=== PATIENT | female | born 1950 | race Caucasian/White ===

== ENCOUNTER 2017-06-12 15:54 | Inpatient (IN) | payer MEDICARE, MEDICAID ==
[2017-06-12 16:46] LABS: % BASOPHILS 0.8 % (0.0-2.0); % EOSINOPHILS 1.1 % (0.0-5.0); % LYMPHOCYTES 36.4 % (20.0-50.0); % MONOCYTES 7.4 % (2.0-10.0); % NEUTROPHILS 54.3 % (40.0-80.0); HEMOGLOBIN 14.3 gm/dL (11.7-16.1); MEAN CELL VOLUME 83.3 fl (81-100); MEAN CORPUSCULAR HGB CONC 33.6 pg (28.0-36.0); MEAN PLATELET VOLUME 9.8 fl; NEUTROPHILE ABSOLUTE 3.9 Th/cmm (1.8-8.0); PLATELET COUNT 159 Th/cmm (150-400); RED BLOOD COUNT 5.12 Mil/cmm (3.80-5.20); RED CELL DISTRIBUTION WIDTH 12.3 % (11.5-20.0)
[2017-06-12 16:59] LABS: HEMATOCRIT 42.7 % (35.0-45.0); WHITE BLOOD COUNT 7.3 Th/cmm (4.8-10.8)
--- NOTE | 2017-06-12 17:01 | ED Physician Chart ---
Chief Complaint/HPI - Patient Information Date Seen:: 06/12/17 Time Seen:: 16:20 Chief Complaint:: CONSTANT CRYING History of Present Illness:: THIS IS A CHRONICALLY ILL 67 YO FEMALE SENT FROM THE [facility] FOR MANAGEMENT OF HER PSYCHOSIS. SHE IS MENTALLY ILL WITH HYPERTENSION,SEIZURES, DEMENTIA AND ELEVATED LIPIDS. SHE HAS BEEN IN TREATMENT IN [facility] IN THE PAST. Allergies:: Allergies Allergy/AdvReac Type Severity Reaction Status Date / Time codeine Allergy Mild Verified 06/12/17 16:16 Penicillins Allergy Verified 06/12/17 16:17 Vitals:: Vital Signs - 8 hr 06/12/17 16:17 Temp 97.9 F HR 73 RR 19 BP 134/80 O2 Sat % 97 Historian:: EMS, Medical Records Review:: Nurse's Note Reviewed, Old Chart Reviewed, Transfer documents Reviewed Review of Systems - Review of Systems General/Constitutional: No fever, No chills, No weight loss, No weakness, No diaphoresis, No edema, No loss of appetite, Other (PT IS UNABLE TO GIVE A REVIEW OF SYSTEMS,) Skin: No skin lesions, No rash, No bruising Head: No headache, No light-headedness Eyes: No loss of vision, No pain, No diplopia ENT: No earache, No nasal drainage, No sore throat, No tinnitus Neck: No neck pain, No swelling, No thyromegaly, No stiffness, No mass noted Cardio Vascular: No chest pain, No palpitations, No PND, No orthopnea, No edema Pulmonary: No SOB, No cough, No sputum, No wheezing GI: No nausea, No vomiting, No diarrhea, No pain, No melena, No hematochezia, No constipation, No hematemesis G/U: No dysuria, No frequency, No hematuria Musculoskeletal: No bone or joint pain, No back pain, No muscle pain Endocrine: No polyuria, No polydipsia Psychiatric: No prior psych history, No depression, No anxiety, No suicidal ideation Hematopoietic: No bruising, No lymphadenopathy Allergic/Immuno: No urticaria, No angioedema Neurological: No syncope, No focal symptoms, No weakness, No paresthesia, No headache, No seizure, No dizziness, No confusion, No vertigo Past Medical History - Past Medical History Obtainable: No Past Medical History: HTN, CAD, Dyslipidemia, Renal stone, Arthritis, Dementia Family History: None Social History: Non Smoker, No Alcohol, No Drug Use Surgical History: None Psychiatricy History: Dementia Medication: Reviewed Family Medical History - Family Member Father History Unknown: Yes Ethnicity: Non- Living Status: Still Living Physical Exam - Physical Examination General/Constitutional: Awake, Well-developed, well-nourished, Alert, No distress, GCS 15, Non-toxic appearing, Ambulatory Other Gen/Cons comments:: COMBATIVE AND CRYING OUT CONSTANTLY Head: Atraumatic Eyes: Lids, conjuctiva normal, PERRL, EOMI Skin: Nl inspection, No rash, No skin lesions, No ecchymosis, Well hydrated, No lymphadenopathy ENMT: External ears, nose nl, Nasal exam nl, Lips, teeth, gums nl Neck: Nontender, Full ROM w/o pain, No JVD, No nuchal rigidity, No bruit, No mass, No stridor Respiratory: Nl effort/Exclusion, Clear to Auscultation, No Wheeze/Rhonchi/Rales Cardio Vascular: RRR, No murmur, gallop, rubs, NL S1 S2 GI: No tenderness/rebounding/guarding, No organomegaly, No hernia, Normal BS's, Nondistended, No mass/bruits, No McBurney tenderness : No CVA tenderness Extremities: No tenderness or effusion, Full ROM, normal strength in all extremities, No edema, Normal digits & nails Neuro/Psych: Alert/oriented, DTR's symmetric, Normal sensory exam, Normal motor strength, Normal gait, No focal deficits Other Neuro/Psych comments:: THIS PATIENT IS DISORIENTED AND UNCOOPERATIVE. Misc: normal gait, Normal back, No paraspinal tenderness Labs/Radiology/EKG Results - Lab Results Results: Abnormal Lab Results 06/12/17 16:35 WBC 7.3 D RBC 5.12 Hgb 14.3 Hct 42.7 D MCV 83.3 MCH 28.0 MCHC Differential 33.6 RDW 12.3 Plt Count 159 MPV 9.8 Neutrophils % 54.3 Lymphocytes % 36.4 Monocytes % 7.4 Eosinophils % 1.1 Basophils % 0.8 - Radiology Results Results: CHEST X-RAY = NAD - EKG Interpretations EKG Time:: 16:06 Rate & Rhythm: RATE=77 SINUS [place]: RIGHT Comments:: PREMATURE COMPLEX Assessment - Assessment General Assessment: PSYCHOSIS ED Septic Shock - . Is Septic Shock (SBP<90, OR Lactate>4 mmol\L) present?: No - <6hrs of presentation: Vital Signs: Vital Signs - 8 hr 06/12/17 16:17 Temp 97.9 F HR 73 RR 19 BP 134/80 O2 Sat % 97 Reassessment (Disposition) - Reassessment Reassessment Condition:: Unchanged - Diagnosis Diagnosis:: PSYCHOSIS - Patient Disposition Discharge/Transfer:: Acute Care w/in this hosp Admitting Medical Physician:: Michael Kendrick Admitting Psych Physician:: Jennifer Joseph Condition at Disposition:: Unchanged ED Discharge Plan - Patient Disposition Admit/Discharge/Transfer: Acute Care w/in this hosp Condition at Disposition: Unchanged Instructions: Psychosis
[2017-06-12 17:07] LABS: ALB/GLOB RATIO 1.4 (1.0-1.8); ALKALINE PHOSPHATASE 60 U/L (34-104); ANION GAP 9.3 (7.0-16.0); BILIRUBIN,TOTAL 0.3 mg/dL (0.3-1.0); BUN - UREA NITROGEN 24 mg/dL (7-25); BUN/CREATININE RATIO 34.3; CALCIUM SERUM 9.8 mg/dL (8.6-10.3); CARBON DIOXIDE 22.6 mEq/L (21.0-31.0); CHLORIDE 109 mEq/L (98-107); CREATININE - SERUM 0.7 mg/dL (0.6-1.2); GLUCOSE 109 mg/dL (70-105); POTASSIUM SERUM 3.9 mEq/L (3.5-5.1); SGOT 16 U/L (13-39); SGPT/ALT 13 U/L (7-52); SODIUM SERUM 137 mEq/L (136-145)
[2017-06-12 17:12] LABS: CHOLESTEROL 197 mg/dL (<200); TRIGLYCERIDES 113 mg/dL (<150)
[2017-06-12 17:38] LABS: URINE BILIRUBIN NEGATIVE (NEGATIVE); URINE BLOOD LARGE (NEGATIVE); URINE GLUCOSE (UA) NEGATIVE (NEGATIVE); URINE KETONE NEGATIVE (NEGATIVE); URINE PH 5.5 (4.6 - 8.0); URINE PROTEIN NEGATIVE (NEGATIVE); URINE UROBILINOGEN 0.2 E.U./dL (0.2 - 1.0)
[2017-06-12 17:45] LABS: INR 1.09 (0.5-1.4); PROTHROMBIN TIME (TEST) 11.3 SECONDS (9.5-11.5)
[2017-06-12 17:46] LABS: URINE COLOR YELLOW
[2017-06-12 17:47] LABS: URINE BACTERIA FEW /hpf (NONE SEEN); URINE EPITHELIAL CELLS FEW /lpf (FEW); URINE RBC 50-100 /hpf (0-5)
[2017-06-12] MEDS ORDERED: Magnesium Hydroxide (MOM) 30 mL UDC PO PRN (18:39)
--- NOTE | 2017-06-12 19:16 | History & Physical ---
ADMIT DATE: 06/12/2017 CHIEF COMPLAINT: Acute agitation. HISTORY OF PRESENT ILLNESS: The patient is a 67-year-old female with long history of hypertension, seizure disorder, cerebrovascular accident, hyperlipidemia, psychosis, a resident at [facility], transferred to the Emergency Room with acute psychosis, agitation, evaluated by the ER physician. Initial workup significant for urinary tract infection. The patient started on Rocephin 1 gram IM admitted to the hospital, admitted to Geropsych Department for continuation of medication and more evaluation. The patient is a poor historian. PAST MEDICAL HISTORY: Significant for hypertension, CVA, seizure disorder, hyperlipidemia, psychosis, dementia. PAST SURGICAL HISTORY: No recent surgery. ALLERGIES: None. MEDICATIONS: Follow admission reconciliation. SOCIAL HISTORY: No smoking, alcohol or drug use. FAMILY HISTORY: Noncontributory. REVIEW OF SYSTEMS: RENAL SYSTEM: No history of chronic renal disorder. CARDIOVASCULAR SYSTEM: No coronary artery disease. She has history of hypertension. ENDOCRINE SYSTEM: No diabetes or thyroid problem. GASTROINTESTINAL SYSTEM: No upper or lower extremity. NEUROLOGICAL: She has history of stroke with right-sided hemiplegia and seizure disorder. MUSCULOSKELETAL SYSTEM: Normal. She has weakness of the right side. HEMATOLOGIC SYSTEM: No bleeding tendencies. GENITOURINARY: Urinary tract infection. PHYSICAL EXAMINATION: GENERAL: She is awake, not coherent. VITAL SIGNS: Temperature is 97.9, heart rate 73, blood pressure is 134/80. HEENT: Normocephalic. Pupils reactive to light and accommodation. Sclerae clear. NECK: Supple. Negative for lymphadenopathy, JVD or bruit. CHEST: Bilateral normal. No rhonchi or wheezing. HEART: S1, S2 normal. No murmur or gallop. ABDOMEN: Soft. Bowel sounds positive. EXTREMITIES: No edema. NEUROLOGIC: Awake, not coherent. She has right-sided weakness. LABORATORY DATA: White blood cells 7.3, hemoglobin 14.2, hematocrit 42.7, and platelet is 159. Sodium 137, potassium 3.9, BUN is 24, creatinine 0.7. Urinalysis positive for 6-10 white blood cells in the urine. ASSESSMENT: 1.Urinary tract infection. 2.Hypertension. 3.Cerebrovascular accident. 4.Seizure disorder. 5.Psychosis. 6.Dementia. PLAN: The patient was admitted to the hospital under Dr. Joseph's service. MEDICAL PROBLEMS TO BE ADDRESSED DURING HOSPITALIZATION: Psychosis and urinary tract infection. PROBLEMS ADDRESSED AT DISCHARGE: Hypertension, seizure disorder, psychosis, dementia. The patient is medically stable for activity. Thank Dr. Joseph for asking me to see your patient. JOB# [id number]
[2017-06-12 19:35] VITALS: BP 130/78
[2017-06-12] MEDS ORDERED: Non-Formulary Item 1 EA (Melatonin [Melatonin] 3 MG) PO SCH (21:00)
[2017-06-12] MEDS: Atorvastatin Calcium 10 MG TAB PO SCH (21:52)
--- NOTE | 2017-06-13 09:51 | Diagnostic Imaging Report ---
Portable chest x-ray Time: 1635 History: Pain Allowing for portable technique the heart size is normal. No focal pulmonary parenchymal processes. No hilar or mediastinal abnormalities. Impression: No acute abnormalities.
[2017-06-13] MEDS: Multivitamin w/ Minerals Tab PO SCH (10:18)
--- NOTE | 2017-06-13 11:32 | Psychosocial Evaluation ---
DATE OF SERVICE: 06/13/2017 JUSTIFICATION FOR HOSPITALIZATION: Refusal care, constantly crying. CHIEF COMPLAINT: Decompensation. HISTORY OF PRESENT ILLNESS: This is a 67-year-old female who has been to this facility in the past, history of dementia as well as psychosis, refusal of care, decompensating at the custodial on [id number], the patient not answering, staring blankly, confused, disoriented, internally preoccupied. PAST PSYCHIATRIC HISTORY: Psych admissions, dementia. FAMILY HISTORY: Unknown. SOCIAL HISTORY: The patient requiring higher level of custodial care, beyond this I am not sure what her social circumstances are. MEDICATIONS: Reviewed. No side effects noted. MENTAL STATUS EXAMINATION: Stated age, fair eye contact, not talking to me, staring blankly, confused, disoriented. Unclear SI or HI, unclear psychotic symptoms, poor insight and judgment, poor impulse control. PROVISIONAL DIAGNOSES: Mood, unspecified; anxiety, unspecified; psychosis, unspecified; also dementia, possibly rule out pseudobulbar affect. MEDICAL: Please see full H and P. ESTIMATED LENGTH OF STAY: 5-7 days. ASSESSMENT: The patient requiring inpatient hospitalization, nonstop crying episodes __and still___ labile, refusing care, decompensating at the custodial. PLAN: We will restart medications and make appropriate adjustments. TREATMENT PLAN: Includes group as well as milieu therapy. CONDITIONS FOR DISCHARGE: Improved mood, improved affect, and better control of her mood symptoms. JOB# [id number] JESUS MANUEL
--- NOTE | 2017-06-13 16:32 | History & Physical ---
ADMIT DATE: 06/13/2017 CHIEF COMPLAINT: Confusion and agitation. HISTORY OF PRESENT ILLNESS: A 67-year-old male with past medical history significant for Alzheimer's disease and seizure disorder who presents from care home after being restless and having mood swings and crying fits. The patient is a poor historian. Denies any medical complaints. PAST MEDICAL HISTORY: The patient has history of Alzheimer's type dementia, seizure disorder, hypertension, hyperlipidemia. MEDICATIONS: As per reconciliation. ALLERGIES: THE PATIENT HAS ALLERGY TO PENICILLIN AND CODEINE. SOCIAL HISTORY: No known tobacco, alcohol or illicit drug use. FAMILY HISTORY: Noncontributory. REVIEW OF SYSTEMS: IMMUNOLOGIC: No recurrent infection. CARDIOVASCULAR: No known heart disease. GASTROINTESTINAL: No nausea, vomiting or diarrhea. ENDOCRINE: No diabetes or thyroid disorder. NEUROLOGIC: The patient has seizure disorder. HEMATOLOGIC: No bleeding or clotting disorder. PHYSICAL EXAMINATION: GENERAL: The patient is awake and alert, appears mildly agitated, in no distress. VITAL SIGNS: Temperature 97.6, pulse 65, respiration 18, blood pressure 102/67. HEENT: Pupils equally round. Anicteric sclerae. NECK: Supple, no JVD, mass or bruit. LUNGS: Clear to auscultation. HEART: S1, S2. Regular rate and rhythm. ABDOMEN: Soft and nontender. Positive bowel sounds. EXTREMITIES: No clubbing, cyanosis or edema. NEUROLOGIC: Generally weak, uncooperative. LABORATORY DATA: On admission is unremarkable except for glucose of 109. Urinalysis shows hematuria. IMPRESSION: 1. Alzheimer dementia. 2. Seizure disorder. 3. Hyperlipidemia. 4. Hypertension. 5. Degenerative joint disease. 6. Hematuria. PLAN: Continue current treatment. Continue patient's home medications. We will continue to monitor the patient. JOB# [id number]
[2017-06-13] MEDS: Atorvastatin Calcium 10 MG TAB PO SCH (21:33)
--- NOTE | 2017-06-13 22:39 | Admit Criteria Form ---
Admit Criteria Forms - Admit Criteria Diagnosis: PSYCHIATRIC DISORDERS (Place 'X' for any and all applicable criteria): Ongoing inpatient care may be needed for 1 or more of the following(1)(2)(3)(4)( 6)(7)(8): [ ]I. Danger to self or others not manageable at lower level of care. [ ]II. Grave disability (eg, inability to perform self care necessary at lower level of care) [ ]III. Agitation or inappropriate behavior interfering with care for primary condition (eg, attempting to discontinue lines or drains prematurely, unable to cooperate with respiratory care) [X ]IV. Severe disability or disorder indicated by ALL of the following: [X ]a) Severe behavioral health disorder-related symptoms or condition indicated by 1 or more of the following: [ ]i) Severe problem with cognition, memory, judgment, or impulse control [ X]ii) Severe clinical manifestations (eg, hallucinations , delusions, other acute psychotic symptoms, claudia, extreme agitation or anxiety) [X ]b) Patient management at lower level of care is not feasible until acute intervention or modification is initiated. Extended stay beyond goal length of stay for the primary condition may be needed until ALLof the following are present(1)(2)(3)(4)(7)48)(23): [ ]a) Danger to self or others is absent or manageable at lower level of care [ ]b) Behavior crisis management, including physical or chemical restraints, is required and is not available at a lower level of care. [ ]c) Behavioral symptoms (e.g., agitation, somnolence, inappropriate behavior) are present, and are not manageable at a lower level of care. [ ]d) Patient cannot understand follow-up treatment and crisis plan. [ ]e) Provider and supports are sufficiently available at lower level of care. [ ]f) Patient can participate (e.g., verify absence of plan for harm) and is in needed of monitoring. The original [facility] content created by [facility] has been revised. The portions of the content which have been revised are identified through the use of italic text or in bold, and [facility] has neither reviewed nor approved the modified material. All other unmodified content is copyright [facility]. Please see references footnoted in the original [facility] edition 2017 Admit Criteria Met?: Yes
[2017-06-14] MEDS: Multivitamin w/ Minerals Tab PO SCH (10:15)
--- NOTE | 2017-06-14 18:24 | General Progress Note ---
Subjective - Review of Systems Service Date: 06/14/17 Subjective: resting comfortably more calm and cooperative Objective - Results Result Diagrams: 06/12/17 16:35 06/12/17 16:35 Recent Labs: Laboratory Last Values WBC 7.3 Th/cmm (4.8-10.8) D 06/12/17 16:35 RBC 5.12 Mil/cmm (3.80-5.20) 06/12/17 16:35 Hgb 14.3 gm/dL (11.7-16.1) 06/12/17 16:35 Hct 42.7 % (35.0-45.0) D 06/12/17 16:35 MCV 83.3 fl (81-100) 06/12/17 16:35 MCH 28.0 pg (27.0-31.0) 06/12/17 16:35 MCHC Differential 33.6 pg (28.0-36.0) 06/12/17 16:35 RDW 12.3 % (11.5-20.0) 06/12/17 16:35 Plt Count 159 Th/cmm (150-400) 06/12/17 16:35 MPV 9.8 fl 06/12/17 16:35 Neutrophils % 54.3 % (40.0-80.0) 06/12/17 16:35 Lymphocytes % 36.4 % (20.0-50.0) 06/12/17 16:35 Monocytes % 7.4 % (2.0-10.0) 06/12/17 16:35 Eosinophils % 1.1 % (0.0-5.0) 06/12/17 16:35 Basophils % 0.8 % (0.0-2.0) 06/12/17 16:35 PT 11.3 SECONDS (9.5-11.5) 06/12/17 17:16 INR 1.09 (0.5-1.4) 06/12/17 17:16 Sodium 137 mEq/L (136-145) 06/12/17 16:35 Potassium 3.9 mEq/L (3.5-5.1) 06/12/17 16:35 Chloride 109 mEq/L (98-107) H 06/12/17 16:35 Carbon Dioxide 22.6 mEq/L (21.0-31.0) 06/12/17 16:35 Anion Gap 9.3 (7.0-16.0) 06/12/17 16:35 BUN 24 mg/dL (7-25) 06/12/17 16:35 Creatinine 0.7 mg/dL (0.6-1.2) 06/12/17 16:35 Est GFR ( Amer) > 60.0 ml/min (>90) 06/12/17 16:35 Est GFR (Non-Af Amer) > 60.0 ml/min 06/12/17 16:35 BUN/Creatinine Ratio 34.3 06/12/17 16:35 Glucose 109 mg/dL (70-105) H 06/12/17 16:35 Calcium 9.8 mg/dL (8.6-10.3) 06/12/17 16:35 Total Bilirubin 0.3 mg/dL (0.3-1.0) 06/12/17 16:35 AST 16 U/L (13-39) 06/12/17 16:35 ALT 13 U/L (7-52) 06/12/17 16:35 Alkaline Phosphatase 60 U/L (34-104) 06/12/17 16:35 Troponin I 0.02 ng/mL (0.01-0.05) 06/12/17 16:35 Total Protein 6.8 gm/dL (6.0-8.3) 06/12/17 16:35 Albumin 4.0 gm/dL (3.7-5.3) 06/12/17 16:35 Globulin 2.8 gm/dL 06/12/17 16:35 Albumin/Globulin Ratio 1.4 (1.0-1.8) 06/12/17 16:35 Triglycerides 113 mg/dL (<150) 06/12/17 16:35 Cholesterol 197 mg/dL (<200) 06/12/17 16:35 LDL Cholesterol Direct 139 mg/dL (75-193) 06/12/17 16:35 HDL Cholesterol 46 mg/dL (23-92) 06/12/17 16:35 TSH 1.09 uIU/ml (0.34-5.60) 06/12/17 16:35 Urine Source CLEAN C 06/12/17 17:30 Urine Color YELLOW 06/12/17 17:30 Urine Clarity SLIGHT CLOUDY (CLEAR) 06/12/17 17:30 Urine pH 5.5 (4.6 - 8.0) 06/12/17 17:30 Ur Specific [place] 1.025 (1.005-1.030) 06/12/17 17:30 Urine Protein NEGATIVE mg/dL (NEGATIVE) 06/12/17 17:30 Urine Glucose (UA) NEGATIVE mg/dL (NEGATIVE) 06/12/17 17:30 Urine Ketones NEGATIVE mg/dL (NEGATIVE) 06/12/17 17:30 Urine Blood LARGE (NEGATIVE) H 06/12/17 17:30 Urine Nitrate NEGATIVE (NEGATIVE) 06/12/17 17:30 Urine Bilirubin NEGATIVE (NEGATIVE) 06/12/17 17:30 Urine Urobilinogen 0.2 E.U./dL (0.2 - 1.0) 06/12/17 17:30 Ur Leukocyte Esterase TRACE (NEGATIVE) H 06/12/17 17:30 Urine RBC 50-100 /hpf (0-5) H 06/12/17 17:30 Urine WBC 6-10 /hpf (0-5) H 06/12/17 17:30 Ur Epithelial Cells FEW /lpf (FEW) 06/12/17 17:30 Urine Bacteria FEW /hpf (NONE SEEN) 06/12/17 17:30 Urine Mucus FEW /lpf (FEW) 06/12/17 17:30 Phenytoin < 2.5 ug/ml (10.0-20.0) L 06/12/17 16:35 RPR NONREACTIVE (NONREACTIVE) 06/12/17 16:35 - Physical Exam Vitals and I&O: Vital Signs Temp 98.2 F 06/14/17 16:19 Pulse 68 06/14/17 16:19 Resp 18 06/14/17 16:19 BP 108/61 06/14/17 16:19 Pulse Ox 96 06/14/17 16:19 Intake & Output 06/13/17 06/14/17 06/14/17 18:59 06:59 18:59 Intake Total 400 120 Balance 400 120 Intake: Oral 400 120 Other: # Voids 2 1 # Bowel Movements 1 Stool Characteristics Formed Soft Active Medications: Current Medications Acetaminophen (Tylenol) 650 mg PO Q4HR PRN PRN Reason: Pain Stop: 08/11/17 18:36 Atorvastatin Calcium (Lipitor) 10 mg PO HS [facility] PRN Reason: Protocol Stop: 08/11/17 20:59 Last Admin: 06/13/17 21:33 Dose: 10 mg Carvedilol (Coreg) 12.5 mg PO DAILY ARTEM Stop: 08/12/17 08:59 Last Admin: 06/14/17 10:13 Dose: 12.5 mg Ceftriaxone Sodium (Rocephin) 1 gm IM Q24HR ARTEM Stop: 08/12/17 08:59 Last Admin: 06/14/17 10:19 Dose: 1 gm Divalproex Sodium (Depakote Sprinkle) 250 mg PO BID ARTEM PRN Reason: Protocol Stop: 08/12/17 08:59 Last Admin: 06/14/17 14:19 Dose: Not Given Docusate Sodium (Colace) 100 mg PO BID [facility] Stop: 08/12/17 08:59 Last Admin: 06/14/17 14:19 Dose: Not Given Donepezil HCl (Aricept) 5 mg PO HS [facility] Stop: 08/12/17 20:59 Last Admin: 06/13/17 21:34 Dose: 5 mg Enalapril Maleate (Vasotec) 2.5 mg PO DAILY ARTEM Stop: 08/12/17 08:59 Last Admin: 06/14/17 10:14 Dose: 2.5 mg Fenofibrate (Tricor) 145 mg PO HS [facility] Stop: 08/11/17 20:59 Levetiracetam (Keppra) 500 mg PO BID ARTEM Stop: 08/12/17 08:59 Last Admin: 06/14/17 10:15 Dose: 500 mg Lorazepam (Ativan) 0.5 mg PO Q4HR PRN; Protocol PRN Reason: Agitation Stop: 07/13/17 06:53 Last Admin: 06/14/17 10:13 Dose: 0.5 mg Magnesium Hydroxide (Milk Of Magnesia) 30 ml PO DAILY PRN PRN Reason: Constipation Stop: 08/11/17 18:38 Miscellaneous (Melatonin [Melatonin]) 3 mg PO HS [facility] Stop: 08/11/17 20:59 Phenytoin (Dilantin) 100 mg PO BID ARTEM Stop: 08/12/17 08:59 Last Admin: 06/14/17 10:13 Dose: 100 mg Zolpidem Tartrate (Ambien) 5 mg PO HSMR1 PRN PRN Reason: Insomnia Stop: 08/12/17 06:53 General: No acute distress HEENT: PERRLA Neck: Supple Cardiovascular: Regular rate, Normal S1, Normal S2 Lungs: Clear to auscultation Abdomen: Bowel sounds, Soft Psych/Mental Status: Mood NL - Procedures Procedures: Procedures Procedure Code Date GROUP PSYCHOTHERAPY 27204 01/22/16 GROUP PSYCHOTHERAPY [id number] 01/22/16 OTHER GROUP THERAPY 94.44 11/24/13 Assessment/Plan - Problem List Patient Problems: All Active Problems CRYING AND UNCOOPERATIVE WITH CARE (Acute) CHF (Active) Dysphagia (Active) R13.10 Gastritis (Active) K29.70 S/P PEG tube placement (Active) cardiomegaly (Active) generalized muscle weakness (Active) hiatal hernia (Active) history of CVA (Active) hyperlipidemia (Active) vascular dementia (Active) Agitation (Acute) R45.1 Depression (Acute) F32.9 Hypertension (Acute) I10 Mental health problem (Acute) F48.9 - Assessment Assessment: dementia sz d/o htn djd hyperlipidemia - Plan Plan: cont current treatment
--- NOTE | 2017-06-14 20:20 | Progress Notes ---
DATE: 06/14/2017 SUBJECTIVE: The patient was seen, chart reviewed, and discussed with staff. The patient with history of dementia, psychosis, refusal of care, decompensation at the care home. The patient is not answering, staring blankly, confused, disoriented, internally preoccupied, selectively mute at times, not talking to me this morning . Noted to be irritable. Medications were reviewed. Labs were reviewed. ASSESSMENT: The patient remains symptomatic, not safe for discharge, guarded, irritable, still with behavioral disturbances that are concerning. We will continue to monitor given recent dose initiation and continuations. We will monitor and likely increase to the next few days. [facility]# [id number]
[2017-06-14] MEDS: Atorvastatin Calcium 10 MG TAB PO SCH (21:20)
[2017-06-15 07:02] LABS: % BASOPHILS 0.9 % (0.0-2.0); % MONOCYTES 8.5 % (2.0-10.0); % NEUTROPHILS 44.6 % (40.0-80.0); HEMATOCRIT 40.2 % (35.0-45.0); HEMOGLOBIN 13.5 gm/dL (11.7-16.1); MEAN CELL VOLUME 84.5 fl (81-100); MEAN CORPUSCULAR HEMOGLOBIN 28.4 pg (27.0-31.0); MEAN CORPUSCULAR HGB CONC 33.6 pg (28.0-36.0); MEAN PLATELET VOLUME 9.9 fl; NEUTROPHILE ABSOLUTE 2.6 Th/cmm (1.8-8.0); PLATELET COUNT 156 Th/cmm (150-400); RED BLOOD COUNT 4.75 Mil/cmm (3.80-5.20); RED CELL DISTRIBUTION WIDTH 12.3 % (11.5-20.0); WHITE BLOOD COUNT 5.9 Th/cmm (4.8-10.8)
[2017-06-15 07:19] LABS: ANION GAP 10.1 (7.0-16.0); BUN - UREA NITROGEN 22 mg/dL (7-25); BUN/CREATININE RATIO 31.4; CALCIUM SERUM 9.2 mg/dL (8.6-10.3); CARBON DIOXIDE 22.6 mEq/L (21.0-31.0); CHLORIDE 108 mEq/L (98-107); CREATININE - SERUM 0.7 mg/dL (0.6-1.2); GLUCOSE 108 mg/dL (70-105); POTASSIUM SERUM 4.7 mEq/L (3.5-5.1); SODIUM SERUM 136 mEq/L (136-145)
[2017-06-15] MEDS: Multivitamin w/ Minerals Tab PO SCH (08:39)
--- NOTE | 2017-06-15 19:57 | Internal Medicine Prog Note ---
Internal Medicine Subjective - Subjective Service Date: 06/15/17 Patient seen and examined:: without staff Patient is:: non-verbal, in bed Per staff patient has:: no adverse event Internal Medicine Objective - Results Result Diagrams: 06/15/17 06:45 06/15/17 06:45 Recent Labs: Laboratory Last Values WBC 5.9 Th/cmm (4.8-10.8) 06/15/17 06:45 RBC 4.75 Mil/cmm (3.80-5.20) 06/15/17 06:45 Hgb 13.5 gm/dL (11.7-16.1) 06/15/17 06:45 Hct 40.2 % (35.0-45.0) 06/15/17 06:45 MCV 84.5 fl (81-100) 06/15/17 06:45 MCH 28.4 pg (27.0-31.0) 06/15/17 06:45 MCHC Differential 33.6 pg (28.0-36.0) 06/15/17 06:45 RDW 12.3 % (11.5-20.0) 06/15/17 06:45 Plt Count 156 Th/cmm (150-400) 06/15/17 06:45 MPV 9.9 fl 06/15/17 06:45 Neutrophils % 44.6 % (40.0-80.0) 06/15/17 06:45 Lymphocytes % 44.0 % (20.0-50.0) 06/15/17 06:45 Monocytes % 8.5 % (2.0-10.0) 06/15/17 06:45 Eosinophils % 2.0 % (0.0-5.0) 06/15/17 06:45 Basophils % 0.9 % (0.0-2.0) 06/15/17 06:45 PT 11.3 SECONDS (9.5-11.5) 06/12/17 17:16 INR 1.09 (0.5-1.4) 06/12/17 17:16 Sodium 136 mEq/L (136-145) 06/15/17 06:45 Potassium 4.7 mEq/L (3.5-5.1) 06/15/17 06:45 Chloride 108 mEq/L (98-107) H 06/15/17 06:45 Carbon Dioxide 22.6 mEq/L (21.0-31.0) 06/15/17 06:45 Anion Gap 10.1 (7.0-16.0) 06/15/17 06:45 BUN 22 mg/dL (7-25) 06/15/17 06:45 Creatinine 0.7 mg/dL (0.6-1.2) 06/15/17 06:45 Est GFR ( Amer) > 60.0 ml/min (>90) 06/15/17 06:45 Est GFR (Non-Af Amer) > 60.0 ml/min 06/15/17 06:45 BUN/Creatinine Ratio 31.4 06/15/17 06:45 Glucose 108 mg/dL (70-105) H 06/15/17 06:45 Calcium 9.2 mg/dL (8.6-10.3) 06/15/17 06:45 Total Bilirubin 0.3 mg/dL (0.3-1.0) 06/12/17 16:35 AST 16 U/L (13-39) 06/12/17 16:35 ALT 13 U/L (7-52) 06/12/17 16:35 Alkaline Phosphatase 60 U/L (34-104) 06/12/17 16:35 Troponin I 0.02 ng/mL (0.01-0.05) 06/12/17 16:35 Total Protein 6.8 gm/dL (6.0-8.3) 06/12/17 16:35 Albumin 4.0 gm/dL (3.7-5.3) 06/12/17 16:35 Globulin 2.8 gm/dL 06/12/17 16:35 Albumin/Globulin Ratio 1.4 (1.0-1.8) 06/12/17 16:35 Triglycerides 113 mg/dL (<150) 06/12/17 16:35 Cholesterol 197 mg/dL (<200) 06/12/17 16:35 LDL Cholesterol Direct 139 mg/dL (75-193) 06/12/17 16:35 HDL Cholesterol 46 mg/dL (23-92) 06/12/17 16:35 TSH 1.09 uIU/ml (0.34-5.60) 06/12/17 16:35 Urine Source CLEAN C 06/12/17 17:30 Urine Color YELLOW 06/12/17 17:30 Urine Clarity SLIGHT CLOUDY (CLEAR) 06/12/17 17:30 Urine pH 5.5 (4.6 - 8.0) 06/12/17 17:30 Ur Specific [place] 1.025 (1.005-1.030) 06/12/17 17:30 Urine Protein NEGATIVE mg/dL (NEGATIVE) 06/12/17 17:30 Urine Glucose (UA) NEGATIVE mg/dL (NEGATIVE) 06/12/17 17:30 Urine Ketones NEGATIVE mg/dL (NEGATIVE) 06/12/17 17:30 Urine Blood LARGE (NEGATIVE) H 06/12/17 17:30 Urine Nitrate NEGATIVE (NEGATIVE) 06/12/17 17:30 Urine Bilirubin NEGATIVE (NEGATIVE) 06/12/17 17:30 Urine Urobilinogen 0.2 E.U./dL (0.2 - 1.0) 06/12/17 17:30 Ur Leukocyte Esterase TRACE (NEGATIVE) H 06/12/17 17:30 Urine RBC 50-100 /hpf (0-5) H 06/12/17 17:30 Urine WBC 6-10 /hpf (0-5) H 06/12/17 17:30 Ur Epithelial Cells FEW /lpf (FEW) 06/12/17 17:30 Urine Bacteria FEW /hpf (NONE SEEN) 06/12/17 17:30 Urine Mucus FEW /lpf (FEW) 06/12/17 17:30 Phenytoin < 2.5 ug/ml (10.0-20.0) L 06/12/17 16:35 RPR NONREACTIVE (NONREACTIVE) 06/12/17 16:35 - Physical Exam Vitals and I&O: Vital Signs Temp 97.4 F 06/15/17 15:43 Pulse 72 06/15/17 15:43 Resp 20 06/15/17 15:43 BP 122/67 06/15/17 15:43 Pulse Ox 97 06/15/17 15:43 Intake & Output 06/15/17 06/15/17 06/16/17 06:59 18:59 06:59 Intake Total 120 Balance 120 Weight (lbs) 74.843 kg Intake: Oral 120 Other: # Voids 3 # Bowel Movements 0 Active Medications: Current Medications Acetaminophen (Tylenol) 650 mg PO Q4HR PRN PRN Reason: Pain Stop: 08/11/17 18:36 Atorvastatin Calcium (Lipitor) 10 mg PO HS [facility]EM PRN Reason: Protocol Stop: 08/11/17 20:59 Last Admin: 06/14/17 21:20 Dose: 10 mg Carvedilol (Coreg) 12.5 mg PO DAILY [facility] Stop: 08/12/17 08:59 Last Admin: 06/15/17 08:37 Dose: Not Given Ceftriaxone Sodium (Rocephin) 1 gm IM Q24HR ARTEM Stop: 08/12/17 08:59 Last Admin: 06/15/17 08:59 Dose: Not Given Divalproex Sodium (Depakote Sprinkle) 250 mg PO BID [facility] PRN Reason: Protocol Stop: 08/12/17 08:59 Last Admin: 06/15/17 18:21 Dose: Not Given Docusate Sodium (Colace) 100 mg PO BID [facility] Stop: 08/12/17 08:59 Last Admin: 06/15/17 18:21 Dose: Not Given Donepezil HCl (Aricept) 5 mg PO HS [facility] Stop: 08/12/17 20:59 Last Admin: 06/14/17 21:20 Dose: 5 mg Enalapril Maleate (Vasotec) 2.5 mg PO DAILY [facility]EM Stop: 08/12/17 08:59 Last Admin: 06/15/17 08:38 Dose: Not Given Escitalopram Oxalate (Lexapro) 5 mg PO DAILY [facility] PRN Reason: Protocol Stop: 08/15/17 08:59 Fenofibrate (Tricor) 145 mg PO HS [facility] Stop: 08/14/17 20:59 Levetiracetam (Keppra) 500 mg PO BID [facility] Stop: 08/12/17 08:59 Last Admin: 06/15/17 18:21 Dose: Not Given Lorazepam (Ativan) 0.5 mg PO Q4HR PRN; Protocol PRN Reason: Agitation Stop: 07/13/17 06:53 Last Admin: 06/14/17 10:13 Dose: 0.5 mg Magnesium Hydroxide (Milk Of Magnesia) 30 ml PO DAILY PRN PRN Reason: Constipation Stop: 08/11/17 18:38 Phenytoin (Dilantin) 100 mg PO BID [facility] Stop: 08/12/17 08:59 Last Admin: 06/15/17 18:21 Dose: Not Given Zolpidem Tartrate (Ambien) 5 mg PO HSMR1 PRN PRN Reason: Insomnia Stop: 08/12/17 06:53 General: weak, thin HEENT: NC/AT, PERRLA, EOMI Neck: Supple, No JVD, No thyromegaly, No LAD Lungs: CTAB Cardiovascular: RRR, Normal S1, Normal S2, without murmur Abdomen: soft, non-tender Extremities: clear, edema Neurological: no change - Procedures Procedures: Procedures Procedure Code Date GROUP PSYCHOTHERAPY 97701 01/22/16 GROUP PSYCHOTHERAPY GZHZZZZ 01/22/16 OTHER GROUP THERAPY 94.44 11/24/13 Internal Medicine Assmt/Plan - Assessment Assessment: 1.UTI 2.CVA. 3.SEIZURE DISORDER. 4.DEMENTIA. - Plan Plan: CONTINUE ON CURRENT MEDICATION AND DIET.
[2017-06-15] MEDS: Fenofibrate, Micronized 134 mg Cap PO SCH (21:20)
[2017-06-15] MEDS: Atorvastatin Calcium 10 MG TAB PO SCH ×2 (21:21→21:32)
--- NOTE | 2017-06-16 00:02 | Progress Notes ---
DATE: 06/15/2017 SUBJECTIVE: Case was discussed with staff of the patient, reviewed records. This is a 67-year-old female who is a well known patient, I have been seeing her at [facility], who was readmitted on 06/12/2017 because of depression, agitation, continues to be unpredictable, impulsive, needing redirection. She has been on Depakote 250 mg twice a day and Aricept 5 mg at bedtime, and she is still crying unpredictable, impulsive, needing redirection. Continues to have poor insight, unable to make safe plan for self-care. I will be initiating her on Lexapro, which she used to be own before and discussed side effects. I will continue to work with the patient in group therapy, milieu therapy, adjust the medication as needed. JOB# [id number]
[2017-06-16] MEDS: Escitalopram Oxalate 5 mg Tab PO SCH (08:43)
[2017-06-16] MEDS: Multivitamin w/ Minerals Tab PO SCH ×2 (08:43→08:58)
--- NOTE | 2017-06-16 20:37 | Internal Medicine Prog Note ---
Internal Medicine Subjective - Subjective Service Date: 06/16/17 Patient seen and examined:: without staff Patient is:: non-verbal, in bed Per staff patient has:: no adverse event Internal Medicine Objective - Results Result Diagrams: 06/15/17 06:45 06/15/17 06:45 Recent Labs: Laboratory Last Values WBC 5.9 Th/cmm (4.8-10.8) 06/15/17 06:45 RBC 4.75 Mil/cmm (3.80-5.20) 06/15/17 06:45 Hgb 13.5 gm/dL (11.7-16.1) 06/15/17 06:45 Hct 40.2 % (35.0-45.0) 06/15/17 06:45 MCV 84.5 fl (81-100) 06/15/17 06:45 MCH 28.4 pg (27.0-31.0) 06/15/17 06:45 MCHC Differential 33.6 pg (28.0-36.0) 06/15/17 06:45 RDW 12.3 % (11.5-20.0) 06/15/17 06:45 Plt Count 156 Th/cmm (150-400) 06/15/17 06:45 MPV 9.9 fl 06/15/17 06:45 Neutrophils % 44.6 % (40.0-80.0) 06/15/17 06:45 Lymphocytes % 44.0 % (20.0-50.0) 06/15/17 06:45 Monocytes % 8.5 % (2.0-10.0) 06/15/17 06:45 Eosinophils % 2.0 % (0.0-5.0) 06/15/17 06:45 Basophils % 0.9 % (0.0-2.0) 06/15/17 06:45 PT 11.3 SECONDS (9.5-11.5) 06/12/17 17:16 INR 1.09 (0.5-1.4) 06/12/17 17:16 Sodium 136 mEq/L (136-145) 06/15/17 06:45 Potassium 4.7 mEq/L (3.5-5.1) 06/15/17 06:45 Chloride 108 mEq/L (98-107) H 06/15/17 06:45 Carbon Dioxide 22.6 mEq/L (21.0-31.0) 06/15/17 06:45 Anion Gap 10.1 (7.0-16.0) 06/15/17 06:45 BUN 22 mg/dL (7-25) 06/15/17 06:45 Creatinine 0.7 mg/dL (0.6-1.2) 06/15/17 06:45 Est GFR ( Amer) > 60.0 ml/min (>90) 06/15/17 06:45 Est GFR (Non-Af Amer) > 60.0 ml/min 06/15/17 06:45 BUN/Creatinine Ratio 31.4 06/15/17 06:45 Glucose 108 mg/dL (70-105) H 06/15/17 06:45 Calcium 9.2 mg/dL (8.6-10.3) 06/15/17 06:45 Total Bilirubin 0.3 mg/dL (0.3-1.0) 06/12/17 16:35 AST 16 U/L (13-39) 06/12/17 16:35 ALT 13 U/L (7-52) 06/12/17 16:35 Alkaline Phosphatase 60 U/L (34-104) 06/12/17 16:35 Troponin I 0.02 ng/mL (0.01-0.05) 06/12/17 16:35 Total Protein 6.8 gm/dL (6.0-8.3) 06/12/17 16:35 Albumin 4.0 gm/dL (3.7-5.3) 06/12/17 16:35 Globulin 2.8 gm/dL 06/12/17 16:35 Albumin/Globulin Ratio 1.4 (1.0-1.8) 06/12/17 16:35 Triglycerides 113 mg/dL (<150) 06/12/17 16:35 Cholesterol 197 mg/dL (<200) 06/12/17 16:35 LDL Cholesterol Direct 139 mg/dL (75-193) 06/12/17 16:35 HDL Cholesterol 46 mg/dL (23-92) 06/12/17 16:35 TSH 1.09 uIU/ml (0.34-5.60) 06/12/17 16:35 Urine Source CLEAN C 06/12/17 17:30 Urine Color YELLOW 06/12/17 17:30 Urine Clarity SLIGHT CLOUDY (CLEAR) 06/12/17 17:30 Urine pH 5.5 (4.6 - 8.0) 06/12/17 17:30 Ur Specific [place] 1.025 (1.005-1.030) 06/12/17 17:30 Urine Protein NEGATIVE mg/dL (NEGATIVE) 06/12/17 17:30 Urine Glucose (UA) NEGATIVE mg/dL (NEGATIVE) 06/12/17 17:30 Urine Ketones NEGATIVE mg/dL (NEGATIVE) 06/12/17 17:30 Urine Blood LARGE (NEGATIVE) H 06/12/17 17:30 Urine Nitrate NEGATIVE (NEGATIVE) 06/12/17 17:30 Urine Bilirubin NEGATIVE (NEGATIVE) 06/12/17 17:30 Urine Urobilinogen 0.2 E.U./dL (0.2 - 1.0) 06/12/17 17:30 Ur Leukocyte Esterase TRACE (NEGATIVE) H 06/12/17 17:30 Urine RBC 50-100 /hpf (0-5) H 06/12/17 17:30 Urine WBC 6-10 /hpf (0-5) H 06/12/17 17:30 Ur Epithelial Cells FEW /lpf (FEW) 06/12/17 17:30 Urine Bacteria FEW /hpf (NONE SEEN) 06/12/17 17:30 Urine Mucus FEW /lpf (FEW) 06/12/17 17:30 Phenytoin < 2.5 ug/ml (10.0-20.0) L 06/12/17 16:35 RPR NONREACTIVE (NONREACTIVE) 06/12/17 16:35 - Physical Exam Vitals and I&O: Vital Signs Temp 98 F 06/16/17 14:00 Pulse 66 06/16/17 14:00 Resp 19 06/16/17 14:00 BP 128/67 06/16/17 14:00 Pulse Ox 98 06/16/17 14:00 Intake & Output 06/16/17 06/16/17 06/17/17 06:59 18:59 06:59 Intake Total 120 2320 Balance 120 2320 Intake: Oral 120 2320 Other: # Voids 1 4 # Bowel Movements 0 Active Medications: Current Medications Acetaminophen (Tylenol) 650 mg PO Q4HR PRN PRN Reason: Pain Stop: 08/11/17 18:36 Atorvastatin Calcium (Lipitor) 10 mg PO HS [facility] PRN Reason: Protocol Stop: 08/11/17 20:59 Last Admin: 06/15/17 21:32 Dose: Not Given Carvedilol (Coreg) 12.5 mg PO DAILY [facility] Stop: 08/12/17 08:59 Last Admin: 06/16/17 08:43 Dose: Not Given Ceftriaxone Sodium (Rocephin) 1 gm IM Q24HR [facility] Stop: 08/12/17 08:59 Last Admin: 06/16/17 08:55 Dose: Not Given Divalproex Sodium (Depakote Sprinkle) 250 mg PO BID [facility] PRN Reason: Protocol Stop: 08/12/17 08:59 Last Admin: 06/16/17 16:14 Dose: Not Given Docusate Sodium (Colace) 100 mg PO BID [facility] Stop: 08/12/17 08:59 Last Admin: 06/16/17 16:14 Dose: Not Given Donepezil HCl (Aricept) 5 mg PO HS [facility] Stop: 08/12/17 20:59 Last Admin: 06/15/17 21:32 Dose: Not Given Enalapril Maleate (Vasotec) 2.5 mg PO DAILY [facility]EM Stop: 08/12/17 08:59 Last Admin: 06/16/17 08:44 Dose: Not Given Escitalopram Oxalate (Lexapro) 5 mg PO DAILY [facility] PRN Reason: Protocol Stop: 08/15/17 08:59 Last Admin: 06/16/17 08:43 Dose: Not Given Fenofibrate (Tricor) 145 mg PO HS [facility] Stop: 08/14/17 20:59 Last Admin: 06/15/17 21:20 Dose: Not Given Levetiracetam (Keppra) 500 mg PO BID [facility] Stop: 08/12/17 08:59 Last Admin: 06/16/17 16:14 Dose: Not Given Lorazepam (Ativan) 0.5 mg PO Q4HR PRN; Protocol PRN Reason: Agitation Stop: 07/13/17 06:53 Last Admin: 06/14/17 10:13 Dose: 0.5 mg Magnesium Hydroxide (Milk Of Magnesia) 30 ml PO DAILY PRN PRN Reason: Constipation Stop: 08/11/17 18:38 Phenytoin (Dilantin) 100 mg PO BID [facility] Stop: 08/12/17 08:59 Last Admin: 06/16/17 16:14 Dose: Not Given Zolpidem Tartrate (Ambien) 5 mg PO HSMR1 PRN PRN Reason: Insomnia Stop: 08/12/17 06:53 General: weak, thin HEENT: NC/AT, PERRLA, EOMI Neck: Supple, No JVD, No thyromegaly, No LAD Lungs: CTAB Cardiovascular: RRR, Normal S1, Normal S2, without murmur Abdomen: soft, non-tender Extremities: clear, edema Neurological: no change - Procedures Procedures: Procedures Procedure Code Date GROUP PSYCHOTHERAPY 33170 01/22/16 GROUP PSYCHOTHERAPY GZHZZZZ 01/22/16 OTHER GROUP THERAPY 94.44 11/24/13 Internal Medicine Assmt/Plan - Assessment Assessment: 1.UTI 2.CVA. 3.SEIZURE DISORDER. 4.DEMENTIA. - Plan Plan: CONTINUE ON CURRENT MEDICATION AND DIET.
[2017-06-16] MEDS: Fenofibrate, Micronized 134 mg Cap PO SCH (20:40)
[2017-06-16] MEDS: Atorvastatin Calcium 10 MG TAB PO SCH (20:40)
--- NOTE | 2017-06-16 22:43 | Progress Notes ---
DATE: 06/16/2017 Case was discussed with staff of the patient, reviewed records. The patient continues to isolate herself. Continues to decline, asking for help. Continues to be unpredictable, impulsive, and overwhelmed. The staff observed that she tends to have sundowning. She gets worse in the evening and she was started on Aricept 5 mg at bedtime and was initiated on Lexapro yesterday, waiting for more effects from the medications too early to adjust it and so far no side effects with the medication, no sedation, no nausea, and we will continue to work with the patient in group therapy, milieu therapy, and adjust medication as needed. JOB# [id number]
[2017-06-17] MEDS: Multivitamin w/ Minerals Tab PO SCH (08:08)
[2017-06-17] MEDS: Escitalopram Oxalate 5 mg Tab PO SCH (08:08)
[2017-06-17] MEDS: Atorvastatin Calcium 10 MG TAB PO SCH (20:50)
--- NOTE | 2017-06-17 21:48 | Progress Notes ---
DATE: 06/17/2017 SUBJECTIVE: Case was discussed with staff of the patient, reviewed records. The patient has refused her medications yesterday in the morning and at night and same on Thursday. I talked to her this morning, she was pleasant, cooperative. She patted me on my cheeks and I asked her if she would take her medications, she smiled, which I think she meant she will take them so I did I tried to ask her what medication she will take, if she does not like this medication, or what is the reason she won't take her medications, but she would not give me any specific answers, so we will try to give her medication as she acted like she would take it as she nodded her head and so far no side effects with the medication. We will continue to work with the patient in group therapy, milieu therapy, and adjust medications as needed. JOB# [id number]
--- NOTE | 2017-06-17 21:54 | Internal Medicine Prog Note ---
Internal Medicine Subjective - Subjective Service Date: 06/17/17 Patient seen and examined:: with staff Patient is:: non-verbal, in bed Per staff patient has:: no adverse event Internal Medicine Objective - Results Result Diagrams: 06/15/17 06:45 06/15/17 06:45 Recent Labs: Laboratory Last Values WBC 5.9 Th/cmm (4.8-10.8) 06/15/17 06:45 RBC 4.75 Mil/cmm (3.80-5.20) 06/15/17 06:45 Hgb 13.5 gm/dL (11.7-16.1) 06/15/17 06:45 Hct 40.2 % (35.0-45.0) 06/15/17 06:45 MCV 84.5 fl (81-100) 06/15/17 06:45 MCH 28.4 pg (27.0-31.0) 06/15/17 06:45 MCHC Differential 33.6 pg (28.0-36.0) 06/15/17 06:45 RDW 12.3 % (11.5-20.0) 06/15/17 06:45 Plt Count 156 Th/cmm (150-400) 06/15/17 06:45 MPV 9.9 fl 06/15/17 06:45 Neutrophils % 44.6 % (40.0-80.0) 06/15/17 06:45 Lymphocytes % 44.0 % (20.0-50.0) 06/15/17 06:45 Monocytes % 8.5 % (2.0-10.0) 06/15/17 06:45 Eosinophils % 2.0 % (0.0-5.0) 06/15/17 06:45 Basophils % 0.9 % (0.0-2.0) 06/15/17 06:45 PT 11.3 SECONDS (9.5-11.5) 06/12/17 17:16 INR 1.09 (0.5-1.4) 06/12/17 17:16 Sodium 136 mEq/L (136-145) 06/15/17 06:45 Potassium 4.7 mEq/L (3.5-5.1) 06/15/17 06:45 Chloride 108 mEq/L (98-107) H 06/15/17 06:45 Carbon Dioxide 22.6 mEq/L (21.0-31.0) 06/15/17 06:45 Anion Gap 10.1 (7.0-16.0) 06/15/17 06:45 BUN 22 mg/dL (7-25) 06/15/17 06:45 Creatinine 0.7 mg/dL (0.6-1.2) 06/15/17 06:45 Est GFR ( Amer) > 60.0 ml/min (>90) 06/15/17 06:45 Est GFR (Non-Af Amer) > 60.0 ml/min 06/15/17 06:45 BUN/Creatinine Ratio 31.4 06/15/17 06:45 Glucose 108 mg/dL (70-105) H 06/15/17 06:45 Calcium 9.2 mg/dL (8.6-10.3) 06/15/17 06:45 Total Bilirubin 0.3 mg/dL (0.3-1.0) 06/12/17 16:35 AST 16 U/L (13-39) 06/12/17 16:35 ALT 13 U/L (7-52) 06/12/17 16:35 Alkaline Phosphatase 60 U/L (34-104) 06/12/17 16:35 Troponin I 0.02 ng/mL (0.01-0.05) 06/12/17 16:35 Total Protein 6.8 gm/dL (6.0-8.3) 06/12/17 16:35 Albumin 4.0 gm/dL (3.7-5.3) 06/12/17 16:35 Globulin 2.8 gm/dL 06/12/17 16:35 Albumin/Globulin Ratio 1.4 (1.0-1.8) 06/12/17 16:35 Triglycerides 113 mg/dL (<150) 06/12/17 16:35 Cholesterol 197 mg/dL (<200) 06/12/17 16:35 LDL Cholesterol Direct 139 mg/dL (75-193) 06/12/17 16:35 HDL Cholesterol 46 mg/dL (23-92) 06/12/17 16:35 TSH 1.09 uIU/ml (0.34-5.60) 06/12/17 16:35 Urine Source CLEAN C 06/12/17 17:30 Urine Color YELLOW 06/12/17 17:30 Urine Clarity SLIGHT CLOUDY (CLEAR) 06/12/17 17:30 Urine pH 5.5 (4.6 - 8.0) 06/12/17 17:30 Ur Specific [place] 1.025 (1.005-1.030) 06/12/17 17:30 Urine Protein NEGATIVE mg/dL (NEGATIVE) 06/12/17 17:30 Urine Glucose (UA) NEGATIVE mg/dL (NEGATIVE) 06/12/17 17:30 Urine Ketones NEGATIVE mg/dL (NEGATIVE) 06/12/17 17:30 Urine Blood LARGE (NEGATIVE) H 06/12/17 17:30 Urine Nitrate NEGATIVE (NEGATIVE) 06/12/17 17:30 Urine Bilirubin NEGATIVE (NEGATIVE) 06/12/17 17:30 Urine Urobilinogen 0.2 E.U./dL (0.2 - 1.0) 06/12/17 17:30 Ur Leukocyte Esterase TRACE (NEGATIVE) H 06/12/17 17:30 Urine RBC 50-100 /hpf (0-5) H 06/12/17 17:30 Urine WBC 6-10 /hpf (0-5) H 06/12/17 17:30 Ur Epithelial Cells FEW /lpf (FEW) 06/12/17 17:30 Urine Bacteria FEW /hpf (NONE SEEN) 06/12/17 17:30 Urine Mucus FEW /lpf (FEW) 06/12/17 17:30 Phenytoin < 2.5 ug/ml (10.0-20.0) L 06/12/17 16:35 RPR NONREACTIVE (NONREACTIVE) 06/12/17 16:35 - Physical Exam Vitals and I&O: Vital Signs Temp 98.2 F 06/17/17 14:00 Pulse 79 06/17/17 14:00 Resp 18 06/17/17 14:00 BP 145/69 06/17/17 14:00 Pulse Ox 98 06/17/17 14:00 Intake & Output 06/17/17 06/17/17 06/18/17 06:59 18:59 06:59 Intake Total 410 1200 Balance 410 1200 Weight (lbs) 74.843 kg Intake: Oral 410 1200 Other: # Voids 1 # Bowel Movements 0 1 Active Medications: Current Medications Acetaminophen (Tylenol) 650 mg PO Q4HR PRN PRN Reason: Pain Stop: 08/11/17 18:36 Atorvastatin Calcium (Lipitor) 10 mg PO HS [facility] PRN Reason: Protocol Stop: 08/11/17 20:59 Last Admin: 06/17/17 20:50 Dose: Not Given Carvedilol (Coreg) 12.5 mg PO DAILY [facility] Stop: 08/12/17 08:59 Last Admin: 06/17/17 08:07 Dose: Not Given Ceftriaxone Sodium (Rocephin) 1 gm IM Q24HR [facility] Stop: 08/12/17 08:59 Last Admin: 06/17/17 08:07 Dose: Not Given Divalproex Sodium (Depakote Sprinkle) 250 mg PO BID [facility] PRN Reason: Protocol Stop: 08/12/17 08:59 Last Admin: 06/17/17 16:29 Dose: 250 mg Docusate Sodium (Colace) 100 mg PO BID [facility] Stop: 08/12/17 08:59 Last Admin: 06/17/17 16:28 Dose: 100 mg Donepezil HCl (Aricept) 5 mg PO HS [facility] Stop: 08/12/17 20:59 Last Admin: 06/17/17 20:50 Dose: Not Given Enalapril Maleate (Vasotec) 2.5 mg PO DAILY [facility] Stop: 08/12/17 08:59 Last Admin: 06/17/17 08:07 Dose: Not Given Escitalopram Oxalate (Lexapro) 5 mg PO DAILY [facility] PRN Reason: Protocol Stop: 08/15/17 08:59 Last Admin: 06/17/17 08:08 Dose: Not Given Fenofibrate (Tricor) 145 mg PO HS [facility] Stop: 08/14/17 20:59 Last Admin: 06/16/17 20:40 Dose: Not Given Levetiracetam (Keppra) 500 mg PO BID [facility] Stop: 08/12/17 08:59 Last Admin: 06/17/17 16:28 Dose: 500 mg Lorazepam (Ativan) 0.5 mg PO Q4HR PRN; Protocol PRN Reason: Agitation Stop: 07/13/17 06:53 Last Admin: 06/14/17 10:13 Dose: 0.5 mg Magnesium Hydroxide (Milk Of Magnesia) 30 ml PO DAILY PRN PRN Reason: Constipation Stop: 08/11/17 18:38 Phenytoin (Dilantin) 100 mg PO BID [facility] Stop: 08/12/17 08:59 Last Admin: 06/17/17 16:28 Dose: 100 mg Zolpidem Tartrate (Ambien) 5 mg PO HSMR1 PRN PRN Reason: Insomnia Stop: 08/12/17 06:53 General: weak, thin HEENT: NC/AT, PERRLA, EOMI Neck: Supple, No JVD, No thyromegaly, No LAD Lungs: CTAB Cardiovascular: RRR, Normal S1, Normal S2, without murmur Abdomen: soft, non-tender Extremities: clear, edema Neurological: no change - Procedures Procedures: Procedures Procedure Code Date GROUP PSYCHOTHERAPY 97394 01/22/16 GROUP PSYCHOTHERAPY GZHZZZZ 01/22/16 OTHER GROUP THERAPY 94.44 11/24/13 Internal Medicine Assmt/Plan - Assessment Assessment: 1.UTI 2.CVA. 3.SEIZURE DISORDER. 4.DEMENTIA. - Plan Plan: CONTINUE ON CURRENT MEDICATION AND DIET.
[2017-06-18] MEDS: Multivitamin w/ Minerals Tab PO SCH ×2 (09:18→10:42)
[2017-06-18] MEDS: Escitalopram Oxalate 5 mg Tab PO SCH ×2 (09:18→10:41)
--- NOTE | 2017-06-18 18:22 | Internal Medicine Prog Note ---
Internal Medicine Subjective - Subjective Service Date: 06/18/17 Patient seen and examined:: with staff Patient is:: non-verbal, in bed Per staff patient has:: no adverse event Internal Medicine Objective - Results Result Diagrams: 06/15/17 06:45 06/15/17 06:45 Recent Labs: Laboratory Last Values WBC 5.9 Th/cmm (4.8-10.8) 06/15/17 06:45 RBC 4.75 Mil/cmm (3.80-5.20) 06/15/17 06:45 Hgb 13.5 gm/dL (11.7-16.1) 06/15/17 06:45 Hct 40.2 % (35.0-45.0) 06/15/17 06:45 MCV 84.5 fl (81-100) 06/15/17 06:45 MCH 28.4 pg (27.0-31.0) 06/15/17 06:45 MCHC Differential 33.6 pg (28.0-36.0) 06/15/17 06:45 RDW 12.3 % (11.5-20.0) 06/15/17 06:45 Plt Count 156 Th/cmm (150-400) 06/15/17 06:45 MPV 9.9 fl 06/15/17 06:45 Neutrophils % 44.6 % (40.0-80.0) 06/15/17 06:45 Lymphocytes % 44.0 % (20.0-50.0) 06/15/17 06:45 Monocytes % 8.5 % (2.0-10.0) 06/15/17 06:45 Eosinophils % 2.0 % (0.0-5.0) 06/15/17 06:45 Basophils % 0.9 % (0.0-2.0) 06/15/17 06:45 PT 11.3 SECONDS (9.5-11.5) 06/12/17 17:16 INR 1.09 (0.5-1.4) 06/12/17 17:16 Sodium 136 mEq/L (136-145) 06/15/17 06:45 Potassium 4.7 mEq/L (3.5-5.1) 06/15/17 06:45 Chloride 108 mEq/L (98-107) H 06/15/17 06:45 Carbon Dioxide 22.6 mEq/L (21.0-31.0) 06/15/17 06:45 Anion Gap 10.1 (7.0-16.0) 06/15/17 06:45 BUN 22 mg/dL (7-25) 06/15/17 06:45 Creatinine 0.7 mg/dL (0.6-1.2) 06/15/17 06:45 Est GFR ( Amer) > 60.0 ml/min (>90) 06/15/17 06:45 Est GFR (Non-Af Amer) > 60.0 ml/min 06/15/17 06:45 BUN/Creatinine Ratio 31.4 06/15/17 06:45 Glucose 108 mg/dL (70-105) H 06/15/17 06:45 Calcium 9.2 mg/dL (8.6-10.3) 06/15/17 06:45 Total Bilirubin 0.3 mg/dL (0.3-1.0) 06/12/17 16:35 AST 16 U/L (13-39) 06/12/17 16:35 ALT 13 U/L (7-52) 06/12/17 16:35 Alkaline Phosphatase 60 U/L (34-104) 06/12/17 16:35 Troponin I 0.02 ng/mL (0.01-0.05) 06/12/17 16:35 Total Protein 6.8 gm/dL (6.0-8.3) 06/12/17 16:35 Albumin 4.0 gm/dL (3.7-5.3) 06/12/17 16:35 Globulin 2.8 gm/dL 06/12/17 16:35 Albumin/Globulin Ratio 1.4 (1.0-1.8) 06/12/17 16:35 Triglycerides 113 mg/dL (<150) 06/12/17 16:35 Cholesterol 197 mg/dL (<200) 06/12/17 16:35 LDL Cholesterol Direct 139 mg/dL (75-193) 06/12/17 16:35 HDL Cholesterol 46 mg/dL (23-92) 06/12/17 16:35 TSH 1.09 uIU/ml (0.34-5.60) 06/12/17 16:35 Urine Source CLEAN C 06/12/17 17:30 Urine Color YELLOW 06/12/17 17:30 Urine Clarity SLIGHT CLOUDY (CLEAR) 06/12/17 17:30 Urine pH 5.5 (4.6 - 8.0) 06/12/17 17:30 Ur Specific [place] 1.025 (1.005-1.030) 06/12/17 17:30 Urine Protein NEGATIVE mg/dL (NEGATIVE) 06/12/17 17:30 Urine Glucose (UA) NEGATIVE mg/dL (NEGATIVE) 06/12/17 17:30 Urine Ketones NEGATIVE mg/dL (NEGATIVE) 06/12/17 17:30 Urine Blood LARGE (NEGATIVE) H 06/12/17 17:30 Urine Nitrate NEGATIVE (NEGATIVE) 06/12/17 17:30 Urine Bilirubin NEGATIVE (NEGATIVE) 06/12/17 17:30 Urine Urobilinogen 0.2 E.U./dL (0.2 - 1.0) 06/12/17 17:30 Ur Leukocyte Esterase TRACE (NEGATIVE) H 06/12/17 17:30 Urine RBC 50-100 /hpf (0-5) H 06/12/17 17:30 Urine WBC 6-10 /hpf (0-5) H 06/12/17 17:30 Ur Epithelial Cells FEW /lpf (FEW) 06/12/17 17:30 Urine Bacteria FEW /hpf (NONE SEEN) 06/12/17 17:30 Urine Mucus FEW /lpf (FEW) 06/12/17 17:30 Phenytoin < 2.5 ug/ml (10.0-20.0) L 06/12/17 16:35 RPR NONREACTIVE (NONREACTIVE) 06/12/17 16:35 - Physical Exam Vitals and I&O: Vital Signs Temp 97 F 06/18/17 06:39 Pulse 69 06/18/17 06:39 Resp 19 06/18/17 06:39 BP 123/74 06/18/17 06:39 Pulse Ox 97 06/18/17 06:39 Intake & Output 06/17/17 06/18/17 06/18/17 18:59 06:59 18:59 Intake Total 1200 120 Balance 1200 120 Intake: Oral 1200 120 Other: # Voids 3 # Bowel Movements 1 Active Medications: Current Medications Acetaminophen (Tylenol) 650 mg PO Q4HR PRN PRN Reason: Pain Stop: 08/11/17 18:36 Atorvastatin Calcium (Lipitor) 10 mg PO HS [facility] PRN Reason: Protocol Stop: 08/11/17 20:59 Last Admin: 06/17/17 20:50 Dose: Not Given Carvedilol (Coreg) 12.5 mg PO DAILY [facility] Stop: 08/12/17 08:59 Last Admin: 06/18/17 10:39 Dose: Not Given Ceftriaxone Sodium (Rocephin) 1 gm IM Q24HR [facility] Stop: 08/12/17 08:59 Last Admin: 06/18/17 10:36 Dose: Not Given Divalproex Sodium (Depakote Sprinkle) 250 mg PO BID [facility] PRN Reason: Protocol Stop: 08/12/17 08:59 Last Admin: 06/18/17 16:46 Dose: Not Given Docusate Sodium (Colace) 100 mg PO BID [facility] Stop: 08/12/17 08:59 Last Admin: 06/18/17 16:46 Dose: Not Given Donepezil HCl (Aricept) 5 mg PO HS [facility] Stop: 08/12/17 20:59 Last Admin: 06/17/17 20:50 Dose: Not Given Enalapril Maleate (Vasotec) 2.5 mg PO DAILY [facility] Stop: 08/12/17 08:59 Last Admin: 06/18/17 10:40 Dose: Not Given Escitalopram Oxalate (Lexapro) 5 mg PO DAILY [facility] PRN Reason: Protocol Stop: 08/15/17 08:59 Last Admin: 06/18/17 10:41 Dose: Not Given Fenofibrate (Tricor) 145 mg PO HS [facility] Stop: 08/14/17 20:59 Last Admin: 06/16/17 20:40 Dose: Not Given Haloperidol (Haldol) 1 mg PO BID [facility] PRN Reason: Protocol Stop: 08/17/17 16:59 Last Admin: 06/18/17 16:47 Dose: Not Given Levetiracetam (Keppra) 500 mg PO BID [facility] Stop: 08/12/17 08:59 Last Admin: 06/18/17 16:47 Dose: Not Given Lorazepam (Ativan) 0.5 mg PO Q4HR PRN; Protocol PRN Reason: Agitation Stop: 07/13/17 06:53 Last Admin: 08/06/17 10:13 Dose: 0.5 mg Magnesium Hydroxide (Milk Of Magnesia) 30 ml PO DAILY PRN PRN Reason: Constipation Stop: 08/11/17 18:38 Phenytoin (Dilantin) 100 mg PO BID [facility] Stop: 08/12/17 08:59 Last Admin: 06/18/17 16:47 Dose: Not Given Zolpidem Tartrate (Ambien) 5 mg PO HSMR1 PRN PRN Reason: Insomnia Stop: 08/12/17 06:53 General: weak, thin HEENT: NC/AT, PERRLA, EOMI Neck: Supple, No JVD, No thyromegaly, No LAD Lungs: CTAB Cardiovascular: RRR, Normal S1, Normal S2, without murmur Abdomen: soft, non-tender Extremities: clear, edema Neurological: no change - Procedures Procedures: Procedures Procedure Code Date GROUP PSYCHOTHERAPY 58940 01/22/16 GROUP PSYCHOTHERAPY GZHZZZZ 01/22/16 OTHER GROUP THERAPY 94.44 11/24/13 Internal Medicine Assmt/Plan - Assessment Assessment: 1.UTI 2.CVA. 3.SEIZURE DISORDER. 4.DEMENTIA. - Plan Plan: CONTINUE ON CURRENT MEDICATION AND DIET.
[2017-06-18] MEDS: Atorvastatin Calcium 10 MG TAB PO SCH (20:57)
--- NOTE | 2017-06-19 03:00 | Progress Notes ---
DATE: 06/18/2017 SUBJECTIVE: Case was discussed with staff of the patient, reviewed records. The patient continues to refuse medications, though yesterday she acted like she will take it, then she did not. She seems to be paranoid about her medication, which is unlike her to do that. She is unpredictable and impulsive. I will be adding Haldol to her medication and may be pursue ____ if she continues to refuse it. She is unable to tell me why she is not taking her medication, unable to tell me the reason or even say any words regarding whether she will take it or not or what medication she will take. Her lab work showed high blood sugar and the rest within normal range. Her CBC within normal range. MRSA is negative. Urinalysis shows large blood in the urine with trace of leukocyte esterase. TSH within normal range. Lipid panel within normal range. Dilantin level was unpredictable that is because of her not taking her medications. Depakote level is very low and undetected. We will continue to work with the patient in group therapy, milieu therapy, and adjust medication as needed. JOB# [id number]
[2017-06-19] MEDS: Escitalopram Oxalate 5 mg Tab PO SCH ×2 (09:00→09:19)
[2017-06-19] MEDS: Multivitamin w/ Minerals Tab PO SCH ×2 (09:00→09:19)
--- NOTE | 2017-06-19 15:06 | Internal Medicine Prog Note ---
Internal Medicine Subjective - Subjective Service Date: 06/19/17 Patient seen and examined:: without staff Patient is:: non-verbal, in bed Per staff patient has:: no adverse event Internal Medicine Objective - Results Result Diagrams: 06/15/17 06:45 06/15/17 06:45 Recent Labs: Laboratory Last Values WBC 5.9 Th/cmm (4.8-10.8) 06/15/17 06:45 RBC 4.75 Mil/cmm (3.80-5.20) 06/15/17 06:45 Hgb 13.5 gm/dL (11.7-16.1) 06/15/17 06:45 Hct 40.2 % (35.0-45.0) 06/15/17 06:45 MCV 84.5 fl (81-100) 06/15/17 06:45 MCH 28.4 pg (27.0-31.0) 06/15/17 06:45 MCHC Differential 33.6 pg (28.0-36.0) 06/15/17 06:45 RDW 12.3 % (11.5-20.0) 06/15/17 06:45 Plt Count 156 Th/cmm (150-400) 06/15/17 06:45 MPV 9.9 fl 06/15/17 06:45 Neutrophils % 44.6 % (40.0-80.0) 06/15/17 06:45 Lymphocytes % 44.0 % (20.0-50.0) 06/15/17 06:45 Monocytes % 8.5 % (2.0-10.0) 06/15/17 06:45 Eosinophils % 2.0 % (0.0-5.0) 06/15/17 06:45 Basophils % 0.9 % (0.0-2.0) 06/15/17 06:45 PT 11.3 SECONDS (9.5-11.5) 06/12/17 17:16 INR 1.09 (0.5-1.4) 06/12/17 17:16 Sodium 136 mEq/L (136-145) 06/15/17 06:45 Potassium 4.7 mEq/L (3.5-5.1) 06/15/17 06:45 Chloride 108 mEq/L (98-107) H 06/15/17 06:45 Carbon Dioxide 22.6 mEq/L (21.0-31.0) 06/15/17 06:45 Anion Gap 10.1 (7.0-16.0) 06/15/17 06:45 BUN 22 mg/dL (7-25) 06/15/17 06:45 Creatinine 0.7 mg/dL (0.6-1.2) 06/15/17 06:45 Est GFR ( Amer) > 60.0 ml/min (>90) 06/15/17 06:45 Est GFR (Non-Af Amer) > 60.0 ml/min 06/15/17 06:45 BUN/Creatinine Ratio 31.4 06/15/17 06:45 Glucose 108 mg/dL (70-105) H 06/15/17 06:45 Calcium 9.2 mg/dL (8.6-10.3) 06/15/17 06:45 Total Bilirubin 0.3 mg/dL (0.3-1.0) 06/12/17 16:35 AST 16 U/L (13-39) 06/12/17 16:35 ALT 13 U/L (7-52) 06/12/17 16:35 Alkaline Phosphatase 60 U/L (34-104) 06/12/17 16:35 Troponin I 0.02 ng/mL (0.01-0.05) 06/12/17 16:35 Total Protein 6.8 gm/dL (6.0-8.3) 06/12/17 16:35 Albumin 4.0 gm/dL (3.7-5.3) 06/12/17 16:35 Globulin 2.8 gm/dL 06/12/17 16:35 Albumin/Globulin Ratio 1.4 (1.0-1.8) 06/12/17 16:35 Triglycerides 113 mg/dL (<150) 06/12/17 16:35 Cholesterol 197 mg/dL (<200) 06/12/17 16:35 LDL Cholesterol Direct 139 mg/dL (75-193) 06/12/17 16:35 HDL Cholesterol 46 mg/dL (23-92) 06/12/17 16:35 TSH 1.09 uIU/ml (0.34-5.60) 06/12/17 16:35 Urine Source CLEAN C 06/12/17 17:30 Urine Color YELLOW 06/12/17 17:30 Urine Clarity SLIGHT CLOUDY (CLEAR) 06/12/17 17:30 Urine pH 5.5 (4.6 - 8.0) 06/12/17 17:30 Ur Specific [place] 1.025 (1.005-1.030) 06/12/17 17:30 Urine Protein NEGATIVE mg/dL (NEGATIVE) 06/12/17 17:30 Urine Glucose (UA) NEGATIVE mg/dL (NEGATIVE) 06/12/17 17:30 Urine Ketones NEGATIVE mg/dL (NEGATIVE) 06/12/17 17:30 Urine Blood LARGE (NEGATIVE) H 06/12/17 17:30 Urine Nitrate NEGATIVE (NEGATIVE) 06/12/17 17:30 Urine Bilirubin NEGATIVE (NEGATIVE) 06/12/17 17:30 Urine Urobilinogen 0.2 E.U./dL (0.2 - 1.0) 06/12/17 17:30 Ur Leukocyte Esterase TRACE (NEGATIVE) H 06/12/17 17:30 Urine RBC 50-100 /hpf (0-5) H 06/12/17 17:30 Urine WBC 6-10 /hpf (0-5) H 06/12/17 17:30 Ur Epithelial Cells FEW /lpf (FEW) 06/12/17 17:30 Urine Bacteria FEW /hpf (NONE SEEN) 06/12/17 17:30 Urine Mucus FEW /lpf (FEW) 06/12/17 17:30 Phenytoin < 2.5 ug/ml (10.0-20.0) L 06/12/17 16:35 RPR NONREACTIVE (NONREACTIVE) 06/12/17 16:35 - Physical Exam Vitals and I&O: Vital Signs Temp 97 F 06/18/17 06:39 Pulse 72 06/19/17 09:00 Resp 19 06/19/17 08:00 BP 129/74 06/19/17 09:00 Pulse Ox 97 06/18/17 06:39 Intake & Output 06/18/17 06/19/17 06/19/17 18:59 06:59 18:59 Intake Total 500 Balance 500 Intake: Oral 500 Other: # Voids 2 # Bowel Movements 1 Active Medications: Current Medications Acetaminophen (Tylenol) 650 mg PO Q4HR PRN PRN Reason: Pain Stop: 08/11/17 18:36 Atorvastatin Calcium (Lipitor) 10 mg PO HS [facility] PRN Reason: Protocol Stop: 08/11/17 20:59 Last Admin: 06/18/17 20:57 Dose: Not Given Carvedilol (Coreg) 12.5 mg PO DAILY [facility] Stop: 08/12/17 08:59 Last Admin: 06/19/17 09:00 Dose: Not Given Divalproex Sodium (Depakote Sprinkle) 250 mg PO BID [facility] PRN Reason: Protocol Stop: 08/12/17 08:59 Last Admin: 06/19/17 09:00 Dose: Not Given Docusate Sodium (Colace) 100 mg PO BID [facility] Stop: 08/12/17 08:59 Last Admin: 06/19/17 09:00 Dose: Not Given Donepezil HCl (Aricept) 5 mg PO HS [facility] Stop: 08/12/17 20:59 Last Admin: 06/18/17 20:57 Dose: Not Given Enalapril Maleate (Vasotec) 2.5 mg PO DAILY [facility] Stop: 08/12/17 08:59 Last Admin: 06/19/17 09:00 Dose: Not Given Escitalopram Oxalate (Lexapro) 5 mg PO DAILY [facility] PRN Reason: Protocol Stop: 08/15/17 08:59 Last Admin: 06/19/17 09:00 Dose: Not Given Fenofibrate (Tricor) 145 mg PO HS [facility] Stop: 08/14/17 20:59 Last Admin: 06/16/17 20:40 Dose: Not Given Haloperidol (Haldol) 1 mg PO BID [facility] PRN Reason: Protocol Stop: 08/17/17 16:59 Last Admin: 06/19/17 09:00 Dose: Not Given Levetiracetam (Keppra) 500 mg PO BID [facility] Stop: 08/12/17 08:59 Last Admin: 06/19/17 09:00 Dose: Not Given Lorazepam (Ativan) 0.5 mg PO Q4HR PRN; Protocol PRN Reason: Agitation Stop: 07/13/17 06:53 Last Admin: 06/14/17 10:13 Dose: 0.5 mg Magnesium Hydroxide (Milk Of Magnesia) 30 ml PO DAILY PRN PRN Reason: Constipation Stop: 08/11/17 18:38 Phenytoin (Dilantin) 100 mg PO BID [facility] Stop: 08/12/17 08:59 Last Admin: 06/19/17 09:00 Dose: Not Given Zolpidem Tartrate (Ambien) 5 mg PO HSMR1 PRN PRN Reason: Insomnia Stop: 08/12/17 06:53 General: weak, thin HEENT: NC/AT, PERRLA, EOMI Neck: Supple, No JVD, No thyromegaly, No LAD Lungs: CTAB Cardiovascular: RRR, Normal S1, Normal S2, without murmur Abdomen: soft, non-tender Extremities: clear, edema Neurological: no change - Procedures Procedures: Procedures Procedure Code Date GROUP PSYCHOTHERAPY 69294 01/22/16 GROUP PSYCHOTHERAPY GZHZZZZ 01/22/16 OTHER GROUP THERAPY 94.44 11/24/13 Internal Medicine Assmt/Plan - Assessment Assessment: 1.UTI 2.CVA. 3.SEIZURE DISORDER. 4.DEMENTIA. - Plan Plan: CONTINUE ON CURRENT MEDICATION AND DIET. Nutritional Asmnt/Malnutr-PDOC - Dietary Evaluation Malnutrition Findings (Please click <Entered> for more info): Nutritional Asmnt/Malnutrition Start: 06/18/17 19: 56 Text: Status: Complete Freq: Document 06/18/17 19:56 [facility] (Rec: 06/18/17 20:04 [facility] [id number]) Nutritional Asmnt/Malnutrition Patient General Information Nutritional Screening Moderate Risk Screening Diagnosis Mood unspecified, anxiety, psychosis, dementia Pertinent Medical Hx/Surgical Hx Alzheimer type dementia, seizure disorder, HTN, hyperlipidemia Subjective Information Pt is a 67-year-old female admitted with chief complaint of refusal of care and decompensation. Per RN notes, pt is withdrawn and confused. Pt has fair appetite but intake fluctuates daily. Pt is able to meet estimated nutritional needs with current diet and PO intake. Current Diet Order/ Nutrition Support Mechanical soft ground, [place] Patient / S.O Can't verbalize diet edu Pertinent Medications Pt is refusing to take medications Pertinent Labs Reviewed Nutritional Hx/Data Height 1.63 m Height (Calculated Centimeters) 162.6 Current Weight (lbs) 74.843 kg Weight (Calculated Kilograms) 74.8 Weight (Calculated Grams) 94472.7 [place] Body Weight 120 % [place] Body Weight 138 Weight Status Overweight GI Symptoms GI Symptoms None Food Allergies No Skin Integrity/Comment: [place] 17. Skin intact. Current %PO Fair (50-74%) Estimated Nutritional Goals BEE in Kcals: Using Current wt Calories/Kcals/Kg Based on current wt 75 kg with consideration of overwt status Kcals Calculated 9043-9170 kcals/day (20-25 kcals/kg) Protein: Using Current wt Protein g/kg: Based on current wt 75 kg Protein Calculated 75 gm/day (1 gm/kg) Fluid: ml 0121-0444 ml/day (1 ml/kcal) Nutritional Problem 1. Problem Problem Overweight related to Etiology possible excessive energy intake vs decreased energy expenditure as evidenced by Signs/Symptoms: BMI 28.3 kg/m2. Malnutrition Alert Protein-Calorie Malnutrition N/A Is there a minimum of two criteria No selected? Query Text:Check all the applicable criteria. A minimum of two criteria are recommended for diagnosis of either severe or non-severe malnutrition. Malnutrition Related to Morbid Obesity Malnutrition related to morbid obesity No Intervention/Recommendation Comments 1. Continue with current diet, as tolerated. [place] food preferences. 2. Will educate pt or family on wt management, as appropriate. Expected Outcomes/Goals Expected Outcomes/Goals Have pt meet at least 75% of estimated nutritional needs, stable wt. Physician Parameters for PEM Serum Albumin (g/dl) 3.5 - 5.0 (Normal)
--- NOTE | 2017-06-19 15:13 | Internal Medicine Prog Note ---
Internal Medicine Subjective - Subjective Service Date: 06/19/17 Patient seen and examined:: without staff Patient is:: non-verbal, in bed Per staff patient has:: no adverse event Internal Medicine Objective - Results Result Diagrams: 06/15/17 06:45 06/15/17 06:45 Recent Labs: Laboratory Last Values WBC 5.9 Th/cmm (4.8-10.8) 06/15/17 06:45 RBC 4.75 Mil/cmm (3.80-5.20) 06/15/17 06:45 Hgb 13.5 gm/dL (11.7-16.1) 06/15/17 06:45 Hct 40.2 % (35.0-45.0) 06/15/17 06:45 MCV 84.5 fl (81-100) 06/15/17 06:45 MCH 28.4 pg (27.0-31.0) 06/15/17 06:45 MCHC Differential 33.6 pg (28.0-36.0) 06/15/17 06:45 RDW 12.3 % (11.5-20.0) 06/15/17 06:45 Plt Count 156 Th/cmm (150-400) 06/15/17 06:45 MPV 9.9 fl 06/15/17 06:45 Neutrophils % 44.6 % (40.0-80.0) 06/15/17 06:45 Lymphocytes % 44.0 % (20.0-50.0) 06/15/17 06:45 Monocytes % 8.5 % (2.0-10.0) 06/15/17 06:45 Eosinophils % 2.0 % (0.0-5.0) 06/15/17 06:45 Basophils % 0.9 % (0.0-2.0) 06/15/17 06:45 PT 11.3 SECONDS (9.5-11.5) 06/12/17 17:16 INR 1.09 (0.5-1.4) 06/12/17 17:16 Sodium 136 mEq/L (136-145) 06/15/17 06:45 Potassium 4.7 mEq/L (3.5-5.1) 06/15/17 06:45 Chloride 108 mEq/L (98-107) H 06/15/17 06:45 Carbon Dioxide 22.6 mEq/L (21.0-31.0) 06/15/17 06:45 Anion Gap 10.1 (7.0-16.0) 06/15/17 06:45 BUN 22 mg/dL (7-25) 06/15/17 06:45 Creatinine 0.7 mg/dL (0.6-1.2) 06/15/17 06:45 Est GFR ( Amer) > 60.0 ml/min (>90) 06/15/17 06:45 Est GFR (Non-Af Amer) > 60.0 ml/min 06/15/17 06:45 BUN/Creatinine Ratio 31.4 06/15/17 06:45 Glucose 108 mg/dL (70-105) H 06/15/17 06:45 Calcium 9.2 mg/dL (8.6-10.3) 06/15/17 06:45 Total Bilirubin 0.3 mg/dL (0.3-1.0) 06/12/17 16:35 AST 16 U/L (13-39) 06/12/17 16:35 ALT 13 U/L (7-52) 06/12/17 16:35 Alkaline Phosphatase 60 U/L (34-104) 06/12/17 16:35 Troponin I 0.02 ng/mL (0.01-0.05) 06/12/17 16:35 Total Protein 6.8 gm/dL (6.0-8.3) 06/12/17 16:35 Albumin 4.0 gm/dL (3.7-5.3) 06/12/17 16:35 Globulin 2.8 gm/dL 06/12/17 16:35 Albumin/Globulin Ratio 1.4 (1.0-1.8) 06/12/17 16:35 Triglycerides 113 mg/dL (<150) 06/12/17 16:35 Cholesterol 197 mg/dL (<200) 06/12/17 16:35 LDL Cholesterol Direct 139 mg/dL (75-193) 06/12/17 16:35 HDL Cholesterol 46 mg/dL (23-92) 06/12/17 16:35 TSH 1.09 uIU/ml (0.34-5.60) 06/12/17 16:35 Urine Source CLEAN C 06/12/17 17:30 Urine Color YELLOW 06/12/17 17:30 Urine Clarity SLIGHT CLOUDY (CLEAR) 06/12/17 17:30 Urine pH 5.5 (4.6 - 8.0) 06/12/17 17:30 Ur Specific [place] 1.025 (1.005-1.030) 06/12/17 17:30 Urine Protein NEGATIVE mg/dL (NEGATIVE) 06/12/17 17:30 Urine Glucose (UA) NEGATIVE mg/dL (NEGATIVE) 06/12/17 17:30 Urine Ketones NEGATIVE mg/dL (NEGATIVE) 06/12/17 17:30 Urine Blood LARGE (NEGATIVE) H 06/12/17 17:30 Urine Nitrate NEGATIVE (NEGATIVE) 06/12/17 17:30 Urine Bilirubin NEGATIVE (NEGATIVE) 06/12/17 17:30 Urine Urobilinogen 0.2 E.U./dL (0.2 - 1.0) 06/12/17 17:30 Ur Leukocyte Esterase TRACE (NEGATIVE) H 06/12/17 17:30 Urine RBC 50-100 /hpf (0-5) H 06/12/17 17:30 Urine WBC 6-10 /hpf (0-5) H 06/12/17 17:30 Ur Epithelial Cells FEW /lpf (FEW) 06/12/17 17:30 Urine Bacteria FEW /hpf (NONE SEEN) 06/12/17 17:30 Urine Mucus FEW /lpf (FEW) 06/12/17 17:30 Phenytoin < 2.5 ug/ml (10.0-20.0) L 06/12/17 16:35 RPR NONREACTIVE (NONREACTIVE) 06/12/17 16:35 - Physical Exam Vitals and I&O: Vital Signs Temp 97 F 06/18/17 06:39 Pulse 72 06/19/17 09:00 Resp 19 06/19/17 08:00 BP 129/74 06/19/17 09:00 Pulse Ox 97 06/18/17 06:39 Intake & Output 06/18/17 06/19/17 06/19/17 18:59 06:59 18:59 Intake Total 500 Balance 500 Intake: Oral 500 Other: # Voids 2 # Bowel Movements 1 Active Medications: Current Medications Acetaminophen (Tylenol) 650 mg PO Q4HR PRN PRN Reason: Pain Stop: 08/11/17 18:36 Atorvastatin Calcium (Lipitor) 10 mg PO HS [facility] PRN Reason: Protocol Stop: 08/11/17 20:59 Last Admin: 06/18/17 20:57 Dose: Not Given Carvedilol (Coreg) 12.5 mg PO DAILY [facility] Stop: 08/12/17 08:59 Last Admin: 06/19/17 09:00 Dose: Not Given Divalproex Sodium (Depakote Sprinkle) 250 mg PO BID [facility] PRN Reason: Protocol Stop: 08/12/17 08:59 Last Admin: 06/19/17 09:00 Dose: Not Given Docusate Sodium (Colace) 100 mg PO BID [facility] Stop: 08/12/17 08:59 Last Admin: 06/19/17 09:00 Dose: Not Given Donepezil HCl (Aricept) 5 mg PO HS [facility] Stop: 08/12/17 20:59 Last Admin: 06/18/17 20:57 Dose: Not Given Enalapril Maleate (Vasotec) 2.5 mg PO DAILY [facility] Stop: 08/12/17 08:59 Last Admin: 06/19/17 09:00 Dose: Not Given Escitalopram Oxalate (Lexapro) 5 mg PO DAILY [facility] PRN Reason: Protocol Stop: 08/15/17 08:59 Last Admin: 06/19/17 09:00 Dose: Not Given Fenofibrate (Tricor) 145 mg PO HS [facility] Stop: 08/14/17 20:59 Last Admin: 06/16/17 20:40 Dose: Not Given Haloperidol (Haldol) 1 mg PO BID [facility] PRN Reason: Protocol Stop: 08/17/17 16:59 Last Admin: 06/19/17 09:00 Dose: Not Given Levetiracetam (Keppra) 500 mg PO BID [facility] Stop: 08/12/17 08:59 Last Admin: 06/19/17 09:00 Dose: Not Given Lorazepam (Ativan) 0.5 mg PO Q4HR PRN; Protocol PRN Reason: Agitation Stop: 07/13/17 06:53 Last Admin: 06/14/17 10:13 Dose: 0.5 mg Magnesium Hydroxide (Milk Of Magnesia) 30 ml PO DAILY PRN PRN Reason: Constipation Stop: 08/11/17 18:38 Phenytoin (Dilantin) 100 mg PO BID [facility] Stop: 08/12/17 08:59 Last Admin: 06/19/17 09:00 Dose: Not Given Zolpidem Tartrate (Ambien) 5 mg PO HSMR1 PRN PRN Reason: Insomnia Stop: 08/12/17 06:53 General: weak, thin HEENT: NC/AT, PERRLA, EOMI Neck: Supple, No JVD, No thyromegaly, No LAD Lungs: CTAB Cardiovascular: RRR, Normal S1, Normal S2, without murmur Abdomen: soft, non-tender Extremities: clear, edema Neurological: no change - Procedures Procedures: Procedures Procedure Code Date GROUP PSYCHOTHERAPY 22577 01/22/16 GROUP PSYCHOTHERAPY GZHZZZZ 01/22/16 OTHER GROUP THERAPY 94.44 11/24/13 Internal Medicine Assmt/Plan - Assessment Assessment: 1.UTI 2.CVA. 3.SEIZURE DISORDER. 4.DEMENTIA. - Plan Plan: CONTINUE ON CURRENT MEDICATION AND DIET. Nutritional Asmnt/Malnutr-PDOC - Dietary Evaluation Malnutrition Findings (Please click <Entered> for more info): Nutritional Asmnt/Malnutrition Start: 06/18/17 19: 56 Text: Status: Complete Freq: Document 06/18/17 19:56 [facility] (Rec: 06/18/17 20:04 [facility] [id number]) Nutritional Asmnt/Malnutrition Patient General Information Nutritional Screening Moderate Risk Screening Diagnosis Mood unspecified, anxiety, psychosis, dementia Pertinent Medical Hx/Surgical Hx Alzheimer type dementia, seizure disorder, HTN, hyperlipidemia Subjective Information Pt is a 67-year-old female admitted with chief complaint of refusal of care and decompensation. Per RN notes, pt is withdrawn and confused. Pt has fair appetite but intake fluctuates daily. Pt is able to meet estimated nutritional needs with current diet and PO intake. Current Diet Order/ Nutrition Support Mechanical soft ground, [place] Patient / S.O Can't verbalize diet edu Pertinent Medications Pt is refusing to take medications Pertinent Labs Reviewed Nutritional Hx/Data Height 1.63 m Height (Calculated Centimeters) 162.6 Current Weight (lbs) 74.843 kg Weight (Calculated Kilograms) 74.8 Weight (Calculated Grams) 89609.7 [place] Body Weight 120 % [place] Body Weight 138 Weight Status Overweight GI Symptoms GI Symptoms None Food Allergies No Skin Integrity/Comment: [place] 17. Skin intact. Current %PO Fair (50-74%) Estimated Nutritional Goals BEE in Kcals: Using Current wt Calories/Kcals/Kg Based on current wt 75 kg with consideration of overwt status Kcals Calculated 7211-0296 kcals/day (20-25 kcals/kg) Protein: Using Current wt Protein g/kg: Based on current wt 75 kg Protein Calculated 75 gm/day (1 gm/kg) Fluid: ml 4512-0034 ml/day (1 ml/kcal) Nutritional Problem 1. Problem Problem Overweight related to Etiology possible excessive energy intake vs decreased energy expenditure as evidenced by Signs/Symptoms: BMI 28.3 kg/m2. Malnutrition Alert Protein-Calorie Malnutrition N/A Is there a minimum of two criteria No selected? Query Text:Check all the applicable criteria. A minimum of two criteria are recommended for diagnosis of either severe or non-severe malnutrition. Malnutrition Related to Morbid Obesity Malnutrition related to morbid obesity No Intervention/Recommendation Comments 1. Continue with current diet, as tolerated. [place] food preferences. 2. Will educate pt or family on wt management, as appropriate. Expected Outcomes/Goals Expected Outcomes/Goals Have pt meet at least 75% of estimated nutritional needs, stable wt. Physician Parameters for PEM Serum Albumin (g/dl) 3.5 - 5.0 (Normal)
[2017-06-19] MEDS: Atorvastatin Calcium 10 MG TAB PO SCH (22:00)
--- NOTE | 2017-06-19 22:07 | Progress Notes ---
DATE: 06/19/2017 SUBJECTIVE: Case was discussed with staff of the patient, reviewed records. The patient continues to refuse medication. Continues to be unpredictable, impulsive, somewhat paranoid toward her medication. Unable to make safe plan for self-care. She continues to have crying spells. I tried to talk to her again about the medication, there was no answer whatsoever from her, why she is not taking it, the reasons if there is any medication she will take, so I will be initiating a Riese, extend the hold. We will continue to work with the patient in group therapy, milieu therapy, and adjust medications as needed. JOB# [id number]
[2017-06-20] MEDS: Multivitamin w/ Minerals Tab PO SCH ×2 (09:23→09:51)
[2017-06-20] MEDS: Escitalopram Oxalate 5 mg Tab PO SCH (09:23)
--- NOTE | 2017-06-20 15:34 | Internal Medicine Prog Note ---
Internal Medicine Subjective - Subjective Service Date: 06/20/17 Patient seen and examined:: without staff Patient is:: non-verbal, in bed Per staff patient has:: no adverse event Internal Medicine Objective - Results Result Diagrams: 06/15/17 06:45 06/15/17 06:45 Recent Labs: Laboratory Last Values WBC 5.9 Th/cmm (4.8-10.8) 06/15/17 06:45 RBC 4.75 Mil/cmm (3.80-5.20) 06/15/17 06:45 Hgb 13.5 gm/dL (11.7-16.1) 06/15/17 06:45 Hct 40.2 % (35.0-45.0) 06/15/17 06:45 MCV 84.5 fl (81-100) 06/15/17 06:45 MCH 28.4 pg (27.0-31.0) 06/15/17 06:45 MCHC Differential 33.6 pg (28.0-36.0) 06/15/17 06:45 RDW 12.3 % (11.5-20.0) 06/15/17 06:45 Plt Count 156 Th/cmm (150-400) 06/15/17 06:45 MPV 9.9 fl 06/15/17 06:45 Neutrophils % 44.6 % (40.0-80.0) 06/15/17 06:45 Lymphocytes % 44.0 % (20.0-50.0) 06/15/17 06:45 Monocytes % 8.5 % (2.0-10.0) 06/15/17 06:45 Eosinophils % 2.0 % (0.0-5.0) 06/15/17 06:45 Basophils % 0.9 % (0.0-2.0) 06/15/17 06:45 PT 11.3 SECONDS (9.5-11.5) 06/12/17 17:16 INR 1.09 (0.5-1.4) 06/12/17 17:16 Sodium 136 mEq/L (136-145) 06/15/17 06:45 Potassium 4.7 mEq/L (3.5-5.1) 06/15/17 06:45 Chloride 108 mEq/L (98-107) H 06/15/17 06:45 Carbon Dioxide 22.6 mEq/L (21.0-31.0) 06/15/17 06:45 Anion Gap 10.1 (7.0-16.0) 06/15/17 06:45 BUN 22 mg/dL (7-25) 06/15/17 06:45 Creatinine 0.7 mg/dL (0.6-1.2) 06/15/17 06:45 Est GFR ( Amer) > 60.0 ml/min (>90) 06/15/17 06:45 Est GFR (Non-Af Amer) > 60.0 ml/min 06/15/17 06:45 BUN/Creatinine Ratio 31.4 06/15/17 06:45 Glucose 108 mg/dL (70-105) H 06/15/17 06:45 Calcium 9.2 mg/dL (8.6-10.3) 06/15/17 06:45 Total Bilirubin 0.3 mg/dL (0.3-1.0) 06/12/17 16:35 AST 16 U/L (13-39) 06/12/17 16:35 ALT 13 U/L (7-52) 06/12/17 16:35 Alkaline Phosphatase 60 U/L (34-104) 06/12/17 16:35 Troponin I 0.02 ng/mL (0.01-0.05) 06/12/17 16:35 Total Protein 6.8 gm/dL (6.0-8.3) 06/12/17 16:35 Albumin 4.0 gm/dL (3.7-5.3) 06/12/17 16:35 Globulin 2.8 gm/dL 06/12/17 16:35 Albumin/Globulin Ratio 1.4 (1.0-1.8) 06/12/17 16:35 Triglycerides 113 mg/dL (<150) 06/12/17 16:35 Cholesterol 197 mg/dL (<200) 06/12/17 16:35 LDL Cholesterol Direct 139 mg/dL (75-193) 06/12/17 16:35 HDL Cholesterol 46 mg/dL (23-92) 06/12/17 16:35 TSH 1.09 uIU/ml (0.34-5.60) 06/12/17 16:35 Urine Source CLEAN C 06/12/17 17:30 Urine Color YELLOW 06/12/17 17:30 Urine Clarity SLIGHT CLOUDY (CLEAR) 06/12/17 17:30 Urine pH 5.5 (4.6 - 8.0) 06/12/17 17:30 Ur Specific [place] 1.025 (1.005-1.030) 06/12/17 17:30 Urine Protein NEGATIVE mg/dL (NEGATIVE) 06/12/17 17:30 Urine Glucose (UA) NEGATIVE mg/dL (NEGATIVE) 06/12/17 17:30 Urine Ketones NEGATIVE mg/dL (NEGATIVE) 06/12/17 17:30 Urine Blood LARGE (NEGATIVE) H 06/12/17 17:30 Urine Nitrate NEGATIVE (NEGATIVE) 06/12/17 17:30 Urine Bilirubin NEGATIVE (NEGATIVE) 06/12/17 17:30 Urine Urobilinogen 0.2 E.U./dL (0.2 - 1.0) 06/12/17 17:30 Ur Leukocyte Esterase TRACE (NEGATIVE) H 06/12/17 17:30 Urine RBC 50-100 /hpf (0-5) H 06/12/17 17:30 Urine WBC 6-10 /hpf (0-5) H 06/12/17 17:30 Ur Epithelial Cells FEW /lpf (FEW) 06/12/17 17:30 Urine Bacteria FEW /hpf (NONE SEEN) 06/12/17 17:30 Urine Mucus FEW /lpf (FEW) 06/12/17 17:30 Phenytoin < 2.5 ug/ml (10.0-20.0) L 06/12/17 16:35 RPR NONREACTIVE (NONREACTIVE) 06/12/17 16:35 - Physical Exam Vitals and I&O: Vital Signs Temp 97.8 F 06/20/17 06:11 Pulse 69 06/20/17 09:22 Resp 20 06/20/17 08:00 BP 118/56 06/20/17 09:22 Pulse Ox 95 06/20/17 06:11 Intake & Output 06/19/17 06/20/17 06/20/17 18:59 06:59 18:59 Intake Total 500 240 Balance 500 240 Intake: Oral 500 240 Other: # Voids 2 1 # Bowel Movements 1 Active Medications: Current Medications Acetaminophen (Tylenol) 650 mg PO Q4HR PRN PRN Reason: Pain Stop: 08/11/17 18:36 Atorvastatin Calcium (Lipitor) 10 mg PO HS [facility] PRN Reason: Protocol Stop: 08/11/17 20:59 Last Admin: 06/19/17 22:00 Dose: 10 mg Carvedilol (Coreg) 12.5 mg PO DAILY [facility] Stop: 08/12/17 08:59 Last Admin: 06/20/17 09:22 Dose: Not Given Divalproex Sodium (Depakote Sprinkle) 250 mg PO BID [facility] PRN Reason: Protocol Stop: 08/12/17 08:59 Last Admin: 06/20/17 09:21 Dose: 250 mg Docusate Sodium (Colace) 100 mg PO BID [facility] Stop: 08/12/17 08:59 Last Admin: 06/20/17 09:51 Dose: Not Given Donepezil HCl (Aricept) 5 mg PO HS [facility] Stop: 08/12/17 20:59 Last Admin: 06/19/17 22:00 Dose: 5 mg Enalapril Maleate (Vasotec) 2.5 mg PO DAILY [facility] Stop: 08/12/17 08:59 Last Admin: 06/20/17 09:22 Dose: Not Given Escitalopram Oxalate (Lexapro) 5 mg PO DAILY [facility] PRN Reason: Protocol Stop: 08/15/17 08:59 Last Admin: 06/20/17 09:23 Dose: 5 mg Fenofibrate (Tricor) 145 mg PO HS [facility] Stop: 08/14/17 20:59 Last Admin: 06/16/17 20:40 Dose: Not Given Haloperidol (Haldol) 1 mg PO BID [facility] PRN Reason: Protocol Stop: 08/17/17 16:59 Last Admin: 06/20/17 09:23 Dose: 1 mg Levetiracetam (Keppra) 500 mg PO BID [facility] Stop: 08/12/17 08:59 Last Admin: 06/20/17 09:21 Dose: 500 mg Lorazepam (Ativan) 0.5 mg PO Q4HR PRN; Protocol PRN Reason: Agitation Stop: 07/13/17 06:53 Last Admin: 06/14/17 10:13 Dose: 0.5 mg Magnesium Hydroxide (Milk Of Magnesia) 30 ml PO DAILY [facility] PRN Reason: Constipation Stop: 08/11/17 18:38 Phenytoin (Dilantin) 100 mg PO BID [facility] Stop: 08/12/17 08:59 Last Admin: 06/20/17 09:23 Dose: 100 mg Zolpidem Tartrate (Ambien) 5 mg PO HSMR1 PRN PRN Reason: Insomnia Stop: 08/12/17 06:53 General: weak, thin HEENT: NC/AT, PERRLA, EOMI Neck: Supple, No JVD, No thyromegaly, No LAD Lungs: CTAB Cardiovascular: RRR, Normal S1, Normal S2, without murmur Abdomen: soft, non-tender Extremities: clear, edema Neurological: no change - Procedures Procedures: Procedures Procedure Code Date GROUP PSYCHOTHERAPY 78152 01/22/16 GROUP PSYCHOTHERAPY GZHZZZZ 01/22/16 OTHER GROUP THERAPY 94.44 11/24/13 Internal Medicine Assmt/Plan - Assessment Assessment: 1.UTI 2.CVA. 3.SEIZURE DISORDER. 4.DEMENTIA. - Plan Plan: CONTINUE ON CURRENT MEDICATION AND DIET. Nutritional Asmnt/Malnutr-PDOC - Dietary Evaluation Malnutrition Findings (Please click <Entered> for more info): Nutritional Asmnt/Malnutrition Start: 06/18/17 19: 56 Text: Status: Complete Freq: Document 06/18/17 19:56 [facility] (Rec: 06/18/17 20:04 [facility] [id number]) Nutritional Asmnt/Malnutrition Patient General Information Nutritional Screening Moderate Risk Screening Diagnosis Mood unspecified, anxiety, psychosis, dementia Pertinent Medical Hx/Surgical Hx Alzheimer type dementia, seizure disorder, HTN, hyperlipidemia Subjective Information Pt is a 67-year-old female admitted with chief complaint of refusal of care and decompensation. Per RN notes, pt is withdrawn and confused. Pt has fair appetite but intake fluctuates daily. Pt is able to meet estimated nutritional needs with current diet and PO intake. Current Diet Order/ Nutrition Support Mechanical soft ground, [place] Patient / S.O Can't verbalize diet edu Pertinent Medications Pt is refusing to take medications Pertinent Labs Reviewed Nutritional Hx/Data Height 1.63 m Height (Calculated Centimeters) 162.6 Current Weight (lbs) 74.843 kg Weight (Calculated Kilograms) 74.8 Weight (Calculated Grams) 70012.7 [place] Body Weight 120 % [place] Body Weight 138 Weight Status Overweight GI Symptoms GI Symptoms None Food Allergies No Skin Integrity/Comment: [place] 17. Skin intact. Current %PO Fair (50-74%) Estimated Nutritional Goals BEE in Kcals: Using Current wt Calories/Kcals/Kg Based on current wt 75 kg with consideration of overwt status Kcals Calculated 8830-0762 kcals/day (20-25 kcals/kg) Protein: Using Current wt Protein g/kg: Based on current wt 75 kg Protein Calculated 75 gm/day (1 gm/kg) Fluid: ml 3059-6515 ml/day (1 ml/kcal) Nutritional Problem 1. Problem Problem Overweight related to Etiology possible excessive energy intake vs decreased energy expenditure as evidenced by Signs/Symptoms: BMI 28.3 kg/m2. Malnutrition Alert Protein-Calorie Malnutrition N/A Is there a minimum of two criteria No selected? Query Text:Check all the applicable criteria. A minimum of two criteria are recommended for diagnosis of either severe or non-severe malnutrition. Malnutrition Related to Morbid Obesity Malnutrition related to morbid obesity No Intervention/Recommendation Comments 1. Continue with current diet, as tolerated. [place] food preferences. 2. Will educate pt or family on wt management, as appropriate. Expected Outcomes/Goals Expected Outcomes/Goals Have pt meet at least 75% of estimated nutritional needs, stable wt. Physician Parameters for PEM Serum Albumin (g/dl) 3.5 - 5.0 (Normal)
[2017-06-20] MEDS: Atorvastatin Calcium 10 MG TAB PO SCH (20:43)
--- NOTE | 2017-06-20 21:58 | Progress Notes ---
DATE: 06/20/2017 SUBJECTIVE: The patient was seen, chart reviewed, and discussed with staff. The patient was willing to take medications today, albeit ____ her food. She continues to have mood swings and crying spells and generally refusing to talk; however, she did take her medications. The patient is currently pending Riese petition. We will continue to encourage the patient to cooperate with the treatment and continue group and milieu therapy and adjust medication as needed. [facility]# [id number]
[2017-06-21] MEDS: Escitalopram Oxalate 5 mg Tab PO SCH (08:15)
[2017-06-21] MEDS: Multivitamin w/ Minerals Tab PO SCH (09:30)
--- NOTE | 2017-06-21 17:07 | Internal Medicine Prog Note ---
Internal Medicine Subjective - Subjective Service Date: 06/21/17 Patient seen and examined:: without staff Patient is:: non-verbal, in bed Per staff patient has:: no adverse event Internal Medicine Objective - Results Result Diagrams: 06/15/17 06:45 06/15/17 06:45 Recent Labs: Laboratory Last Values WBC 5.9 Th/cmm (4.8-10.8) 06/15/17 06:45 RBC 4.75 Mil/cmm (3.80-5.20) 06/15/17 06:45 Hgb 13.5 gm/dL (11.7-16.1) 06/15/17 06:45 Hct 40.2 % (35.0-45.0) 06/15/17 06:45 MCV 84.5 fl (81-100) 06/15/17 06:45 MCH 28.4 pg (27.0-31.0) 06/15/17 06:45 MCHC Differential 33.6 pg (28.0-36.0) 06/15/17 06:45 RDW 12.3 % (11.5-20.0) 06/15/17 06:45 Plt Count 156 Th/cmm (150-400) 06/15/17 06:45 MPV 9.9 fl 06/15/17 06:45 Neutrophils % 44.6 % (40.0-80.0) 06/15/17 06:45 Lymphocytes % 44.0 % (20.0-50.0) 06/15/17 06:45 Monocytes % 8.5 % (2.0-10.0) 06/15/17 06:45 Eosinophils % 2.0 % (0.0-5.0) 06/15/17 06:45 Basophils % 0.9 % (0.0-2.0) 06/15/17 06:45 PT 11.3 SECONDS (9.5-11.5) 06/12/17 17:16 INR 1.09 (0.5-1.4) 06/12/17 17:16 Sodium 136 mEq/L (136-145) 06/15/17 06:45 Potassium 4.7 mEq/L (3.5-5.1) 06/15/17 06:45 Chloride 108 mEq/L (98-107) H 06/15/17 06:45 Carbon Dioxide 22.6 mEq/L (21.0-31.0) 06/15/17 06:45 Anion Gap 10.1 (7.0-16.0) 06/15/17 06:45 BUN 22 mg/dL (7-25) 06/15/17 06:45 Creatinine 0.7 mg/dL (0.6-1.2) 06/15/17 06:45 Est GFR ( Amer) > 60.0 ml/min (>90) 06/15/17 06:45 Est GFR (Non-Af Amer) > 60.0 ml/min 06/15/17 06:45 BUN/Creatinine Ratio 31.4 06/15/17 06:45 Glucose 108 mg/dL (70-105) H 06/15/17 06:45 Calcium 9.2 mg/dL (8.6-10.3) 06/15/17 06:45 Total Bilirubin 0.3 mg/dL (0.3-1.0) 06/12/17 16:35 AST 16 U/L (13-39) 06/12/17 16:35 ALT 13 U/L (7-52) 06/12/17 16:35 Alkaline Phosphatase 60 U/L (34-104) 06/12/17 16:35 Troponin I 0.02 ng/mL (0.01-0.05) 06/12/17 16:35 Total Protein 6.8 gm/dL (6.0-8.3) 06/12/17 16:35 Albumin 4.0 gm/dL (3.7-5.3) 06/12/17 16:35 Globulin 2.8 gm/dL 06/12/17 16:35 Albumin/Globulin Ratio 1.4 (1.0-1.8) 06/12/17 16:35 Triglycerides 113 mg/dL (<150) 06/12/17 16:35 Cholesterol 197 mg/dL (<200) 06/12/17 16:35 LDL Cholesterol Direct 139 mg/dL (75-193) 06/12/17 16:35 HDL Cholesterol 46 mg/dL (23-92) 06/12/17 16:35 TSH 1.09 uIU/ml (0.34-5.60) 06/12/17 16:35 Urine Source CLEAN C 06/12/17 17:30 Urine Color YELLOW 06/12/17 17:30 Urine Clarity SLIGHT CLOUDY (CLEAR) 06/12/17 17:30 Urine pH 5.5 (4.6 - 8.0) 06/12/17 17:30 Ur Specific [place] 1.025 (1.005-1.030) 06/12/17 17:30 Urine Protein NEGATIVE mg/dL (NEGATIVE) 06/12/17 17:30 Urine Glucose (UA) NEGATIVE mg/dL (NEGATIVE) 06/12/17 17:30 Urine Ketones NEGATIVE mg/dL (NEGATIVE) 06/12/17 17:30 Urine Blood LARGE (NEGATIVE) H 06/12/17 17:30 Urine Nitrate NEGATIVE (NEGATIVE) 06/12/17 17:30 Urine Bilirubin NEGATIVE (NEGATIVE) 06/12/17 17:30 Urine Urobilinogen 0.2 E.U./dL (0.2 - 1.0) 06/12/17 17:30 Ur Leukocyte Esterase TRACE (NEGATIVE) H 06/12/17 17:30 Urine RBC 50-100 /hpf (0-5) H 06/12/17 17:30 Urine WBC 6-10 /hpf (0-5) H 06/12/17 17:30 Ur Epithelial Cells FEW /lpf (FEW) 06/12/17 17:30 Urine Bacteria FEW /hpf (NONE SEEN) 06/12/17 17:30 Urine Mucus FEW /lpf (FEW) 06/12/17 17:30 Phenytoin < 2.5 ug/ml (10.0-20.0) L 06/12/17 16:35 RPR NONREACTIVE (NONREACTIVE) 06/12/17 16:35 - Physical Exam Vitals and I&O: Vital Signs Temp 98.1 F 06/21/17 15:16 Pulse 69 06/21/17 15:16 Resp 19 06/21/17 15:16 BP 126/74 06/21/17 06:43 Pulse Ox 97 06/21/17 15:16 Intake & Output 06/20/17 06/21/17 06/21/17 18:59 06:59 18:59 Intake Total 120 Balance 120 Intake: Oral 120 Other: # Voids 3 Active Medications: Current Medications Acetaminophen (Tylenol) 650 mg PO Q4HR PRN PRN Reason: Pain Stop: 08/11/17 18:36 Atorvastatin Calcium (Lipitor) 10 mg PO HS ARTEM PRN Reason: Protocol Stop: 08/11/17 20:59 Last Admin: 06/20/17 20:43 Dose: 10 mg Carvedilol (Coreg) 12.5 mg PO DAILY [facility]EM Stop: 08/12/17 08:59 Last Admin: 06/21/17 09:30 Dose: Not Given Divalproex Sodium (Depakote Sprinkle) 250 mg PO BID [facility]EM PRN Reason: Protocol Stop: 08/12/17 08:59 Last Admin: 06/21/17 08:15 Dose: 250 mg Docusate Sodium (Colace) 100 mg PO BID [facility] Stop: 08/12/17 08:59 Last Admin: 06/21/17 09:30 Dose: Not Given Donepezil HCl (Aricept) 5 mg PO HS [facility] Stop: 08/12/17 20:59 Last Admin: 06/20/17 20:44 Dose: 5 mg Enalapril Maleate (Vasotec) 2.5 mg PO DAILY ARTEM Stop: 08/12/17 08:59 Last Admin: 06/21/17 09:30 Dose: Not Given Escitalopram Oxalate (Lexapro) 5 mg PO DAILY [facility]EM PRN Reason: Protocol Stop: 08/15/17 08:59 Last Admin: 06/21/17 08:15 Dose: 5 mg Fenofibrate (Tricor) 145 mg PO HS [facility] Stop: 08/14/17 20:59 Last Admin: 06/16/17 20:40 Dose: Not Given Haloperidol (Haldol) 1 mg PO BID [facility]EM PRN Reason: Protocol Stop: 08/17/17 16:59 Last Admin: 06/21/17 08:16 Dose: 1 mg Levetiracetam (Keppra) 500 mg PO BID [facility] Stop: 08/12/17 08:59 Last Admin: 06/21/17 08:16 Dose: 500 mg Lorazepam (Ativan) 0.5 mg PO Q4HR PRN; Protocol PRN Reason: Agitation Stop: 07/13/17 06:53 Last Admin: 06/14/17 10:13 Dose: 0.5 mg Magnesium Hydroxide (Milk Of Magnesia) 30 ml PO DAILY PRN PRN Reason: Constipation Stop: 08/11/17 18:38 Phenytoin (Dilantin) 100 mg PO BID [facility] Stop: 08/12/17 08:59 Last Admin: 06/21/17 08:15 Dose: 100 mg Zolpidem Tartrate (Ambien) 5 mg PO HSMR1 PRN PRN Reason: Insomnia Stop: 08/12/17 06:53 General: weak, thin HEENT: NC/AT, PERRLA, EOMI Neck: Supple, No JVD, No thyromegaly, No LAD Lungs: CTAB Cardiovascular: RRR, Normal S1, Normal S2, without murmur Abdomen: soft, non-tender Extremities: clear, edema Neurological: no change - Procedures Procedures: Procedures Procedure Code Date GROUP PSYCHOTHERAPY 44359 01/22/16 GROUP PSYCHOTHERAPY GZHZZZZ 01/22/16 OTHER GROUP THERAPY 94.44 11/24/13 Internal Medicine Assmt/Plan - Assessment Assessment: 1.UTI 2.CVA. 3.SEIZURE DISORDER. 4.DEMENTIA. - Plan Plan: CONTINUE ON CURRENT MEDICATION AND DIET. Nutritional Asmnt/Malnutr-PDOC - Dietary Evaluation Malnutrition Findings (Please click <Entered> for more info): Nutritional Asmnt/Malnutrition Start: 06/18/17 19: 56 Text: Status: Complete Freq: Document 06/18/17 19:56 [facility] (Rec: 06/18/17 20:04 [facility] [id number]) Nutritional Asmnt/Malnutrition Patient General Information Nutritional Screening Moderate Risk Screening Diagnosis Mood unspecified, anxiety, psychosis, dementia Pertinent Medical Hx/Surgical Hx Alzheimer type dementia, seizure disorder, HTN, hyperlipidemia Subjective Information Pt is a 67-year-old female admitted with chief complaint of refusal of care and decompensation. Per RN notes, pt is withdrawn and confused. Pt has fair appetite but intake fluctuates daily. Pt is able to meet estimated nutritional needs with current diet and PO intake. Current Diet Order/ Nutrition Support Mechanical soft ground, [place] Patient / S.O Can't verbalize diet edu Pertinent Medications Pt is refusing to take medications Pertinent Labs Reviewed Nutritional Hx/Data Height 1.63 m Height (Calculated Centimeters) 162.6 Current Weight (lbs) 74.843 kg Weight (Calculated Kilograms) 74.8 Weight (Calculated Grams) 41286.7 [place] Body Weight 120 % [place] Body Weight 138 Weight Status Overweight GI Symptoms GI Symptoms None Food Allergies No Skin Integrity/Comment: [place] 17. Skin intact. Current %PO Fair (50-74%) Estimated Nutritional Goals BEE in Kcals: Using Current wt Calories/Kcals/Kg Based on current wt 75 kg with consideration of overwt status Kcals Calculated 0181-5483 kcals/day (20-25 kcals/kg) Protein: Using Current wt Protein g/kg: Based on current wt 75 kg Protein Calculated 75 gm/day (1 gm/kg) Fluid: ml 6637-5800 ml/day (1 ml/kcal) Nutritional Problem 1. Problem Problem Overweight related to Etiology possible excessive energy intake vs decreased energy expenditure as evidenced by Signs/Symptoms: BMI 28.3 kg/m2. Malnutrition Alert Protein-Calorie Malnutrition N/A Is there a minimum of two criteria No selected? Query Text:Check all the applicable criteria. A minimum of two criteria are recommended for diagnosis of either severe or non-severe malnutrition. Malnutrition Related to Morbid Obesity Malnutrition related to morbid obesity No Intervention/Recommendation Comments 1. Continue with current diet, as tolerated. [place] food preferences. 2. Will educate pt or family on wt management, as appropriate. Expected Outcomes/Goals Expected Outcomes/Goals Have pt meet at least 75% of estimated nutritional needs, stable wt. Physician Parameters for PEM Serum Albumin (g/dl) 3.5 - 5.0 (Normal)
[2017-06-21] MEDS: Atorvastatin Calcium 10 MG TAB PO SCH (21:20)
--- NOTE | 2017-06-21 22:09 | Progress Notes ---
DATE: 06/21/2017 SUBJECTIVE: The patient seen, chart reviewed, discussed with staff. The patient with history of dementia, as well as psychosis, refusal of care. Poor p.o. intake, not talking to me, not interactive at all, appearing disoriented. Dr. Joseph has been following this patient. She continues to note symptoms, unpredictable, impulsive, paranoid about taking medications. Riese was also initiated due to poor med compliance. She also apparently continues to have crying episodes. Medications were reviewed. Labs were reviewed. ASSESSMENT: The patient remains symptomatic, disoriented, concerns about p.o. intake, concerns about med compliance. We will continue to monitor. Dr. Joseph to follow up with the patient in the morning. [facility]# [id number]
[2017-06-22] MEDS: Escitalopram Oxalate 5 mg Tab PO SCH (09:59)
[2017-06-22] MEDS: Multivitamin w/ Minerals Tab PO SCH (10:15)
--- NOTE | 2017-06-22 18:23 | Internal Medicine Prog Note ---
Internal Medicine Subjective - Subjective Service Date: 06/22/17 Patient seen and examined:: without staff Patient is:: non-verbal, in bed Per staff patient has:: no adverse event Internal Medicine Objective - Results Result Diagrams: 06/15/17 06:45 06/15/17 06:45 Recent Labs: Laboratory Last Values WBC 5.9 Th/cmm (4.8-10.8) 06/15/17 06:45 RBC 4.75 Mil/cmm (3.80-5.20) 06/15/17 06:45 Hgb 13.5 gm/dL (11.7-16.1) 06/15/17 06:45 Hct 40.2 % (35.0-45.0) 06/15/17 06:45 MCV 84.5 fl (81-100) 06/15/17 06:45 MCH 28.4 pg (27.0-31.0) 06/15/17 06:45 MCHC Differential 33.6 pg (28.0-36.0) 06/15/17 06:45 RDW 12.3 % (11.5-20.0) 06/15/17 06:45 Plt Count 156 Th/cmm (150-400) 06/15/17 06:45 MPV 9.9 fl 06/15/17 06:45 Neutrophils % 44.6 % (40.0-80.0) 06/15/17 06:45 Lymphocytes % 44.0 % (20.0-50.0) 06/15/17 06:45 Monocytes % 8.5 % (2.0-10.0) 06/15/17 06:45 Eosinophils % 2.0 % (0.0-5.0) 06/15/17 06:45 Basophils % 0.9 % (0.0-2.0) 06/15/17 06:45 PT 11.3 SECONDS (9.5-11.5) 06/12/17 17:16 INR 1.09 (0.5-1.4) 06/12/17 17:16 Sodium 136 mEq/L (136-145) 06/15/17 06:45 Potassium 4.7 mEq/L (3.5-5.1) 06/15/17 06:45 Chloride 108 mEq/L (98-107) H 06/15/17 06:45 Carbon Dioxide 22.6 mEq/L (21.0-31.0) 06/15/17 06:45 Anion Gap 10.1 (7.0-16.0) 06/15/17 06:45 BUN 22 mg/dL (7-25) 06/15/17 06:45 Creatinine 0.7 mg/dL (0.6-1.2) 06/15/17 06:45 Est GFR ( Amer) > 60.0 ml/min (>90) 06/15/17 06:45 Est GFR (Non-Af Amer) > 60.0 ml/min 06/15/17 06:45 BUN/Creatinine Ratio 31.4 06/15/17 06:45 Glucose 108 mg/dL (70-105) H 06/15/17 06:45 Calcium 9.2 mg/dL (8.6-10.3) 06/15/17 06:45 Total Bilirubin 0.3 mg/dL (0.3-1.0) 06/12/17 16:35 AST 16 U/L (13-39) 06/12/17 16:35 ALT 13 U/L (7-52) 06/12/17 16:35 Alkaline Phosphatase 60 U/L (34-104) 06/12/17 16:35 Troponin I 0.02 ng/mL (0.01-0.05) 06/12/17 16:35 Total Protein 6.8 gm/dL (6.0-8.3) 06/12/17 16:35 Albumin 4.0 gm/dL (3.7-5.3) 06/12/17 16:35 Globulin 2.8 gm/dL 06/12/17 16:35 Albumin/Globulin Ratio 1.4 (1.0-1.8) 06/12/17 16:35 Triglycerides 113 mg/dL (<150) 06/12/17 16:35 Cholesterol 197 mg/dL (<200) 06/12/17 16:35 LDL Cholesterol Direct 139 mg/dL (75-193) 06/12/17 16:35 HDL Cholesterol 46 mg/dL (23-92) 06/12/17 16:35 TSH 1.09 uIU/ml (0.34-5.60) 06/12/17 16:35 Urine Source CLEAN C 06/12/17 17:30 Urine Color YELLOW 06/12/17 17:30 Urine Clarity SLIGHT CLOUDY (CLEAR) 06/12/17 17:30 Urine pH 5.5 (4.6 - 8.0) 06/12/17 17:30 Ur Specific [place] 1.025 (1.005-1.030) 06/12/17 17:30 Urine Protein NEGATIVE mg/dL (NEGATIVE) 06/12/17 17:30 Urine Glucose (UA) NEGATIVE mg/dL (NEGATIVE) 06/12/17 17:30 Urine Ketones NEGATIVE mg/dL (NEGATIVE) 06/12/17 17:30 Urine Blood LARGE (NEGATIVE) H 06/12/17 17:30 Urine Nitrate NEGATIVE (NEGATIVE) 06/12/17 17:30 Urine Bilirubin NEGATIVE (NEGATIVE) 06/12/17 17:30 Urine Urobilinogen 0.2 E.U./dL (0.2 - 1.0) 06/12/17 17:30 Ur Leukocyte Esterase TRACE (NEGATIVE) H 06/12/17 17:30 Urine RBC 50-100 /hpf (0-5) H 06/12/17 17:30 Urine WBC 6-10 /hpf (0-5) H 06/12/17 17:30 Ur Epithelial Cells FEW /lpf (FEW) 06/12/17 17:30 Urine Bacteria FEW /hpf (NONE SEEN) 06/12/17 17:30 Urine Mucus FEW /lpf (FEW) 06/12/17 17:30 Phenytoin < 2.5 ug/ml (10.0-20.0) L 06/12/17 16:35 RPR NONREACTIVE (NONREACTIVE) 06/12/17 16:35 - Physical Exam Vitals and I&O: Vital Signs Temp 98.1 F 06/22/17 15:48 Pulse 57 06/22/17 15:48 Resp 18 06/22/17 15:48 BP 110/75 06/22/17 15:48 Pulse Ox 96 06/22/17 15:48 Intake & Output 06/21/17 06/22/17 06/22/17 18:59 06:59 18:59 Intake Total 1400 243 Balance 1400 243 Weight (lbs) 74.843 kg Intake: Oral 1400 243 Tube Feeding 0 Other: # Voids 4 3 # Bowel Movements 0 0 Active Medications: Current Medications Acetaminophen (Tylenol) 650 mg PO Q4HR PRN PRN Reason: Pain Stop: 08/11/17 18:36 Atorvastatin Calcium (Lipitor) 10 mg PO HS [facility] PRN Reason: Protocol Stop: 08/11/17 20:59 Last Admin: 06/21/17 21:20 Dose: 10 mg Carvedilol (Coreg) 12.5 mg PO DAILY [facility] Stop: 08/12/17 08:59 Last Admin: 06/22/17 10:12 Dose: Not Given Divalproex Sodium (Depakote Sprinkle) 250 mg PO BID [facility] PRN Reason: Protocol Stop: 08/12/17 08:59 Last Admin: 06/22/17 10:36 Dose: Not Given Docusate Sodium (Colace) 100 mg PO BID [facility] Stop: 08/12/17 08:59 Last Admin: 06/22/17 10:14 Dose: Not Given Donepezil HCl (Aricept) 5 mg PO HS [facility] Stop: 08/12/17 20:59 Last Admin: 06/21/17 21:20 Dose: 5 mg Enalapril Maleate (Vasotec) 2.5 mg PO DAILY [facility] Stop: 08/12/17 08:59 Last Admin: 06/22/17 10:36 Dose: Not Given Escitalopram Oxalate (Lexapro) 5 mg PO DAILY ARTEM PRN Reason: Protocol Stop: 08/15/17 08:59 Last Admin: 06/22/17 09:59 Dose: Not Given Fenofibrate (Tricor) 145 mg PO HS [facility] Stop: 08/14/17 20:59 Last Admin: 06/16/17 20:40 Dose: Not Given Haloperidol (Haldol) 1 mg PO BID ARTEM PRN Reason: Protocol Stop: 08/17/17 16:59 Last Admin: 06/22/17 10:14 Dose: Not Given Levetiracetam (Keppra) 500 mg PO BID [facility] Stop: 08/12/17 08:59 Last Admin: 06/22/17 10:36 Dose: Not Given Lorazepam (Ativan) 0.5 mg PO Q4HR PRN; Protocol PRN Reason: Agitation Stop: 07/13/17 06:53 Last Admin: 06/14/17 10:13 Dose: 0.5 mg Magnesium Hydroxide (Milk Of Magnesia) 30 ml PO DAILY PRN PRN Reason: Constipation Stop: 08/11/17 18:38 Phenytoin (Dilantin) 100 mg PO BID [facility] Stop: 08/12/17 08:59 Last Admin: 06/22/17 10:14 Dose: Not Given Zolpidem Tartrate (Ambien) 5 mg PO HSMR1 PRN PRN Reason: Insomnia Stop: 08/12/17 06:53 General: weak, thin HEENT: NC/AT, PERRLA, EOMI Neck: Supple, No JVD, No thyromegaly, No LAD Lungs: CTAB Cardiovascular: RRR, Normal S1, Normal S2, without murmur Abdomen: soft, non-tender Extremities: clear, edema Neurological: no change - Procedures Procedures: Procedures Procedure Code Date GROUP PSYCHOTHERAPY 88522 01/22/16 GROUP PSYCHOTHERAPY GZHZZZZ 01/22/16 OTHER GROUP THERAPY 94.44 11/24/13 Internal Medicine Assmt/Plan - Assessment Assessment: 1.UTI 2.CVA. 3.SEIZURE DISORDER. 4.DEMENTIA. - Plan Plan: CONTINUE ON CURRENT MEDICATION AND DIET.SHE FININISHED HER ABS. Nutritional Asmnt/Malnutr-PDOC - Dietary Evaluation Malnutrition Findings (Please click <Entered> for more info): Nutritional Asmnt/Malnutrition Start: 06/18/17 19: 56 Text: Status: Complete Freq: Document 06/18/17 19:56 [facility] (Rec: 06/18/17 20:04 [facility] [id number]) Nutritional Asmnt/Malnutrition Patient General Information Nutritional Screening Moderate Risk Screening Diagnosis Mood unspecified, anxiety, psychosis, dementia Pertinent Medical Hx/Surgical Hx Alzheimer type dementia, seizure disorder, HTN, hyperlipidemia Subjective Information Pt is a 67-year-old female admitted with chief complaint of refusal of care and decompensation. Per RN notes, pt is withdrawn and confused. Pt has fair appetite but intake fluctuates daily. Pt is able to meet estimated nutritional needs with current diet and PO intake. Current Diet Order/ Nutrition Support Mechanical soft ground, [place] Patient / S.O Can't verbalize diet edu Pertinent Medications Pt is refusing to take medications Pertinent Labs Reviewed Nutritional Hx/Data Height 1.63 m Height (Calculated Centimeters) 162.6 Current Weight (lbs) 74.843 kg Weight (Calculated Kilograms) 74.8 Weight (Calculated Grams) 70571.7 [place] Body Weight 120 % [place] Body Weight 138 Weight Status Overweight GI Symptoms GI Symptoms None Food Allergies No Skin Integrity/Comment: [place] 17. Skin intact. Current %PO Fair (50-74%) Estimated Nutritional Goals BEE in Kcals: Using Current wt Calories/Kcals/Kg Based on current wt 75 kg with consideration of overwt status Kcals Calculated 8177-8101 kcals/day (20-25 kcals/kg) Protein: Using Current wt Protein g/kg: Based on current wt 75 kg Protein Calculated 75 gm/day (1 gm/kg) Fluid: ml 7880-6941 ml/day (1 ml/kcal) Nutritional Problem 1. Problem Problem Overweight related to Etiology possible excessive energy intake vs decreased energy expenditure as evidenced by Signs/Symptoms: BMI 28.3 kg/m2. Malnutrition Alert Protein-Calorie Malnutrition N/A Is there a minimum of two criteria No selected? Query Text:Check all the applicable criteria. A minimum of two criteria are recommended for diagnosis of either severe or non-severe malnutrition. Malnutrition Related to Morbid Obesity Malnutrition related to morbid obesity No Intervention/Recommendation Comments 1. Continue with current diet, as tolerated. [place] food preferences. 2. Will educate pt or family on wt management, as appropriate. Expected Outcomes/Goals Expected Outcomes/Goals Have pt meet at least 75% of estimated nutritional needs, stable wt. Physician Parameters for PEM Serum Albumin (g/dl) 3.5 - 5.0 (Normal)
[2017-06-22] MEDS: Atorvastatin Calcium 10 MG TAB PO SCH (21:09)
--- NOTE | 2017-06-22 21:15 | Progress Notes ---
DATE: 06/22/2017 SUBJECTIVE: Case was discussed with staff of the patient, reviewed records. The patient continues to refuse medications, will not answer my questions when I ask her why she is not taking her medication and when she will take her medication, what medication she will take. She is still internally preoccupied. crying, continues to have poor insight, unable to make safe plan for self-care. We will continue to work with the patient in group therapy, milieu therapy, and adjust medication as needed, waiting for Riese hearing. JOB# [id number]
[2017-06-23] MEDS: Multivitamin w/ Minerals Tab PO SCH (18:08)
[2017-06-23] MEDS: Escitalopram Oxalate 5 mg Tab PO SCH (18:08)
[2017-06-23] MEDS: Atorvastatin Calcium 10 MG TAB PO SCH ×2 (20:27→21:57)
--- NOTE | 2017-06-23 20:58 | Internal Medicine Prog Note ---
Internal Medicine Subjective - Subjective Service Date: 06/23/17 Patient seen and examined:: without staff Patient is:: non-verbal, in bed Per staff patient has:: no adverse event Internal Medicine Objective - Results Result Diagrams: 06/15/17 06:45 06/15/17 06:45 Recent Labs: Laboratory Last Values WBC 5.9 Th/cmm (4.8-10.8) 06/15/17 06:45 RBC 4.75 Mil/cmm (3.80-5.20) 06/15/17 06:45 Hgb 13.5 gm/dL (11.7-16.1) 06/15/17 06:45 Hct 40.2 % (35.0-45.0) 06/15/17 06:45 MCV 84.5 fl (81-100) 06/15/17 06:45 MCH 28.4 pg (27.0-31.0) 06/15/17 06:45 MCHC Differential 33.6 pg (28.0-36.0) 06/15/17 06:45 RDW 12.3 % (11.5-20.0) 06/15/17 06:45 Plt Count 156 Th/cmm (150-400) 06/15/17 06:45 MPV 9.9 fl 06/15/17 06:45 Neutrophils % 44.6 % (40.0-80.0) 06/15/17 06:45 Lymphocytes % 44.0 % (20.0-50.0) 06/15/17 06:45 Monocytes % 8.5 % (2.0-10.0) 06/15/17 06:45 Eosinophils % 2.0 % (0.0-5.0) 06/15/17 06:45 Basophils % 0.9 % (0.0-2.0) 06/15/17 06:45 PT 11.3 SECONDS (9.5-11.5) 06/12/17 17:16 INR 1.09 (0.5-1.4) 06/12/17 17:16 Sodium 136 mEq/L (136-145) 06/15/17 06:45 Potassium 4.7 mEq/L (3.5-5.1) 06/15/17 06:45 Chloride 108 mEq/L (98-107) H 06/15/17 06:45 Carbon Dioxide 22.6 mEq/L (21.0-31.0) 06/15/17 06:45 Anion Gap 10.1 (7.0-16.0) 06/15/17 06:45 BUN 22 mg/dL (7-25) 06/15/17 06:45 Creatinine 0.7 mg/dL (0.6-1.2) 06/15/17 06:45 Est GFR ( Amer) > 60.0 ml/min (>90) 06/15/17 06:45 Est GFR (Non-Af Amer) > 60.0 ml/min 06/15/17 06:45 BUN/Creatinine Ratio 31.4 06/15/17 06:45 Glucose 108 mg/dL (70-105) H 06/15/17 06:45 Calcium 9.2 mg/dL (8.6-10.3) 06/15/17 06:45 Total Bilirubin 0.3 mg/dL (0.3-1.0) 06/12/17 16:35 AST 16 U/L (13-39) 06/12/17 16:35 ALT 13 U/L (7-52) 06/12/17 16:35 Alkaline Phosphatase 60 U/L (34-104) 06/12/17 16:35 Troponin I 0.02 ng/mL (0.01-0.05) 06/12/17 16:35 Total Protein 6.8 gm/dL (6.0-8.3) 06/12/17 16:35 Albumin 4.0 gm/dL (3.7-5.3) 06/12/17 16:35 Globulin 2.8 gm/dL 06/12/17 16:35 Albumin/Globulin Ratio 1.4 (1.0-1.8) 06/12/17 16:35 Triglycerides 113 mg/dL (<150) 06/12/17 16:35 Cholesterol 197 mg/dL (<200) 06/12/17 16:35 LDL Cholesterol Direct 139 mg/dL (75-193) 06/12/17 16:35 HDL Cholesterol 46 mg/dL (23-92) 06/12/17 16:35 TSH 1.09 uIU/ml (0.34-5.60) 06/12/17 16:35 Urine Source CLEAN C 06/12/17 17:30 Urine Color YELLOW 06/12/17 17:30 Urine Clarity SLIGHT CLOUDY (CLEAR) 06/12/17 17:30 Urine pH 5.5 (4.6 - 8.0) 06/12/17 17:30 Ur Specific [place] 1.025 (1.005-1.030) 06/12/17 17:30 Urine Protein NEGATIVE mg/dL (NEGATIVE) 06/12/17 17:30 Urine Glucose (UA) NEGATIVE mg/dL (NEGATIVE) 06/12/17 17:30 Urine Ketones NEGATIVE mg/dL (NEGATIVE) 06/12/17 17:30 Urine Blood LARGE (NEGATIVE) H 06/12/17 17:30 Urine Nitrate NEGATIVE (NEGATIVE) 06/12/17 17:30 Urine Bilirubin NEGATIVE (NEGATIVE) 06/12/17 17:30 Urine Urobilinogen 0.2 E.U./dL (0.2 - 1.0) 06/12/17 17:30 Ur Leukocyte Esterase TRACE (NEGATIVE) H 06/12/17 17:30 Urine RBC 50-100 /hpf (0-5) H 06/12/17 17:30 Urine WBC 6-10 /hpf (0-5) H 06/12/17 17:30 Ur Epithelial Cells FEW /lpf (FEW) 06/12/17 17:30 Urine Bacteria FEW /hpf (NONE SEEN) 06/12/17 17:30 Urine Mucus FEW /lpf (FEW) 06/12/17 17:30 Phenytoin < 2.5 ug/ml (10.0-20.0) L 06/12/17 16:35 RPR NONREACTIVE (NONREACTIVE) 06/12/17 16:35 - Physical Exam Vitals and I&O: Vital Signs Temp 97.9 F 06/23/17 15:01 Pulse 75 06/23/17 15:01 Resp 20 06/23/17 15:01 BP 122/84 06/23/17 15:01 Pulse Ox 96 06/23/17 15:01 Intake & Output 06/23/17 06/23/17 06/24/17 06:59 18:59 06:59 Intake Total 180 720 Balance 180 720 Intake: Oral 180 720 Other: # Voids 1 4 # Bowel Movements 0 1 Active Medications: Current Medications Acetaminophen (Tylenol) 650 mg PO Q4HR PRN PRN Reason: Pain Stop: 08/11/17 18:36 Atorvastatin Calcium (Lipitor) 10 mg PO HS [facility] PRN Reason: Protocol Stop: 08/11/17 20:59 Last Admin: 06/23/17 20:27 Dose: Not Given Carvedilol (Coreg) 12.5 mg PO DAILY [facility] Stop: 08/12/17 08:59 Last Admin: 06/23/17 18:07 Dose: Not Given Divalproex Sodium (Depakote Sprinkle) 250 mg PO BID [facility] PRN Reason: Protocol Stop: 08/12/17 08:59 Last Admin: 06/23/17 18:07 Dose: Not Given Docusate Sodium (Colace) 100 mg PO BID [facility] Stop: 08/12/17 08:59 Last Admin: 06/23/17 18:07 Dose: Not Given Donepezil HCl (Aricept) 5 mg PO HS [facility] Stop: 08/12/17 20:59 Last Admin: 06/23/17 20:28 Dose: 5 mg Enalapril Maleate (Vasotec) 2.5 mg PO DAILY [facility] Stop: 08/12/17 08:59 Last Admin: 06/23/17 18:08 Dose: Not Given Escitalopram Oxalate (Lexapro) 5 mg PO DAILY [facility] PRN Reason: Protocol Stop: 08/15/17 08:59 Last Admin: 06/23/17 18:08 Dose: Not Given Fenofibrate (Tricor) 145 mg PO HS [facility] Stop: 08/14/17 20:59 Last Admin: 06/16/17 20:40 Dose: Not Given Haloperidol (Haldol) 1 mg PO BID [facility] PRN Reason: Protocol Stop: 08/17/17 16:59 Last Admin: 06/23/17 18:08 Dose: Not Given Levetiracetam (Keppra) 500 mg PO BID [facility] Stop: 08/12/17 08:59 Last Admin: 06/23/17 18:08 Dose: Not Given Lorazepam (Ativan) 0.5 mg PO Q4HR PRN; Protocol PRN Reason: Agitation Stop: 07/13/17 06:53 Last Admin: 06/14/17 10:13 Dose: 0.5 mg Magnesium Hydroxide (Milk Of Magnesia) 30 ml PO DAILY PRN PRN Reason: Constipation Stop: 08/11/17 18:38 Phenytoin (Dilantin) 100 mg PO BID [facility] Stop: 08/12/17 08:59 Last Admin: 06/23/17 18:08 Dose: Not Given Zolpidem Tartrate (Ambien) 5 mg PO HSMR1 PRN PRN Reason: Insomnia Stop: 08/12/17 06:53 General: weak, thin HEENT: NC/AT, PERRLA, EOMI Neck: Supple, No JVD, No thyromegaly, No LAD Lungs: CTAB Cardiovascular: RRR, Normal S1, Normal S2, without murmur Abdomen: soft, non-tender Extremities: clear, edema Neurological: no change - Procedures Procedures: Procedures Procedure Code Date GROUP PSYCHOTHERAPY 31200 01/22/16 GROUP PSYCHOTHERAPY GZHZZZZ 01/22/16 OTHER GROUP THERAPY 94.44 11/24/13 Internal Medicine Assmt/Plan - Assessment Assessment: 1.POOR APPETITE. 2.CVA. 3.SEIZURE DISORDER. 4.DEMENTIA. - Plan Plan: CONTINUE ON CURRENT MEDICATION AND DIET.SHE FININISHED HER ABS. Nutritional Asmnt/Malnutr-PDOC - Dietary Evaluation Malnutrition Findings (Please click <Entered> for more info): Nutritional Asmnt/Malnutrition Start: 06/18/17 19: 56 Text: Status: Complete Freq: Document 06/18/17 19:56 [facility] (Rec: 06/18/17 20:04 [facility] [id number]) Nutritional Asmnt/Malnutrition Patient General Information Nutritional Screening Moderate Risk Screening Diagnosis Mood unspecified, anxiety, psychosis, dementia Pertinent Medical Hx/Surgical Hx Alzheimer type dementia, seizure disorder, HTN, hyperlipidemia Subjective Information Pt is a 67-year-old female admitted with chief complaint of refusal of care and decompensation. Per RN notes, pt is withdrawn and confused. Pt has fair appetite but intake fluctuates daily. Pt is able to meet estimated nutritional needs with current diet and PO intake. Current Diet Order/ Nutrition Support Mechanical soft ground, [place] Patient / S.O Can't verbalize diet edu Pertinent Medications Pt is refusing to take medications Pertinent Labs Reviewed Nutritional Hx/Data Height 1.63 m Height (Calculated Centimeters) 162.6 Current Weight (lbs) 74.843 kg Weight (Calculated Kilograms) 74.8 Weight (Calculated Grams) 74441.7 [place] Body Weight 120 % [place] Body Weight 138 Weight Status Overweight GI Symptoms GI Symptoms None Food Allergies No Skin Integrity/Comment: [place] 17. Skin intact. Current %PO Fair (50-74%) Estimated Nutritional Goals BEE in Kcals: Using Current wt Calories/Kcals/Kg Based on current wt 75 kg with consideration of overwt status Kcals Calculated 4486-2257 kcals/day (20-25 kcals/kg) Protein: Using Current wt Protein g/kg: Based on current wt 75 kg Protein Calculated 75 gm/day (1 gm/kg) Fluid: ml 0410-7857 ml/day (1 ml/kcal) Nutritional Problem 1. Problem Problem Overweight related to Etiology possible excessive energy intake vs decreased energy expenditure as evidenced by Signs/Symptoms: BMI 28.3 kg/m2. Malnutrition Alert Protein-Calorie Malnutrition N/A Is there a minimum of two criteria No selected? Query Text:Check all the applicable criteria. A minimum of two criteria are recommended for diagnosis of either severe or non-severe malnutrition. Malnutrition Related to Morbid Obesity Malnutrition related to morbid obesity No Intervention/Recommendation Comments 1. Continue with current diet, as tolerated. [place] food preferences. 2. Will educate pt or family on wt management, as appropriate. Expected Outcomes/Goals Expected Outcomes/Goals Have pt meet at least 75% of estimated nutritional needs, stable wt. Physician Parameters for PEM Serum Albumin (g/dl) 3.5 - 5.0 (Normal)
--- NOTE | 2017-06-23 22:12 | Progress Notes ---
DATE: 06/23/2017 Case was discussed with staff of the patient. The patient will be Riese. We have ____ for the Riese for 06/25/2017; however, the patient did take her medication yesterday. I do not know she will continue to take it. Possibly, she will continue to take it because she improved and no side effects of the medication, no sedation, no nausea, and no extrapyramidal symptoms. We will continue to work with the patient in group therapy, milieu therapy, and adjust medication as needed. JOB# [id number]
[2017-06-24] MEDS: Escitalopram Oxalate 5 mg Tab PO SCH (11:15)
[2017-06-24] MEDS: Multivitamin w/ Minerals Tab PO SCH (11:16)
--- NOTE | 2017-06-24 20:43 | Internal Medicine Prog Note ---
Internal Medicine Subjective - Subjective Service Date: 06/24/17 Patient seen and examined:: with staff Patient is:: non-verbal, in bed Per staff patient has:: no adverse event Internal Medicine Objective - Results Result Diagrams: 06/15/17 06:45 06/15/17 06:45 Recent Labs: Laboratory Last Values WBC 5.9 Th/cmm (4.8-10.8) 06/15/17 06:45 RBC 4.75 Mil/cmm (3.80-5.20) 06/15/17 06:45 Hgb 13.5 gm/dL (11.7-16.1) 06/15/17 06:45 Hct 40.2 % (35.0-45.0) 06/15/17 06:45 MCV 84.5 fl (81-100) 06/15/17 06:45 MCH 28.4 pg (27.0-31.0) 06/15/17 06:45 MCHC Differential 33.6 pg (28.0-36.0) 06/15/17 06:45 RDW 12.3 % (11.5-20.0) 06/15/17 06:45 Plt Count 156 Th/cmm (150-400) 06/15/17 06:45 MPV 9.9 fl 06/15/17 06:45 Neutrophils % 44.6 % (40.0-80.0) 06/15/17 06:45 Lymphocytes % 44.0 % (20.0-50.0) 06/15/17 06:45 Monocytes % 8.5 % (2.0-10.0) 06/15/17 06:45 Eosinophils % 2.0 % (0.0-5.0) 06/15/17 06:45 Basophils % 0.9 % (0.0-2.0) 06/15/17 06:45 PT 11.3 SECONDS (9.5-11.5) 06/12/17 17:16 INR 1.09 (0.5-1.4) 06/12/17 17:16 Sodium 136 mEq/L (136-145) 06/15/17 06:45 Potassium 4.7 mEq/L (3.5-5.1) 06/15/17 06:45 Chloride 108 mEq/L (98-107) H 06/15/17 06:45 Carbon Dioxide 22.6 mEq/L (21.0-31.0) 06/15/17 06:45 Anion Gap 10.1 (7.0-16.0) 06/15/17 06:45 BUN 22 mg/dL (7-25) 06/15/17 06:45 Creatinine 0.7 mg/dL (0.6-1.2) 06/15/17 06:45 Est GFR ( Amer) > 60.0 ml/min (>90) 06/15/17 06:45 Est GFR (Non-Af Amer) > 60.0 ml/min 06/15/17 06:45 BUN/Creatinine Ratio 31.4 06/15/17 06:45 Glucose 108 mg/dL (70-105) H 06/15/17 06:45 Calcium 9.2 mg/dL (8.6-10.3) 06/15/17 06:45 Total Bilirubin 0.3 mg/dL (0.3-1.0) 06/12/17 16:35 AST 16 U/L (13-39) 06/12/17 16:35 ALT 13 U/L (7-52) 06/12/17 16:35 Alkaline Phosphatase 60 U/L (34-104) 06/12/17 16:35 Troponin I 0.02 ng/mL (0.01-0.05) 06/12/17 16:35 Total Protein 6.8 gm/dL (6.0-8.3) 06/12/17 16:35 Albumin 4.0 gm/dL (3.7-5.3) 06/12/17 16:35 Globulin 2.8 gm/dL 06/12/17 16:35 Albumin/Globulin Ratio 1.4 (1.0-1.8) 06/12/17 16:35 Triglycerides 113 mg/dL (<150) 06/12/17 16:35 Cholesterol 197 mg/dL (<200) 06/12/17 16:35 LDL Cholesterol Direct 139 mg/dL (75-193) 06/12/17 16:35 HDL Cholesterol 46 mg/dL (23-92) 06/12/17 16:35 TSH 1.09 uIU/ml (0.34-5.60) 06/12/17 16:35 Urine Source CLEAN C 06/12/17 17:30 Urine Color YELLOW 06/12/17 17:30 Urine Clarity SLIGHT CLOUDY (CLEAR) 06/12/17 17:30 Urine pH 5.5 (4.6 - 8.0) 06/12/17 17:30 Ur Specific [place] 1.025 (1.005-1.030) 06/12/17 17:30 Urine Protein NEGATIVE mg/dL (NEGATIVE) 06/12/17 17:30 Urine Glucose (UA) NEGATIVE mg/dL (NEGATIVE) 06/12/17 17:30 Urine Ketones NEGATIVE mg/dL (NEGATIVE) 06/12/17 17:30 Urine Blood LARGE (NEGATIVE) H 06/12/17 17:30 Urine Nitrate NEGATIVE (NEGATIVE) 06/12/17 17:30 Urine Bilirubin NEGATIVE (NEGATIVE) 06/12/17 17:30 Urine Urobilinogen 0.2 E.U./dL (0.2 - 1.0) 06/12/17 17:30 Ur Leukocyte Esterase TRACE (NEGATIVE) H 06/12/17 17:30 Urine RBC 50-100 /hpf (0-5) H 06/12/17 17:30 Urine WBC 6-10 /hpf (0-5) H 06/12/17 17:30 Ur Epithelial Cells FEW /lpf (FEW) 06/12/17 17:30 Urine Bacteria FEW /hpf (NONE SEEN) 06/12/17 17:30 Urine Mucus FEW /lpf (FEW) 06/12/17 17:30 Phenytoin < 2.5 ug/ml (10.0-20.0) L 06/12/17 16:35 RPR NONREACTIVE (NONREACTIVE) 06/12/17 16:35 - Physical Exam Vitals and I&O: Vital Signs Temp 98.0 F 06/24/17 14:00 Pulse 88 06/24/17 14:00 Resp 20 06/24/17 14:00 BP 119/70 06/24/17 14:00 Pulse Ox 97 06/24/17 14:00 Intake & Output 06/24/17 06/24/17 06/25/17 06:59 18:59 06:59 Intake Total 360 600 Balance 360 600 Weight (lbs) 74.843 kg Intake: Oral 360 600 Other: # Voids 3 2 # Bowel Movements 0 1 Active Medications: Current Medications Acetaminophen (Tylenol) 650 mg PO Q4HR PRN PRN Reason: Pain Stop: 08/11/17 18:36 Atorvastatin Calcium (Lipitor) 10 mg PO HS [facility] PRN Reason: Protocol Stop: 08/11/17 20:59 Last Admin: 06/23/17 21:57 Dose: Not Given Carvedilol (Coreg) 12.5 mg PO DAILY [facility] Stop: 08/12/17 08:59 Last Admin: 06/24/17 11:15 Dose: Not Given Divalproex Sodium (Depakote Sprinkle) 250 mg PO BID [facility] PRN Reason: Protocol Stop: 08/12/17 08:59 Last Admin: 06/24/17 17:50 Dose: Not Given Docusate Sodium (Colace) 100 mg PO BID [facility] Stop: 08/12/17 08:59 Last Admin: 06/24/17 17:50 Dose: Not Given Donepezil HCl (Aricept) 5 mg PO HS [facility] Stop: 08/12/17 20:59 Last Admin: 06/23/17 20:28 Dose: 5 mg Enalapril Maleate (Vasotec) 2.5 mg PO DAILY [facility] Stop: 08/12/17 08:59 Last Admin: 06/24/17 11:15 Dose: Not Given Escitalopram Oxalate (Lexapro) 5 mg PO DAILY [facility] PRN Reason: Protocol Stop: 08/15/17 08:59 Last Admin: 06/24/17 11:15 Dose: Not Given Fenofibrate (Tricor) 145 mg PO HS [facility] Stop: 08/14/17 20:59 Last Admin: 06/16/17 20:40 Dose: Not Given Haloperidol (Haldol) 1 mg PO BID [facility] PRN Reason: Protocol Stop: 08/17/17 16:59 Last Admin: 06/24/17 17:50 Dose: Not Given Levetiracetam (Keppra) 500 mg PO BID [facility] Stop: 08/12/17 08:59 Last Admin: 06/24/17 17:50 Dose: Not Given Lorazepam (Ativan) 0.5 mg PO Q4HR PRN; Protocol PRN Reason: Agitation Stop: 07/13/17 06:53 Last Admin: 06/14/17 10:13 Dose: 0.5 mg Magnesium Hydroxide (Milk Of Magnesia) 30 ml PO DAILY PRN PRN Reason: Constipation Stop: 08/11/17 18:38 Phenytoin (Dilantin) 100 mg PO BID [facility] Stop: 08/12/17 08:59 Last Admin: 06/24/17 17:50 Dose: Not Given Zolpidem Tartrate (Ambien) 5 mg PO HSMR1 PRN PRN Reason: Insomnia Stop: 08/12/17 06:53 General: weak, thin HEENT: NC/AT, PERRLA, EOMI Neck: Supple, No JVD, No thyromegaly, No LAD Lungs: CTAB Cardiovascular: RRR, Normal S1, Normal S2, without murmur Abdomen: soft, non-tender Extremities: clear, edema Neurological: no change - Procedures Procedures: Procedures Procedure Code Date GROUP PSYCHOTHERAPY 35322 01/22/16 GROUP PSYCHOTHERAPY GZHZZZZ 01/22/16 OTHER GROUP THERAPY 94.44 11/24/13 Internal Medicine Assmt/Plan - Assessment Assessment: 1.POOR APPETITE. 2.CVA. 3.SEIZURE DISORDER. 4.DEMENTIA. - Plan Plan: CONTINUE ON CURRENT MEDICATION AND DIET. Nutritional Asmnt/Malnutr-PDOC - Dietary Evaluation Malnutrition Findings (Please click <Entered> for more info): Nutritional Asmnt/Malnutrition Start: 06/18/17 19: 56 Text: Status: Complete Freq: Document 06/18/17 19:56 [facility] (Rec: 06/18/17 20:04 [facility] [id number]) Nutritional Asmnt/Malnutrition Patient General Information Nutritional Screening Moderate Risk Screening Diagnosis Mood unspecified, anxiety, psychosis, dementia Pertinent Medical Hx/Surgical Hx Alzheimer type dementia, seizure disorder, HTN, hyperlipidemia Subjective Information Pt is a 67-year-old female admitted with chief complaint of refusal of care and decompensation. Per RN notes, pt is withdrawn and confused. Pt has fair appetite but intake fluctuates daily. Pt is able to meet estimated nutritional needs with current diet and PO intake. Current Diet Order/ Nutrition Support Mechanical soft ground, [place] Patient / S.O Can't verbalize diet edu Pertinent Medications Pt is refusing to take medications Pertinent Labs Reviewed Nutritional Hx/Data Height 1.63 m Height (Calculated Centimeters) 162.6 Current Weight (lbs) 74.843 kg Weight (Calculated Kilograms) 74.8 Weight (Calculated Grams) 67134.7 [place] Body Weight 120 % [place] Body Weight 138 Weight Status Overweight GI Symptoms GI Symptoms None Food Allergies No Skin Integrity/Comment: [place] 17. Skin intact. Current %PO Fair (50-74%) Estimated Nutritional Goals BEE in Kcals: Using Current wt Calories/Kcals/Kg Based on current wt 75 kg with consideration of overwt status Kcals Calculated 9154-8539 kcals/day (20-25 kcals/kg) Protein: Using Current wt Protein g/kg: Based on current wt 75 kg Protein Calculated 75 gm/day (1 gm/kg) Fluid: ml 1584-2372 ml/day (1 ml/kcal) Nutritional Problem 1. Problem Problem Overweight related to Etiology possible excessive energy intake vs decreased energy expenditure as evidenced by Signs/Symptoms: BMI 28.3 kg/m2. Malnutrition Alert Protein-Calorie Malnutrition N/A Is there a minimum of two criteria No selected? Query Text:Check all the applicable criteria. A minimum of two criteria are recommended for diagnosis of either severe or non-severe malnutrition. Malnutrition Related to Morbid Obesity Malnutrition related to morbid obesity No Intervention/Recommendation Comments 1. Continue with current diet, as tolerated. [place] food preferences. 2. Will educate pt or family on wt management, as appropriate. Expected Outcomes/Goals Expected Outcomes/Goals Have pt meet at least 75% of estimated nutritional needs, stable wt. Physician Parameters for PEM Serum Albumin (g/dl) 3.5 - 5.0 (Normal)
--- NOTE | 2017-06-24 20:45 | Progress Notes ---
DATE: 06/24/2017 SUBJECTIVE: Case was discussed with staff of the patient, reviewed records. The patient continues to refuse medications. She does take it, but very rarely. She is in general still noncompliant, when I tried to talk to her, she would not say any words. She would not tell me why she is not taking her medication, what medication she will take, that is extremely unlike her as I have known her for years. She is still having crying spells, appears to be depressed, and we have a Riese hearing scheduled for tomorrow and we will continue to work with the patient in group therapy, milieu therapy, and adjust medications as needed. JOB# [id number]
[2017-06-24] MEDS: Atorvastatin Calcium 10 MG TAB PO SCH (21:22)
[2017-06-25] MEDS: Escitalopram Oxalate 5 mg Tab PO SCH (10:02)
[2017-06-25] MEDS: Multivitamin w/ Minerals Tab PO SCH (10:02)
[2017-06-25] MEDS: Haloperidol Lactate 5 mg/mL 1mL Vial IM PRN (17:48)
--- NOTE | 2017-06-25 17:59 | Internal Medicine Prog Note ---
Internal Medicine Subjective - Subjective Patient seen and examined:: with staff (SHE STILL NOT EATING WELL AND NO TAKLING MEDICATION.) Patient is:: non-verbal, in bed Per staff patient has:: no adverse event Internal Medicine Objective - Results Result Diagrams: 06/15/17 06:45 06/15/17 06:45 Recent Labs: Laboratory Last Values WBC 5.9 Th/cmm (4.8-10.8) 06/15/17 06:45 RBC 4.75 Mil/cmm (3.80-5.20) 06/15/17 06:45 Hgb 13.5 gm/dL (11.7-16.1) 06/15/17 06:45 Hct 40.2 % (35.0-45.0) 06/15/17 06:45 MCV 84.5 fl (81-100) 06/15/17 06:45 MCH 28.4 pg (27.0-31.0) 06/15/17 06:45 MCHC Differential 33.6 pg (28.0-36.0) 06/15/17 06:45 RDW 12.3 % (11.5-20.0) 06/15/17 06:45 Plt Count 156 Th/cmm (150-400) 06/15/17 06:45 MPV 9.9 fl 06/15/17 06:45 Neutrophils % 44.6 % (40.0-80.0) 06/15/17 06:45 Lymphocytes % 44.0 % (20.0-50.0) 06/15/17 06:45 Monocytes % 8.5 % (2.0-10.0) 06/15/17 06:45 Eosinophils % 2.0 % (0.0-5.0) 06/15/17 06:45 Basophils % 0.9 % (0.0-2.0) 06/15/17 06:45 PT 11.3 SECONDS (9.5-11.5) 06/12/17 17:16 INR 1.09 (0.5-1.4) 06/12/17 17:16 Sodium 136 mEq/L (136-145) 06/15/17 06:45 Potassium 4.7 mEq/L (3.5-5.1) 06/15/17 06:45 Chloride 108 mEq/L (98-107) H 06/15/17 06:45 Carbon Dioxide 22.6 mEq/L (21.0-31.0) 06/15/17 06:45 Anion Gap 10.1 (7.0-16.0) 06/15/17 06:45 BUN 22 mg/dL (7-25) 06/15/17 06:45 Creatinine 0.7 mg/dL (0.6-1.2) 06/15/17 06:45 Est GFR ( Amer) > 60.0 ml/min (>90) 06/15/17 06:45 Est GFR (Non-Af Amer) > 60.0 ml/min 06/15/17 06:45 BUN/Creatinine Ratio 31.4 06/15/17 06:45 Glucose 108 mg/dL (70-105) H 06/15/17 06:45 Calcium 9.2 mg/dL (8.6-10.3) 06/15/17 06:45 Total Bilirubin 0.3 mg/dL (0.3-1.0) 06/12/17 16:35 AST 16 U/L (13-39) 06/12/17 16:35 ALT 13 U/L (7-52) 06/12/17 16:35 Alkaline Phosphatase 60 U/L (34-104) 06/12/17 16:35 Troponin I 0.02 ng/mL (0.01-0.05) 06/12/17 16:35 Total Protein 6.8 gm/dL (6.0-8.3) 06/12/17 16:35 Albumin 4.0 gm/dL (3.7-5.3) 06/12/17 16:35 Globulin 2.8 gm/dL 06/12/17 16:35 Albumin/Globulin Ratio 1.4 (1.0-1.8) 06/12/17 16:35 Triglycerides 113 mg/dL (<150) 06/12/17 16:35 Cholesterol 197 mg/dL (<200) 06/12/17 16:35 LDL Cholesterol Direct 139 mg/dL (75-193) 06/12/17 16:35 HDL Cholesterol 46 mg/dL (23-92) 06/12/17 16:35 TSH 1.09 uIU/ml (0.34-5.60) 06/12/17 16:35 Urine Source CLEAN C 06/12/17 17:30 Urine Color YELLOW 06/12/17 17:30 Urine Clarity SLIGHT CLOUDY (CLEAR) 06/12/17 17:30 Urine pH 5.5 (4.6 - 8.0) 06/12/17 17:30 Ur Specific [place] 1.025 (1.005-1.030) 06/12/17 17:30 Urine Protein NEGATIVE mg/dL (NEGATIVE) 06/12/17 17:30 Urine Glucose (UA) NEGATIVE mg/dL (NEGATIVE) 06/12/17 17:30 Urine Ketones NEGATIVE mg/dL (NEGATIVE) 06/12/17 17:30 Urine Blood LARGE (NEGATIVE) H 06/12/17 17:30 Urine Nitrate NEGATIVE (NEGATIVE) 06/12/17 17:30 Urine Bilirubin NEGATIVE (NEGATIVE) 06/12/17 17:30 Urine Urobilinogen 0.2 E.U./dL (0.2 - 1.0) 06/12/17 17:30 Ur Leukocyte Esterase TRACE (NEGATIVE) H 06/12/17 17:30 Urine RBC 50-100 /hpf (0-5) H 06/12/17 17:30 Urine WBC 6-10 /hpf (0-5) H 06/12/17 17:30 Ur Epithelial Cells FEW /lpf (FEW) 06/12/17 17:30 Urine Bacteria FEW /hpf (NONE SEEN) 06/12/17 17:30 Urine Mucus FEW /lpf (FEW) 06/12/17 17:30 Phenytoin < 2.5 ug/ml (10.0-20.0) L 06/12/17 16:35 RPR NONREACTIVE (NONREACTIVE) 06/12/17 16:35 - Physical Exam Vitals and I&O: Vital Signs Temp 97.8 F 06/25/17 06:44 Pulse 60 06/25/17 06:44 Resp 18 06/25/17 06:44 BP 134/82 06/25/17 06:44 Pulse Ox 99 06/25/17 06:44 Intake & Output 06/24/17 06/25/17 06/25/17 18:59 06:59 18:59 Intake Total 600 120 Balance 600 120 Intake: Oral 600 120 Other: # Voids 2 3 # Bowel Movements 1 Active Medications: Current Medications Acetaminophen (Tylenol) 650 mg PO Q4HR PRN PRN Reason: Pain Stop: 08/11/17 18:36 Atorvastatin Calcium (Lipitor) 10 mg PO HS [facility] PRN Reason: Protocol Stop: 08/11/17 20:59 Last Admin: 06/24/17 21:22 Dose: Not Given Carvedilol (Coreg) 12.5 mg PO DAILY [facility] Stop: 08/12/17 08:59 Last Admin: 06/25/17 10:01 Dose: Not Given Divalproex Sodium (Depakote Sprinkle) 250 mg PO BID [facility] PRN Reason: Protocol Stop: 08/12/17 08:59 Last Admin: 06/25/17 17:48 Dose: Not Given Docusate Sodium (Colace) 100 mg PO BID [facility] Stop: 08/12/17 08:59 Last Admin: 06/25/17 17:48 Dose: Not Given Donepezil HCl (Aricept) 5 mg PO HS [facility] Stop: 08/12/17 20:59 Last Admin: 06/24/17 20:49 Dose: 5 mg Enalapril Maleate (Vasotec) 2.5 mg PO DAILY [facility] Stop: 08/12/17 08:59 Last Admin: 06/25/17 10:02 Dose: Not Given Escitalopram Oxalate (Lexapro) 5 mg PO DAILY [facility] PRN Reason: Protocol Stop: 08/15/17 08:59 Last Admin: 06/25/17 10:02 Dose: Not Given Fenofibrate (Tricor) 145 mg PO HS [facility] Stop: 08/14/17 20:59 Last Admin: 06/16/17 20:40 Dose: Not Given Haloperidol (Haldol) 1 mg PO BID [facility] PRN Reason: Protocol Stop: 08/17/17 16:59 Last Admin: 06/25/17 17:48 Dose: Not Given Haloperidol Lactate (Haldol) 1 mg IM BID PRN PRN Reason: Agitation Stop: 08/24/17 14:59 Last Admin: 06/25/17 17:48 Dose: 1 mg Levetiracetam (Keppra) 500 mg PO BID [facility] Stop: 08/12/17 08:59 Last Admin: 06/25/17 17:48 Dose: Not Given Lorazepam (Ativan) 0.5 mg PO Q4HR PRN; Protocol PRN Reason: Agitation Stop: 07/13/17 06:53 Last Admin: 06/14/17 10:13 Dose: 0.5 mg Magnesium Hydroxide (Milk Of Magnesia) 30 ml PO DAILY PRN PRN Reason: Constipation Stop: 08/11/17 18:38 Phenytoin (Dilantin) 100 mg PO BID [facility] Stop: 08/12/17 08:59 Last Admin: 06/25/17 17:48 Dose: Not Given Zolpidem Tartrate (Ambien) 5 mg PO HSMR1 PRN PRN Reason: Insomnia Stop: 08/12/17 06:53 General: weak, thin HEENT: NC/AT, PERRLA, EOMI Neck: Supple, No JVD, No thyromegaly, No LAD Lungs: CTAB Cardiovascular: RRR, Normal S1, Normal S2, without murmur Abdomen: soft, non-tender Extremities: clear, edema Neurological: no change - Procedures Procedures: Procedures Procedure Code Date GROUP PSYCHOTHERAPY 49332 01/22/16 GROUP PSYCHOTHERAPY GZHZZZZ 01/22/16 OTHER GROUP THERAPY 94.44 11/24/13 Internal Medicine Assmt/Plan - Assessment Assessment: 1.POOR APPETITE. 2.CVA. 3.SEIZURE DISORDER. 4.DEMENTIA. - Plan Plan: CONTINUE ON CURRENT MEDICATION AND DIET. Nutritional Asmnt/Malnutr-PDOC - Dietary Evaluation Malnutrition Findings (Please click <Entered> for more info): Nutritional Asmnt/Malnutrition Start: 06/18/17 19: 56 Text: Status: Complete Freq: Document 06/18/17 19:56 [facility] (Rec: 06/18/17 20:04 [facility] [id number]) Nutritional Asmnt/Malnutrition Patient General Information Nutritional Screening Moderate Risk Screening Diagnosis Mood unspecified, anxiety, psychosis, dementia Pertinent Medical Hx/Surgical Hx Alzheimer type dementia, seizure disorder, HTN, hyperlipidemia Subjective Information Pt is a 67-year-old female admitted with chief complaint of refusal of care and decompensation. Per RN notes, pt is withdrawn and confused. Pt has fair appetite but intake fluctuates daily. Pt is able to meet estimated nutritional needs with current diet and PO intake. Current Diet Order/ Nutrition Support Mechanical soft ground, [place] Patient / S.O Can't verbalize diet edu Pertinent Medications Pt is refusing to take medications Pertinent Labs Reviewed Nutritional Hx/Data Height 1.63 m Height (Calculated Centimeters) 162.6 Current Weight (lbs) 74.843 kg Weight (Calculated Kilograms) 74.8 Weight (Calculated Grams) 39715.7 [place] Body Weight 120 % [place] Body Weight 138 Weight Status Overweight GI Symptoms GI Symptoms None Food Allergies No Skin Integrity/Comment: [place] 17. Skin intact. Current %PO Fair (50-74%) Estimated Nutritional Goals BEE in Kcals: Using Current wt Calories/Kcals/Kg Based on current wt 75 kg with consideration of overwt status Kcals Calculated 9779-2047 kcals/day (20-25 kcals/kg) Protein: Using Current wt Protein g/kg: Based on current wt 75 kg Protein Calculated 75 gm/day (1 gm/kg) Fluid: ml 6677-5449 ml/day (1 ml/kcal) Nutritional Problem 1. Problem Problem Overweight related to Etiology possible excessive energy intake vs decreased energy expenditure as evidenced by Signs/Symptoms: BMI 28.3 kg/m2. Malnutrition Alert Protein-Calorie Malnutrition N/A Is there a minimum of two criteria No selected? Query Text:Check all the applicable criteria. A minimum of two criteria are recommended for diagnosis of either severe or non-severe malnutrition. Malnutrition Related to Morbid Obesity Malnutrition related to morbid obesity No Intervention/Recommendation Comments 1. Continue with current diet, as tolerated. [place] food preferences. 2. Will educate pt or family on wt management, as appropriate. Expected Outcomes/Goals Expected Outcomes/Goals Have pt meet at least 75% of estimated nutritional needs, stable wt. Physician Parameters for PEM Serum Albumin (g/dl) 3.5 - 5.0 (Normal)
--- NOTE | 2017-06-25 20:07 | Progress Notes ---
DATE: 06/25/2017 Case was discussed with staff of the patient, reviewed records. ____ today. The patient continues to refuse her medication. Continues to be unpredictable, impulsive. Continues to have poor insight. Continues to be unable to make safe plan for self-care. The restating was upheld, so we are going to start getting the patient Haldol IM if refuses p.o. and we will continue to work with the patient in group therapy, milieu therapy, and adjust medication as needed. JOB# [id number]
[2017-06-25] MEDS: Atorvastatin Calcium 10 MG TAB PO SCH (20:52)
[2017-06-26] MEDS: Escitalopram Oxalate 5 mg Tab PO SCH (10:01)
[2017-06-26] MEDS: Multivitamin w/ Minerals Tab PO SCH (10:01)
--- NOTE | 2017-06-26 15:50 | Internal Medicine Prog Note ---
Internal Medicine Subjective - Subjective Service Date: 06/26/17 Patient seen and examined:: with staff Patient is:: non-verbal, in bed Per staff patient has:: no adverse event Internal Medicine Objective - Results Result Diagrams: 06/15/17 06:45 06/15/17 06:45 Recent Labs: Laboratory Last Values WBC 5.9 Th/cmm (4.8-10.8) 06/15/17 06:45 RBC 4.75 Mil/cmm (3.80-5.20) 06/15/17 06:45 Hgb 13.5 gm/dL (11.7-16.1) 06/15/17 06:45 Hct 40.2 % (35.0-45.0) 06/15/17 06:45 MCV 84.5 fl (81-100) 06/15/17 06:45 MCH 28.4 pg (27.0-31.0) 06/15/17 06:45 MCHC Differential 33.6 pg (28.0-36.0) 06/15/17 06:45 RDW 12.3 % (11.5-20.0) 06/15/17 06:45 Plt Count 156 Th/cmm (150-400) 06/15/17 06:45 MPV 9.9 fl 06/15/17 06:45 Neutrophils % 44.6 % (40.0-80.0) 06/15/17 06:45 Lymphocytes % 44.0 % (20.0-50.0) 06/15/17 06:45 Monocytes % 8.5 % (2.0-10.0) 06/15/17 06:45 Eosinophils % 2.0 % (0.0-5.0) 06/15/17 06:45 Basophils % 0.9 % (0.0-2.0) 06/15/17 06:45 PT 11.3 SECONDS (9.5-11.5) 06/12/17 17:16 INR 1.09 (0.5-1.4) 06/12/17 17:16 Sodium 136 mEq/L (136-145) 06/15/17 06:45 Potassium 4.7 mEq/L (3.5-5.1) 06/15/17 06:45 Chloride 108 mEq/L (98-107) H 06/15/17 06:45 Carbon Dioxide 22.6 mEq/L (21.0-31.0) 06/15/17 06:45 Anion Gap 10.1 (7.0-16.0) 06/15/17 06:45 BUN 22 mg/dL (7-25) 06/15/17 06:45 Creatinine 0.7 mg/dL (0.6-1.2) 06/15/17 06:45 Est GFR ( Amer) > 60.0 ml/min (>90) 06/15/17 06:45 Est GFR (Non-Af Amer) > 60.0 ml/min 06/15/17 06:45 BUN/Creatinine Ratio 31.4 06/15/17 06:45 Glucose 108 mg/dL (70-105) H 06/15/17 06:45 Calcium 9.2 mg/dL (8.6-10.3) 06/15/17 06:45 Total Bilirubin 0.3 mg/dL (0.3-1.0) 06/12/17 16:35 AST 16 U/L (13-39) 06/12/17 16:35 ALT 13 U/L (7-52) 06/12/17 16:35 Alkaline Phosphatase 60 U/L (34-104) 06/12/17 16:35 Troponin I 0.02 ng/mL (0.01-0.05) 06/12/17 16:35 Total Protein 6.8 gm/dL (6.0-8.3) 06/12/17 16:35 Albumin 4.0 gm/dL (3.7-5.3) 06/12/17 16:35 Globulin 2.8 gm/dL 06/12/17 16:35 Albumin/Globulin Ratio 1.4 (1.0-1.8) 06/12/17 16:35 Triglycerides 113 mg/dL (<150) 06/12/17 16:35 Cholesterol 197 mg/dL (<200) 06/12/17 16:35 LDL Cholesterol Direct 139 mg/dL (75-193) 06/12/17 16:35 HDL Cholesterol 46 mg/dL (23-92) 06/12/17 16:35 TSH 1.09 uIU/ml (0.34-5.60) 06/12/17 16:35 Urine Source CLEAN C 06/12/17 17:30 Urine Color YELLOW 06/12/17 17:30 Urine Clarity SLIGHT CLOUDY (CLEAR) 06/12/17 17:30 Urine pH 5.5 (4.6 - 8.0) 06/12/17 17:30 Ur Specific [place] 1.025 (1.005-1.030) 06/12/17 17:30 Urine Protein NEGATIVE mg/dL (NEGATIVE) 06/12/17 17:30 Urine Glucose (UA) NEGATIVE mg/dL (NEGATIVE) 06/12/17 17:30 Urine Ketones NEGATIVE mg/dL (NEGATIVE) 06/12/17 17:30 Urine Blood LARGE (NEGATIVE) H 06/12/17 17:30 Urine Nitrate NEGATIVE (NEGATIVE) 06/12/17 17:30 Urine Bilirubin NEGATIVE (NEGATIVE) 06/12/17 17:30 Urine Urobilinogen 0.2 E.U./dL (0.2 - 1.0) 06/12/17 17:30 Ur Leukocyte Esterase TRACE (NEGATIVE) H 06/12/17 17:30 Urine RBC 50-100 /hpf (0-5) H 06/12/17 17:30 Urine WBC 6-10 /hpf (0-5) H 06/12/17 17:30 Ur Epithelial Cells FEW /lpf (FEW) 06/12/17 17:30 Urine Bacteria FEW /hpf (NONE SEEN) 06/12/17 17:30 Urine Mucus FEW /lpf (FEW) 06/12/17 17:30 Phenytoin < 2.5 ug/ml (10.0-20.0) L 06/12/17 16:35 RPR NONREACTIVE (NONREACTIVE) 06/12/17 16:35 - Physical Exam Vitals and I&O: Vital Signs Temp 97.9 F 06/26/17 06:34 Pulse 96 06/26/17 10:04 Resp 18 06/26/17 06:34 BP 120/76 06/26/17 10:04 Pulse Ox 96 06/26/17 06:34 Intake & Output 06/25/17 06/26/17 06/26/17 18:59 06:59 18:59 Intake Total 1400 120 Balance 1400 120 Intake: Oral 1400 120 Other: # Voids 4 3 # Bowel Movements 0 Active Medications: Current Medications Acetaminophen (Tylenol) 650 mg PO Q4HR PRN PRN Reason: Pain Stop: 08/11/17 18:36 Atorvastatin Calcium (Lipitor) 10 mg PO HS [facility] PRN Reason: Protocol Stop: 08/11/17 20:59 Last Admin: 06/25/17 20:52 Dose: Not Given Carvedilol (Coreg) 12.5 mg PO DAILY [facility] Stop: 08/12/17 08:59 Last Admin: 06/26/17 10:04 Dose: 12.5 mg Divalproex Sodium (Depakote Sprinkle) 250 mg PO BID [facility] PRN Reason: Protocol Stop: 08/12/17 08:59 Last Admin: 06/26/17 09:58 Dose: 250 mg Docusate Sodium (Colace) 100 mg PO BID [facility] Stop: 08/12/17 08:59 Last Admin: 06/26/17 10:04 Dose: 100 mg Donepezil HCl (Aricept) 5 mg PO HS [facility] Stop: 08/12/17 20:59 Last Admin: 06/25/17 20:52 Dose: 5 mg Enalapril Maleate (Vasotec) 2.5 mg PO DAILY [facility] Stop: 08/12/17 08:59 Last Admin: 06/26/17 10:01 Dose: 2.5 mg Escitalopram Oxalate (Lexapro) 5 mg PO DAILY [facility] PRN Reason: Protocol Stop: 08/15/17 08:59 Last Admin: 06/26/17 10:01 Dose: 5 mg Fenofibrate (Tricor) 145 mg PO HS [facility] Stop: 08/14/17 20:59 Last Admin: 06/16/17 20:40 Dose: Not Given Haloperidol (Haldol) 1 mg PO BID [facility] PRN Reason: Protocol Stop: 08/17/17 16:59 Last Admin: 06/26/17 10:06 Dose: Not Given Haloperidol Lactate (Haldol) 1 mg IM BID PRN PRN Reason: Agitation Stop: 08/24/17 14:59 Last Admin: 06/25/17 17:48 Dose: 1 mg Levetiracetam (Keppra) 500 mg PO BID [facility] Stop: 08/12/17 08:59 Last Admin: 06/26/17 10:06 Dose: 500 mg Lorazepam (Ativan) 0.5 mg PO Q4HR PRN; Protocol PRN Reason: Agitation Stop: 07/13/17 06:53 Last Admin: 06/14/17 10:13 Dose: 0.5 mg Magnesium Hydroxide (Milk Of Magnesia) 30 ml PO DAILY PRN PRN Reason: Constipation Stop: 08/11/17 18:38 Phenytoin (Dilantin) 100 mg PO BID [facility] Stop: 08/12/17 08:59 Last Admin: 06/26/17 09:59 Dose: 100 mg Zolpidem Tartrate (Ambien) 5 mg PO HSMR1 PRN PRN Reason: Insomnia Stop: 08/12/17 06:53 General: weak, thin HEENT: NC/AT, PERRLA, EOMI Neck: Supple, No JVD, No thyromegaly, No LAD Lungs: CTAB Cardiovascular: RRR, Normal S1, Normal S2, without murmur Abdomen: soft, non-tender Extremities: clear, edema Neurological: no change - Procedures Procedures: Procedures Procedure Code Date GROUP PSYCHOTHERAPY 61403 01/22/16 GROUP PSYCHOTHERAPY GZHZZZZ 01/22/16 OTHER GROUP THERAPY 94.44 11/24/13 Internal Medicine Assmt/Plan - Assessment Assessment: 1.POOR APPETITE. 2.CVA. 3.SEIZURE DISORDER. 4.DEMENTIA. - Plan Plan: CONTINUE ON CURRENT MEDICATION AND DIET. Nutritional Asmnt/Malnutr-PDOC - Dietary Evaluation Malnutrition Findings (Please click <Entered> for more info): Nutritional Asmnt/Malnutrition Start: 06/18/17 19: 56 Text: Status: Complete Freq: Document 06/18/17 19:56 [facility] (Rec: 06/18/17 20:04 [facility] [id number]) Nutritional Asmnt/Malnutrition Patient General Information Nutritional Screening Moderate Risk Screening Diagnosis Mood unspecified, anxiety, psychosis, dementia Pertinent Medical Hx/Surgical Hx Alzheimer type dementia, seizure disorder, HTN, hyperlipidemia Subjective Information Pt is a 67-year-old female admitted with chief complaint of refusal of care and decompensation. Per RN notes, pt is withdrawn and confused. Pt has fair appetite but intake fluctuates daily. Pt is able to meet estimated nutritional needs with current diet and PO intake. Current Diet Order/ Nutrition Support Mechanical soft ground, [place] Patient / S.O Can't verbalize diet edu Pertinent Medications Pt is refusing to take medications Pertinent Labs Reviewed Nutritional Hx/Data Height 1.63 m Height (Calculated Centimeters) 162.6 Current Weight (lbs) 74.843 kg Weight (Calculated Kilograms) 74.8 Weight (Calculated Grams) 74354.7 [place] Body Weight 120 % [place] Body Weight 138 Weight Status Overweight GI Symptoms GI Symptoms None Food Allergies No Skin Integrity/Comment: [place] 17. Skin intact. Current %PO Fair (50-74%) Estimated Nutritional Goals BEE in Kcals: Using Current wt Calories/Kcals/Kg Based on current wt 75 kg with consideration of overwt status Kcals Calculated 0806-9969 kcals/day (20-25 kcals/kg) Protein: Using Current wt Protein g/kg: Based on current wt 75 kg Protein Calculated 75 gm/day (1 gm/kg) Fluid: ml 6603-2143 ml/day (1 ml/kcal) Nutritional Problem 1. Problem Problem Overweight related to Etiology possible excessive energy intake vs decreased energy expenditure as evidenced by Signs/Symptoms: BMI 28.3 kg/m2. Malnutrition Alert Protein-Calorie Malnutrition N/A Is there a minimum of two criteria No selected? Query Text:Check all the applicable criteria. A minimum of two criteria are recommended for diagnosis of either severe or non-severe malnutrition. Malnutrition Related to Morbid Obesity Malnutrition related to morbid obesity No Intervention/Recommendation Comments 1. Continue with current diet, as tolerated. [place] food preferences. 2. Will educate pt or family on wt management, as appropriate. Expected Outcomes/Goals Expected Outcomes/Goals Have pt meet at least 75% of estimated nutritional needs, stable wt. Physician Parameters for PEM Serum Albumin (g/dl) 3.5 - 5.0 (Normal)
[2017-06-26] MEDS: Haloperidol Lactate 5 mg/mL 1mL Vial IM PRN (17:33)
[2017-06-26] MEDS: Atorvastatin Calcium 10 MG TAB PO SCH (21:22)
--- NOTE | 2017-06-26 21:44 | Progress Notes ---
DATE: 06/26/2017 Case was discussed with staff of the patient, reviewed records. The patient started taking her medication. The patient continues to in bed, isolating herself. She is taking medications by mouth, so she was released yesterday. She still unpredictable, crying spells, depressed. No side effects with the medication, no sedation, no nausea, no extrapyramidal symptoms. We will continue to work with the patient in group therapy, milieu therapy, adjust medication as needed. JOB# [id number]
[2017-06-27] MEDS: Escitalopram Oxalate 5 mg Tab PO SCH (08:57)
[2017-06-27] MEDS: Multivitamin w/ Minerals Tab PO SCH (09:04)
--- NOTE | 2017-06-27 14:16 | Progress Notes ---
DATE: 06/27/2017 Dr. Norris is covering for Dr. Joseph. SUBJECTIVE: Chart reviewed and the patient interviewed. Also discussed the patient's condition with the staff and reviewed records and labs. The patient is diuresed and she started to take her medications on and off and the patient is unpredictable. The patient also still seems to be suspicious and is still paranoid. The patient also is still having mood swings. The patient started to eat slightly more than before, but still unpredictable behavior. Yesterday, the patient had to be given injection of the medications , she refused to take the medicines. ASSESSMENT: The patient is still unpredictable and still psychotic. TREATMENT PLAN: We will continue monitoring her behavior and her condition closely. The patient also is still taking Haldol and taking Lexapro and Depakote. We will continue the same dose and we will continue to monitor behavior closely. Also, encouraged the patient to take her psychotropic medications. JOB# [id number]
--- NOTE | 2017-06-27 16:19 | General Progress Note ---
Subjective - Review of Systems Service Date: 06/27/17 Subjective: resting comfortably more calm and cooperative Objective - Results Result Diagrams: 06/15/17 06:45 06/15/17 06:45 Recent Labs: Laboratory Last Values WBC 5.9 Th/cmm (4.8-10.8) 06/15/17 06:45 RBC 4.75 Mil/cmm (3.80-5.20) 06/15/17 06:45 Hgb 13.5 gm/dL (11.7-16.1) 06/15/17 06:45 Hct 40.2 % (35.0-45.0) 06/15/17 06:45 MCV 84.5 fl (81-100) 06/15/17 06:45 MCH 28.4 pg (27.0-31.0) 06/15/17 06:45 MCHC Differential 33.6 pg (28.0-36.0) 06/15/17 06:45 RDW 12.3 % (11.5-20.0) 06/15/17 06:45 Plt Count 156 Th/cmm (150-400) 06/15/17 06:45 MPV 9.9 fl 06/15/17 06:45 Neutrophils % 44.6 % (40.0-80.0) 06/15/17 06:45 Lymphocytes % 44.0 % (20.0-50.0) 06/15/17 06:45 Monocytes % 8.5 % (2.0-10.0) 06/15/17 06:45 Eosinophils % 2.0 % (0.0-5.0) 06/15/17 06:45 Basophils % 0.9 % (0.0-2.0) 06/15/17 06:45 PT 11.3 SECONDS (9.5-11.5) 06/12/17 17:16 INR 1.09 (0.5-1.4) 06/12/17 17:16 Sodium 136 mEq/L (136-145) 06/15/17 06:45 Potassium 4.7 mEq/L (3.5-5.1) 06/15/17 06:45 Chloride 108 mEq/L (98-107) H 06/15/17 06:45 Carbon Dioxide 22.6 mEq/L (21.0-31.0) 06/15/17 06:45 Anion Gap 10.1 (7.0-16.0) 06/15/17 06:45 BUN 22 mg/dL (7-25) 06/15/17 06:45 Creatinine 0.7 mg/dL (0.6-1.2) 06/15/17 06:45 Est GFR ( Amer) > 60.0 ml/min (>90) 06/15/17 06:45 Est GFR (Non-Af Amer) > 60.0 ml/min 06/15/17 06:45 BUN/Creatinine Ratio 31.4 06/15/17 06:45 Glucose 108 mg/dL (70-105) H 06/15/17 06:45 Calcium 9.2 mg/dL (8.6-10.3) 06/15/17 06:45 Total Bilirubin 0.3 mg/dL (0.3-1.0) 06/12/17 16:35 AST 16 U/L (13-39) 06/12/17 16:35 ALT 13 U/L (7-52) 06/12/17 16:35 Alkaline Phosphatase 60 U/L (34-104) 06/12/17 16:35 Troponin I 0.02 ng/mL (0.01-0.05) 06/12/17 16:35 Total Protein 6.8 gm/dL (6.0-8.3) 06/12/17 16:35 Albumin 4.0 gm/dL (3.7-5.3) 06/12/17 16:35 Globulin 2.8 gm/dL 06/12/17 16:35 Albumin/Globulin Ratio 1.4 (1.0-1.8) 06/12/17 16:35 Triglycerides 113 mg/dL (<150) 06/12/17 16:35 Cholesterol 197 mg/dL (<200) 06/12/17 16:35 LDL Cholesterol Direct 139 mg/dL (75-193) 06/12/17 16:35 HDL Cholesterol 46 mg/dL (23-92) 06/12/17 16:35 TSH 1.09 uIU/ml (0.34-5.60) 06/12/17 16:35 Urine Source CLEAN C 06/12/17 17:30 Urine Color YELLOW 06/12/17 17:30 Urine Clarity SLIGHT CLOUDY (CLEAR) 06/12/17 17:30 Urine pH 5.5 (4.6 - 8.0) 06/12/17 17:30 Ur Specific [place] 1.025 (1.005-1.030) 06/12/17 17:30 Urine Protein NEGATIVE mg/dL (NEGATIVE) 06/12/17 17:30 Urine Glucose (UA) NEGATIVE mg/dL (NEGATIVE) 06/12/17 17:30 Urine Ketones NEGATIVE mg/dL (NEGATIVE) 06/12/17 17:30 Urine Blood LARGE (NEGATIVE) H 06/12/17 17:30 Urine Nitrate NEGATIVE (NEGATIVE) 06/12/17 17:30 Urine Bilirubin NEGATIVE (NEGATIVE) 06/12/17 17:30 Urine Urobilinogen 0.2 E.U./dL (0.2 - 1.0) 06/12/17 17:30 Ur Leukocyte Esterase TRACE (NEGATIVE) H 06/12/17 17:30 Urine RBC 50-100 /hpf (0-5) H 06/12/17 17:30 Urine WBC 6-10 /hpf (0-5) H 06/12/17 17:30 Ur Epithelial Cells FEW /lpf (FEW) 06/12/17 17:30 Urine Bacteria FEW /hpf (NONE SEEN) 06/12/17 17:30 Urine Mucus FEW /lpf (FEW) 06/12/17 17:30 Phenytoin < 2.5 ug/ml (10.0-20.0) L 06/12/17 16:35 RPR NONREACTIVE (NONREACTIVE) 06/12/17 16:35 - Physical Exam Vitals and I&O: Vital Signs Temp 98.1 F 06/27/17 15:34 Pulse 71 06/27/17 15:34 Resp 18 06/27/17 15:34 BP 101/59 06/27/17 15:34 Pulse Ox 95 06/27/17 15:34 Intake & Output 06/26/17 06/27/17 06/27/17 18:59 06:59 18:59 Intake Total 500 Output Total 1 Balance 500 -1 Intake: Oral 500 Output: Urine 1 Other: # Voids 2 1 # Bowel Movements 1 Active Medications: Current Medications Acetaminophen (Tylenol) 650 mg PO Q4HR PRN PRN Reason: Pain Stop: 08/11/17 18:36 Atorvastatin Calcium (Lipitor) 10 mg PO HS ARTEM PRN Reason: Protocol Stop: 08/11/17 20:59 Last Admin: 06/26/17 21:22 Dose: Not Given Carvedilol (Coreg) 12.5 mg PO DAILY [facility] Stop: 08/12/17 08:59 Last Admin: 06/27/17 09:03 Dose: 12.5 mg Divalproex Sodium (Depakote Sprinkle) 250 mg PO BID [facility] PRN Reason: Protocol Stop: 08/12/17 08:59 Last Admin: 06/27/17 08:58 Dose: 250 mg Docusate Sodium (Colace) 100 mg PO BID [facility] Stop: 08/12/17 08:59 Last Admin: 06/27/17 08:59 Dose: 100 mg Donepezil HCl (Aricept) 5 mg PO HS [facility] Stop: 08/12/17 20:59 Last Admin: 06/26/17 21:23 Dose: Not Given Enalapril Maleate (Vasotec) 2.5 mg PO DAILY [facility] Stop: 08/12/17 08:59 Last Admin: 06/27/17 08:59 Dose: 2.5 mg Escitalopram Oxalate (Lexapro) 5 mg PO DAILY [facility] PRN Reason: Protocol Stop: 08/15/17 08:59 Last Admin: 06/27/17 08:57 Dose: 5 mg Fenofibrate (Tricor) 145 mg PO HS [facility] Stop: 08/14/17 20:59 Last Admin: 06/16/17 20:40 Dose: Not Given Haloperidol (Haldol) 1 mg PO BID [facility] PRN Reason: Protocol Stop: 08/17/17 16:59 Last Admin: 06/27/17 08:58 Dose: 1 mg Haloperidol Lactate (Haldol) 1 mg IM BID PRN PRN Reason: Agitation Stop: 08/24/17 14:59 Last Admin: 06/26/17 17:33 Dose: 1 mg Levetiracetam (Keppra) 500 mg PO BID [facility] Stop: 08/12/17 08:59 Last Admin: 06/27/17 08:59 Dose: 500 mg Lorazepam (Ativan) 0.5 mg PO Q4HR PRN; Protocol PRN Reason: Agitation Stop: 07/13/17 06:53 Last Admin: 06/14/17 10:13 Dose: 0.5 mg Magnesium Hydroxide (Milk Of Magnesia) 30 ml PO DAILY PRN PRN Reason: Constipation Stop: 08/11/17 18:38 Phenytoin (Dilantin) 100 mg PO BID [facility] Stop: 08/12/17 08:59 Last Admin: 06/27/17 08:59 Dose: 100 mg Zolpidem Tartrate (Ambien) 5 mg PO HSMR1 PRN PRN Reason: Insomnia Stop: 08/12/17 06:53 General: No acute distress HEENT: PERRLA Neck: Supple Cardiovascular: Regular rate, Normal S1, Normal S2 Lungs: Clear to auscultation Abdomen: Bowel sounds, Soft Psych/Mental Status: Mood NL - Procedures Procedures: Procedures Procedure Code Date GROUP PSYCHOTHERAPY 20009 01/22/16 GROUP PSYCHOTHERAPY GZHZZZZ 01/22/16 OTHER GROUP THERAPY 94.44 11/24/13 Assessment/Plan - Problem List Patient Problems: All Active Problems CRYING AND UNCOOPERATIVE WITH CARE (Acute) CHF (Active) Dysphagia (Active) R13.10 Gastritis (Active) K29.70 S/P PEG tube placement (Active) cardiomegaly (Active) generalized muscle weakness (Active) hiatal hernia (Active) history of CVA (Active) hyperlipidemia (Active) vascular dementia (Active) Agitation (Acute) R45.1 Depression (Acute) F32.9 Hypertension (Acute) I10 Mental health problem (Acute) F48.9 - Assessment Assessment: dementia sz d/o htn djd hyperlipidemia - Plan Plan: cont current treatment Nutritional Asmnt/Malnutr-PDOC - Dietary Evaluation Malnutrition Findings (Please click <Entered> for more info): Nutritional Asmnt/Malnutrition Start: 06/18/17 19: 56 Text: Status: Complete Freq: Document 06/18/17 19:56 [facility] (Rec: 06/18/17 20:04 [facility] [id number]) Nutritional Asmnt/Malnutrition Patient General Information Nutritional Screening Moderate Risk Screening Diagnosis Mood unspecified, anxiety, psychosis, dementia Pertinent Medical Hx/Surgical Hx Alzheimer type dementia, seizure disorder, HTN, hyperlipidemia Subjective Information Pt is a 67-year-old female admitted with chief complaint of refusal of care and decompensation. Per RN notes, pt is withdrawn and confused. Pt has fair appetite but intake fluctuates daily. Pt is able to meet estimated nutritional needs with current diet and PO intake. Current Diet Order/ Nutrition Support Mechanical soft ground, [place] Patient / S.O Can't verbalize diet edu Pertinent Medications Pt is refusing to take medications Pertinent Labs Reviewed Nutritional Hx/Data Height 1.63 m Height (Calculated Centimeters) 162.6 Current Weight (lbs) 74.843 kg Weight (Calculated Kilograms) 74.8 Weight (Calculated Grams) 94110.7 [place] Body Weight 120 % [place] Body Weight 138 Weight Status Overweight GI Symptoms GI Symptoms None Food Allergies No Skin Integrity/Comment: [place] 17. Skin intact. Current %PO Fair (50-74%) Estimated Nutritional Goals BEE in Kcals: Using Current wt Calories/Kcals/Kg Based on current wt 75 kg with consideration of overwt status Kcals Calculated 0723-5784 kcals/day (20-25 kcals/kg) Protein: Using Current wt Protein g/kg: Based on current wt 75 kg Protein Calculated 75 gm/day (1 gm/kg) Fluid: ml 3557-2784 ml/day (1 ml/kcal) Nutritional Problem 1. Problem Problem Overweight related to Etiology possible excessive energy intake vs decreased energy expenditure as evidenced by Signs/Symptoms: BMI 28.3 kg/m2. Malnutrition Alert Protein-Calorie Malnutrition N/A Is there a minimum of two criteria No selected? Query Text:Check all the applicable criteria. A minimum of two criteria are recommended for diagnosis of either severe or non-severe malnutrition. Malnutrition Related to Morbid Obesity Malnutrition related to morbid obesity No Intervention/Recommendation Comments 1. Continue with current diet, as tolerated. [place] food preferences. 2. Will educate pt or family on wt management, as appropriate. Expected Outcomes/Goals Expected Outcomes/Goals Have pt meet at least 75% of estimated nutritional needs, stable wt. Physician Parameters for PEM Serum Albumin (g/dl) 3.5 - 5.0 (Normal)
[2017-06-27] MEDS: Atorvastatin Calcium 10 MG TAB PO SCH (21:25)
[2017-06-28] MEDS: Escitalopram Oxalate 5 mg Tab PO SCH (09:01)
[2017-06-28] MEDS: Multivitamin w/ Minerals Tab PO SCH (09:13)
--- NOTE | 2017-06-28 17:08 | General Progress Note ---
Subjective - Review of Systems Service Date: 06/28/17 Subjective: resting comfortably more calm and cooperative Objective - Results Result Diagrams: 06/15/17 06:45 06/15/17 06:45 Recent Labs: Laboratory Last Values WBC 5.9 Th/cmm (4.8-10.8) 06/15/17 06:45 RBC 4.75 Mil/cmm (3.80-5.20) 06/15/17 06:45 Hgb 13.5 gm/dL (11.7-16.1) 06/15/17 06:45 Hct 40.2 % (35.0-45.0) 06/15/17 06:45 MCV 84.5 fl (81-100) 06/15/17 06:45 MCH 28.4 pg (27.0-31.0) 06/15/17 06:45 MCHC Differential 33.6 pg (28.0-36.0) 06/15/17 06:45 RDW 12.3 % (11.5-20.0) 06/15/17 06:45 Plt Count 156 Th/cmm (150-400) 06/15/17 06:45 MPV 9.9 fl 06/15/17 06:45 Neutrophils % 44.6 % (40.0-80.0) 06/15/17 06:45 Lymphocytes % 44.0 % (20.0-50.0) 06/15/17 06:45 Monocytes % 8.5 % (2.0-10.0) 06/15/17 06:45 Eosinophils % 2.0 % (0.0-5.0) 06/15/17 06:45 Basophils % 0.9 % (0.0-2.0) 06/15/17 06:45 PT 11.3 SECONDS (9.5-11.5) 06/12/17 17:16 INR 1.09 (0.5-1.4) 06/12/17 17:16 Sodium 136 mEq/L (136-145) 06/15/17 06:45 Potassium 4.7 mEq/L (3.5-5.1) 06/15/17 06:45 Chloride 108 mEq/L (98-107) H 06/15/17 06:45 Carbon Dioxide 22.6 mEq/L (21.0-31.0) 06/15/17 06:45 Anion Gap 10.1 (7.0-16.0) 06/15/17 06:45 BUN 22 mg/dL (7-25) 06/15/17 06:45 Creatinine 0.7 mg/dL (0.6-1.2) 06/15/17 06:45 Est GFR ( Amer) > 60.0 ml/min (>90) 06/15/17 06:45 Est GFR (Non-Af Amer) > 60.0 ml/min 06/15/17 06:45 BUN/Creatinine Ratio 31.4 06/15/17 06:45 Glucose 108 mg/dL (70-105) H 06/15/17 06:45 Calcium 9.2 mg/dL (8.6-10.3) 06/15/17 06:45 Total Bilirubin 0.3 mg/dL (0.3-1.0) 06/12/17 16:35 AST 16 U/L (13-39) 06/12/17 16:35 ALT 13 U/L (7-52) 06/12/17 16:35 Alkaline Phosphatase 60 U/L (34-104) 06/12/17 16:35 Troponin I 0.02 ng/mL (0.01-0.05) 06/12/17 16:35 Total Protein 6.8 gm/dL (6.0-8.3) 06/12/17 16:35 Albumin 4.0 gm/dL (3.7-5.3) 06/12/17 16:35 Globulin 2.8 gm/dL 06/12/17 16:35 Albumin/Globulin Ratio 1.4 (1.0-1.8) 06/12/17 16:35 Triglycerides 113 mg/dL (<150) 06/12/17 16:35 Cholesterol 197 mg/dL (<200) 06/12/17 16:35 LDL Cholesterol Direct 139 mg/dL (75-193) 06/12/17 16:35 HDL Cholesterol 46 mg/dL (23-92) 06/12/17 16:35 TSH 1.09 uIU/ml (0.34-5.60) 06/12/17 16:35 Urine Source CLEAN C 06/12/17 17:30 Urine Color YELLOW 06/12/17 17:30 Urine Clarity SLIGHT CLOUDY (CLEAR) 06/12/17 17:30 Urine pH 5.5 (4.6 - 8.0) 06/12/17 17:30 Ur Specific [place] 1.025 (1.005-1.030) 06/12/17 17:30 Urine Protein NEGATIVE mg/dL (NEGATIVE) 06/12/17 17:30 Urine Glucose (UA) NEGATIVE mg/dL (NEGATIVE) 06/12/17 17:30 Urine Ketones NEGATIVE mg/dL (NEGATIVE) 06/12/17 17:30 Urine Blood LARGE (NEGATIVE) H 06/12/17 17:30 Urine Nitrate NEGATIVE (NEGATIVE) 06/12/17 17:30 Urine Bilirubin NEGATIVE (NEGATIVE) 06/12/17 17:30 Urine Urobilinogen 0.2 E.U./dL (0.2 - 1.0) 06/12/17 17:30 Ur Leukocyte Esterase TRACE (NEGATIVE) H 06/12/17 17:30 Urine RBC 50-100 /hpf (0-5) H 06/12/17 17:30 Urine WBC 6-10 /hpf (0-5) H 06/12/17 17:30 Ur Epithelial Cells FEW /lpf (FEW) 06/12/17 17:30 Urine Bacteria FEW /hpf (NONE SEEN) 06/12/17 17:30 Urine Mucus FEW /lpf (FEW) 06/12/17 17:30 Phenytoin < 2.5 ug/ml (10.0-20.0) L 06/12/17 16:35 RPR NONREACTIVE (NONREACTIVE) 06/12/17 16:35 - Physical Exam Vitals and I&O: Vital Signs Temp 98.3 F 06/28/17 15:23 Pulse 66 06/28/17 15:23 Resp 18 06/28/17 15:23 BP 115/65 06/28/17 15:23 Pulse Ox 96 06/28/17 15:23 Intake & Output 06/27/17 06/28/17 06/28/17 18:59 06:59 18:59 Intake Total 500 500 Balance 500 500 Intake: Oral 500 500 Other: # Voids 2 3 Active Medications: Current Medications Acetaminophen (Tylenol) 650 mg PO Q4HR PRN PRN Reason: Pain Stop: 08/11/17 18:36 Atorvastatin Calcium (Lipitor) 10 mg PO HS ARTEM PRN Reason: Protocol Stop: 08/11/17 20:59 Last Admin: 06/27/17 21:25 Dose: Not Given Carvedilol (Coreg) 12.5 mg PO DAILY [facility] Stop: 08/12/17 08:59 Last Admin: 06/28/17 09:04 Dose: Not Given Divalproex Sodium (Depakote Sprinkle) 250 mg PO BID ARTEM PRN Reason: Protocol Stop: 08/12/17 08:59 Last Admin: 06/28/17 16:46 Dose: 250 mg Docusate Sodium (Colace) 100 mg PO BID [facility] Stop: 08/12/17 08:59 Last Admin: 06/28/17 16:46 Dose: 100 mg Donepezil HCl (Aricept) 5 mg PO HS [facility] Stop: 08/12/17 20:59 Last Admin: 06/27/17 21:25 Dose: 5 mg Enalapril Maleate (Vasotec) 2.5 mg PO DAILY [facility] Stop: 08/12/17 08:59 Last Admin: 06/28/17 09:03 Dose: Not Given Escitalopram Oxalate (Lexapro) 5 mg PO DAILY [facility] PRN Reason: Protocol Stop: 08/15/17 08:59 Last Admin: 06/28/17 09:01 Dose: 5 mg Fenofibrate (Tricor) 145 mg PO HS [facility] Stop: 08/14/17 20:59 Last Admin: 06/16/17 20:40 Dose: Not Given Haloperidol (Haldol) 1 mg PO BID [facility] PRN Reason: Protocol Stop: 08/17/17 16:59 Last Admin: 06/28/17 16:46 Dose: 1 mg Haloperidol Lactate (Haldol) 1 mg IM BID PRN PRN Reason: Agitation Stop: 08/24/17 14:59 Last Admin: 06/26/17 17:33 Dose: 1 mg Levetiracetam (Keppra) 500 mg PO BID [facility] Stop: 08/12/17 08:59 Last Admin: 06/28/17 16:46 Dose: 500 mg Lorazepam (Ativan) 0.5 mg PO Q4HR PRN; Protocol PRN Reason: Agitation Stop: 07/13/17 06:53 Last Admin: 06/14/17 10:13 Dose: 0.5 mg Magnesium Hydroxide (Milk Of Magnesia) 30 ml PO DAILY PRN PRN Reason: Constipation Stop: 08/11/17 18:38 Phenytoin (Dilantin) 100 mg PO BID [facility] Stop: 08/12/17 08:59 Last Admin: 06/28/17 16:46 Dose: 100 mg Zolpidem Tartrate (Ambien) 5 mg PO HSMR1 PRN PRN Reason: Insomnia Stop: 08/12/17 06:53 General: No acute distress HEENT: PERRLA Neck: Supple Cardiovascular: Regular rate, Normal S1, Normal S2 Lungs: Clear to auscultation Abdomen: Bowel sounds, Soft Psych/Mental Status: Mood NL - Procedures Procedures: Procedures Procedure Code Date GROUP PSYCHOTHERAPY 39716 01/22/16 GROUP PSYCHOTHERAPY GZHZZZZ 01/22/16 OTHER GROUP THERAPY 94.44 11/24/13 Assessment/Plan - Problem List Patient Problems: All Active Problems CRYING AND UNCOOPERATIVE WITH CARE (Acute) CHF (Active) Dysphagia (Active) R13.10 Gastritis (Active) K29.70 S/P PEG tube placement (Active) cardiomegaly (Active) generalized muscle weakness (Active) hiatal hernia (Active) history of CVA (Active) hyperlipidemia (Active) vascular dementia (Active) Agitation (Acute) R45.1 Depression (Acute) F32.9 Hypertension (Acute) I10 Mental health problem (Acute) F48.9 - Assessment Assessment: dementia sz d/o htn djd hyperlipidemia - Plan Plan: cont current treatment Nutritional Asmnt/Malnutr-PDOC - Dietary Evaluation Malnutrition Findings (Please click <Entered> for more info): Nutritional Asmnt/Malnutrition Start: 06/18/17 19: 56 Text: Status: Complete Freq: Document 06/18/17 19:56 [facility] (Rec: 06/18/17 20:04 [facility] [id number]) Nutritional Asmnt/Malnutrition Patient General Information Nutritional Screening Moderate Risk Screening Diagnosis Mood unspecified, anxiety, psychosis, dementia Pertinent Medical Hx/Surgical Hx Alzheimer type dementia, seizure disorder, HTN, hyperlipidemia Subjective Information Pt is a 67-year-old female admitted with chief complaint of refusal of care and decompensation. Per RN notes, pt is withdrawn and confused. Pt has fair appetite but intake fluctuates daily. Pt is able to meet estimated nutritional needs with current diet and PO intake. Current Diet Order/ Nutrition Support Mechanical soft ground, [place] Patient / S.O Can't verbalize diet edu Pertinent Medications Pt is refusing to take medications Pertinent Labs Reviewed Nutritional Hx/Data Height 1.63 m Height (Calculated Centimeters) 162.6 Current Weight (lbs) 74.843 kg Weight (Calculated Kilograms) 74.8 Weight (Calculated Grams) 36678.7 [place] Body Weight 120 % [place] Body Weight 138 Weight Status Overweight GI Symptoms GI Symptoms None Food Allergies No Skin Integrity/Comment: [place] 17. Skin intact. Current %PO Fair (50-74%) Estimated Nutritional Goals BEE in Kcals: Using Current wt Calories/Kcals/Kg Based on current wt 75 kg with consideration of overwt status Kcals Calculated 9193-9079 kcals/day (20-25 kcals/kg) Protein: Using Current wt Protein g/kg: Based on current wt 75 kg Protein Calculated 75 gm/day (1 gm/kg) Fluid: ml 6200-4117 ml/day (1 ml/kcal) Nutritional Problem 1. Problem Problem Overweight related to Etiology possible excessive energy intake vs decreased energy expenditure as evidenced by Signs/Symptoms: BMI 28.3 kg/m2. Malnutrition Alert Protein-Calorie Malnutrition N/A Is there a minimum of two criteria No selected? Query Text:Check all the applicable criteria. A minimum of two criteria are recommended for diagnosis of either severe or non-severe malnutrition. Malnutrition Related to Morbid Obesity Malnutrition related to morbid obesity No Intervention/Recommendation Comments 1. Continue with current diet, as tolerated. [place] food preferences. 2. Will educate pt or family on wt management, as appropriate. Expected Outcomes/Goals Expected Outcomes/Goals Have pt meet at least 75% of estimated nutritional needs, stable wt. Physician Parameters for PEM Serum Albumin (g/dl) 3.5 - 5.0 (Normal)
--- NOTE | 2017-06-28 17:21 | Progress Notes ---
DATE: 06/28/2017 SUBJECTIVE: Chart reviewed and the patient interviewed, also discussed the patient's condition with the staff and reviewed records and labs. The patient is still unpredictable and she still has episodes of anger and irritability. The patient also is still questioning taking medications and at times she refused to take medications and had to be given injection. She is slightly calmer than the day before and is slightly easier to redirect her. Otherwise, the patient still needs close monitoring. We will continue monitoring her behavior and her condition closely and we will continue to follow up. JOB# [id number]
[2017-06-28] MEDS: Atorvastatin Calcium 10 MG TAB PO SCH (21:00)
[2017-06-29] MEDS: Escitalopram Oxalate 5 mg Tab PO SCH (08:43)
[2017-06-29] MEDS: Multivitamin w/ Minerals Tab PO SCH (08:51)
--- NOTE | 2017-06-29 18:11 | Internal Medicine Prog Note ---
Internal Medicine Subjective - Subjective Service Date: 06/29/17 Patient seen and examined:: without staff Patient is:: non-verbal, in bed Per staff patient has:: no adverse event Internal Medicine Objective - Results Result Diagrams: 06/15/17 06:45 06/15/17 06:45 Recent Labs: Laboratory Last Values WBC 5.9 Th/cmm (4.8-10.8) 06/15/17 06:45 RBC 4.75 Mil/cmm (3.80-5.20) 06/15/17 06:45 Hgb 13.5 gm/dL (11.7-16.1) 06/15/17 06:45 Hct 40.2 % (35.0-45.0) 06/15/17 06:45 MCV 84.5 fl (81-100) 06/15/17 06:45 MCH 28.4 pg (27.0-31.0) 06/15/17 06:45 MCHC Differential 33.6 pg (28.0-36.0) 06/15/17 06:45 RDW 12.3 % (11.5-20.0) 06/15/17 06:45 Plt Count 156 Th/cmm (150-400) 06/15/17 06:45 MPV 9.9 fl 06/15/17 06:45 Neutrophils % 44.6 % (40.0-80.0) 06/15/17 06:45 Lymphocytes % 44.0 % (20.0-50.0) 06/15/17 06:45 Monocytes % 8.5 % (2.0-10.0) 06/15/17 06:45 Eosinophils % 2.0 % (0.0-5.0) 06/15/17 06:45 Basophils % 0.9 % (0.0-2.0) 06/15/17 06:45 PT 11.3 SECONDS (9.5-11.5) 06/12/17 17:16 INR 1.09 (0.5-1.4) 06/12/17 17:16 Sodium 136 mEq/L (136-145) 06/15/17 06:45 Potassium 4.7 mEq/L (3.5-5.1) 06/15/17 06:45 Chloride 108 mEq/L (98-107) H 06/15/17 06:45 Carbon Dioxide 22.6 mEq/L (21.0-31.0) 06/15/17 06:45 Anion Gap 10.1 (7.0-16.0) 06/15/17 06:45 BUN 22 mg/dL (7-25) 06/15/17 06:45 Creatinine 0.7 mg/dL (0.6-1.2) 06/15/17 06:45 Est GFR ( Amer) > 60.0 ml/min (>90) 06/15/17 06:45 Est GFR (Non-Af Amer) > 60.0 ml/min 06/15/17 06:45 BUN/Creatinine Ratio 31.4 06/15/17 06:45 Glucose 108 mg/dL (70-105) H 06/15/17 06:45 Calcium 9.2 mg/dL (8.6-10.3) 06/15/17 06:45 Total Bilirubin 0.3 mg/dL (0.3-1.0) 06/12/17 16:35 AST 16 U/L (13-39) 06/12/17 16:35 ALT 13 U/L (7-52) 06/12/17 16:35 Alkaline Phosphatase 60 U/L (34-104) 06/12/17 16:35 Troponin I 0.02 ng/mL (0.01-0.05) 06/12/17 16:35 Total Protein 6.8 gm/dL (6.0-8.3) 06/12/17 16:35 Albumin 4.0 gm/dL (3.7-5.3) 06/12/17 16:35 Globulin 2.8 gm/dL 06/12/17 16:35 Albumin/Globulin Ratio 1.4 (1.0-1.8) 06/12/17 16:35 Triglycerides 113 mg/dL (<150) 06/12/17 16:35 Cholesterol 197 mg/dL (<200) 06/12/17 16:35 LDL Cholesterol Direct 139 mg/dL (75-193) 06/12/17 16:35 HDL Cholesterol 46 mg/dL (23-92) 06/12/17 16:35 TSH 1.09 uIU/ml (0.34-5.60) 06/12/17 16:35 Urine Source CLEAN C 06/12/17 17:30 Urine Color YELLOW 06/12/17 17:30 Urine Clarity SLIGHT CLOUDY (CLEAR) 06/12/17 17:30 Urine pH 5.5 (4.6 - 8.0) 06/12/17 17:30 Ur Specific [place] 1.025 (1.005-1.030) 06/12/17 17:30 Urine Protein NEGATIVE mg/dL (NEGATIVE) 06/12/17 17:30 Urine Glucose (UA) NEGATIVE mg/dL (NEGATIVE) 06/12/17 17:30 Urine Ketones NEGATIVE mg/dL (NEGATIVE) 06/12/17 17:30 Urine Blood LARGE (NEGATIVE) H 06/12/17 17:30 Urine Nitrate NEGATIVE (NEGATIVE) 06/12/17 17:30 Urine Bilirubin NEGATIVE (NEGATIVE) 06/12/17 17:30 Urine Urobilinogen 0.2 E.U./dL (0.2 - 1.0) 06/12/17 17:30 Ur Leukocyte Esterase TRACE (NEGATIVE) H 06/12/17 17:30 Urine RBC 50-100 /hpf (0-5) H 06/12/17 17:30 Urine WBC 6-10 /hpf (0-5) H 06/12/17 17:30 Ur Epithelial Cells FEW /lpf (FEW) 06/12/17 17:30 Urine Bacteria FEW /hpf (NONE SEEN) 06/12/17 17:30 Urine Mucus FEW /lpf (FEW) 06/12/17 17:30 Phenytoin < 2.5 ug/ml (10.0-20.0) L 06/12/17 16:35 RPR NONREACTIVE (NONREACTIVE) 06/12/17 16:35 - Physical Exam Vitals and I&O: Vital Signs Temp 97.2 F 06/29/17 16:01 Pulse 72 06/29/17 16:01 Resp 18 06/29/17 16:01 BP 117/77 06/29/17 16:01 Pulse Ox 95 06/29/17 16:01 Intake & Output 06/28/17 06/29/17 06/29/17 18:59 06:59 18:59 Intake Total 0027 819 6281 Balance 0508 881 8851 Intake: Oral 2671 689 9862 Other: # Voids 4 1 3 # Bowel Movements 1 0 Active Medications: Current Medications Acetaminophen (Tylenol) 650 mg PO Q4HR PRN PRN Reason: Pain Stop: 08/11/17 18:36 Atorvastatin Calcium (Lipitor) 10 mg PO HS [facility] PRN Reason: Protocol Stop: 08/11/17 20:59 Last Admin: 06/28/17 21:00 Dose: Not Given Carvedilol (Coreg) 12.5 mg PO DAILY [facility] Stop: 08/12/17 08:59 Last Admin: 06/29/17 08:49 Dose: Not Given Divalproex Sodium (Depakote Sprinkle) 250 mg PO BID [facility] PRN Reason: Protocol Stop: 08/12/17 08:59 Last Admin: 06/29/17 16:40 Dose: 250 mg Docusate Sodium (Colace) 100 mg PO BID [facility] Stop: 08/12/17 08:59 Last Admin: 06/29/17 16:40 Dose: Not Given Donepezil HCl (Aricept) 5 mg PO HS [facility] Stop: 08/12/17 20:59 Last Admin: 06/28/17 21:00 Dose: 5 mg Enalapril Maleate (Vasotec) 2.5 mg PO DAILY [facility] Stop: 08/12/17 08:59 Last Admin: 06/29/17 08:50 Dose: Not Given Escitalopram Oxalate (Lexapro) 5 mg PO DAILY [facility] PRN Reason: Protocol Stop: 08/15/17 08:59 Last Admin: 06/29/17 08:43 Dose: Not Given Fenofibrate (Tricor) 145 mg PO HS [facility] Stop: 08/14/17 20:59 Last Admin: 06/16/17 20:40 Dose: Not Given Haloperidol (Haldol) 1 mg PO BID [facility] PRN Reason: Protocol Stop: 08/17/17 16:59 Last Admin: 06/29/17 16:40 Dose: 1 mg Haloperidol Lactate (Haldol) 1 mg IM BID PRN PRN Reason: Agitation Stop: 08/24/17 14:59 Last Admin: 06/26/17 17:33 Dose: 1 mg Levetiracetam (Keppra) 500 mg PO BID [facility] Stop: 08/12/17 08:59 Last Admin: 06/29/17 16:40 Dose: Not Given Lorazepam (Ativan) 0.5 mg PO Q4HR PRN; Protocol PRN Reason: Agitation Stop: 07/13/17 06:53 Last Admin: 06/14/17 10:13 Dose: 0.5 mg Magnesium Hydroxide (Milk Of Magnesia) 30 ml PO DAILY PRN PRN Reason: Constipation Stop: 08/11/17 18:38 Phenytoin (Dilantin) 100 mg PO BID [facility] Stop: 08/12/17 08:59 Last Admin: 06/29/17 16:35 Dose: Not Given Zolpidem Tartrate (Ambien) 5 mg PO HSMR1 PRN PRN Reason: Insomnia Stop: 08/12/17 06:53 General: weak, thin HEENT: NC/AT, PERRLA, EOMI Neck: Supple, No JVD, No thyromegaly, No LAD Lungs: CTAB Cardiovascular: RRR, Normal S1, Normal S2, without murmur Abdomen: soft, non-tender Extremities: clear, edema Neurological: no change - Procedures Procedures: Procedures Procedure Code Date GROUP PSYCHOTHERAPY 05763 01/22/16 GROUP PSYCHOTHERAPY GZHZZZZ 01/22/16 OTHER GROUP THERAPY 94.44 11/24/13 Internal Medicine Assmt/Plan - Assessment Assessment: 1.HTN 2.CVA. 3.SEIZURE DISORDER. 4.DEMENTIA. - Plan Plan: CONTINUE ON CURRENT MEDICATION AND DIET. Nutritional Asmnt/Malnutr-PDOC - Dietary Evaluation Malnutrition Findings (Please click <Entered> for more info): Nutritional Asmnt/Malnutrition Start: 06/18/17 19: 56 Text: Status: Complete Freq: Document 06/18/17 19:56 [facility] (Rec: 06/18/17 20:04 [facility] [id number]) Nutritional Asmnt/Malnutrition Patient General Information Nutritional Screening Moderate Risk Screening Diagnosis Mood unspecified, anxiety, psychosis, dementia Pertinent Medical Hx/Surgical Hx Alzheimer type dementia, seizure disorder, HTN, hyperlipidemia Subjective Information Pt is a 67-year-old female admitted with chief complaint of refusal of care and decompensation. Per RN notes, pt is withdrawn and confused. Pt has fair appetite but intake fluctuates daily. Pt is able to meet estimated nutritional needs with current diet and PO intake. Current Diet Order/ Nutrition Support Mechanical soft ground, [place] Patient / S.O Can't verbalize diet edu Pertinent Medications Pt is refusing to take medications Pertinent Labs Reviewed Nutritional Hx/Data Height 1.63 m Height (Calculated Centimeters) 162.6 Current Weight (lbs) 74.843 kg Weight (Calculated Kilograms) 74.8 Weight (Calculated Grams) 23325.7 [place] Body Weight 120 % [place] Body Weight 138 Weight Status Overweight GI Symptoms GI Symptoms None Food Allergies No Skin Integrity/Comment: [place] 17. Skin intact. Current %PO Fair (50-74%) Estimated Nutritional Goals BEE in Kcals: Using Current wt Calories/Kcals/Kg Based on current wt 75 kg with consideration of overwt status Kcals Calculated 2636-3708 kcals/day (20-25 kcals/kg) Protein: Using Current wt Protein g/kg: Based on current wt 75 kg Protein Calculated 75 gm/day (1 gm/kg) Fluid: ml 4361-6521 ml/day (1 ml/kcal) Nutritional Problem 1. Problem Problem Overweight related to Etiology possible excessive energy intake vs decreased energy expenditure as evidenced by Signs/Symptoms: BMI 28.3 kg/m2. Malnutrition Alert Protein-Calorie Malnutrition N/A Is there a minimum of two criteria No selected? Query Text:Check all the applicable criteria. A minimum of two criteria are recommended for diagnosis of either severe or non-severe malnutrition. Malnutrition Related to Morbid Obesity Malnutrition related to morbid obesity No Intervention/Recommendation Comments 1. Continue with current diet, as tolerated. [place] food preferences. 2. Will educate pt or family on wt management, as appropriate. Expected Outcomes/Goals Expected Outcomes/Goals Have pt meet at least 75% of estimated nutritional needs, stable wt. Physician Parameters for PEM Serum Albumin (g/dl) 3.5 - 5.0 (Normal)
[2017-06-29] MEDS: Atorvastatin Calcium 10 MG TAB PO SCH (21:21)
--- NOTE | 2017-06-30 00:01 | Progress Notes ---
DATE: 06/29/2017 Case was discussed with staff of the patient, reviewed records. The patient has been taking her medication now. Continues to be depressed. Continues to have poor insight. Continues to be unable to make safe plan for self-care. Sleeping better, eating better. No side effects with the medication, no sedation, no nausea, no extrapyramidal symptoms. I will be increasing her Namenda and we will continue to work with the patient in group therapy, milieu therapy, adjust the medication as needed. JOB# [id number]
[2017-06-30] MEDS: Escitalopram Oxalate 5 mg Tab PO SCH ×2 (08:48→09:02)
[2017-06-30] MEDS: Multivitamin w/ Minerals Tab PO SCH ×2 (08:52→09:02)
[2017-06-30] MEDS: Haloperidol Lactate 5 mg/mL 1mL Vial IM PRN (09:27)
--- NOTE | 2017-06-30 15:05 | Progress Notes ---
DATE: 06/30/2017 Case was discussed with staff of the patient, reviewed records. The patient refused to take her medication this morning. I went to talked to her, she would not answer any of my questions. She continues to appear to be depressed, unpredictable and impulsive, needing redirection. Sleeping well, eating better. No side effects from the medication. No sedation, no nausea, no extrapyramidal symptoms, and we will continue to pursue with the patient taking medication. The patient will get the medication intramuscularly only the Haldol if she has refused p.o., will continue the patient in group therapy, milieu therapy, and adjust medication as needed. JOB# [id number]
--- NOTE | 2017-06-30 20:33 | Internal Medicine Prog Note ---
Internal Medicine Subjective - Subjective Service Date: 06/30/17 Patient seen and examined:: with staff (she still eat less than expacted.she is taking medication.) Patient is:: non-verbal, in bed Per staff patient has:: no adverse event Internal Medicine Objective - Results Result Diagrams: 06/15/17 06:45 06/15/17 06:45 Recent Labs: Laboratory Last Values WBC 5.9 Th/cmm (4.8-10.8) 06/15/17 06:45 RBC 4.75 Mil/cmm (3.80-5.20) 06/15/17 06:45 Hgb 13.5 gm/dL (11.7-16.1) 06/15/17 06:45 Hct 40.2 % (35.0-45.0) 06/15/17 06:45 MCV 84.5 fl (81-100) 06/15/17 06:45 MCH 28.4 pg (27.0-31.0) 06/15/17 06:45 MCHC Differential 33.6 pg (28.0-36.0) 06/15/17 06:45 RDW 12.3 % (11.5-20.0) 06/15/17 06:45 Plt Count 156 Th/cmm (150-400) 06/15/17 06:45 MPV 9.9 fl 06/15/17 06:45 Neutrophils % 44.6 % (40.0-80.0) 06/15/17 06:45 Lymphocytes % 44.0 % (20.0-50.0) 06/15/17 06:45 Monocytes % 8.5 % (2.0-10.0) 06/15/17 06:45 Eosinophils % 2.0 % (0.0-5.0) 06/15/17 06:45 Basophils % 0.9 % (0.0-2.0) 06/15/17 06:45 PT 11.3 SECONDS (9.5-11.5) 06/12/17 17:16 INR 1.09 (0.5-1.4) 06/12/17 17:16 Sodium 136 mEq/L (136-145) 06/15/17 06:45 Potassium 4.7 mEq/L (3.5-5.1) 06/15/17 06:45 Chloride 108 mEq/L (98-107) H 06/15/17 06:45 Carbon Dioxide 22.6 mEq/L (21.0-31.0) 06/15/17 06:45 Anion Gap 10.1 (7.0-16.0) 06/15/17 06:45 BUN 22 mg/dL (7-25) 06/15/17 06:45 Creatinine 0.7 mg/dL (0.6-1.2) 06/15/17 06:45 Est GFR ( Amer) > 60.0 ml/min (>90) 06/15/17 06:45 Est GFR (Non-Af Amer) > 60.0 ml/min 06/15/17 06:45 BUN/Creatinine Ratio 31.4 06/15/17 06:45 Glucose 108 mg/dL (70-105) H 06/15/17 06:45 Calcium 9.2 mg/dL (8.6-10.3) 06/15/17 06:45 Total Bilirubin 0.3 mg/dL (0.3-1.0) 06/12/17 16:35 AST 16 U/L (13-39) 06/12/17 16:35 ALT 13 U/L (7-52) 06/12/17 16:35 Alkaline Phosphatase 60 U/L (34-104) 06/12/17 16:35 Troponin I 0.02 ng/mL (0.01-0.05) 06/12/17 16:35 Total Protein 6.8 gm/dL (6.0-8.3) 06/12/17 16:35 Albumin 4.0 gm/dL (3.7-5.3) 06/12/17 16:35 Globulin 2.8 gm/dL 06/12/17 16:35 Albumin/Globulin Ratio 1.4 (1.0-1.8) 06/12/17 16:35 Triglycerides 113 mg/dL (<150) 06/12/17 16:35 Cholesterol 197 mg/dL (<200) 06/12/17 16:35 LDL Cholesterol Direct 139 mg/dL (75-193) 06/12/17 16:35 HDL Cholesterol 46 mg/dL (23-92) 06/12/17 16:35 TSH 1.09 uIU/ml (0.34-5.60) 06/12/17 16:35 Urine Source CLEAN C 06/12/17 17:30 Urine Color YELLOW 06/12/17 17:30 Urine Clarity SLIGHT CLOUDY (CLEAR) 06/12/17 17:30 Urine pH 5.5 (4.6 - 8.0) 06/12/17 17:30 Ur Specific [place] 1.025 (1.005-1.030) 06/12/17 17:30 Urine Protein NEGATIVE mg/dL (NEGATIVE) 06/12/17 17:30 Urine Glucose (UA) NEGATIVE mg/dL (NEGATIVE) 06/12/17 17:30 Urine Ketones NEGATIVE mg/dL (NEGATIVE) 06/12/17 17:30 Urine Blood LARGE (NEGATIVE) H 06/12/17 17:30 Urine Nitrate NEGATIVE (NEGATIVE) 06/12/17 17:30 Urine Bilirubin NEGATIVE (NEGATIVE) 06/12/17 17:30 Urine Urobilinogen 0.2 E.U./dL (0.2 - 1.0) 06/12/17 17:30 Ur Leukocyte Esterase TRACE (NEGATIVE) H 06/12/17 17:30 Urine RBC 50-100 /hpf (0-5) H 06/12/17 17:30 Urine WBC 6-10 /hpf (0-5) H 06/12/17 17:30 Ur Epithelial Cells FEW /lpf (FEW) 06/12/17 17:30 Urine Bacteria FEW /hpf (NONE SEEN) 06/12/17 17:30 Urine Mucus FEW /lpf (FEW) 06/12/17 17:30 Phenytoin < 2.5 ug/ml (10.0-20.0) L 06/12/17 16:35 RPR NONREACTIVE (NONREACTIVE) 06/12/17 16:35 - Physical Exam Vitals and I&O: Vital Signs Temp 97.8 F 06/30/17 19:54 Pulse 78 06/30/17 19:54 Resp 18 06/30/17 19:54 BP 125/68 06/30/17 19:54 Pulse Ox 95 06/30/17 19:54 Intake & Output 06/30/17 06/30/17 07/01/17 06:59 18:59 06:59 Intake Total 120 1400 240 Balance 120 1400 240 Weight (lbs) 61.87 kg 61.87 kg Intake: Oral 120 1400 240 Other: # Voids 3 3 3 # Bowel Movements 0 0 0 Active Medications: Current Medications Acetaminophen (Tylenol) 650 mg PO Q4HR PRN PRN Reason: Pain Stop: 08/11/17 18:36 Atorvastatin Calcium (Lipitor) 10 mg PO HS [facility] PRN Reason: Protocol Stop: 08/11/17 20:59 Last Admin: 06/29/17 21:21 Dose: Not Given Carvedilol (Coreg) 12.5 mg PO DAILY [facility] Stop: 08/12/17 08:59 Last Admin: 06/30/17 09:01 Dose: Not Given Divalproex Sodium (Depakote Sprinkle) 250 mg PO BID [facility] PRN Reason: Protocol Stop: 08/12/17 08:59 Last Admin: 06/30/17 16:42 Dose: 250 mg Docusate Sodium (Colace) 100 mg PO BID [facility] Stop: 08/12/17 08:59 Last Admin: 06/30/17 16:42 Dose: 100 mg Donepezil HCl (Aricept) 5 mg PO HS [facility] Stop: 08/12/17 20:59 Last Admin: 06/29/17 21:21 Dose: Not Given Enalapril Maleate (Vasotec) 2.5 mg PO DAILY [facility] Stop: 08/12/17 08:59 Last Admin: 06/30/17 09:02 Dose: Not Given Escitalopram Oxalate (Lexapro) 5 mg PO DAILY [facility] PRN Reason: Protocol Stop: 08/15/17 08:59 Last Admin: 06/30/17 09:02 Dose: Not Given Fenofibrate (Tricor) 145 mg PO HS [facility] Stop: 08/14/17 20:59 Last Admin: 06/16/17 20:40 Dose: Not Given Haloperidol (Haldol) 1 mg PO BID [facility] PRN Reason: Protocol Stop: 08/17/17 16:59 Last Admin: 06/30/17 16:42 Dose: 1 mg Haloperidol Lactate (Haldol) 1 mg IM BID PRN PRN Reason: Agitation Stop: 08/24/17 14:59 Last Admin: 06/30/17 09:27 Dose: 1 mg Levetiracetam (Keppra) 500 mg PO BID [facility] Stop: 08/12/17 08:59 Last Admin: 06/30/17 16:42 Dose: 500 mg Lorazepam (Ativan) 0.5 mg PO Q4HR PRN; Protocol PRN Reason: Agitation Stop: 07/13/17 06:53 Last Admin: 06/14/17 10:13 Dose: 0.5 mg Magnesium Hydroxide (Milk Of Magnesia) 30 ml PO DAILY PRN PRN Reason: Constipation Stop: 08/11/17 18:38 Phenytoin (Dilantin) 100 mg PO BID [facility] Stop: 08/12/17 08:59 Last Admin: 06/30/17 16:42 Dose: 100 mg Zolpidem Tartrate (Ambien) 5 mg PO HSMR1 PRN PRN Reason: Insomnia Stop: 08/12/17 06:53 General: weak, thin HEENT: NC/AT, PERRLA, EOMI Neck: Supple, No JVD, No thyromegaly, No LAD Lungs: CTAB Cardiovascular: RRR, Normal S1, Normal S2, without murmur Abdomen: soft, non-tender Extremities: clear, edema Neurological: no change - Procedures Procedures: Procedures Procedure Code Date GROUP PSYCHOTHERAPY 06372 01/22/16 GROUP PSYCHOTHERAPY GZHZZZZ 01/22/16 OTHER GROUP THERAPY 94.44 11/24/13 Internal Medicine Assmt/Plan - Assessment Assessment: 1.HTN 2.CVA. 3.SEIZURE DISORDER. 4.DEMENTIA. - Plan Plan: CONTINUE ON CURRENT MEDICATION AND DIET. Nutritional Asmnt/Malnutr-PDOC - Dietary Evaluation Malnutrition Findings (Please click <Entered> for more info): Nutritional Asmnt/Malnutrition Start: 06/18/17 19: 56 Text: Status: Complete Freq: Document 06/18/17 19:56 [facility] (Rec: 06/18/17 20:04 [facility] [id number]) Nutritional Asmnt/Malnutrition Patient General Information Nutritional Screening Moderate Risk Screening Diagnosis Mood unspecified, anxiety, psychosis, dementia Pertinent Medical Hx/Surgical Hx Alzheimer type dementia, seizure disorder, HTN, hyperlipidemia Subjective Information Pt is a 67-year-old female admitted with chief complaint of refusal of care and decompensation. Per RN notes, pt is withdrawn and confused. Pt has fair appetite but intake fluctuates daily. Pt is able to meet estimated nutritional needs with current diet and PO intake. Current Diet Order/ Nutrition Support Mechanical soft ground, [place] Patient / S.O Can't verbalize diet edu Pertinent Medications Pt is refusing to take medications Pertinent Labs Reviewed Nutritional Hx/Data Height 1.63 m Height (Calculated Centimeters) 162.6 Current Weight (lbs) 74.843 kg Weight (Calculated Kilograms) 74.8 Weight (Calculated Grams) 96843.7 [place] Body Weight 120 % [place] Body Weight 138 Weight Status Overweight GI Symptoms GI Symptoms None Food Allergies No Skin Integrity/Comment: [place] 17. Skin intact. Current %PO Fair (50-74%) Estimated Nutritional Goals BEE in Kcals: Using Current wt Calories/Kcals/Kg Based on current wt 75 kg with consideration of overwt status Kcals Calculated 7552-0855 kcals/day (20-25 kcals/kg) Protein: Using Current wt Protein g/kg: Based on current wt 75 kg Protein Calculated 75 gm/day (1 gm/kg) Fluid: ml 5969-4789 ml/day (1 ml/kcal) Nutritional Problem 1. Problem Problem Overweight related to Etiology possible excessive energy intake vs decreased energy expenditure as evidenced by Signs/Symptoms: BMI 28.3 kg/m2. Malnutrition Alert Protein-Calorie Malnutrition N/A Is there a minimum of two criteria No selected? Query Text:Check all the applicable criteria. A minimum of two criteria are recommended for diagnosis of either severe or non-severe malnutrition. Malnutrition Related to Morbid Obesity Malnutrition related to morbid obesity No Intervention/Recommendation Comments 1. Continue with current diet, as tolerated. [place] food preferences. 2. Will educate pt or family on wt management, as appropriate. Expected Outcomes/Goals Expected Outcomes/Goals Have pt meet at least 75% of estimated nutritional needs, stable wt. Physician Parameters for PEM Serum Albumin (g/dl) 3.5 - 5.0 (Normal)
[2017-06-30] MEDS: Atorvastatin Calcium 10 MG TAB PO SCH (20:53)
[2017-07-01] MEDS: Multivitamin w/ Minerals Tab PO SCH (09:28)
[2017-07-01] MEDS: Escitalopram Oxalate 5 mg Tab PO SCH (09:32)
--- NOTE | 2017-07-01 10:32 | Progress Notes ---
DATE: 07/01/2017 SUBJECTIVE: Case was discussed with staff of the patient, reviewed records. The patient continues to isolate herself, does not say much. She is sleeping, so she can get her medications by injection; however, she does have episodes. She does not take her medication, so I will be increasing the Haldol dose as well as the Lexapro dose to help with her depressive symptoms. We will continue the patient in group therapy, milieu therapy, adjust medication as needed. JOB# [id number]
--- NOTE | 2017-07-01 20:37 | Internal Medicine Prog Note ---
Internal Medicine Subjective - Subjective Service Date: 07/01/17 Patient seen and examined:: with staff Patient is:: non-verbal, in bed Per staff patient has:: no adverse event Internal Medicine Objective - Results Result Diagrams: 06/15/17 06:45 06/15/17 06:45 Recent Labs: Laboratory Last Values WBC 5.9 Th/cmm (4.8-10.8) 06/15/17 06:45 RBC 4.75 Mil/cmm (3.80-5.20) 06/15/17 06:45 Hgb 13.5 gm/dL (11.7-16.1) 06/15/17 06:45 Hct 40.2 % (35.0-45.0) 06/15/17 06:45 MCV 84.5 fl (81-100) 06/15/17 06:45 MCH 28.4 pg (27.0-31.0) 06/15/17 06:45 MCHC Differential 33.6 pg (28.0-36.0) 06/15/17 06:45 RDW 12.3 % (11.5-20.0) 06/15/17 06:45 Plt Count 156 Th/cmm (150-400) 06/15/17 06:45 MPV 9.9 fl 06/15/17 06:45 Neutrophils % 44.6 % (40.0-80.0) 06/15/17 06:45 Lymphocytes % 44.0 % (20.0-50.0) 06/15/17 06:45 Monocytes % 8.5 % (2.0-10.0) 06/15/17 06:45 Eosinophils % 2.0 % (0.0-5.0) 06/15/17 06:45 Basophils % 0.9 % (0.0-2.0) 06/15/17 06:45 PT 11.3 SECONDS (9.5-11.5) 06/12/17 17:16 INR 1.09 (0.5-1.4) 06/12/17 17:16 Sodium 136 mEq/L (136-145) 06/15/17 06:45 Potassium 4.7 mEq/L (3.5-5.1) 06/15/17 06:45 Chloride 108 mEq/L (98-107) H 06/15/17 06:45 Carbon Dioxide 22.6 mEq/L (21.0-31.0) 06/15/17 06:45 Anion Gap 10.1 (7.0-16.0) 06/15/17 06:45 BUN 22 mg/dL (7-25) 06/15/17 06:45 Creatinine 0.7 mg/dL (0.6-1.2) 06/15/17 06:45 Est GFR ( Amer) > 60.0 ml/min (>90) 06/15/17 06:45 Est GFR (Non-Af Amer) > 60.0 ml/min 06/15/17 06:45 BUN/Creatinine Ratio 31.4 06/15/17 06:45 Glucose 108 mg/dL (70-105) H 06/15/17 06:45 Calcium 9.2 mg/dL (8.6-10.3) 06/15/17 06:45 Total Bilirubin 0.3 mg/dL (0.3-1.0) 06/12/17 16:35 AST 16 U/L (13-39) 06/12/17 16:35 ALT 13 U/L (7-52) 06/12/17 16:35 Alkaline Phosphatase 60 U/L (34-104) 06/12/17 16:35 Troponin I 0.02 ng/mL (0.01-0.05) 06/12/17 16:35 Total Protein 6.8 gm/dL (6.0-8.3) 06/12/17 16:35 Albumin 4.0 gm/dL (3.7-5.3) 06/12/17 16:35 Globulin 2.8 gm/dL 06/12/17 16:35 Albumin/Globulin Ratio 1.4 (1.0-1.8) 06/12/17 16:35 Triglycerides 113 mg/dL (<150) 06/12/17 16:35 Cholesterol 197 mg/dL (<200) 06/12/17 16:35 LDL Cholesterol Direct 139 mg/dL (75-193) 06/12/17 16:35 HDL Cholesterol 46 mg/dL (23-92) 06/12/17 16:35 TSH 1.09 uIU/ml (0.34-5.60) 06/12/17 16:35 Urine Source CLEAN C 06/12/17 17:30 Urine Color YELLOW 06/12/17 17:30 Urine Clarity SLIGHT CLOUDY (CLEAR) 06/12/17 17:30 Urine pH 5.5 (4.6 - 8.0) 06/12/17 17:30 Ur Specific [place] 1.025 (1.005-1.030) 06/12/17 17:30 Urine Protein NEGATIVE mg/dL (NEGATIVE) 06/12/17 17:30 Urine Glucose (UA) NEGATIVE mg/dL (NEGATIVE) 06/12/17 17:30 Urine Ketones NEGATIVE mg/dL (NEGATIVE) 06/12/17 17:30 Urine Blood LARGE (NEGATIVE) H 06/12/17 17:30 Urine Nitrate NEGATIVE (NEGATIVE) 06/12/17 17:30 Urine Bilirubin NEGATIVE (NEGATIVE) 06/12/17 17:30 Urine Urobilinogen 0.2 E.U./dL (0.2 - 1.0) 06/12/17 17:30 Ur Leukocyte Esterase TRACE (NEGATIVE) H 06/12/17 17:30 Urine RBC 50-100 /hpf (0-5) H 06/12/17 17:30 Urine WBC 6-10 /hpf (0-5) H 06/12/17 17:30 Ur Epithelial Cells FEW /lpf (FEW) 06/12/17 17:30 Urine Bacteria FEW /hpf (NONE SEEN) 06/12/17 17:30 Urine Mucus FEW /lpf (FEW) 06/12/17 17:30 Phenytoin < 2.5 ug/ml (10.0-20.0) L 06/12/17 16:35 RPR NONREACTIVE (NONREACTIVE) 06/12/17 16:35 - Physical Exam Vitals and I&O: Vital Signs Temp 98.6 F 07/01/17 20:00 Pulse 67 07/01/17 20:00 Resp 18 07/01/17 20:00 BP 120/64 07/01/17 20:00 Pulse Ox 94 07/01/17 20:00 Intake & Output 07/01/17 07/01/17 07/02/17 06:59 18:59 06:59 Intake Total 240 800 Balance 240 800 Weight (lbs) 61.87 kg Intake: Oral 240 800 Other: # Voids 1 # Bowel Movements 0 1 Active Medications: Current Medications Acetaminophen (Tylenol) 650 mg PO Q4HR PRN PRN Reason: Pain Stop: 08/11/17 18:36 Atorvastatin Calcium (Lipitor) 10 mg PO HS ARTEM PRN Reason: Protocol Stop: 08/11/17 20:59 Last Admin: 06/30/17 20:53 Dose: 10 mg Carvedilol (Coreg) 12.5 mg PO DAILY ARTEM Stop: 08/12/17 08:59 Last Admin: 07/01/17 09:26 Dose: Not Given Divalproex Sodium (Depakote Sprinkle) 250 mg PO BID ARTEM PRN Reason: Protocol Stop: 08/12/17 08:59 Last Admin: 07/01/17 16:54 Dose: 250 mg Docusate Sodium (Colace) 100 mg PO BID ARTEM Stop: 08/12/17 08:59 Last Admin: 07/01/17 16:54 Dose: 100 mg Donepezil HCl (Aricept) 5 mg PO HS ARTEM Stop: 08/12/17 20:59 Last Admin: 06/30/17 20:53 Dose: 5 mg Enalapril Maleate (Vasotec) 2.5 mg PO DAILY ARTEM Stop: 08/12/17 08:59 Last Admin: 07/01/17 09:27 Dose: Not Given Escitalopram Oxalate (Lexapro) 10 mg PO DAILY ARTEM PRN Reason: Protocol Stop: 08/30/17 08:59 Last Admin: 07/01/17 09:32 Dose: 10 mg Fenofibrate (Tricor) 145 mg PO HS ARTEM Stop: 08/14/17 20:59 Last Admin: 06/16/17 20:40 Dose: Not Given Haloperidol (Haldol) 2 mg PO BID ARTEM PRN Reason: Protocol Stop: 08/30/17 08:59 Last Admin: 07/01/17 16:55 Dose: 2 mg Haloperidol Lactate (Haldol) 2 mg IM BID PRN PRN Reason: agitation if pt refused po Stop: 08/24/17 14:59 Levetiracetam (Keppra) 500 mg PO BID [facility] Stop: 08/12/17 08:59 Last Admin: 07/01/17 16:54 Dose: 500 mg Lorazepam (Ativan) 0.5 mg PO Q4HR PRN; Protocol PRN Reason: Agitation Stop: 07/13/17 06:53 Last Admin: 06/14/17 10:13 Dose: 0.5 mg Magnesium Hydroxide (Milk Of Magnesia) 30 ml PO DAILY PRN PRN Reason: Constipation Stop: 08/11/17 18:38 Phenytoin (Dilantin) 100 mg PO BID ARTEM Stop: 08/12/17 08:59 Last Admin: 07/01/17 16:55 Dose: 100 mg Zolpidem Tartrate (Ambien) 5 mg PO HSMR1 PRN PRN Reason: Insomnia Stop: 08/12/17 06:53 General: weak, thin HEENT: NC/AT, PERRLA, EOMI Neck: Supple, No JVD, No thyromegaly, No LAD Lungs: CTAB Cardiovascular: RRR, Normal S1, Normal S2, without murmur Abdomen: soft, non-tender Extremities: clear, edema Neurological: no change - Procedures Procedures: Procedures Procedure Code Date GROUP PSYCHOTHERAPY 34805 01/22/16 GROUP PSYCHOTHERAPY GZHZZZZ 01/22/16 OTHER GROUP THERAPY 94.44 11/24/13 Internal Medicine Assmt/Plan - Assessment Assessment: 1.HTN 2.CVA. 3.SEIZURE DISORDER. 4.DEMENTIA. - Plan Plan: CONTINUE ON CURRENT MEDICATION AND DIET. Nutritional Asmnt/Malnutr-PDOC - Dietary Evaluation Malnutrition Findings (Please click <Entered> for more info): Nutritional Asmnt/Malnutrition Start: 06/18/17 19: 56 Text: Status: Complete Freq: Document 06/18/17 19:56 [facility] (Rec: 06/18/17 20:04 [facility] [id number]) Nutritional Asmnt/Malnutrition Patient General Information Nutritional Screening Moderate Risk Screening Diagnosis Mood unspecified, anxiety, psychosis, dementia Pertinent Medical Hx/Surgical Hx Alzheimer type dementia, seizure disorder, HTN, hyperlipidemia Subjective Information Pt is a 67-year-old female admitted with chief complaint of refusal of care and decompensation. Per RN notes, pt is withdrawn and confused. Pt has fair appetite but intake fluctuates daily. Pt is able to meet estimated nutritional needs with current diet and PO intake. Current Diet Order/ Nutrition Support Mechanical soft ground, [place] Patient / S.O Can't verbalize diet edu Pertinent Medications Pt is refusing to take medications Pertinent Labs Reviewed Nutritional Hx/Data Height 1.63 m Height (Calculated Centimeters) 162.6 Current Weight (lbs) 74.843 kg Weight (Calculated Kilograms) 74.8 Weight (Calculated Grams) 72215.7 [place] Body Weight 120 % [place] Body Weight 138 Weight Status Overweight GI Symptoms GI Symptoms None Food Allergies No Skin Integrity/Comment: Moreno Sharma. Skin intact. Current %PO Fair (50-74%) Estimated Nutritional Goals BEE in Kcals: Using Current wt Calories/Kcals/Kg Based on current wt 75 kg with consideration of overwt status Kcals Calculated 6058-8096 kcals/day (20-25 kcals/kg) Protein: Using Current wt Protein g/kg: Based on current wt 75 kg Protein Calculated 75 gm/day (1 gm/kg) Fluid: ml 9812-5001 ml/day (1 ml/kcal) Nutritional Problem 1. Problem Problem Overweight related to Etiology possible excessive energy intake vs decreased energy expenditure as evidenced by Signs/Symptoms: BMI 28.3 kg/m2. Malnutrition Alert Protein-Calorie Malnutrition N/A Is there a minimum of two criteria No selected? Query Text:Check all the applicable criteria. A minimum of two criteria are recommended for diagnosis of either severe or non-severe malnutrition. Malnutrition Related to Morbid Obesity Malnutrition related to morbid obesity No Intervention/Recommendation Comments 1. Continue with current diet, as tolerated. [place] food preferences. 2. Will educate pt or family on wt management, as appropriate. Expected Outcomes/Goals Expected Outcomes/Goals Have pt meet at least 75% of estimated nutritional needs, stable wt. Physician Parameters for PEM Serum Albumin (g/dl) 3.5 - 5.0 (Normal)
[2017-07-01] MEDS: Atorvastatin Calcium 10 MG TAB PO SCH (21:09)
[2017-07-02] MEDS: Escitalopram Oxalate 5 mg Tab PO SCH ×2 (08:56→09:00)
[2017-07-02] MEDS: Multivitamin w/ Minerals Tab PO SCH ×2 (09:00)
[2017-07-02] MEDS: Haloperidol Lactate 5 mg/mL 1mL Vial IM PRN ×2 (09:12→16:43)
--- NOTE | 2017-07-02 19:06 | Internal Medicine Prog Note ---
Internal Medicine Subjective - Subjective Service Date: 07/02/17 Patient seen and examined:: with staff (SHE IS DOING BETTER.TAKING MEDICATION.) Patient is:: non-verbal, in bed Per staff patient has:: no adverse event Internal Medicine Objective - Results Result Diagrams: 06/15/17 06:45 06/15/17 06:45 Recent Labs: Laboratory Last Values WBC 5.9 Th/cmm (4.8-10.8) 06/15/17 06:45 RBC 4.75 Mil/cmm (3.80-5.20) 06/15/17 06:45 Hgb 13.5 gm/dL (11.7-16.1) 06/15/17 06:45 Hct 40.2 % (35.0-45.0) 06/15/17 06:45 MCV 84.5 fl (81-100) 06/15/17 06:45 MCH 28.4 pg (27.0-31.0) 06/15/17 06:45 MCHC Differential 33.6 pg (28.0-36.0) 06/15/17 06:45 RDW 12.3 % (11.5-20.0) 06/15/17 06:45 Plt Count 156 Th/cmm (150-400) 06/15/17 06:45 MPV 9.9 fl 06/15/17 06:45 Neutrophils % 44.6 % (40.0-80.0) 06/15/17 06:45 Lymphocytes % 44.0 % (20.0-50.0) 06/15/17 06:45 Monocytes % 8.5 % (2.0-10.0) 06/15/17 06:45 Eosinophils % 2.0 % (0.0-5.0) 06/15/17 06:45 Basophils % 0.9 % (0.0-2.0) 06/15/17 06:45 PT 11.3 SECONDS (9.5-11.5) 06/12/17 17:16 INR 1.09 (0.5-1.4) 06/12/17 17:16 Sodium 136 mEq/L (136-145) 06/15/17 06:45 Potassium 4.7 mEq/L (3.5-5.1) 06/15/17 06:45 Chloride 108 mEq/L (98-107) H 06/15/17 06:45 Carbon Dioxide 22.6 mEq/L (21.0-31.0) 06/15/17 06:45 Anion Gap 10.1 (7.0-16.0) 06/15/17 06:45 BUN 22 mg/dL (7-25) 06/15/17 06:45 Creatinine 0.7 mg/dL (0.6-1.2) 06/15/17 06:45 Est GFR ( Amer) > 60.0 ml/min (>90) 06/15/17 06:45 Est GFR (Non-Af Amer) > 60.0 ml/min 06/15/17 06:45 BUN/Creatinine Ratio 31.4 06/15/17 06:45 Glucose 108 mg/dL (70-105) H 06/15/17 06:45 Calcium 9.2 mg/dL (8.6-10.3) 06/15/17 06:45 Total Bilirubin 0.3 mg/dL (0.3-1.0) 06/12/17 16:35 AST 16 U/L (13-39) 06/12/17 16:35 ALT 13 U/L (7-52) 06/12/17 16:35 Alkaline Phosphatase 60 U/L (34-104) 06/12/17 16:35 Troponin I 0.02 ng/mL (0.01-0.05) 06/12/17 16:35 Total Protein 6.8 gm/dL (6.0-8.3) 06/12/17 16:35 Albumin 4.0 gm/dL (3.7-5.3) 06/12/17 16:35 Globulin 2.8 gm/dL 06/12/17 16:35 Albumin/Globulin Ratio 1.4 (1.0-1.8) 06/12/17 16:35 Triglycerides 113 mg/dL (<150) 06/12/17 16:35 Cholesterol 197 mg/dL (<200) 06/12/17 16:35 LDL Cholesterol Direct 139 mg/dL (75-193) 06/12/17 16:35 HDL Cholesterol 46 mg/dL (23-92) 06/12/17 16:35 TSH 1.09 uIU/ml (0.34-5.60) 06/12/17 16:35 Urine Source CLEAN C 06/12/17 17:30 Urine Color YELLOW 06/12/17 17:30 Urine Clarity SLIGHT CLOUDY (CLEAR) 06/12/17 17:30 Urine pH 5.5 (4.6 - 8.0) 06/12/17 17:30 Ur Specific [place] 1.025 (1.005-1.030) 06/12/17 17:30 Urine Protein NEGATIVE mg/dL (NEGATIVE) 06/12/17 17:30 Urine Glucose (UA) NEGATIVE mg/dL (NEGATIVE) 06/12/17 17:30 Urine Ketones NEGATIVE mg/dL (NEGATIVE) 06/12/17 17:30 Urine Blood LARGE (NEGATIVE) H 06/12/17 17:30 Urine Nitrate NEGATIVE (NEGATIVE) 06/12/17 17:30 Urine Bilirubin NEGATIVE (NEGATIVE) 06/12/17 17:30 Urine Urobilinogen 0.2 E.U./dL (0.2 - 1.0) 06/12/17 17:30 Ur Leukocyte Esterase TRACE (NEGATIVE) H 06/12/17 17:30 Urine RBC 50-100 /hpf (0-5) H 06/12/17 17:30 Urine WBC 6-10 /hpf (0-5) H 06/12/17 17:30 Ur Epithelial Cells FEW /lpf (FEW) 06/12/17 17:30 Urine Bacteria FEW /hpf (NONE SEEN) 06/12/17 17:30 Urine Mucus FEW /lpf (FEW) 06/12/17 17:30 Phenytoin < 2.5 ug/ml (10.0-20.0) L 06/12/17 16:35 RPR NONREACTIVE (NONREACTIVE) 06/12/17 16:35 - Physical Exam Vitals and I&O: Vital Signs Temp 98.2 F 07/02/17 14:00 Pulse 72 07/02/17 14:00 Resp 18 07/02/17 14:00 BP 106/61 07/02/17 14:00 Pulse Ox 96 07/02/17 14:00 Intake & Output 07/02/17 07/02/17 07/03/17 06:59 18:59 06:59 Intake Total 120 1200 Balance 120 1200 Intake: Oral 120 1200 Other: # Voids 3 # Bowel Movements 1 Active Medications: Current Medications Acetaminophen (Tylenol) 650 mg PO Q4HR PRN PRN Reason: Pain Stop: 08/11/17 18:36 Atorvastatin Calcium (Lipitor) 10 mg PO HS ARTEM PRN Reason: Protocol Stop: 08/11/17 20:59 Last Admin: 07/01/17 21:09 Dose: 10 mg Carvedilol (Coreg) 12.5 mg PO DAILY ARTEM Stop: 08/12/17 08:59 Last Admin: 07/02/17 09:21 Dose: Not Given Divalproex Sodium (Depakote Sprinkle) 250 mg PO BID ARTEM PRN Reason: Protocol Stop: 08/12/17 08:59 Last Admin: 07/02/17 16:36 Dose: Not Given Docusate Sodium (Colace) 100 mg PO BID ARTEM Stop: 08/12/17 08:59 Last Admin: 07/02/17 16:36 Dose: Not Given Donepezil HCl (Aricept) 5 mg PO HS ARTEM Stop: 08/12/17 20:59 Last Admin: 07/01/17 21:09 Dose: 5 mg Enalapril Maleate (Vasotec) 2.5 mg PO DAILY [facility] Stop: 08/12/17 08:59 Last Admin: 07/02/17 09:22 Dose: Not Given Escitalopram Oxalate (Lexapro) 10 mg PO DAILY ARTEM PRN Reason: Protocol Stop: 08/30/17 08:59 Last Admin: 07/02/17 09:00 Dose: Not Given Fenofibrate (Tricor) 145 mg PO HS ARTEM Stop: 08/14/17 20:59 Last Admin: 06/16/17 20:40 Dose: Not Given Haloperidol (Haldol) 2 mg PO BID ARTEM PRN Reason: Protocol Stop: 08/30/17 08:59 Last Admin: 07/02/17 16:35 Dose: Not Given Haloperidol Lactate (Haldol) 2 mg IM BID PRN PRN Reason: agitation if pt refused po Stop: 08/24/17 14:59 Last Admin: 07/02/17 16:43 Dose: 2 mg Levetiracetam (Keppra) 500 mg PO BID [facility] Stop: 08/12/17 08:59 Last Admin: 07/02/17 16:36 Dose: Not Given Lorazepam (Ativan) 0.5 mg PO Q4HR PRN; Protocol PRN Reason: Agitation Stop: 07/13/17 06:53 Last Admin: 06/14/17 10:13 Dose: 0.5 mg Magnesium Hydroxide (Milk Of Magnesia) 30 ml PO DAILY PRN PRN Reason: Constipation Stop: 08/11/17 18:38 Mirtazapine (Remeron) 7.5 mg PO HS ARTEM PRN Reason: Protocol Stop: 08/31/17 20:59 Phenytoin (Dilantin) 100 mg PO BID ARTEM Stop: 08/12/17 08:59 Last Admin: 07/02/17 16:36 Dose: Not Given Zolpidem Tartrate (Ambien) 5 mg PO HSMR1 PRN PRN Reason: Insomnia Stop: 08/12/17 06:53 General: weak, thin HEENT: NC/AT, PERRLA, EOMI Neck: Supple, No JVD, No thyromegaly, No LAD Lungs: CTAB Cardiovascular: RRR, Normal S1, Normal S2, without murmur Abdomen: soft, non-tender Extremities: clear, edema Neurological: no change - Procedures Procedures: Procedures Procedure Code Date GROUP PSYCHOTHERAPY 89516 01/22/16 GROUP PSYCHOTHERAPY GZHZZZZ 01/22/16 OTHER GROUP THERAPY 94.44 11/24/13 Internal Medicine Assmt/Plan - Assessment Assessment: 1.HTN 2.CVA. 3.SEIZURE DISORDER. 4.DEMENTIA. - Plan Plan: CONTINUE ON CURRENT MEDICATION AND DIET. Nutritional Asmnt/Malnutr-PDOC - Dietary Evaluation Malnutrition Findings (Please click <Entered> for more info): Nutritional Asmnt/Malnutrition Start: 06/18/17 19: 56 Text: Status: Complete Freq: Document 06/18/17 19:56 [facility] (Rec: 06/18/17 20:04 [facility] [id number]) Nutritional Asmnt/Malnutrition Patient General Information Nutritional Screening Moderate Risk Screening Diagnosis Mood unspecified, anxiety, psychosis, dementia Pertinent Medical Hx/Surgical Hx Alzheimer type dementia, seizure disorder, HTN, hyperlipidemia Subjective Information Pt is a 67-year-old female admitted with chief complaint of refusal of care and decompensation. Per RN notes, pt is withdrawn and confused. Pt has fair appetite but intake fluctuates daily. Pt is able to meet estimated nutritional needs with current diet and PO intake. Current Diet Order/ Nutrition Support Mechanical soft ground, [place] Patient / S.O Can't verbalize diet edu Pertinent Medications Pt is refusing to take medications Pertinent Labs Reviewed Nutritional Hx/Data Height 1.63 m Height (Calculated Centimeters) 162.6 Current Weight (lbs) 74.843 kg Weight (Calculated Kilograms) 74.8 Weight (Calculated Grams) 16904.7 [place] Body Weight 120 % [place] Body Weight 138 Weight Status Overweight GI Symptoms GI Symptoms None Food Allergies No Skin Integrity/Comment: [place] 17. Skin intact. Current %PO Fair (50-74%) Estimated Nutritional Goals BEE in Kcals: Using Current wt Calories/Kcals/Kg Based on current wt 75 kg with consideration of overwt status Kcals Calculated 9269-9389 kcals/day (20-25 kcals/kg) Protein: Using Current wt Protein g/kg: Based on current wt 75 kg Protein Calculated 75 gm/day (1 gm/kg) Fluid: ml 9789-5869 ml/day (1 ml/kcal) Nutritional Problem 1. Problem Problem Overweight related to Etiology possible excessive energy intake vs decreased energy expenditure as evidenced by Signs/Symptoms: BMI 28.3 kg/m2. Malnutrition Alert Protein-Calorie Malnutrition N/A Is there a minimum of two criteria No selected? Query Text:Check all the applicable criteria. A minimum of two criteria are recommended for diagnosis of either severe or non-severe malnutrition. Malnutrition Related to Morbid Obesity Malnutrition related to morbid obesity No Intervention/Recommendation Comments 1. Continue with current diet, as tolerated. [place] food preferences. 2. Will educate pt or family on wt management, as appropriate. Expected Outcomes/Goals Expected Outcomes/Goals Have pt meet at least 75% of estimated nutritional needs, stable wt. Physician Parameters for PEM Serum Albumin (g/dl) 3.5 - 5.0 (Normal)
[2017-07-02] MEDS: Atorvastatin Calcium 10 MG TAB PO SCH ×2 (20:58→21:02)
--- NOTE | 2017-07-03 07:16 | Progress Notes ---
DATE: 07/02/2017 Case was discussed with staff of the patient, reviewed records. The patient continues to have ____. She refused to take her medications. She continues to have poor insight, unpredictable, impulsive and needing redirection. I did increase her Haldol dose yesterday as well as her Lexapro dose. I will be adding Remeron to her medication to help with her poor appetite as she is not eating very well and her depression. We will continue to work with the patient in group therapy, milieu therapy and adjust the medications as needed. JOB# [id number]
[2017-07-03] MEDS: Escitalopram Oxalate 5 mg Tab PO SCH (09:35)
[2017-07-03] MEDS: Multivitamin w/ Minerals Tab PO SCH (09:35)
--- NOTE | 2017-07-03 20:17 | Internal Medicine Prog Note ---
Internal Medicine Subjective - Subjective Service Date: 07/03/17 Patient seen and examined:: without staff Patient is:: non-verbal, in bed Per staff patient has:: no adverse event Internal Medicine Objective - Results Result Diagrams: 06/15/17 06:45 06/15/17 06:45 Recent Labs: Laboratory Last Values WBC 5.9 Th/cmm (4.8-10.8) 06/15/17 06:45 RBC 4.75 Mil/cmm (3.80-5.20) 06/15/17 06:45 Hgb 13.5 gm/dL (11.7-16.1) 06/15/17 06:45 Hct 40.2 % (35.0-45.0) 06/15/17 06:45 MCV 84.5 fl (81-100) 06/15/17 06:45 MCH 28.4 pg (27.0-31.0) 06/15/17 06:45 MCHC Differential 33.6 pg (28.0-36.0) 06/15/17 06:45 RDW 12.3 % (11.5-20.0) 06/15/17 06:45 Plt Count 156 Th/cmm (150-400) 06/15/17 06:45 MPV 9.9 fl 06/15/17 06:45 Neutrophils % 44.6 % (40.0-80.0) 06/15/17 06:45 Lymphocytes % 44.0 % (20.0-50.0) 06/15/17 06:45 Monocytes % 8.5 % (2.0-10.0) 06/15/17 06:45 Eosinophils % 2.0 % (0.0-5.0) 06/15/17 06:45 Basophils % 0.9 % (0.0-2.0) 06/15/17 06:45 PT 11.3 SECONDS (9.5-11.5) 06/12/17 17:16 INR 1.09 (0.5-1.4) 06/12/17 17:16 Sodium 136 mEq/L (136-145) 06/15/17 06:45 Potassium 4.7 mEq/L (3.5-5.1) 06/15/17 06:45 Chloride 108 mEq/L (98-107) H 06/15/17 06:45 Carbon Dioxide 22.6 mEq/L (21.0-31.0) 06/15/17 06:45 Anion Gap 10.1 (7.0-16.0) 06/15/17 06:45 BUN 22 mg/dL (7-25) 06/15/17 06:45 Creatinine 0.7 mg/dL (0.6-1.2) 06/15/17 06:45 Est GFR ( Amer) > 60.0 ml/min (>90) 06/15/17 06:45 Est GFR (Non-Af Amer) > 60.0 ml/min 06/15/17 06:45 BUN/Creatinine Ratio 31.4 06/15/17 06:45 Glucose 108 mg/dL (70-105) H 06/15/17 06:45 Calcium 9.2 mg/dL (8.6-10.3) 06/15/17 06:45 Total Bilirubin 0.3 mg/dL (0.3-1.0) 06/12/17 16:35 AST 16 U/L (13-39) 06/12/17 16:35 ALT 13 U/L (7-52) 06/12/17 16:35 Alkaline Phosphatase 60 U/L (34-104) 06/12/17 16:35 Troponin I 0.02 ng/mL (0.01-0.05) 06/12/17 16:35 Total Protein 6.8 gm/dL (6.0-8.3) 06/12/17 16:35 Albumin 4.0 gm/dL (3.7-5.3) 06/12/17 16:35 Globulin 2.8 gm/dL 06/12/17 16:35 Albumin/Globulin Ratio 1.4 (1.0-1.8) 06/12/17 16:35 Triglycerides 113 mg/dL (<150) 06/12/17 16:35 Cholesterol 197 mg/dL (<200) 06/12/17 16:35 LDL Cholesterol Direct 139 mg/dL (75-193) 06/12/17 16:35 HDL Cholesterol 46 mg/dL (23-92) 06/12/17 16:35 TSH 1.09 uIU/ml (0.34-5.60) 06/12/17 16:35 Urine Source CLEAN C 06/12/17 17:30 Urine Color YELLOW 06/12/17 17:30 Urine Clarity SLIGHT CLOUDY (CLEAR) 06/12/17 17:30 Urine pH 5.5 (4.6 - 8.0) 06/12/17 17:30 Ur Specific [place] 1.025 (1.005-1.030) 06/12/17 17:30 Urine Protein NEGATIVE mg/dL (NEGATIVE) 06/12/17 17:30 Urine Glucose (UA) NEGATIVE mg/dL (NEGATIVE) 06/12/17 17:30 Urine Ketones NEGATIVE mg/dL (NEGATIVE) 06/12/17 17:30 Urine Blood LARGE (NEGATIVE) H 06/12/17 17:30 Urine Nitrate NEGATIVE (NEGATIVE) 06/12/17 17:30 Urine Bilirubin NEGATIVE (NEGATIVE) 06/12/17 17:30 Urine Urobilinogen 0.2 E.U./dL (0.2 - 1.0) 06/12/17 17:30 Ur Leukocyte Esterase TRACE (NEGATIVE) H 06/12/17 17:30 Urine RBC 50-100 /hpf (0-5) H 06/12/17 17:30 Urine WBC 6-10 /hpf (0-5) H 06/12/17 17:30 Ur Epithelial Cells FEW /lpf (FEW) 06/12/17 17:30 Urine Bacteria FEW /hpf (NONE SEEN) 06/12/17 17:30 Urine Mucus FEW /lpf (FEW) 06/12/17 17:30 Phenytoin < 2.5 ug/ml (10.0-20.0) L 06/12/17 16:35 RPR NONREACTIVE (NONREACTIVE) 06/12/17 16:35 - Physical Exam Vitals and I&O: Vital Signs Temp 98.1 F 07/03/17 14:00 Pulse 66 07/03/17 14:00 Resp 18 07/03/17 14:00 BP 113/66 07/03/17 14:00 Pulse Ox 98 07/03/17 14:00 Intake & Output 07/03/17 07/03/17 07/04/17 06:59 18:59 06:59 Intake Total 1200 Balance 1200 Weight (lbs) 61.779 kg Intake: Oral 1200 Other: # Bowel Movements 1 Active Medications: Current Medications Acetaminophen (Tylenol) 650 mg PO Q4HR PRN PRN Reason: Pain Stop: 08/11/17 18:36 Atorvastatin Calcium (Lipitor) 10 mg PO HS ARTEM PRN Reason: Protocol Stop: 08/11/17 20:59 Last Admin: 07/02/17 21:02 Dose: Not Given Carvedilol (Coreg) 12.5 mg PO DAILY [facility] Stop: 08/12/17 08:59 Last Admin: 07/03/17 09:32 Dose: 12.5 mg Divalproex Sodium (Depakote Sprinkle) 250 mg PO BID ARTEM PRN Reason: Protocol Stop: 08/12/17 08:59 Last Admin: 07/03/17 16:56 Dose: 250 mg Docusate Sodium (Colace) 100 mg PO BID [facility] Stop: 08/12/17 08:59 Last Admin: 07/03/17 16:57 Dose: 100 mg Donepezil HCl (Aricept) 5 mg PO HS [facility] Stop: 08/12/17 20:59 Last Admin: 07/02/17 21:02 Dose: Not Given Enalapril Maleate (Vasotec) 2.5 mg PO DAILY [facility] Stop: 08/12/17 08:59 Last Admin: 07/03/17 09:33 Dose: 2.5 mg Escitalopram Oxalate (Lexapro) 10 mg PO DAILY [facility] PRN Reason: Protocol Stop: 08/30/17 08:59 Last Admin: 07/03/17 09:35 Dose: 10 mg Fenofibrate (Tricor) 145 mg PO HS [facility] Stop: 08/14/17 20:59 Last Admin: 06/16/17 20:40 Dose: Not Given Haloperidol (Haldol) 2 mg PO BID [facility]EM PRN Reason: Protocol Stop: 08/30/17 08:59 Last Admin: 07/03/17 16:57 Dose: 2 mg Haloperidol Lactate (Haldol) 2 mg IM BID PRN PRN Reason: agitation if pt refused po Stop: 08/24/17 14:59 Last Admin: 07/02/17 16:43 Dose: 2 mg Levetiracetam (Keppra) 500 mg PO BID [facility] Stop: 08/12/17 08:59 Last Admin: 07/03/17 16:57 Dose: 500 mg Lorazepam (Ativan) 0.5 mg PO Q4HR PRN; Protocol PRN Reason: Agitation Stop: 07/13/17 06:53 Last Admin: 06/14/17 10:13 Dose: 0.5 mg Magnesium Hydroxide (Milk Of Magnesia) 30 ml PO DAILY PRN PRN Reason: Constipation Stop: 08/11/17 18:38 Mirtazapine (Remeron) 7.5 mg PO HS [facility] PRN Reason: Protocol Stop: 08/31/17 20:59 Last Admin: 07/02/17 21:02 Dose: Not Given Phenytoin (Dilantin) 100 mg PO BID [facility] Stop: 08/12/17 08:59 Last Admin: 07/03/17 16:57 Dose: 100 mg Zolpidem Tartrate (Ambien) 5 mg PO HSMR1 PRN PRN Reason: Insomnia Stop: 08/12/17 06:53 General: weak, thin HEENT: NC/AT, PERRLA, EOMI Neck: Supple, No JVD, No thyromegaly, No LAD Lungs: CTAB Cardiovascular: RRR, Normal S1, Normal S2, without murmur Abdomen: soft, non-tender Extremities: clear, edema Neurological: no change - Procedures Procedures: Procedures Procedure Code Date GROUP PSYCHOTHERAPY 88529 01/22/16 GROUP PSYCHOTHERAPY GZHZZZZ 01/22/16 OTHER GROUP THERAPY 94.44 11/24/13 Internal Medicine Assmt/Plan - Assessment Assessment: 1.HTN 2.CVA. 3.SEIZURE DISORDER. 4.DEMENTIA. - Plan Plan: CONTINUE ON CURRENT MEDICATION AND DIET. Nutritional Asmnt/Malnutr-PDOC - Dietary Evaluation Malnutrition Findings (Please click <Entered> for more info): Nutritional Asmnt/Malnutrition Start: 06/18/17 19: 56 Text: Status: Complete Freq: Document 06/18/17 19:56 [facility] (Rec: 06/18/17 20:04 [facility] [id number]) Nutritional Asmnt/Malnutrition Patient General Information Nutritional Screening Moderate Risk Screening Diagnosis Mood unspecified, anxiety, psychosis, dementia Pertinent Medical Hx/Surgical Hx Alzheimer type dementia, seizure disorder, HTN, hyperlipidemia Subjective Information Pt is a 67-year-old female admitted with chief complaint of refusal of care and decompensation. Per RN notes, pt is withdrawn and confused. Pt has fair appetite but intake fluctuates daily. Pt is able to meet estimated nutritional needs with current diet and PO intake. Current Diet Order/ Nutrition Support Mechanical soft ground, [place] Patient / S.O Can't verbalize diet edu Pertinent Medications Pt is refusing to take medications Pertinent Labs Reviewed Nutritional Hx/Data Height 1.63 m Height (Calculated Centimeters) 162.6 Current Weight (lbs) 74.843 kg Weight (Calculated Kilograms) 74.8 Weight (Calculated Grams) 04339.7 [place] Body Weight 120 % [place] Body Weight 138 Weight Status Overweight GI Symptoms GI Symptoms None Food Allergies No Skin Integrity/Comment: [place] 17. Skin intact. Current %PO Fair (50-74%) Estimated Nutritional Goals BEE in Kcals: Using Current wt Calories/Kcals/Kg Based on current wt 75 kg with consideration of overwt status Kcals Calculated 6571-8068 kcals/day (20-25 kcals/kg) Protein: Using Current wt Protein g/kg: Based on current wt 75 kg Protein Calculated 75 gm/day (1 gm/kg) Fluid: ml 6341-2145 ml/day (1 ml/kcal) Nutritional Problem 1. Problem Problem Overweight related to Etiology possible excessive energy intake vs decreased energy expenditure as evidenced by Signs/Symptoms: BMI 28.3 kg/m2. Malnutrition Alert Protein-Calorie Malnutrition N/A Is there a minimum of two criteria No selected? Query Text:Check all the applicable criteria. A minimum of two criteria are recommended for diagnosis of either severe or non-severe malnutrition. Malnutrition Related to Morbid Obesity Malnutrition related to morbid obesity No Intervention/Recommendation Comments 1. Continue with current diet, as tolerated. [place] food preferences. 2. Will educate pt or family on wt management, as appropriate. Expected Outcomes/Goals Expected Outcomes/Goals Have pt meet at least 75% of estimated nutritional needs, stable wt. Physician Parameters for PEM Serum Albumin (g/dl) 3.5 - 5.0 (Normal)
[2017-07-03] MEDS: Atorvastatin Calcium 10 MG TAB PO SCH (20:26)
--- NOTE | 2017-07-04 05:35 | Progress Notes ---
DATE: 07/03/2017 Case was discussed with staff of the patient, reviewed records. The patient continues to be in bed. She has been taking her medications more consistently, but she still appears to be depressed. Continues to have poor insight. Unable to make safe plan for self-care, unpredictable, impulsive, demented and confused. No side effects to the medication, no sedation, no nausea and I did initiate Remeron to help with her appetite and we will continue to work with the patient in group therapy, milieu therapy, and adjust medications as needed. JOB# [id number]
[2017-07-04] MEDS: Multivitamin w/ Minerals Tab PO SCH (10:00)
[2017-07-04] MEDS: Escitalopram Oxalate 5 mg Tab PO SCH (10:00)
--- NOTE | 2017-07-04 12:23 | Internal Medicine Prog Note ---
Internal Medicine Subjective - Subjective Service Date: 07/04/17 Patient seen and examined:: with staff (SHE IS EATING WITH ASSIAT.) Patient is:: non-verbal, in bed Per staff patient has:: no adverse event Internal Medicine Objective - Results Result Diagrams: 06/15/17 06:45 06/15/17 06:45 Recent Labs: Laboratory Last Values WBC 5.9 Th/cmm (4.8-10.8) 06/15/17 06:45 RBC 4.75 Mil/cmm (3.80-5.20) 06/15/17 06:45 Hgb 13.5 gm/dL (11.7-16.1) 06/15/17 06:45 Hct 40.2 % (35.0-45.0) 06/15/17 06:45 MCV 84.5 fl (81-100) 06/15/17 06:45 MCH 28.4 pg (27.0-31.0) 06/15/17 06:45 MCHC Differential 33.6 pg (28.0-36.0) 06/15/17 06:45 RDW 12.3 % (11.5-20.0) 06/15/17 06:45 Plt Count 156 Th/cmm (150-400) 06/15/17 06:45 MPV 9.9 fl 06/15/17 06:45 Neutrophils % 44.6 % (40.0-80.0) 06/15/17 06:45 Lymphocytes % 44.0 % (20.0-50.0) 06/15/17 06:45 Monocytes % 8.5 % (2.0-10.0) 06/15/17 06:45 Eosinophils % 2.0 % (0.0-5.0) 06/15/17 06:45 Basophils % 0.9 % (0.0-2.0) 06/15/17 06:45 PT 11.3 SECONDS (9.5-11.5) 06/12/17 17:16 INR 1.09 (0.5-1.4) 06/12/17 17:16 Sodium 136 mEq/L (136-145) 06/15/17 06:45 Potassium 4.7 mEq/L (3.5-5.1) 06/15/17 06:45 Chloride 108 mEq/L (98-107) H 06/15/17 06:45 Carbon Dioxide 22.6 mEq/L (21.0-31.0) 06/15/17 06:45 Anion Gap 10.1 (7.0-16.0) 06/15/17 06:45 BUN 22 mg/dL (7-25) 06/15/17 06:45 Creatinine 0.7 mg/dL (0.6-1.2) 06/15/17 06:45 Est GFR ( Amer) > 60.0 ml/min (>90) 06/15/17 06:45 Est GFR (Non-Af Amer) > 60.0 ml/min 06/15/17 06:45 BUN/Creatinine Ratio 31.4 06/15/17 06:45 Glucose 108 mg/dL (70-105) H 06/15/17 06:45 Calcium 9.2 mg/dL (8.6-10.3) 06/15/17 06:45 Total Bilirubin 0.3 mg/dL (0.3-1.0) 06/12/17 16:35 AST 16 U/L (13-39) 06/12/17 16:35 ALT 13 U/L (7-52) 06/12/17 16:35 Alkaline Phosphatase 60 U/L (34-104) 06/12/17 16:35 Troponin I 0.02 ng/mL (0.01-0.05) 06/12/17 16:35 Total Protein 6.8 gm/dL (6.0-8.3) 06/12/17 16:35 Albumin 4.0 gm/dL (3.7-5.3) 06/12/17 16:35 Globulin 2.8 gm/dL 06/12/17 16:35 Albumin/Globulin Ratio 1.4 (1.0-1.8) 06/12/17 16:35 Triglycerides 113 mg/dL (<150) 06/12/17 16:35 Cholesterol 197 mg/dL (<200) 06/12/17 16:35 LDL Cholesterol Direct 139 mg/dL (75-193) 06/12/17 16:35 HDL Cholesterol 46 mg/dL (23-92) 06/12/17 16:35 TSH 1.09 uIU/ml (0.34-5.60) 08/04/17 16:35 Urine Source CLEAN C 06/12/17 17:30 Urine Color YELLOW 06/12/17 17:30 Urine Clarity SLIGHT CLOUDY (CLEAR) 06/12/17 17:30 Urine pH 5.5 (4.6 - 8.0) 06/12/17 17:30 Ur Specific [place] 1.025 (1.005-1.030) 06/12/17 17:30 Urine Protein NEGATIVE mg/dL (NEGATIVE) 06/12/17 17:30 Urine Glucose (UA) NEGATIVE mg/dL (NEGATIVE) 06/12/17 17:30 Urine Ketones NEGATIVE mg/dL (NEGATIVE) 06/12/17 17:30 Urine Blood LARGE (NEGATIVE) H 06/12/17 17:30 Urine Nitrate NEGATIVE (NEGATIVE) 06/12/17 17:30 Urine Bilirubin NEGATIVE (NEGATIVE) 06/12/17 17:30 Urine Urobilinogen 0.2 E.U./dL (0.2 - 1.0) 06/12/17 17:30 Ur Leukocyte Esterase TRACE (NEGATIVE) H 06/12/17 17:30 Urine RBC 50-100 /hpf (0-5) H 06/12/17 17:30 Urine WBC 6-10 /hpf (0-5) H 06/12/17 17:30 Ur Epithelial Cells FEW /lpf (FEW) 06/12/17 17:30 Urine Bacteria FEW /hpf (NONE SEEN) 06/12/17 17:30 Urine Mucus FEW /lpf (FEW) 06/12/17 17:30 Phenytoin < 2.5 ug/ml (10.0-20.0) L 06/12/17 16:35 RPR NONREACTIVE (NONREACTIVE) 06/12/17 16:35 - Physical Exam Vitals and I&O: Vital Signs Temp 98.2 F 07/03/17 20:39 Pulse 76 07/04/17 09:59 Resp 19 07/03/17 20:39 BP 104/61 07/04/17 09:59 Pulse Ox 97 07/03/17 20:39 Intake & Output 07/03/17 07/04/17 07/04/17 18:59 06:59 18:59 Intake Total 1200 120 Balance 1200 120 Weight (lbs) 61.779 kg Intake: Oral 1200 120 Other: # Voids 1 # Bowel Movements 1 Active Medications: Current Medications Acetaminophen (Tylenol) 650 mg PO Q4HR PRN PRN Reason: Pain Stop: 08/11/17 18:36 Atorvastatin Calcium (Lipitor) 10 mg PO HS ARTEM PRN Reason: Protocol Stop: 08/11/17 20:59 Last Admin: 07/03/17 20:26 Dose: Not Given Carvedilol (Coreg) 12.5 mg PO DAILY [facility] Stop: 08/12/17 08:59 Last Admin: 07/04/17 08:16 Dose: Not Given Divalproex Sodium (Depakote Sprinkle) 250 mg PO BID [facility] PRN Reason: Protocol Stop: 08/12/17 08:59 Last Admin: 07/04/17 09:59 Dose: Not Given Docusate Sodium (Colace) 100 mg PO BID [facility] Stop: 08/12/17 08:59 Last Admin: 07/04/17 09:59 Dose: Not Given Donepezil HCl (Aricept) 5 mg PO HS [facility] Stop: 08/12/17 20:59 Last Admin: 07/03/17 20:26 Dose: Not Given Enalapril Maleate (Vasotec) 2.5 mg PO DAILY [facility] Stop: 08/12/17 08:59 Last Admin: 07/04/17 09:59 Dose: Not Given Escitalopram Oxalate (Lexapro) 10 mg PO DAILY [facility] PRN Reason: Protocol Stop: 08/30/17 08:59 Last Admin: 07/04/17 10:00 Dose: Not Given Fenofibrate (Tricor) 145 mg PO HS [facility] Stop: 08/14/17 20:59 Last Admin: 06/16/17 20:40 Dose: Not Given Haloperidol (Haldol) 2 mg PO BID [facility] PRN Reason: Protocol Stop: 08/30/17 08:59 Last Admin: 07/04/17 10:00 Dose: Not Given Haloperidol Lactate (Haldol) 2 mg IM BID PRN PRN Reason: agitation if pt refused po Stop: 08/24/17 14:59 Last Admin: 07/02/17 16:43 Dose: 2 mg Levetiracetam (Keppra) 500 mg PO BID [facility] Stop: 08/12/17 08:59 Last Admin: 07/04/17 10:00 Dose: Not Given Lorazepam (Ativan) 0.5 mg PO Q4HR PRN; Protocol PRN Reason: Agitation Stop: 07/13/17 06:53 Last Admin: 06/14/17 10:13 Dose: 0.5 mg Magnesium Hydroxide (Milk Of Magnesia) 30 ml PO DAILY PRN PRN Reason: Constipation Stop: 08/11/17 18:38 Mirtazapine (Remeron) 7.5 mg PO HS [facility]EM PRN Reason: Protocol Stop: 08/31/17 20:59 Last Admin: 07/03/17 20:26 Dose: Not Given Phenytoin (Dilantin) 100 mg PO BID [facility] Stop: 08/12/17 08:59 Last Admin: 07/04/17 10:00 Dose: Not Given Zolpidem Tartrate (Ambien) 5 mg PO HSMR1 PRN PRN Reason: Insomnia Stop: 08/12/17 06:53 General: weak, thin HEENT: NC/AT, PERRLA, EOMI Neck: Supple, No JVD, No thyromegaly, No LAD Lungs: CTAB Cardiovascular: RRR, Normal S1, Normal S2, without murmur Abdomen: soft, non-tender Extremities: clear, edema Neurological: no change - Procedures Procedures: Procedures Procedure Code Date GROUP PSYCHOTHERAPY 39518 01/22/16 GROUP PSYCHOTHERAPY GZHZZZZ 01/22/16 OTHER GROUP THERAPY 94.44 11/24/13 Internal Medicine Assmt/Plan - Assessment Assessment: 1.HTN 2.CVA. 3.SEIZURE DISORDER. 4.DEMENTIA. - Plan Plan: CONTINUE ON CURRENT MEDICATION AND DIET. Nutritional Asmnt/Malnutr-PDOC - Dietary Evaluation Malnutrition Findings (Please click <Entered> for more info): Nutritional Asmnt/Malnutrition Start: 06/18/17 19: 56 Text: Status: Complete Freq: Document 06/18/17 19:56 [facility] (Rec: 06/18/17 20:04 [facility] [id number]) Nutritional Asmnt/Malnutrition Patient General Information Nutritional Screening Moderate Risk Screening Diagnosis Mood unspecified, anxiety, psychosis, dementia Pertinent Medical Hx/Surgical Hx Alzheimer type dementia, seizure disorder, HTN, hyperlipidemia Subjective Information Pt is a 67-year-old female admitted with chief complaint of refusal of care and decompensation. Per RN notes, pt is withdrawn and confused. Pt has fair appetite but intake fluctuates daily. Pt is able to meet estimated nutritional needs with current diet and PO intake. Current Diet Order/ Nutrition Support Mechanical soft ground, [place] Patient / S.O Can't verbalize diet edu Pertinent Medications Pt is refusing to take medications Pertinent Labs Reviewed Nutritional Hx/Data Height 1.63 m Height (Calculated Centimeters) 162.6 Current Weight (lbs) 74.843 kg Weight (Calculated Kilograms) 74.8 Weight (Calculated Grams) 25980.7 [place] Body Weight 120 % [place] Body Weight 138 Weight Status Overweight GI Symptoms GI Symptoms None Food Allergies No Skin Integrity/Comment: [place] 17. Skin intact. Current %PO Fair (50-74%) Estimated Nutritional Goals BEE in Kcals: Using Current wt Calories/Kcals/Kg Based on current wt 75 kg with consideration of overwt status Kcals Calculated 3389-4996 kcals/day (20-25 kcals/kg) Protein: Using Current wt Protein g/kg: Based on current wt 75 kg Protein Calculated 75 gm/day (1 gm/kg) Fluid: ml 4039-2726 ml/day (1 ml/kcal) Nutritional Problem 1. Problem Problem Overweight related to Etiology possible excessive energy intake vs decreased energy expenditure as evidenced by Signs/Symptoms: BMI 28.3 kg/m2. Malnutrition Alert Protein-Calorie Malnutrition N/A Is there a minimum of two criteria No selected? Query Text:Check all the applicable criteria. A minimum of two criteria are recommended for diagnosis of either severe or non-severe malnutrition. Malnutrition Related to Morbid Obesity Malnutrition related to morbid obesity No Intervention/Recommendation Comments 1. Continue with current diet, as tolerated. [place] food preferences. 2. Will educate pt or family on wt management, as appropriate. Expected Outcomes/Goals Expected Outcomes/Goals Have pt meet at least 75% of estimated nutritional needs, stable wt. Physician Parameters for PEM Serum Albumin (g/dl) 3.5 - 5.0 (Normal)
[2017-07-04] MEDS: Atorvastatin Calcium 10 MG TAB PO SCH (20:37)
--- NOTE | 2017-07-05 02:24 | Progress Notes ---
DATE: 07/04/2017 Case was discussed with staff of the patient, reviewed records. The patient continues to stay in bed, continues to isolate, and continues to at times refuse medications. She is still unpredictable, impulsive, needing redirection. She is in compliant with the medication with no side effects, no sedation, no nausea, and no extrapyramidal symptoms. We will continue to work with the patient in group therapy, milieu therapy, and adjust medications as needed. JOB# [id number]
[2017-07-05] MEDS: Escitalopram Oxalate 5 mg Tab PO SCH (09:39)
[2017-07-05] MEDS: Multivitamin w/ Minerals Tab PO SCH (09:39)
[2017-07-05] MEDS ORDERED: Fenofibrate, Micronized 134 mg Cap PO SCH (16:27)
--- NOTE | 2017-07-05 20:01 | Internal Medicine Prog Note ---
Internal Medicine Subjective - Subjective Service Date: 07/05/17 Patient seen and examined:: with staff Patient is:: non-verbal, in bed Per staff patient has:: no adverse event Internal Medicine Objective - Results Result Diagrams: 06/15/17 06:45 06/15/17 06:45 Recent Labs: Laboratory Last Values WBC 5.9 Th/cmm (4.8-10.8) 06/15/17 06:45 RBC 4.75 Mil/cmm (3.80-5.20) 06/15/17 06:45 Hgb 13.5 gm/dL (11.7-16.1) 06/15/17 06:45 Hct 40.2 % (35.0-45.0) 06/15/17 06:45 MCV 84.5 fl (81-100) 06/15/17 06:45 MCH 28.4 pg (27.0-31.0) 06/15/17 06:45 MCHC Differential 33.6 pg (28.0-36.0) 06/15/17 06:45 RDW 12.3 % (11.5-20.0) 06/15/17 06:45 Plt Count 156 Th/cmm (150-400) 06/15/17 06:45 MPV 9.9 fl 06/15/17 06:45 Neutrophils % 44.6 % (40.0-80.0) 06/15/17 06:45 Lymphocytes % 44.0 % (20.0-50.0) 06/15/17 06:45 Monocytes % 8.5 % (2.0-10.0) 06/15/17 06:45 Eosinophils % 2.0 % (0.0-5.0) 06/15/17 06:45 Basophils % 0.9 % (0.0-2.0) 06/15/17 06:45 PT 11.3 SECONDS (9.5-11.5) 06/12/17 17:16 INR 1.09 (0.5-1.4) 06/12/17 17:16 Sodium 136 mEq/L (136-145) 06/15/17 06:45 Potassium 4.7 mEq/L (3.5-5.1) 06/15/17 06:45 Chloride 108 mEq/L (98-107) H 06/15/17 06:45 Carbon Dioxide 22.6 mEq/L (21.0-31.0) 06/15/17 06:45 Anion Gap 10.1 (7.0-16.0) 06/15/17 06:45 BUN 22 mg/dL (7-25) 06/15/17 06:45 Creatinine 0.7 mg/dL (0.6-1.2) 06/15/17 06:45 Est GFR ( Amer) > 60.0 ml/min (>90) 06/15/17 06:45 Est GFR (Non-Af Amer) > 60.0 ml/min 06/15/17 06:45 BUN/Creatinine Ratio 31.4 06/15/17 06:45 Glucose 108 mg/dL (70-105) H 06/15/17 06:45 Calcium 9.2 mg/dL (8.6-10.3) 06/15/17 06:45 Total Bilirubin 0.3 mg/dL (0.3-1.0) 06/12/17 16:35 AST 16 U/L (13-39) 06/12/17 16:35 ALT 13 U/L (7-52) 06/12/17 16:35 Alkaline Phosphatase 60 U/L (34-104) 06/12/17 16:35 Troponin I 0.02 ng/mL (0.01-0.05) 06/12/17 16:35 Total Protein 6.8 gm/dL (6.0-8.3) 06/12/17 16:35 Albumin 4.0 gm/dL (3.7-5.3) 06/12/17 16:35 Globulin 2.8 gm/dL 06/12/17 16:35 Albumin/Globulin Ratio 1.4 (1.0-1.8) 06/12/17 16:35 Triglycerides 113 mg/dL (<150) 06/12/17 16:35 Cholesterol 197 mg/dL (<200) 06/12/17 16:35 LDL Cholesterol Direct 139 mg/dL (75-193) 06/12/17 16:35 HDL Cholesterol 46 mg/dL (23-92) 06/12/17 16:35 TSH 1.09 uIU/ml (0.34-5.60) 06/12/17 16:35 Urine Source CLEAN C 06/12/17 17:30 Urine Color YELLOW 06/12/17 17:30 Urine Clarity SLIGHT CLOUDY (CLEAR) 06/12/17 17:30 Urine pH 5.5 (4.6 - 8.0) 06/12/17 17:30 Ur Specific [place] 1.025 (1.005-1.030) 06/12/17 17:30 Urine Protein NEGATIVE mg/dL (NEGATIVE) 06/12/17 17:30 Urine Glucose (UA) NEGATIVE mg/dL (NEGATIVE) 06/12/17 17:30 Urine Ketones NEGATIVE mg/dL (NEGATIVE) 06/12/17 17:30 Urine Blood LARGE (NEGATIVE) H 06/12/17 17:30 Urine Nitrate NEGATIVE (NEGATIVE) 06/12/17 17:30 Urine Bilirubin NEGATIVE (NEGATIVE) 06/12/17 17:30 Urine Urobilinogen 0.2 E.U./dL (0.2 - 1.0) 06/12/17 17:30 Ur Leukocyte Esterase TRACE (NEGATIVE) H 06/12/17 17:30 Urine RBC 50-100 /hpf (0-5) H 06/12/17 17:30 Urine WBC 6-10 /hpf (0-5) H 06/12/17 17:30 Ur Epithelial Cells FEW /lpf (FEW) 06/12/17 17:30 Urine Bacteria FEW /hpf (NONE SEEN) 06/12/17 17:30 Urine Mucus FEW /lpf (FEW) 06/12/17 17:30 Phenytoin < 2.5 ug/ml (10.0-20.0) L 06/12/17 16:35 RPR NONREACTIVE (NONREACTIVE) 06/12/17 16:35 - Physical Exam Vitals and I&O: Vital Signs Temp 98.3 F 07/05/17 06:37 Pulse 67 07/05/17 09:38 Resp 18 07/05/17 06:37 BP 105/65 07/05/17 09:38 Pulse Ox 95 07/05/17 06:37 Intake & Output 07/05/17 07/05/17 07/06/17 06:59 18:59 06:59 Intake Total 120 Balance 120 Intake: Oral 120 Other: # Voids 3 Active Medications: Current Medications Acetaminophen (Tylenol) 650 mg PO Q4HR PRN PRN Reason: Pain Stop: 08/11/17 18:36 Atorvastatin Calcium (Lipitor) 10 mg PO HS [facility] PRN Reason: Protocol Stop: 08/11/17 20:59 Last Admin: 07/04/17 20:37 Dose: Not Given Carvedilol (Coreg) 12.5 mg PO DAILY [facility] Stop: 08/12/17 08:59 Last Admin: 07/05/17 09:38 Dose: Not Given Divalproex Sodium (Depakote Sprinkle) 250 mg PO BID [facility] PRN Reason: Protocol Stop: 08/12/17 08:59 Last Admin: 07/05/17 16:56 Dose: Not Given Docusate Sodium (Colace) 100 mg PO BID [facility] Stop: 08/12/17 08:59 Last Admin: 07/05/17 16:56 Dose: Not Given Donepezil HCl (Aricept) 5 mg PO HS [facility] Stop: 08/12/17 20:59 Last Admin: 07/04/17 20:37 Dose: Not Given Enalapril Maleate (Vasotec) 2.5 mg PO DAILY [facility] Stop: 08/12/17 08:59 Last Admin: 07/05/17 09:38 Dose: Not Given Escitalopram Oxalate (Lexapro) 10 mg PO DAILY [facility] PRN Reason: Protocol Stop: 08/30/17 08:59 Last Admin: 07/05/17 09:39 Dose: Not Given Fenofibrate (Tricor) 134 mg PO HS [facility] Stop: 08/14/17 20:59 Haloperidol (Haldol) 2 mg PO BID [facility] PRN Reason: Protocol Stop: 08/30/17 08:59 Last Admin: 07/05/17 16:56 Dose: Not Given Haloperidol Lactate (Haldol) 2 mg IM BID PRN PRN Reason: agitation if pt refused po Stop: 08/24/17 14:59 Last Admin: 07/02/17 16:43 Dose: 2 mg Levetiracetam (Keppra) 500 mg PO BID [facility] Stop: 08/12/17 08:59 Last Admin: 07/05/17 16:56 Dose: Not Given Lorazepam (Ativan) 0.5 mg PO Q4HR PRN; Protocol PRN Reason: Agitation Stop: 07/13/17 06:53 Last Admin: 06/14/17 10:13 Dose: 0.5 mg Magnesium Hydroxide (Milk Of Magnesia) 30 ml PO DAILY PRN PRN Reason: Constipation Stop: 08/11/17 18:38 Mirtazapine (Remeron) 7.5 mg PO HS [facility] PRN Reason: Protocol Stop: 08/31/17 20:59 Last Admin: 07/04/17 20:37 Dose: Not Given Phenytoin (Dilantin) 100 mg PO BID [facility] Stop: 08/12/17 08:59 Last Admin: 07/05/17 16:56 Dose: Not Given Zolpidem Tartrate (Ambien) 5 mg PO HSMR1 PRN PRN Reason: Insomnia Stop: 08/12/17 06:53 General: weak, thin HEENT: NC/AT, PERRLA, EOMI Neck: Supple, No JVD, No thyromegaly, No LAD Lungs: CTAB Cardiovascular: RRR, Normal S1, Normal S2, without murmur Abdomen: soft, non-tender Extremities: clear, edema Neurological: no change - Procedures Procedures: Procedures Procedure Code Date GROUP PSYCHOTHERAPY 81825 01/22/16 GROUP PSYCHOTHERAPY GZHZZZZ 01/22/16 OTHER GROUP THERAPY 94.44 11/24/13 Internal Medicine Assmt/Plan - Assessment Assessment: 1.HTN 2.CVA. 3.SEIZURE DISORDER. 4.DEMENTIA. - Plan Plan: CONTINUE ON CURRENT MEDICATION AND DIET. Nutritional Asmnt/Malnutr-PDOC - Dietary Evaluation Malnutrition Findings (Please click <Entered> for more info): Nutritional Asmnt/Malnutrition Start: 06/18/17 19: 56 Text: Status: Complete Freq: Document 06/18/17 19:56 [facility] (Rec: 06/18/17 20:04 [facility] [id number]) Nutritional Asmnt/Malnutrition Patient General Information Nutritional Screening Moderate Risk Screening Diagnosis Mood unspecified, anxiety, psychosis, dementia Pertinent Medical Hx/Surgical Hx Alzheimer type dementia, seizure disorder, HTN, hyperlipidemia Subjective Information Pt is a 67-year-old female admitted with chief complaint of refusal of care and decompensation. Per RN notes, pt is withdrawn and confused. Pt has fair appetite but intake fluctuates daily. Pt is able to meet estimated nutritional needs with current diet and PO intake. Current Diet Order/ Nutrition Support Mechanical soft ground, [place] Patient / S.O Can't verbalize diet edu Pertinent Medications Pt is refusing to take medications Pertinent Labs Reviewed Nutritional Hx/Data Height 1.63 m Height (Calculated Centimeters) 162.6 Current Weight (lbs) 74.843 kg Weight (Calculated Kilograms) 74.8 Weight (Calculated Grams) 37363.7 [place] Body Weight 120 % [place] Body Weight 138 Weight Status Overweight GI Symptoms GI Symptoms None Food Allergies No Skin Integrity/Comment: Moreno Sharma. Skin intact. Current %PO Fair (50-74%) Estimated Nutritional Goals BEE in Kcals: Using Current wt Calories/Kcals/Kg Based on current wt 75 kg with consideration of overwt status Kcals Calculated 5416-1664 kcals/day (20-25 kcals/kg) Protein: Using Current wt Protein g/kg: Based on current wt 75 kg Protein Calculated 75 gm/day (1 gm/kg) Fluid: ml 7078-5295 ml/day (1 ml/kcal) Nutritional Problem 1. Problem Problem Overweight related to Etiology possible excessive energy intake vs decreased energy expenditure as evidenced by Signs/Symptoms: BMI 28.3 kg/m2. Malnutrition Alert Protein-Calorie Malnutrition N/A Is there a minimum of two criteria No selected? Query Text:Check all the applicable criteria. A minimum of two criteria are recommended for diagnosis of either severe or non-severe malnutrition. Malnutrition Related to Morbid Obesity Malnutrition related to morbid obesity No Intervention/Recommendation Comments 1. Continue with current diet, as tolerated. [place] food preferences. 2. Will educate pt or family on wt management, as appropriate. Expected Outcomes/Goals Expected Outcomes/Goals Have pt meet at least 75% of estimated nutritional needs, stable wt. Physician Parameters for PEM Serum Albumin (g/dl) 3.5 - 5.0 (Normal)
[2017-07-05] MEDS: Atorvastatin Calcium 10 MG TAB PO SCH (20:50)
--- NOTE | 2017-07-05 23:09 | Progress Notes ---
DATE: 07/05/2017 Case was discussed with staff of the patient, reviewed records. The patient continues to be unpredictable, impulsive, needing redirection. She is still refusing her medication. She continues to have poor insight, unable to express himself, carry on a reasonable conversation, needing redirection. She said by the staff, she is now on ____. I will watch and see if we need to reissue again and I will continue to work with the patient in group therapy, milieu therapy, adjust medication as needed. JOB# [id number]
[2017-07-06] MEDS: Multivitamin w/ Minerals Tab PO SCH (09:44)
[2017-07-06] MEDS: Escitalopram Oxalate 5 mg Tab PO SCH (09:44)
--- NOTE | 2017-07-06 16:33 | Internal Medicine Prog Note ---
Internal Medicine Subjective - Subjective Service Date: 07/06/17 Patient seen and examined:: with staff Patient is:: awake, non-verbal, in bed Per staff patient has:: no adverse event Internal Medicine Objective - Results Result Diagrams: 06/15/17 06:45 06/15/17 06:45 Recent Labs: Laboratory Last Values WBC 5.9 Th/cmm (4.8-10.8) 06/15/17 06:45 RBC 4.75 Mil/cmm (3.80-5.20) 06/15/17 06:45 Hgb 13.5 gm/dL (11.7-16.1) 06/15/17 06:45 Hct 40.2 % (35.0-45.0) 06/15/17 06:45 MCV 84.5 fl (81-100) 06/15/17 06:45 MCH 28.4 pg (27.0-31.0) 06/15/17 06:45 MCHC Differential 33.6 pg (28.0-36.0) 06/15/17 06:45 RDW 12.3 % (11.5-20.0) 06/15/17 06:45 Plt Count 156 Th/cmm (150-400) 06/15/17 06:45 MPV 9.9 fl 06/15/17 06:45 Neutrophils % 44.6 % (40.0-80.0) 06/15/17 06:45 Lymphocytes % 44.0 % (20.0-50.0) 06/15/17 06:45 Monocytes % 8.5 % (2.0-10.0) 06/15/17 06:45 Eosinophils % 2.0 % (0.0-5.0) 06/15/17 06:45 Basophils % 0.9 % (0.0-2.0) 06/15/17 06:45 PT 11.3 SECONDS (9.5-11.5) 06/12/17 17:16 INR 1.09 (0.5-1.4) 06/12/17 17:16 Sodium 136 mEq/L (136-145) 06/15/17 06:45 Potassium 4.7 mEq/L (3.5-5.1) 06/15/17 06:45 Chloride 108 mEq/L (98-107) H 06/15/17 06:45 Carbon Dioxide 22.6 mEq/L (21.0-31.0) 06/15/17 06:45 Anion Gap 10.1 (7.0-16.0) 06/15/17 06:45 BUN 22 mg/dL (7-25) 06/15/17 06:45 Creatinine 0.7 mg/dL (0.6-1.2) 06/15/17 06:45 Est GFR ( Amer) > 60.0 ml/min (>90) 06/15/17 06:45 Est GFR (Non-Af Amer) > 60.0 ml/min 06/15/17 06:45 BUN/Creatinine Ratio 31.4 06/15/17 06:45 Glucose 108 mg/dL (70-105) H 06/15/17 06:45 Calcium 9.2 mg/dL (8.6-10.3) 06/15/17 06:45 Total Bilirubin 0.3 mg/dL (0.3-1.0) 06/12/17 16:35 AST 16 U/L (13-39) 06/12/17 16:35 ALT 13 U/L (7-52) 06/12/17 16:35 Alkaline Phosphatase 60 U/L (34-104) 06/12/17 16:35 Troponin I 0.02 ng/mL (0.01-0.05) 06/12/17 16:35 Total Protein 6.8 gm/dL (6.0-8.3) 06/12/17 16:35 Albumin 4.0 gm/dL (3.7-5.3) 06/12/17 16:35 Globulin 2.8 gm/dL 06/12/17 16:35 Albumin/Globulin Ratio 1.4 (1.0-1.8) 06/12/17 16:35 Triglycerides 113 mg/dL (<150) 06/12/17 16:35 Cholesterol 197 mg/dL (<200) 06/12/17 16:35 LDL Cholesterol Direct 139 mg/dL (75-193) 06/12/17 16:35 HDL Cholesterol 46 mg/dL (23-92) 06/12/17 16:35 TSH 1.09 uIU/ml (0.34-5.60) 06/12/17 16:35 Urine Source CLEAN C 06/12/17 17:30 Urine Color YELLOW 06/12/17 17:30 Urine Clarity SLIGHT CLOUDY (CLEAR) 06/12/17 17:30 Urine pH 5.5 (4.6 - 8.0) 06/12/17 17:30 Ur Specific [place] 1.025 (1.005-1.030) 06/12/17 17:30 Urine Protein NEGATIVE mg/dL (NEGATIVE) 06/12/17 17:30 Urine Glucose (UA) NEGATIVE mg/dL (NEGATIVE) 06/12/17 17:30 Urine Ketones NEGATIVE mg/dL (NEGATIVE) 06/12/17 17:30 Urine Blood LARGE (NEGATIVE) H 06/12/17 17:30 Urine Nitrate NEGATIVE (NEGATIVE) 06/12/17 17:30 Urine Bilirubin NEGATIVE (NEGATIVE) 06/12/17 17:30 Urine Urobilinogen 0.2 E.U./dL (0.2 - 1.0) 06/12/17 17:30 Ur Leukocyte Esterase TRACE (NEGATIVE) H 06/12/17 17:30 Urine RBC 50-100 /hpf (0-5) H 06/12/17 17:30 Urine WBC 6-10 /hpf (0-5) H 06/12/17 17:30 Ur Epithelial Cells FEW /lpf (FEW) 06/12/17 17:30 Urine Bacteria FEW /hpf (NONE SEEN) 06/12/17 17:30 Urine Mucus FEW /lpf (FEW) 06/12/17 17:30 Phenytoin < 2.5 ug/ml (10.0-20.0) L 06/12/17 16:35 RPR NONREACTIVE (NONREACTIVE) 06/12/17 16:35 - Physical Exam Vitals and I&O: Vital Signs Temp 97.7 F 07/06/17 06:50 Pulse 67 07/06/17 06:50 Resp 18 07/06/17 06:50 BP 115/70 07/06/17 06:50 Pulse Ox 97 07/06/17 06:50 Intake & Output 07/05/17 07/06/17 07/06/17 18:59 06:59 18:59 Intake Total 60 Balance 60 Weight (lbs) 61.779 kg Intake: Oral 60 Other: # Voids 3 # Bowel Movements 0 Active Medications: Current Medications Acetaminophen (Tylenol) 650 mg PO Q4HR PRN PRN Reason: Pain Stop: 08/11/17 18:36 Atorvastatin Calcium (Lipitor) 10 mg PO HS [facility] PRN Reason: Protocol Stop: 08/11/17 20:59 Last Admin: 07/05/17 20:50 Dose: Not Given Carvedilol (Coreg) 12.5 mg PO DAILY [facility] Stop: 08/12/17 08:59 Last Admin: 07/06/17 14:08 Dose: Not Given Divalproex Sodium (Depakote Sprinkle) 250 mg PO BID [facility] PRN Reason: Protocol Stop: 08/12/17 08:59 Last Admin: 07/06/17 09:44 Dose: 250 mg Docusate Sodium (Colace) 100 mg PO BID [facility] Stop: 08/12/17 08:59 Last Admin: 07/06/17 09:44 Dose: 100 mg Donepezil HCl (Aricept) 5 mg PO HS [facility] Stop: 08/12/17 20:59 Last Admin: 07/05/17 20:50 Dose: Not Given Enalapril Maleate (Vasotec) 2.5 mg PO DAILY [facility] Stop: 08/12/17 08:59 Last Admin: 07/06/17 14:08 Dose: Not Given Escitalopram Oxalate (Lexapro) 10 mg PO DAILY [facility] Stop: 09/05/17 08:59 Fenofibrate (Tricor) 134 mg PO HS [facility] Stop: 08/14/17 20:59 Last Admin: 07/05/17 20:50 Dose: Not Given Haloperidol (Haldol) 2 mg PO BID [facility] PRN Reason: Protocol Stop: 08/30/17 08:59 Last Admin: 07/06/17 09:44 Dose: 2 mg Haloperidol Lactate (Haldol) 2 mg IM BID PRN PRN Reason: agitation if pt refused po Stop: 08/24/17 14:59 Last Admin: 07/02/17 16:43 Dose: 2 mg Levetiracetam (Keppra) 500 mg PO BID [facility] Stop: 08/12/17 08:59 Last Admin: 07/06/17 09:44 Dose: 500 mg Lorazepam (Ativan) 0.5 mg PO Q4HR PRN; Protocol PRN Reason: Agitation Stop: 07/13/17 06:53 Last Admin: 06/14/17 10:13 Dose: 0.5 mg Magnesium Hydroxide (Milk Of Magnesia) 30 ml PO DAILY PRN PRN Reason: Constipation Stop: 08/11/17 18:38 Mirtazapine (Remeron) 7.5 mg PO HS [facility] PRN Reason: Protocol Stop: 08/31/17 20:59 Last Admin: 07/05/17 20:50 Dose: Not Given Phenytoin (Dilantin) 100 mg PO BID [facility] Stop: 08/12/17 08:59 Last Admin: 07/06/17 09:44 Dose: 100 mg Zolpidem Tartrate (Ambien) 5 mg PO HSMR1 PRN PRN Reason: Insomnia Stop: 08/12/17 06:53 General: weak, thin HEENT: NC/AT, PERRLA, EOMI Neck: Supple, No JVD, No thyromegaly, No LAD Lungs: CTAB Cardiovascular: RRR, Normal S1, Normal S2, without murmur Abdomen: soft, non-tender Extremities: clear, edema Neurological: no change - Procedures Procedures: Procedures Procedure Code Date GROUP PSYCHOTHERAPY 23575 01/22/16 GROUP PSYCHOTHERAPY GZHZZZZ 01/22/16 OTHER GROUP THERAPY 94.44 11/24/13 Internal Medicine Assmt/Plan - Assessment Assessment: 1.HTN 2.CVA. 3.SEIZURE DISORDER. 4.DEMENTIA. - Plan Plan: CONTINUE ON CURRENT MEDICATION AND DIET.SHE IS CLEAR FOR DISCHARGE. Nutritional Asmnt/Malnutr-PDOC - Dietary Evaluation Malnutrition Findings (Please click <Entered> for more info): Nutritional Asmnt/Malnutrition Start: 06/18/17 19: 56 Text: Status: Complete Freq: Document 06/18/17 19:56 [facility] (Rec: 06/18/17 20:04 [facility] [id number]) Nutritional Asmnt/Malnutrition Patient General Information Nutritional Screening Moderate Risk Screening Diagnosis Mood unspecified, anxiety, psychosis, dementia Pertinent Medical Hx/Surgical Hx Alzheimer type dementia, seizure disorder, HTN, hyperlipidemia Subjective Information Pt is a 67-year-old female admitted with chief complaint of refusal of care and decompensation. Per RN notes, pt is withdrawn and confused. Pt has fair appetite but intake fluctuates daily. Pt is able to meet estimated nutritional needs with current diet and PO intake. Current Diet Order/ Nutrition Support Mechanical soft ground, [place] Patient / S.O Can't verbalize diet edu Pertinent Medications Pt is refusing to take medications Pertinent Labs Reviewed Nutritional Hx/Data Height 1.63 m Height (Calculated Centimeters) 162.6 Current Weight (lbs) 74.843 kg Weight (Calculated Kilograms) 74.8 Weight (Calculated Grams) 54853.7 [place] Body Weight 120 % [place] Body Weight 138 Weight Status Overweight GI Symptoms GI Symptoms None Food Allergies No Skin Integrity/Comment: [place] 17. Skin intact. Current %PO Fair (50-74%) Estimated Nutritional Goals BEE in Kcals: Using Current wt Calories/Kcals/Kg Based on current wt 75 kg with consideration of overwt status Kcals Calculated 4869-5119 kcals/day (20-25 kcals/kg) Protein: Using Current wt Protein g/kg: Based on current wt 75 kg Protein Calculated 75 gm/day (1 gm/kg) Fluid: ml 4997-6899 ml/day (1 ml/kcal) Nutritional Problem 1. Problem Problem Overweight related to Etiology possible excessive energy intake vs decreased energy expenditure as evidenced by Signs/Symptoms: BMI 28.3 kg/m2. Malnutrition Alert Protein-Calorie Malnutrition N/A Is there a minimum of two criteria No selected? Query Text:Check all the applicable criteria. A minimum of two criteria are recommended for diagnosis of either severe or non-severe malnutrition. Malnutrition Related to Morbid Obesity Malnutrition related to morbid obesity No Intervention/Recommendation Comments 1. Continue with current diet, as tolerated. [place] food preferences. 2. Will educate pt or family on wt management, as appropriate. Expected Outcomes/Goals Expected Outcomes/Goals Have pt meet at least 75% of estimated nutritional needs, stable wt. Physician Parameters for PEM Serum Albumin (g/dl) 3.5 - 5.0 (Normal)
--- NOTE | 2017-07-06 19:46 | Discharge Summary ---
DATE OF DISCHARGE: 07/06/2017 IDENTIFYING INFORMATION: The patient is a 67-year-old female. HISTORY OF PRESENT ILLNESS: The patient was sent from [facility] because of agitation and psychosis. The patient is a well-known patient as I have seen her many times in the hospital as well as at [place]. The patient was a poor historian, unable to participate in meaningful conversation or make safe plan for self-care; basically, does not answer questions with a history of dementia. COURSE IN THE HOSPITAL: The patient was started back on her medication; started back on Lexapro 5 mg increased to 10 mg a day. The patient had to be reached because she was refusing medication. I did add Haldol and she was refusing it and later she was given IM as she refused p.o. The patient also was continued with atorvastatin, Depakote Sprinkle 250 twice a day, and Aricept 5 mg initiated on 06/13/2017 at bedtime and fenofibrate, Haldol was increased to 2 mg twice a day because of refusal, Levetiracetam/Keppra was continued 500 mg twice a day. These was managed by Dr. Kendrick. I also added ____ because of her not eating, not sleeping and depression 75 mg at bedtime; and Dilantin was continued 100 mg twice a day and multivitamin. The patient still did have episode, she refused medications; however, in general, the staff felt this is her basic level of functioning and that she could be followed at a lesser level of care, so I sent her to [place], which is a rehabilitation, monitor by nurses and doctors. The patient was not acting in any way dangerous. She was sleeping well, eating well. She had to be fed by staff. FINAL DIAGNOSIS: AXIS I: Major depression, recurrent with psychosis. MEDICAL DIAGNOSES: Deferred to the medical doctor. The patient will be going back to [place] and I follow up with the patient there and Dr. Kendrick will follow up with her there. EXPECTED OUTCOME: Stable if the patient complies with the above. JOB# [id number]
== END 2017-07-06 18:30 | disposition home or self-care (01) | DRG 885 ==
LOC: ER 15:54 → GERO 17:11
PROVIDERS: ADMIT Psychiatry & Neurology Psychiatry; ATTEND Psychiatry & Neurology Psychiatry
DX: F33.3 Major depressive disorder, recurrent, severe with psychotic symptoms (principal); G30.9 Alzheimer's disease, unspecified; F02.80 Dementia in other diseases classified elsewhere, unspecified severity, without behavioral disturbance, psychotic disturbance, mood disturbance, and anxiety; N39.0 Urinary tract infection, site not specified; F39 Unspecified mood [affective] disorder; F41.9 Anxiety disorder, unspecified; F48.2 Pseudobulbar affect; G40.909 Epilepsy, unspecified, not intractable, without status epilepticus; E78.5 Hyperlipidemia, unspecified; I25.10 Atherosclerotic heart disease of native coronary artery without angina pectoris; R31.9 Hematuria, unspecified; I10 Essential (primary) hypertension; M19.90 Unspecified osteoarthritis, unspecified site; Z88.5 Allergy status to narcotic agent; Z88.0 Allergy status to penicillin; Z86.73 Personal history of transient ischemic attack (TIA), and cerebral infarction without residual deficits
CPT/HCPCS: 36415-UA; 71010-TC; 80048-TC; 80053-TC; 80061-TC; 80185-TC; 81001-TC; 84443-TC; 84484-TC; 85025-TC; 85610-TC; 86592-TC; 93005; J0696; J1630; J2060; Z7610

== ENCOUNTER 2018-11-23 17:24 | Inpatient (IN) | payer MEDICARE, MEDICAID ==
--- NOTE | 2018-11-23 18:21 | ED Physician Chart ---
ED Chief Complaint/HPI - Patient Information Date Seen:: 11/23/18 Time Seen:: 17:50 Chief Complaint:: Agitation History of Present Illness:: onset x 3 days of agitation and aggressive behavior; no report of trauma, LOC, ALOC, AMS, H/As, S/T, neck pain, SIS, cough, C/P, SOB, Abd. Pain, A/N/V/D/C, fever, chills, or urinary s/s Allergies:: Allergies Allergy/AdvReac Type Severity Reaction Status Date / Time codeine Allergy Mild Verified 06/12/17 16:16 Penicillins Allergy Verified 06/12/17 16:17 Historian:: Patient, EMS Review:: Nurse's Note Reviewed, Old Chart Reviewed, EMS run form Reviewed <Best Resendez - Last Filed: 11/23/18 18:16> - Patient Information Allergies:: Allergies Allergy/AdvReac Type Severity Reaction Status Date / Time codeine Allergy Mild Verified 11/23/18 18:43 calamine Allergy Verified 11/23/18 18:43 [From Remedy Calazime Protect Paste] menthol Allergy Verified 11/23/18 18:43 [From Remedy Calazime Protect Paste] Penicillins Allergy Verified 11/23/18 18:43 petrolatum,white Allergy Verified 11/23/18 18:43 [From Remedy Calazime Protect Paste] zinc oxide Allergy Verified 11/23/18 18:43 [From Remedy Calazime Protect Paste] <Nick Aguilar - Last Filed: 11/24/18 12:17> ED Review of Systems - Review of Systems General/Constitutional: No fever, No chills, No weight loss, No weakness, No diaphoresis, No edema, No loss of appetite Skin: No skin lesions, No rash, No bruising Head: No headache, No light-headedness Eyes: No loss of vision, No pain, No diplopia ENT: No earache, No nasal drainage, No sore throat, No tinnitus Neck: No neck pain, No swelling, No thyromegaly, No stiffness, No mass noted Cardio Vascular: No chest pain, No palpitations, No PND, No orthopnea, No edema Pulmonary: No SOB, No cough, No sputum, No wheezing GI: No nausea, No vomiting, No diarrhea, No pain, No melena, No hematochezia, No constipation, No hematemesis G/U: No dysuria, No frequency, No hematuria, No nacturia [place] Cutter: No vaginal discharge, No abnormal vaginal bleed, No contraction Musculoskeletal: No bone or joint pain, No back pain, No muscle pain Endocrine: No polyuria, No polydipsia Psychiatric: Prior psych history, Depression, Anxiety, No suicidal ideation, No homicidal ideation, No auditory hallucination, No visual hallucination Hematopoietic: No bruising, No lymphadenopathy Allergic/Immuno: No urticaria, No angioedema Neurological: No syncope, No focal symptoms, No weakness, No paresthesia, No headache, No seizure, No dizziness, Confusion, No vertigo <NatalieradhaBest - Last Filed: 11/23/18 18:16> ED Past Medical History - Past Medical History Obtainable: Yes Past Medical History: HTN, CAD, CHF, CVA/TIA, Dyslipidemia, ESRD, Arthritis, Dementia Family History: HTN Social History: Non Smoker, No Alcohol, No Drug Use, , Care Facility Surgical History: None Psychiatricy History: Depression, Bipolar, Dementia Medication: Reviewed <NataliemarilouangelaBest - Last Filed: 11/23/18 18:16> Family Medical History - Family Member Father History Unknown: Yes Ethnicity: Non- Living Status: Still Living Mother History Unknown: Yes <Best Resendez - Last Filed: 11/23/18 18:16> ED Physical Exam - Physical Examination General/Constitutional: Awake, Well-developed, well-nourished, Alert, No distress, GCS 15, Non-toxic appearing, Ambulatory Head: Atraumatic Eyes: Lids, conjuctiva normal, PERRL, EOMI Skin: Nl inspection, No rash, No skin lesions, No ecchymosis, Well hydrated, No lymphadenopathy ENMT: External ears, nose nl, TM canals nl, Nasal exam nl, Lips, teeth, gums nl , Oropharynx nl, Tonsils nl Neck: Nontender, Full ROM w/o pain, No JVD, No nuchal rigidity, No bruit, No mass, No stridor Respiratory: Nl effort/Exclusion, Clear to Auscultation, No Wheeze/Rhonchi/Rales Cardio Vascular: RRR, No murmur, gallop, rubs, NL S1 S2, Carotid/Femoral/Distal pulses equal bilaterally GI: No tenderness/rebounding/guarding, No organomegaly, No hernia, Normal BS's, Nondistended, No mass/bruits, No McBurney tenderness : No CVA tenderness Extremities: No tenderness or effusion, Full ROM, normal strength in all extremities, No edema, Normal digits & nails Neuro/Psych: Alert/oriented, DTR's symmetric, Normal sensory exam, Normal motor strength, Judgement/insight normal, Mood normal, Normal gait, No focal deficits Other Neuro/Psych comments:: + Psychomotor Agitation; no SIs; Mood/Affect: Labile Misc: Normal back, No paraspinal tenderness <Best Resendez - Last Filed: 11/23/18 18:16> ED Labs/Radiology/EKG Results - Lab Results Comments:: Reviewed <Best Resendez - Last Filed: 11/23/18 18:16> - Lab Results Results: Laboratory Tests 11/23/18 11/23/18 11/23/18 18:30 18:30 18:30 WBC 5.2 RBC 4.88 Hgb 13.6 Hct 41.0 MCV 84.1 MCH 27.9 MCHC Differential 33.2 RDW 12.9 Plt Count 191 MPV 8.8 Neutrophils % 44.2 Lymphocytes % 44.1 Monocytes % 8.0 Eosinophils % 2.8 Basophils % 0.9 Sodium 139 Potassium 4.2 Chloride 109 H Carbon Dioxide 21.9 Anion Gap 12.3 BUN 27 H Creatinine 0.6 Est GFR ( Amer) > 60.0 Est GFR (Non-Af Amer) > 60.0 BUN/Creatinine Ratio 45.0 Glucose 113 H Calcium 8.9 Total Bilirubin 0.2 L AST 21 ALT 22 Alkaline Phosphatase 53 Troponin I Total Protein 6.1 Albumin 3.3 L Globulin 2.8 Albumin/Globulin Ratio 1.2 Triglycerides 109 Cholesterol 174 LDL Cholesterol Direct 105 HDL Cholesterol 48 TSH 1.15 Salicylates < 25.0 L Acetaminophen < 10.0 L Ethyl Alcohol < 10 11/23/18 11/23/18 18:30 18:30 WBC RBC Hgb Hct MCV MCH MCHC Differential RDW Plt Count MPV Neutrophils % Lymphocytes % Monocytes % Eosinophils % Basophils % Sodium Potassium Chloride Carbon Dioxide Anion Gap BUN Creatinine Est GFR ( Amer) Est GFR (Non-Af Amer) BUN/Creatinine Ratio Glucose Calcium Total Bilirubin AST ALT Alkaline Phosphatase Troponin I 0.02 Total Protein Albumin Globulin Albumin/Globulin Ratio Triglycerides 110 Cholesterol 180 LDL Cholesterol Direct 105 HDL Cholesterol 49 TSH Salicylates Acetaminophen Ethyl Alcohol <Nick Aguilar - Last Filed: 11/24/18 12:17> ED Septic Shock - . Is Septic Shock (SBP<90, OR Lactate>4 mmol\L) present?: No <Best Resendez - Last Filed: 11/23/18 18:16> ED Reassessment (Disposition) - Reassessment Reassessment Condition:: Improved - Diagnosis Diagnosis:: Agitation; Medical Clearance; Psychosis; Dementia <Best Resendez - Last Filed: 11/23/18 18:16> - Reassessment Reassessment:: Cleared for admission to geropsych unit Reassessment Condition:: Improved - Patient Disposition [facility]charge[facility] Admitting Medical Physician:: Michael Kendrick Admitting Psych Physician:: Jennifer Joseph <Nick Aguilar - Last Filed: 11/24/18 12:17>
[2018-11-23 18:35] LABS: % BASOPHILS 0.9 % (0.0-2.0); % EOSINOPHILS 2.8 % (0.0-5.0); % LYMPHOCYTES 44.1 % (20.0-50.0); % NEUTROPHILS 44.2 % (40.0-80.0); EOSINOPHILE ABSOLUTE 0.1 Th/cmm (0.1-0.4); HEMOGLOBIN 13.6 gm/dL (12-16); LYMPHOCYTE ABSOLUTE 2.4 Th/cmm (1.5-3.0); MEAN CELL VOLUME 84.1 fl (81-100); MEAN CORPUSCULAR HEMOGLOBIN 27.9 pg (27.0-31.0); MEAN CORPUSCULAR HGB CONC 33.2 pg (28.0-36.0); MEAN PLATELET VOLUME 8.8 fl; MONOCYTE ABSOLUTE 0.4 Th/cmm (0.3-1.0); NEUTROPHILE ABSOLUTE 2.3 Th/cmm (1.8-8.0); PLATELET COUNT 191 Th/cmm (150-400); RED BLOOD COUNT 4.88 Mil/cmm (3.80-5.20); RED CELL DISTRIBUTION WIDTH 12.9 % (11.5-20.0); WHITE BLOOD COUNT 5.2 Th/cmm (4.8-10.8)
[2018-11-23 18:53] LABS: ACETAMINOPHEN < 10.0 ug/mL (10.0-30.0); ALB/GLOB RATIO 1.2 (1.0-1.8); ALBUMIN 3.3 gm/dL (3.7-5.3); ALKALINE PHOSPHATASE 53 U/L (34-104); ANION GAP 12.3 (7.0-16.0); BILIRUBIN,TOTAL 0.2 mg/dL (0.3-1.0); BUN - UREA NITROGEN 27 mg/dL (7-25); CALCIUM SERUM 8.9 mg/dL (8.6-10.3); CARBON DIOXIDE 21.9 mEq/L (21.0-31.0); CHLORIDE 109 mEq/L (98-107); CHOLESTEROL 174 mg/dL (<200); CREATININE - SERUM 0.6 mg/dL (0.6-1.2); GFR AFRICAN-AMERICAN > 60.0 ml/min (>90); GFR NON AFRICAN-AMERICAN > 60.0 ml/min; GLUCOSE 113 mg/dL (70-105); HDL -HIGH DENSITY LIPOPROTEIN 48 mg/dL (23-92); POTASSIUM SERUM 4.2 mEq/L (3.5-5.1); SALICYLATES (ASPIRIN) < 25.0 mg/L (30.0-100.0); SGOT 21 U/L (13-39); SGPT/ALT 22 U/L (7-52); SODIUM SERUM 139 mEq/L (136-145); TOTAL PROTEIN,SERUM 6.1 gm/dL (6.0-8.3); TRIGLYCERIDES 109 mg/dL (<150)
[2018-11-23] MEDS ORDERED: Magnesium Hydroxide (MOM) 30 mL UDC PO PRN (21:03)
[2018-11-23] MEDS ORDERED: Maalox 30 mL Cup PO PRN (21:03)
[2018-11-23] MEDS ORDERED: Atorvastatin Calcium 10 MG TAB PO ONE (21:30)
[2018-11-23 21:43] LABS: CHOLESTEROL 180 mg/dL (<200); HDL -HIGH DENSITY LIPOPROTEIN 49 mg/dL (23-92); TRIGLYCERIDES 110 mg/dL (<150)
[2018-11-24] MEDS ORDERED: Multivitamin Tab PO SCH (09:00)
[2018-11-24] MEDS ORDERED: Non-Formulary Item 1 EA (Cranberry [Cranberry] 400 MG) PO SCH (09:00)
--- NOTE | 2018-11-24 09:25 | Psychiatric Evaluation ---
DATE OF SERVICE: 11/23/2018 IDENTIFYING INFORMATION: The patient is a 68-year-old female. CHIEF COMPLAINT: No answer. HISTORY OF PRESENT ILLNESS: The patient was sent from [facility] because of agitation and aggressive behavior. The patient was a poor historian. She has always been like this, she is well known to me as I have been seeing her on a regular basis at [facility] with multiple prior admissions to this facility. The patient admit to tell me her name why she is here. She is demented and confused. PAST PSYCHIATRIC HISTORY: Multiple prior admissions to this facility for similar reason. Long history of depression. ALLERGIES: THE PATIENT IS ALLERGIC TO CODEINE, CALAMINE, MENTHOL, PENICILLIN, PETROLATUM WHITE, AND ZINC OXIDE. MEDICATIONS: The patient is on Aricept 5 mg at bedtime, fenofibrate, levothyroxine, Ativan as needed. She used to be on Lexapro. She is also on Dilantin for seizure disorder. She is on Depakote 250 mg twice a day. FAMILY AND SOCIAL HISTORY: Unobtainable. MENTAL STATUS EXAMINATION: The patient is appropriately dressed, not well groomed. She looked disheveled. She was irritable, unable to look me in the eye, participate in meaningful conversation, with a history of dementia, unable to make safe plan for self-care, unable to tell me how she is sleeping or eating, unable to tell me if she has any intent to harm herself anybody. She was responding to internal stimuli and long or short-term memory is poor. Insight and judgment is impaired. She does not know she has a problem, can make decision. IMPRESSION: Major depression, recurrent with possible psychosis and dementia. MEDICAL DIAGNOSES: As per medical doctor. PLAN: I will start her on Zoloft. She is to be on Lexapro high dose. She will continue with Aricept. We will do group therapy, milieu therapy. ESTIMATED LENGTH OF STAY: 3-7 days. DISCHARGE CRITERIA: Decreasing agitation, feeling better after discharge, outpatient treatment. JOB# [id number]
[2018-11-24] MEDS ORDERED: Magnesium Hydroxide (MOM) 30 mL UDC PO PRN (10:20)
--- NOTE | 2018-11-24 14:23 | History & Physical ---
ADMIT DATE: 11/23/2018 HISTORY OF PRESENT ILLNESS: The patient is 68 years old with long history of hypertension, CVA, seizure disorder, dementia, resident at [facility], transferred to the Emergency Room at [facility] for treatment. The patient admitted to the [facility] for more advanced treatment. The patient is a poor historian. No fever, no chills. PAST MEDICAL HISTORY: Significant for hypertension, CVA, seizure disorder, dementia. PAST SURGICAL HISTORY: No recent surgery. ALLERGIES: CODEINE, CALAMINE, MENTHOL, PENICILLIN, PETROLEUM, ZINC OXIDE. SOCIAL HISTORY: No smoking, no alcohol, no drug. FAMILY HISTORY: Noncontributory. MEDICATIONS: Follow admission reconciliation. REVIEW OF SYSTEMS: RENAL SYSTEM: No history of chronic renal disorder. CARDIOVASCULAR SYSTEM: History of hypertension. ENDOCRINE SYSTEM: No diabetes or thyroid problem. GASTROINTESTINAL SYSTEM: No upper or lower GI bleed. NEUROLOGICAL SYSTEM: She has history of stroke and seizure. SKELETOMUSCULAR SYSTEM: She has degenerative joint disease, right-sided weakness. HEMATOLOGICAL SYSTEM: No bleeding tendency. RESPIRATORY SYSTEM: No asthma. GENITOURINARY SYSTEM: No dysuria or hematuria. PHYSICAL EXAMINATION: GENERAL: She is awake, not verbal. VITAL SIGNS: Temperature 97.1, heart rate 69, blood pressure 89/53. HEENT: Normocephalic. Pupils reacting equally to light and accommodation. Sclerae clear. NECK: Supple. Negative for lymphadenopathy, JVD or bruit. CHEST: Entry of air bilaterally normal. No rhonchi or wheezing. HEART: S1, S2 normal. No murmur or gallop rhythm. ABDOMEN: Soft, bowel sounds positive. EXTREMITIES: No edema. BACK: Normal vertebra. SKIN: Intact. NEUROLOGIC: She is awake, alert, confused. She has right-sided weakness. LABORATORY AND DIAGNOSTIC DATA: White blood cell 5.2, hemoglobin is 13.6, hematocrit 41.0, platelet 191. Sodium 139, potassium is 4.2, BUN 27, creatinine 1.6. ASSESSMENT: 1. Hypertension. 2. Cerebrovascular accident. 3. Seizure disorder. 4. Dementia. PLAN: The patient in the hospital under Dr. Joseph's service. Medical problem to be addressed during hospitalization are dementia, psychosis. Medical problems addressed at discharge are hypertension, seizure disorder. The patient is medically stable for activity. Thank you, Dr. Joseph, for asking to see your patient. We will check her Dilantin level in a.m. Also we will discontinue her Vasotec and change her Coreg to 3.125 twice a day. JOB# [id number]
[2018-11-24] MEDS: Atorvastatin Calcium 10 MG TAB PO SCH (20:38)
[2018-11-24] MEDS: Fenofibrate, Micronized 134 mg Cap PO SCH (20:38)
[2018-11-25] MEDS: Aspirin 81mg Chewable Tab PO SCH (09:48)
[2018-11-25] MEDS: Multivitamin w/ Minerals Tab PO SCH (09:49)
--- NOTE | 2018-11-25 13:03 | Progress Notes ---
DATE: 11/25/2018 Case was discussed with staff of the patient, reviewed records. The patient has been refusing to take any medication of any kind. The patient continues to stay in bed, hardly say anything. Continues to have poor insight. Continues to be unpredictable, impulsive, needing redirection. Continues to be a poor historian. She is demented, confused. I have her on Zoloft 25 mg daily and she was on Depakote 250 mg twice a day. She is not taking her medication. I do not know how long she has been taking her medication prior to admission. I have to check with the facility. Her chemistry panel show high BUN, high blood sugar, the rest within normal range. Toxicology screen is negative. CBC within normal range. We will continue the patient in group therapy, milieu therapy, and adjust the medication as needed. JOB# [id number]
--- NOTE | 2018-11-25 19:45 | Internal Medicine Prog Note ---
Internal Medicine Subjective - Subjective Service Date: 11/25/18 Patient seen and examined:: with staff Patient is:: awake, non-verbal, in bed, confused Per staff patient has:: no adverse event Internal Medicine Objective - Results Result Diagrams: 11/23/18 18:30 11/23/18 18:30 Recent Labs: Laboratory Last Values WBC 5.2 Th/cmm (4.8-10.8) 11/23/18 18:30 RBC 4.88 Mil/cmm (3.80-5.20) 11/23/18 18:30 Hgb 13.6 gm/dL (12-16) 11/23/18 18:30 Hct 41.0 % (41.0-60) 11/23/18 18:30 MCV 84.1 fl (81-100) 11/23/18 18:30 MCH 27.9 pg (27.0-31.0) 11/23/18 18:30 MCHC Differential 33.2 pg (28.0-36.0) 11/23/18 18:30 RDW 12.9 % (11.5-20.0) 11/23/18 18:30 Plt Count 191 Th/cmm (150-400) 11/23/18 18:30 MPV 8.8 fl 11/23/18 18:30 Neutrophils % 44.2 % (40.0-80.0) 11/23/18 18:30 Lymphocytes % 44.1 % (20.0-50.0) 11/23/18 18:30 Monocytes % 8.0 % (2.0-10.0) 11/23/18 18:30 Eosinophils % 2.8 % (0.0-5.0) 11/23/18 18:30 Basophils % 0.9 % (0.0-2.0) 11/23/18 18:30 Sodium 139 mEq/L (136-145) 11/23/18 18:30 Potassium 4.2 mEq/L (3.5-5.1) 11/23/18 18:30 Chloride 109 mEq/L (98-107) H 11/23/18 18:30 Carbon Dioxide 21.9 mEq/L (21.0-31.0) 11/23/18 18:30 Anion Gap 12.3 (7.0-16.0) 11/23/18 18:30 BUN 27 mg/dL (7-25) H 11/23/18 18:30 Creatinine 0.6 mg/dL (0.6-1.2) 11/23/18 18:30 Est GFR ( Amer) > 60.0 ml/min (>90) 11/23/18 18:30 Est GFR (Non-Af Amer) > 60.0 ml/min 11/23/18 18: BUN/Creatinine Ratio 45.0 11/23/18 18:30 Glucose 113 mg/dL (70-105) H 11/23/18 18:30 Calcium 8.9 mg/dL (8.6-10.3) 11/23/18:30 Total Bilirubin 0.2 mg/dL (0.3-1.0) L 11/23/18 18:30 AST 21 U/L (13-39) 11/23/18:30 ALT 22 U/L (7-52) 11/23/18: Alkaline Phosphatase 53 U/L (34-104) 11/23/18: Troponin I 0.02 ng/mL (0.01-0.05) 11/23/18 18:30 Total Protein 6.1 gm/dL (6.0-8.3) 11/23/18 18:30 Albumin 3.3 gm/dL (3.7-5.3) L 11/23/18:30 Globulin 2.8 gm/dL 11/23/18:30 Albumin/Globulin Ratio 1.2 (1.0-1.8) 11/23/18 18:30 Triglycerides 110 mg/dL (<150) 11/23/18 18:30 Cholesterol 180 mg/dL (<200) 11/23/18 18:30 LDL Cholesterol Direct 105 mg/dL (75-193) 11/23/18:30 HDL Cholesterol 49 mg/dL (23-92) 11/23/18 18: TSH 1.15 uIU/ml (0.34-5.60) 11/23/18 18:30 Salicylates < 25.0 mg/L (30.0-100.0) L 11/23/18: Acetaminophen < 10.0 ug/mL (10.0-30.0) L 11/23/18 18:30 Phenytoin < 2.5 ug/ml (10.0-20.0) L 11/25/18 08:08 Ethyl Alcohol < 10 mg/dL (0-10) 11/23/18 18:30 RPR NONREACTIVE (NONREACTIVE) 11/23/18 18:30 - Physical Exam Vitals and I&O: Vital Signs Temp 98.2 F 11/25/18 14:00 Pulse 70 11/25/18 16:56 Resp 19 11/25/18 14:00 BP 124/78 11/25/18 16:56 Pulse Ox 98 11/25/18 14:00 Intake & Output 11/25/18 11/25/18 11/26/18 06:59 18:59 06:59 Intake Total 340 450 Balance 340 450 Weight (lbs) 56.699 kg Intake: Oral 340 450 Other: # Voids 3 3 # Bowel Movements 0 1 Weight Source Bedscale Active Medications: Current Medications Acetaminophen (Tylenol) 650 mg PO Q4HR PRN PRN Reason: Mild Pain / Temp above 100 Stop: 01/22/19 21:02 Al Hydrox/Mg Hydrox/Simethicone (Maalox) 30 ml PO Q4H PRN PRN Reason: GI DISTRESS Stop: 01/22/19 21:02 Aspirin (Aspirin Chewable) 81 mg PO DAILY [facility] Stop: 01/24/19 08:59 Last Admin: 11/25/18 09:48 Dose: Not Given Atorvastatin Calcium (Lipitor) 10 mg PO HS [facility]; Protocol Stop: 01/23/19 20:59 Last Admin: 11/24/18 20:38 Dose: Not Given Carvedilol (Coreg) 3.125 mg PO BID [facility] Stop: 01/23/19 16:59 Last Admin: 11/25/18 16:56 Dose: Not Given Docusate Sodium (Colace) 100 mg PO BID [facility] Stop: 01/23/19 08:59 Last Admin: 11/25/18 16:57 Dose: Not Given Donepezil HCl (Aricept) 5 mg PO HS [facility] Stop: 01/23/19 20:59 Last Admin: 11/24/18 20:39 Dose: Not Given Fenofibrate (Tricor) 134 mg PO [facility] Stop: 01/23/19 20:59 Last Admin: 11/24/18 20:38 Dose: Not Given Levetiracetam (Keppra) 500 mg PO BID [facility] Stop: 01/23/19 08:59 Last Admin: 11/25/18 16:57 Dose: Not Given Lorazepam (Ativan) 0.5 mg PO Q4H PRN; Protocol PRN Reason: Anxiety Stop: 01/22/19 21:02 Magnesium Hydroxide (Milk Of Magnesia) 30 ml PO DAILY PRN PRN Reason: Constipation Stop: 01/23/19 10:19 Phenytoin (Dilantin) 200 mg PO BID [facility] Stop: 01/23/19 08:59 Last Admin: 11/25/18 16:57 Dose: Not Given Sertraline HCl (Zoloft) 25 mg PO DAILY [facility]; Protocol Stop: 01/23/19 08:59 Last Admin: 11/25/18 09:48 Dose: Not Given Valproate Sodium (Depakene) 250 mg PO BID [facility]; Protocol Stop: 01/23/19 08:59 Last Admin: 11/25/18 16:58 Dose: Not Given Zolpidem Tartrate (Ambien) 5 mg PO HS PRN PRN Reason: Insomnia General: demented HEENT: NC/AT, PERRLA, EOMI, anicteric sclerae, throat clear Neck: Supple, No JVD, No thyromegaly, +2 carotid pulse wo bruit, No LAD Lungs: CTAB Cardiovascular: RRR, Normal S1, Normal S2, without murmur Abdomen: soft, non-tender, non-distended Extremities: clear Neurological: no change - Procedures Procedures: Procedures Procedure Code Date GROUP PSYCHOTHERAPY 38624 01/22/16 GROUP PSYCHOTHERAPY [id number] 01/22/16 OTHER GROUP THERAPY 94.44 11/24/13 Internal Medicine Assmt/Plan - Assessment Assessment: 1.CVA. 2.HTN. 3.SEIZURE DISORDER. 4.DEMENTIA. - Plan Plan: CONTINUE ON CERRENT MEDICATION AND DIET.
[2018-11-25] MEDS: Fenofibrate, Micronized 134 mg Cap PO SCH (20:17)
[2018-11-25] MEDS: Atorvastatin Calcium 10 MG TAB PO SCH (20:17)
[2018-11-26] MEDS: Aspirin 81mg Chewable Tab PO SCH (12:21)
[2018-11-26] MEDS: Multivitamin w/ Minerals Tab PO SCH (12:21)
--- NOTE | 2018-11-26 17:22 | Internal Medicine Prog Note ---
Internal Medicine Subjective - Subjective Service Date: 11/26/18 Patient seen and examined:: with staff Patient is:: awake, non-verbal, in bed, confused Per staff patient has:: no adverse event Internal Medicine Objective - Results Result Diagrams: 11/23/18 18:30 11/23/18 18:30 Recent Labs: Laboratory Last Values WBC 5.2 Th/cmm (4.8-10.8) 11/23/18 18:30 RBC 4.88 Mil/cmm (3.80-5.20) 11/23/18 18:30 Hgb 13.6 gm/dL (12-16) 11/23/18 18:30 Hct 41.0 % (41.0-60) 11/23/18 18:30 MCV 84.1 fl (81-100) 11/23/18 18:30 MCH 27.9 pg (27.0-31.0) 11/23/18 18:30 MCHC Differential 33.2 pg (28.0-36.0) 11/23/18 18:30 RDW 12.9 % (11.5-20.0) 11/23/18 18:30 Plt Count 191 Th/cmm (150-400) 11/23/18 18:30 MPV 8.8 fl 11/23/18 18:30 Neutrophils % 44.2 % (40.0-80.0) 11/23/18 18:30 Lymphocytes % 44.1 % (20.0-50.0) 11/23/18 18:30 Monocytes % 8.0 % (2.0-10.0) 11/23/18 18:30 Eosinophils % 2.8 % (0.0-5.0) 11/23/18 18:30 Basophils % 0.9 % (0.0-2.0) 11/23/18 18:30 Sodium 139 mEq/L (136-145) 11/23/18 18:30 Potassium 4.2 mEq/L (3.5-5.1) 11/23/18 18:30 Chloride 109 mEq/L (98-107) H 11/23/18 18:30 Carbon Dioxide 21.9 mEq/L (21.0-31.0) 11/23/18 18:30 Anion Gap 12.3 (7.0-16.0) 11/23/18 18:30 BUN 27 mg/dL (7-25) H 11/23/18 18:30 Creatinine 0.6 mg/dL (0.6-1.2) 11/23/18 18:30 Est GFR ( Amer) > 60.0 ml/min (>90) 11/23/18 18:30 Est GFR (Non-Af Amer) > 60.0 ml/min 11/23/18 18: BUN/Creatinine Ratio 45.0 11/23/18 18:30 Glucose 113 mg/dL (70-105) H 11/23/18 18:30 Calcium 8.9 mg/dL (8.6-10.3) 11/23/18:30 Total Bilirubin 0.2 mg/dL (0.3-1.0) L 11/23/18 18:30 AST 21 U/L (13-39) 11/23/18:30 ALT 22 U/L (7-52) 11/23/18: Alkaline Phosphatase 53 U/L (34-104) 11/23/18: Troponin I 0.02 ng/mL (0.01-0.05) 11/23/18 18:30 Total Protein 6.1 gm/dL (6.0-8.3) 11/23/18 18:30 Albumin 3.3 gm/dL (3.7-5.3) L 11/23/18:30 Globulin 2.8 gm/dL 11/23/18:30 Albumin/Globulin Ratio 1.2 (1.0-1.8) 11/23/18 18:30 Triglycerides 110 mg/dL (<150) 11/23/18 18:30 Cholesterol 180 mg/dL (<200) 11/23/18 18:30 LDL Cholesterol Direct 105 mg/dL (75-193) 11/23/18:30 HDL Cholesterol 49 mg/dL (23-92) 11/23/18 18: TSH 1.15 uIU/ml (0.34-5.60) 11/23/18 18:30 Salicylates < 25.0 mg/L (30.0-100.0) L 11/23/18: Acetaminophen < 10.0 ug/mL (10.0-30.0) L 11/23/18 18:30 Phenytoin < 2.5 ug/ml (10.0-20.0) L 11/25/18 08:08 Ethyl Alcohol < 10 mg/dL (0-10) 11/23/18 18:30 RPR NONREACTIVE (NONREACTIVE) 11/23/18 18:30 - Physical Exam Vitals and I&O: Vital Signs Temp 97.0 F 11/26/18 14:00 Pulse 82 11/26/18 14:00 Resp 20 11/26/18 14:00 BP 103/64 11/26/18 14:00 Pulse Ox 98 11/26/18 14:00 Intake & Output 11/25/18 11/26/18 11/26/18 18:59 06:59 18:59 Intake Total 690 Balance 690 Intake: Oral 690 Other: # Voids 2 # Bowel Movements 1 Active Medications: Current Medications Acetaminophen (Tylenol) 650 mg PO Q4HR PRN PRN Reason: Mild Pain / Temp above 100 Stop: 01/22/19 21:02 Al Hydrox/Mg Hydrox/Simethicone (Maalox) 30 ml PO Q4H PRN PRN Reason: GI DISTRESS Stop: 01/22/19 21:02 Aspirin (Aspirin Chewable) 81 mg PO DAILY [facility] Stop: 01/24/19 08:59 Last Admin: 11/26/18 12:21 Dose: 81 mg Atorvastatin Calcium (Lipitor) 10 mg PO HS [facility]; Protocol Stop: 01/23/19 20:59 Last Admin: 11/25/18 20:17 Dose: Not Given Carvedilol (Coreg) 3.125 mg PO BID [facility] Stop: 01/23/19 16:59 Last Admin: 11/26/18 12:21 Dose: Not Given Docusate Sodium (Colace) 100 mg PO BID [facility] Stop: 01/23/19 08:59 Last Admin: 11/26/18 12:21 Dose: Not Given Donepezil HCl (Aricept) 5 mg PO HS [facility] Stop: 01/23/19 20:59 Last Admin: 11/25/18 20:17 Dose: Not Given Fenofibrate (Tricor) 134 mg PO HS [facility] Stop: 01/23/19 20:59 Last Admin: 11/25/18 20:17 Dose: Not Given Levetiracetam (Keppra) 500 mg PO BID [facility] Stop: 01/23/19 08:59 Last Admin: 11/26/18 12:21 Dose: 500 mg Lorazepam (Ativan) 0.5 mg PO Q4H PRN; Protocol PRN Reason: Anxiety Stop: 01/22/19 21:02 Last Admin: 11/26/18 12:26 Dose: 0.5 mg Magnesium Hydroxide (Milk Of Magnesia) 30 ml PO DAILY PRN PRN Reason: Constipation Stop: 01/23/19 10:19 Mirtazapine (Remeron) 7.5 mg PO HS [facility]; Protocol Stop: 01/25/19 20:59 Phenytoin (Dilantin) 200 mg PO BID [facility] Stop: 01/23/19 08:59 Last Admin: 11/26/18 12:22 Dose: 200 mg Sertraline HCl (Zoloft) 25 mg PO DAILY [facility]; Protocol Stop: 01/23/19 08:59 Last Admin: 11/26/18 12:22 Dose: 25 mg Valproate Sodium (Depakene) 250 mg PO BID [facility]; Protocol Stop: 01/23/19 08:59 Last Admin: 11/26/18 12:22 Dose: 250 mg Zolpidem Tartrate (Ambien) 5 mg PO HS PRN PRN Reason: Insomnia General: demented HEENT: NC/AT, PERRLA, EOMI, anicteric sclerae, throat clear Neck: Supple, No JVD, No thyromegaly, +2 carotid pulse wo bruit, No LAD Lungs: CTAB Cardiovascular: RRR, Normal S1, Normal S2, without murmur Abdomen: soft, non-tender, non-distended Extremities: clear Neurological: no change - Procedures Procedures: Procedures Procedure Code Date GROUP PSYCHOTHERAPY 36788 01/22/16 GROUP PSYCHOTHERAPY GZHZZZZ 01/22/16 OTHER GROUP THERAPY 94.44 11/24/13 Internal Medicine Assmt/Plan - Assessment Assessment: 1.CVA. 2.HTN. 3.SEIZURE DISORDER. 4.DEMENTIA. - Plan Plan: CONTINUE ON CERRENT MEDICATION AND DIET. Nutritional Asmnt/Malnutr-PDOC - Dietary Evaluation Malnutrition Findings (Please click <Entered> for more info): Nutritional Asmnt/Malnutrition Start: 11/26/18 13: 59 Text: Status: Complete Freq: Protocol: Document 11/26/18 13:59 LCHENG (Rec: 11/26/18 14:16 HEN [email or web address]) Nutritional Asmnt/Malnutrition Patient General Information Nutritional Screening Moderate Risk Consult Diagnosis psychosis Pertinent Medical Hx/Surgical Hx HTN, CAD, CHF, CVA/TIA, dyslipidemia, ESRD, arthritis, dementia, bipolar Subjective Information Consult received for picky eater. Pt seen sitting up in bed at time of visit. MECHANICAL ENGINEERING ADVISOR was feeding pt wtih lunch. Observed pt was eating well. Pt is selective mute, not communicated with RD at this time. Per EMR, PO intkae 50- 100% Current Diet Order/ Nutrition Support [facility] soft ground, [place] Pertinent Medications lipitor, colace, remeron Pertinent Labs 11/23 Cl 109, BUN 27, glucose 113, Alb 3.3 Nutritional Hx/Data Height 1.5 m Height (Calculated Centimeters) 149.9 Current Weight (lbs) 56.699 kg Weight (Calculated Kilograms) 56.7 Weight (Calculated Grams) 14382.0 [place] Body Weight 98 Body Mass Index (BMI) 25.2 Weight Status Overweight GI Symptoms GI Symptoms None Last BM 11/25 Difficult in: None Skin Integrity/Comment: discoloration on upper medial right thigh dryness [place] 17 Current %PO Fair (50-74%) Estimated Nutritional Goals BEE in Kcals: Using Current wt Calories/Kcals/Kg 25-30 Kcals Calculated 3110-2792 Protein: Using Current wt Protein g/k Protein Calculated 57 Fluid: ml 1425-1710ml (1ml/kcal) Nutritional Problem No current Nutrition Prob Problem N/A Intervention/Recommendation Comments 1. Continue with [facility] soft [facility] [place] diet as ordered. Nurse to assist pt with all meals. If PO intake < 50%, will consider adding nutrition supplements. 2. Monitor PO intake, wt, labs and skin integrity 3. F/U as moderate risk in 3-5 days Expected Outcomes/Goals Expected Outcomes/Goals 1. PO intake to meet at least 75% of nutritional needs. 2. Wt stability, skin to remain intact, labs to approach WNL.
[2018-11-26] MEDS: Atorvastatin Calcium 10 MG TAB PO SCH (20:10)
[2018-11-26] MEDS: Fenofibrate, Micronized 134 mg Cap PO SCH (20:11)
--- NOTE | 2018-11-27 01:42 | Progress Notes ---
DATE: 11/26/2018 Case was discussed with staff of the patient, reviewed records. The patient continues to be confused, unable to participate in meaningful conversation or make safe plan for self-care. Staff tell me she agreed to take medication. I have her started on Zoloft and also give her Remeron to help with her appetite. She is also on Aricept. She continues to have poor insight and hopefully the patient will continue with her medication. I will continue the patient in group therapy, milieu therapy, and adjust medication as needed. JOB# [id number]
[2018-11-27] MEDS: Aspirin 81mg Chewable Tab PO SCH (09:26)
[2018-11-27] MEDS: Multivitamin w/ Minerals Tab PO SCH (09:27)
--- NOTE | 2018-11-27 15:38 | General Progress Note ---
Subjective - Review of Systems Service Date: 11/27/18 Subjective: RESTING COMFORTABLY NO DISTRESS Objective - Results Result Diagrams: 11/23/18 18:30 11/23/18 18:30 Recent Labs: Laboratory Last Values WBC 5.2 Th/cmm (4.8-10.8) 11/23/18 18:30 RBC 4.88 Mil/cmm (3.80-5.20) 11/23/18 18:30 Hgb 13.6 gm/dL (12-16) 11/23/18 18:30 Hct 41.0 % (41.0-60) 11/23/18 18:30 MCV 84.1 fl (81-100) 11/23/18 18:30 MCH 27.9 pg (27.0-31.0) 11/23/18 18:30 MCHC Differential 33.2 pg (28.0-36.0) 11/23/18 18:30 RDW 12.9 % (11.5-20.0) 11/23/18 18:30 Plt Count 191 Th/cmm (150-400) 11/23/18 18:30 MPV 8.8 fl 11/23/18 18:30 Neutrophils % 44.2 % (40.0-80.0) 11/23/18 18:30 Lymphocytes % 44.1 % (20.0-50.0) 11/23/18 18:30 Monocytes % 8.0 % (2.0-10.0) 11/23/18 18:30 Eosinophils % 2.8 % (0.0-5.0) 11/23/18 18:30 Basophils % 0.9 % (0.0-2.0) 11/23/18 18:30 Sodium 139 mEq/L (136-145) 11/23/18 18:30 Potassium 4.2 mEq/L (3.5-5.1) 11/23/18 18:30 Chloride 109 mEq/L (98-107) H 11/23/18 18:30 Carbon Dioxide 21.9 mEq/L (21.0-31.0) 11/23/18 18:30 Anion Gap 12.3 (7.0-16.0) 11/23/18 18:30 BUN 27 mg/dL (7-25) H 11/23/18 18:30 Creatinine 0.6 mg/dL (0.6-1.2) 11/23/18 18:30 Est GFR ( Amer) > 60.0 ml/min (>90) 11/23/18 18:30 Est GFR (Non-Af Amer) > 60.0 ml/min 11/23/18 18:30 BUN/Creatinine Ratio 45.0 11/23/18 18:30 Glucose 113 mg/dL (70-105) H 11/23/18 18:30 Calcium 8.9 mg/dL (8.6-10.3) 11/23/18 18:30 Total Bilirubin 0.2 mg/dL (0.3-1.0) L 11/23/18 18:30 AST 21 U/L (13-39) 11/23/18 18:30 ALT 22 U/L (7-52) 11/23/18 18:30 Alkaline Phosphatase 53 U/L (34-104) 11/23/18 18:30 Troponin I 0.02 ng/mL (0.01-0.05) 11/23/18 18:30 Total Protein 6.1 gm/dL (6.0-8.3) 11/23/18 18:30 Albumin 3.3 gm/dL (3.7-5.3) L 11/23/18 18:30 Globulin 2.8 gm/dL 11/23/18 18:30 Albumin/Globulin Ratio 1.2 (1.0-1.8) 11/23/18 18:30 Triglycerides 110 mg/dL (<150) 11/23/18 18:30 Cholesterol 180 mg/dL (<200) 11/23/18 18:30 LDL Cholesterol Direct 105 mg/dL (75-193) 11/23/18 18:30 HDL Cholesterol 49 mg/dL (23-92) 11/23/18 18:30 TSH 1.15 uIU/ml (0.34-5.60) 11/23/18 18:30 Salicylates < 25.0 mg/L (30.0-100.0) L 11/23/18 18:30 Acetaminophen < 10.0 ug/mL (10.0-30.0) L 11/23/18 18:30 Phenytoin < 2.5 ug/ml (10.0-20.0) L 11/25/18 08:08 Ethyl Alcohol < 10 mg/dL (0-10) 11/23/18 18:30 RPR NONREACTIVE (NONREACTIVE) 11/23/18 18:30 - Physical Exam Vitals and I&O: Vital Signs Temp 97.8 F 11/27/18 14:30 Pulse 70 11/27/18 14:30 Resp 18 11/27/18 14:30 BP 114/69 11/27/18 14:30 Pulse Ox 96 11/27/18 14:30 Intake & Output 11/26/18 11/27/18 11/27/18 18:59 06:59 18:59 Intake Total 800 240 Balance 800 240 Weight (lbs) 56.699 kg Intake: Oral 800 240 Other: # Voids 3 3 # Bowel Movements 0 0 Weight Source Bedscale Active Medications: Current Medications Acetaminophen (Tylenol) 650 mg PO Q4HR PRN PRN Reason: Mild Pain / Temp above 100 Stop: 01/22/19 21:02 Al Hydrox/Mg Hydrox/Simethicone (Maalox) 30 ml PO Q4H PRN PRN Reason: GI DISTRESS Stop: 01/22/19 21:02 Aspirin (Aspirin Chewable) 81 mg PO DAILY [facility] Stop: 01/24/19 08:59 Last Admin: 11/27/18 09:26 Dose: 81 mg Atorvastatin Calcium (Lipitor) 10 mg PO HS [facility]; Protocol Stop: 01/23/19 20:59 Last Admin: 11/26/18 20:10 Dose: 10 mg Carvedilol (Coreg) 3.125 mg PO BID [facility] Stop: 01/23/19 16:59 Last Admin: 11/27/18 09:27 Dose: 3.125 mg Docusate Sodium (Colace) 100 mg PO BID [facility] Stop: 01/23/19 08:59 Last Admin: 11/27/18 09:26 Dose: 100 mg Donepezil HCl (Aricept) 5 mg PO HS [facility] Stop: 01/23/19 20:59 Last Admin: 11/26/18 20:11 Dose: 5 mg Fenofibrate (Tricor) 134 mg PO HS [facility] Stop: 01/23/19 20:59 Last Admin: 11/26/18 20:11 Dose: 134 mg Levetiracetam (Keppra) 500 mg PO BID [facility] Stop: 01/23/19 08:59 Last Admin: 11/27/18 09:26 Dose: 500 mg Lorazepam (Ativan) 0.5 mg PO Q4H PRN; Protocol PRN Reason: Anxiety Stop: 01/22/19 21:02 Last Admin: 11/26/18 12:26 Dose: 0.5 mg Magnesium Hydroxide (Milk Of Magnesia) 30 ml PO DAILY PRN PRN Reason: Constipation Stop: 01/23/19 10:19 Mirtazapine (Remeron) 7.5 mg PO HS [facility]; Protocol Stop: 01/25/19 20:59 Last Admin: 11/26/18 20:11 Dose: 7.5 mg Phenytoin (Dilantin) 200 mg PO BID [facility] Stop: 01/23/19 08:59 Last Admin: 11/27/18 09:25 Dose: 200 mg Sertraline HCl (Zoloft) 25 mg PO DAILY [facility]; Protocol Stop: 01/23/19 08:59 Last Admin: 11/27/18 09:26 Dose: 25 mg Valproate Sodium (Depakene) 250 mg PO BID [facility]; Protocol Stop: 01/23/19 08:59 Last Admin: 11/27/18 09:25 Dose: 250 mg Zolpidem Tartrate (Ambien) 5 mg PO HS PRN PRN Reason: Insomnia General: No acute distress HEENT: Atraumatic Neck: Supple, JVD Cardiovascular: Regular rate, Normal S1, Normal S2 Lungs: Clear to auscultation Abdomen: Bowel sounds, Soft - Procedures Procedures: Procedures Procedure Code Date GROUP PSYCHOTHERAPY 96008 01/22/16 GROUP PSYCHOTHERAPY GZHZZZZ 01/22/16 OTHER GROUP THERAPY 94.44 11/24/13 Assessment/Plan - Assessment Assessment: 1.CVA. 2.HTN. 3.SEIZURE DISORDER. 4.DEMENTIA. - Plan Plan: CONTINUE CURRENT TREATMENT Nutritional Asmnt/Malnutr-PDOC - Dietary Evaluation Malnutrition Findings (Please click <Entered> for more info): Nutritional Asmnt/Malnutrition Start: 11/26/18 13: 59 Text: Status: Complete Freq: Protocol: Document 11/26/18 13:59 LCHENG (Rec: 11/26/18 14:16 LCENMANUELG [email or web address]) Nutritional Asmnt/Malnutrition Patient General Information Nutritional Screening Moderate Risk Consult Diagnosis psychosis Pertinent Medical Hx/Surgical Hx HTN, CAD, CHF, CVA/TIA, dyslipidemia, ESRD, arthritis, dementia, bipolar Subjective Information Consult received for picky eater. Pt seen sitting up in bed at time of visit. JEWEL CUPPING MACHINE OPERATOR was feeding pt wtih lunch. Observed pt was eating well. Pt is selective mute, not communicated with RD at this time. Per EMR, PO intkae 50- 100% Current Diet Order/ Nutrition Support [facility] soft [facility], [place] Pertinent Medications lipitor, colace, remeron Pertinent Labs 11/23 Cl 109, BUN 27, glucose 113, Alb 3.3 Nutritional Hx/Data Height 1.5 m Height (Calculated Centimeters) 149.9 Current Weight (lbs) 56.699 kg Weight (Calculated Kilograms) 56.7 Weight (Calculated Grams) 45569.0 [place] Body Weight 98 Body Mass Index (BMI) 25.2 Weight Status Overweight GI Symptoms GI Symptoms None Last BM 11/25 Difficult in: None Skin Integrity/Comment: discoloration on upper medial right thigh dryness [place] 17 Current %PO Fair (50-74%) Estimated Nutritional Goals BEE in Kcals: Using Current wt Calories/Kcals/Kg 25-30 Kcals Calculated 5623-7694 Protein: Using Current wt Protein g/k Protein Calculated 57 Fluid: ml 1425-1710ml (1ml/kcal) Nutritional Problem No current Nutrition Prob Problem N/A Intervention/Recommendation Comments 1. Continue with [facility] soft [facility] [place] diet as ordered. Nurse to assist pt with all meals. If PO intake < 50%, will consider adding nutrition supplements. 2. Monitor PO intake, wt, labs and skin integrity 3. F/U as moderate risk in 3-5 days Expected Outcomes/Goals Expected Outcomes/Goals 1. PO intake to meet at least 75% of nutritional needs. 2. Wt stability, skin to remain intact, labs to approach WNL.
[2018-11-27] MEDS: Atorvastatin Calcium 10 MG TAB PO SCH (20:09)
[2018-11-27] MEDS: Fenofibrate, Micronized 134 mg Cap PO SCH (20:10)
--- NOTE | 2018-11-28 06:05 | Progress Notes ---
DATE: 11/27/2018 COVERING FOR: Dr. Joseph IDENTIFYING DATA: A 68-year-old female brought in here from [facility] for increased agitation and aggressive behavior. CURRENT MEDICATIONS REGIMEN: Includes Coreg, , Aricept 5 mg a day, fenofibrate, Keppra, lorazepam as needed, mirtazapine 7.5, Zoloft 25 mg a day with Depakote 250 mg b.i.d. Overnight, nursing staff reporting the patient has been mostly confused, disorganized, disengaged. Today on [id number] evaluation, the patient refuses interview, does not engage mostly, just stares when not talking to her and selectively mute. MENTAL STATUS EXAM: Selectively mute, disengaged. ASSESSMENT AND PLAN: Continues to be disengaged, unable to formulate a safe plan. We will continue with the current medication regimen as noted above as she continues to be steady state and target the patient's dementia with the Aricept. [facility]# [id number]
[2018-11-28] MEDS: Aspirin 81mg Chewable Tab PO SCH (08:37)
[2018-11-28] MEDS: Multivitamin w/ Minerals Tab PO SCH (08:39)
--- NOTE | 2018-11-28 19:49 | General Progress Note ---
Subjective - Review of Systems Service Date: 11/28/18 Subjective: RESTING COMFORTABLY NO DISTRESS Objective - Results Result Diagrams: 11/23/18 18:30 11/23/18 18:30 Recent Labs: Laboratory Last Values WBC 5.2 Th/cmm (4.8-10.8) 11/23/18 18:30 RBC 4.88 Mil/cmm (3.80-5.20) 11/23/18 18:30 Hgb 13.6 gm/dL (12-16) 11/23/18 18:30 Hct 41.0 % (41.0-60) 11/23/18 18:30 MCV 84.1 fl (81-100) 11/23/18 18:30 MCH 27.9 pg (27.0-31.0) 11/23/18 18:30 MCHC Differential 33.2 pg (28.0-36.0) 11/23/18 18:30 RDW 12.9 % (11.5-20.0) 11/23/18 18:30 Plt Count 191 Th/cmm (150-400) 11/23/18 18:30 MPV 8.8 fl 11/23/18 18:30 Neutrophils % 44.2 % (40.0-80.0) 11/23/18 18:30 Lymphocytes % 44.1 % (20.0-50.0) 11/23/18 18:30 Monocytes % 8.0 % (2.0-10.0) 11/23/18 18:30 Eosinophils % 2.8 % (0.0-5.0) 11/23/18 18:30 Basophils % 0.9 % (0.0-2.0) 11/23/18 18:30 Sodium 139 mEq/L (136-145) 11/23/18 18:30 Potassium 4.2 mEq/L (3.5-5.1) 11/23/18 18:30 Chloride 109 mEq/L (98-107) H 11/23/18 18:30 Carbon Dioxide 21.9 mEq/L (21.0-31.0) 11/23/18 18:30 Anion Gap 12.3 (7.0-16.0) 11/23/18 18:30 BUN 27 mg/dL (7-25) H 11/23/18 18:30 Creatinine 0.6 mg/dL (0.6-1.2) 11/23/18 18:30 Est GFR ( Amer) > 60.0 ml/min (>90) 11/23/18 18:30 Est GFR (Non-Af Amer) > 60.0 ml/min 11/23/18 18:30 BUN/Creatinine Ratio 45.0 11/23/18 18:30 Glucose 113 mg/dL (70-105) H 11/23/18 18:30 Calcium 8.9 mg/dL (8.6-10.3) 11/23/18 18:30 Total Bilirubin 0.2 mg/dL (0.3-1.0) L 11/23/18 18:30 AST 21 U/L (13-39) 11/23/18 18:30 ALT 22 U/L (7-52) 11/23/18 18:30 Alkaline Phosphatase 53 U/L (34-104) 11/23/18 18:30 Troponin I 0.02 ng/mL (0.01-0.05) 11/23/18 18:30 Total Protein 6.1 gm/dL (6.0-8.3) 11/23/18 18:30 Albumin 3.3 gm/dL (3.7-5.3) L 11/23/18 18:30 Globulin 2.8 gm/dL 11/23/18 18:30 Albumin/Globulin Ratio 1.2 (1.0-1.8) 11/23/18 18:30 Triglycerides 110 mg/dL (<150) 11/23/18 18:30 Cholesterol 180 mg/dL (<200) 11/23/18 18:30 LDL Cholesterol Direct 105 mg/dL (75-193) 11/23/18 18:30 HDL Cholesterol 49 mg/dL (23-92) 11/23/18 18:30 TSH 1.15 uIU/ml (0.34-5.60) 11/23/18 18:30 Salicylates < 25.0 mg/L (30.0-100.0) L 11/23/18 18:30 Acetaminophen < 10.0 ug/mL (10.0-30.0) L 11/23/18 18:30 Phenytoin < 2.5 ug/ml (10.0-20.0) L 11/25/18 08:08 Ethyl Alcohol < 10 mg/dL (0-10) 11/23/18 18:30 RPR NONREACTIVE (NONREACTIVE) 11/23/18 18:30 - Physical Exam Vitals and I&O: Vital Signs Temp 98.0 F 11/28/18 14:31 Pulse 66 11/28/18 14:31 Resp 18 11/28/18 14:31 BP 113/52 11/28/18 14:31 Pulse Ox 96 11/28/18 14:31 Intake & Output 11/28/18 11/28/18 11/29/18 06:59 18:59 06:59 Intake Total 480 900 Output Total 1 Balance 479 900 Intake: Oral 480 900 Output: Urine/Stool Mix 1 Other: # Voids 1 4 # Bowel Movements 1 1 Active Medications: Current Medications Acetaminophen (Tylenol) 650 mg PO Q4HR PRN PRN Reason: Mild Pain / Temp above 100 Stop: 01/22/19 21:02 Al Hydrox/Mg Hydrox/Simethicone (Maalox) 30 ml PO Q4H PRN PRN Reason: GI DISTRESS Stop: 01/22/19 21:02 Aspirin (Aspirin Chewable) 81 mg PO DAILY [facility] Stop: 01/24/19 08:59 Last Admin: 11/28/18 08:37 Dose: 81 mg Atorvastatin Calcium (Lipitor) 10 mg PO HS [facility]; Protocol Stop: 01/23/19 20:59 Last Admin: 11/27/18 20:09 Dose: 10 mg Carvedilol (Coreg) 3.125 mg PO BID [facility] Stop: 01/23/19 16:59 Last Admin: 11/28/18 16:27 Dose: Not Given Docusate Sodium (Colace) 100 mg PO BID [facility] Stop: 01/23/19 08:59 Last Admin: 11/28/18 16:27 Dose: 100 mg Donepezil HCl (Aricept) 5 mg PO HS [facility] Stop: 01/23/19 20:59 Last Admin: 11/27/18 20:10 Dose: 5 mg Fenofibrate (Tricor) 134 mg PO HS [facility] Stop: 01/23/19 20:59 Last Admin: 11/27/18 20:10 Dose: 134 mg Levetiracetam (Keppra) 500 mg PO BID [facility] Stop: 01/23/19 08:59 Last Admin: 11/28/18 16:26 Dose: 500 mg Lorazepam (Ativan) 0.5 mg PO Q4H PRN; Protocol PRN Reason: Anxiety Stop: 01/22/19 21:02 Last Admin: 11/26/18 12:26 Dose: 0.5 mg Magnesium Hydroxide (Milk Of Magnesia) 30 ml PO DAILY PRN PRN Reason: Constipation Stop: 01/23/19 10:19 Mirtazapine (Remeron) 7.5 mg PO HS [facility]; Protocol Stop: 01/25/19 20:59 Last Admin: 11/27/18 20:10 Dose: 7.5 mg Phenytoin (Dilantin) 200 mg PO BID [facility] Stop: 01/23/19 08:59 Last Admin: 11/28/18 16:26 Dose: 200 mg Sertraline HCl (Zoloft) 25 mg PO DAILY [facility]; Protocol Stop: 01/23/19 08:59 Last Admin: 11/28/18 08:37 Dose: 25 mg Valproate Sodium (Depakene) 250 mg PO BID [facility]; Protocol Stop: 01/23/19 08:59 Last Admin: 11/28/18 16:26 Dose: 250 mg Zolpidem Tartrate (Ambien) 5 mg PO HS PRN PRN Reason: Insomnia General: No acute distress HEENT: Atraumatic Neck: Supple, JVD Cardiovascular: Regular rate, Normal S1, Normal S2 Lungs: Clear to auscultation Abdomen: Bowel sounds, Soft - Procedures Procedures: Procedures Procedure Code Date GROUP PSYCHOTHERAPY 78397 01/22/16 GROUP PSYCHOTHERAPY GZHZZZZ 01/22/16 OTHER GROUP THERAPY 94.44 11/24/13 Assessment/Plan - Assessment Assessment: 1.CVA. 2.HTN. 3.SEIZURE DISORDER. 4.DEMENTIA. - Plan Plan: CONTINUE CURRENT TREATMENT Nutritional Asmnt/Malnutr-PDOC - Dietary Evaluation Malnutrition Findings (Please click <Entered> for more info): Nutritional Asmnt/Malnutrition Start: 11/26/18 13: 59 Text: Status: Complete Freq: Protocol: Document 11/26/18 13:59 LCHENG (Rec: 11/26/18 14:16 LCENMANUELG [id number]) Nutritional Asmnt/Malnutrition Patient General Information Nutritional Screening Moderate Risk Consult Diagnosis psychosis Pertinent Medical Hx/Surgical Hx HTN, CAD, CHF, CVA/TIA, dyslipidemia, ESRD, arthritis, dementia, bipolar Subjective Information Consult received for picky eater. Pt seen sitting up in bed at time of visit. PRODUCT DISTRIBUTION SPECIALIST was feeding pt wtih lunch. Observed pt was eating well. Pt is selective mute, not communicated with RD at this time. Per EMR, PO intkae 50- 100% Current Diet Order/ Nutrition Support [facility] soft ground, [place] Pertinent Medications lipitor, colace, remeron Pertinent Labs 11/23 Cl 109, BUN 27, glucose 113, Alb 3.3 Nutritional Hx/Data Height 1.5 m Height (Calculated Centimeters) 149.9 Current Weight (lbs) 56.699 kg Weight (Calculated Kilograms) 56.7 Weight (Calculated Grams) 10080.0 [place] Body Weight 98 Body Mass Index (BMI) 25.2 Weight Status Overweight GI Symptoms GI Symptoms None Last BM 11/25 Difficult in: None Skin Integrity/Comment: discoloration on upper medial right thigh dryness [place] 17 Current %PO Fair (50-74%) Estimated Nutritional Goals BEE in Kcals: Using Current wt Calories/Kcals/Kg 25-30 Kcals Calculated 6380-9827 Protein: Using Current wt Protein g/k Protein Calculated 57 Fluid: ml 1425-1710ml (1ml/kcal) Nutritional Problem No current Nutrition Prob Problem N/A Intervention/Recommendation Comments 1. Continue with [facility] soft ground [place] diet as ordered. Nurse to assist pt with all meals. If PO intake < 50%, will consider adding nutrition supplements. 2. Monitor PO intake, wt, labs and skin integrity 3. F/U as moderate risk in 3-5 days Expected Outcomes/Goals Expected Outcomes/Goals 1. PO intake to meet at least 75% of nutritional needs. 2. Wt stability, skin to remain intact, labs to approach WNL.
--- NOTE | 2018-11-28 20:32 | Progress Notes ---
DATE: 11/28/2018 SUBJECTIVE: The patient was seen and evaluated. The patient's chart reviewed. Today [id number] evaluation, the patient continues to be disengaged with running her interview and minimally interactive in the interview. MENTAL STATUS EXAMINATION: Observed to be continued to be confused, unable to engage in minimal conversation, disengaged. ASSESSMENT AND PLAN: The patient currently tolerating the recent addition of Zoloft with Remeron to continue stimulating her appetite. Currently, also on Aricept. We will continue with primary psychiatrist's treatment plans as she continues to reach steady state to target the patient's stimulating her appetite and her depression. JOB# [id number]
[2018-11-28] MEDS: Fenofibrate, Micronized 134 mg Cap PO SCH (21:28)
[2018-11-28] MEDS: Atorvastatin Calcium 10 MG TAB PO SCH (21:28)
[2018-11-29] MEDS: Multivitamin w/ Minerals Tab PO SCH (10:17)
[2018-11-29] MEDS: Aspirin 81mg Chewable Tab PO SCH (10:17)
--- NOTE | 2018-11-29 19:55 | Internal Medicine Prog Note ---
Internal Medicine Subjective - Subjective Service Date: 11/29/18 Patient seen and examined:: with staff Patient is:: awake, non-verbal, in bed, confused Per staff patient has:: no adverse event Internal Medicine Objective - Results Result Diagrams: 11/23/18 18:30 11/23/18 18:30 Recent Labs: Laboratory Last Values WBC 5.2 Th/cmm (4.8-10.8) 11/23/18 18:30 RBC 4.88 Mil/cmm (3.80-5.20) 11/23/18 18:30 Hgb 13.6 gm/dL (12-16) 11/23/18 18:30 Hct 41.0 % (41.0-60) 11/23/18 18:30 MCV 84.1 fl (81-100) 11/23/18 18:30 MCH 27.9 pg (27.0-31.0) 11/23/18 18:30 MCHC Differential 33.2 pg (28.0-36.0) 11/23/18 18:30 RDW 12.9 % (11.5-20.0) 11/23/18 18:30 Plt Count 191 Th/cmm (150-400) 11/23/18 18:30 MPV 8.8 fl 11/23/18 18:30 Neutrophils % 44.2 % (40.0-80.0) 11/23/18 18:30 Lymphocytes % 44.1 % (20.0-50.0) 11/23/18 18:30 Monocytes % 8.0 % (2.0-10.0) 11/23/18 18:30 Eosinophils % 2.8 % (0.0-5.0) 11/23/18 18:30 Basophils % 0.9 % (0.0-2.0) 11/23/18 18:30 Sodium 139 mEq/L (136-145) 11/23/18 18:30 Potassium 4.2 mEq/L (3.5-5.1) 11/23/18 18:30 Chloride 109 mEq/L (98-107) H 11/23/18 18:30 Carbon Dioxide 21.9 mEq/L (21.0-31.0) 11/23/18 18:30 Anion Gap 12.3 (7.0-16.0) 11/23/18 18:30 BUN 27 mg/dL (7-25) H 11/23/18 18:30 Creatinine 0.6 mg/dL (0.6-1.2) 11/23/18 18:30 Est GFR ( Amer) > 60.0 ml/min (>90) 11/23/18 18:30 Est GFR (Non-Af Amer) > 60.0 ml/min 11/23/18 18: BUN/Creatinine Ratio 45.0 11/23/18 18:30 Glucose 113 mg/dL (70-105) H 11/23/18 18:30 Calcium 8.9 mg/dL (8.6-10.3) 11/23/18:30 Total Bilirubin 0.2 mg/dL (0.3-1.0) L 11/23/18 18:30 AST 21 U/L (13-39) 11/23/18:30 ALT 22 U/L (7-52) 11/23/18: Alkaline Phosphatase 53 U/L (34-104) 11/23/18: Troponin I 0.02 ng/mL (0.01-0.05) 11/23/18 18:30 Total Protein 6.1 gm/dL (6.0-8.3) 11/23/18 18:30 Albumin 3.3 gm/dL (3.7-5.3) L 11/23/18:30 Globulin 2.8 gm/dL 11/23/18:30 Albumin/Globulin Ratio 1.2 (1.0-1.8) 11/23/18 18:30 Triglycerides 110 mg/dL (<150) 11/23/18 18:30 Cholesterol 180 mg/dL (<200) 11/23/18 18:30 LDL Cholesterol Direct 105 mg/dL (75-193) 11/23/18:30 HDL Cholesterol 49 mg/dL (23-92) 11/23/18 18: TSH 1.15 uIU/ml (0.34-5.60) 11/23/18 18:30 Salicylates < 25.0 mg/L (30.0-100.0) L 11/23/18: Acetaminophen < 10.0 ug/mL (10.0-30.0) L 11/23/18 18:30 Phenytoin < 2.5 ug/ml (10.0-20.0) L 11/25/18 08:08 Ethyl Alcohol < 10 mg/dL (0-10) 11/23/18 18:30 RPR NONREACTIVE (NONREACTIVE) 11/23/18 18:30 - Physical Exam Vitals and I&O: Vital Signs Temp 98.2 F 11/29/18 14:46 Pulse 66 11/29/18 17:22 Resp 18 11/29/18 14:46 BP 128/76 11/29/18 17:22 Pulse Ox 94 11/29/18 14:46 Intake & Output 11/29/18 11/29/18 11/30/18 06:59 18:59 06:59 Intake Total 240 Balance 240 Weight (lbs) 56.699 kg Intake: Oral 240 Other: # Voids 3 2 # Bowel Movements 0 0 Weight Source Bedscale Active Medications: Current Medications Acetaminophen (Tylenol) 650 mg PO Q4HR PRN PRN Reason: Mild Pain / Temp above 100 Stop: 01/22/19 21:02 Al Hydrox/Mg Hydrox/Simethicone (Maalox) 30 ml PO Q4H PRN PRN Reason: GI DISTRESS Stop: 01/22/19 21:02 Aspirin (Aspirin Chewable) 81 mg PO DAILY [facility] Stop: 01/24/19 08:59 Last Admin: 11/29/18 10:17 Dose: 81 mg Atorvastatin Calcium (Lipitor) 10 mg PO HS [facility]; Protocol Stop: 01/23/19 20:59 Last Admin: 11/28/18 21:28 Dose: 10 mg Carvedilol (Coreg) 3.125 mg PO BID [facility] Stop: 01/23/19 16:59 Last Admin: 11/29/18 17:22 Dose: 3.125 mg Docusate Sodium (Colace) 100 mg PO BID [facility] Stop: 01/23/19 08:59 Last Admin: 11/29/18 17:21 Dose: 100 mg Donepezil HCl (Aricept) 5 mg PO HS [facility] Stop: 01/23/19 20:59 Last Admin: 11/28/18 21:28 Dose: 5 mg Fenofibrate (Tricor) 134 mg PO HS [facility] Stop: 01/23/19 20:59 Last Admin: 01/20/19 21:28 Dose: 134 mg Levetiracetam (Keppra) 500 mg PO BID [facility] Stop: 01/23/19 08:59 Last Admin: 11/29/18 17:21 Dose: 500 mg Lorazepam (Ativan) 0.5 mg PO Q4H PRN; Protocol PRN Reason: Anxiety Stop: 01/22/19 21:02 Last Admin: 11/26/18 12:26 Dose: 0.5 mg Magnesium Hydroxide (Milk Of Magnesia) 30 ml PO DAILY PRN PRN Reason: Constipation Stop: 01/23/19 10:19 Mirtazapine (Remeron) 7.5 mg PO HS [facility]; Protocol Stop: 01/25/19 20:59 Last Admin: 11/28/18 21:28 Dose: 7.5 mg Phenytoin (Dilantin) 200 mg PO BID [facility] Stop: 01/23/19 08:59 Last Admin: 11/29/18 17:21 Dose: 200 mg Sertraline HCl (Zoloft) 50 mg PO DAILY [facility]; Protocol Stop: 01/29/19 08:59 Valproate Sodium (Depakene) 250 mg PO BID [facility]; Protocol Stop: 01/23/19 08:59 Last Admin: 11/29/18 17:21 Dose: 250 mg Zolpidem Tartrate (Ambien) 5 mg PO HS PRN PRN Reason: Insomnia General: demented HEENT: NC/AT, PERRLA, EOMI, anicteric sclerae, throat clear Neck: Supple, No JVD, No thyromegaly, +2 carotid pulse wo bruit, No LAD Lungs: CTAB Cardiovascular: RRR, Normal S1, Normal S2, without murmur Abdomen: soft, non-tender, non-distended Extremities: clear Neurological: no change - Procedures Procedures: Procedures Procedure Code Date GROUP PSYCHOTHERAPY 41474 01/22/16 GROUP PSYCHOTHERAPY GZHZZZZ 01/22/16 OTHER GROUP THERAPY 94.44 11/24/13 Internal Medicine Assmt/Plan - Assessment Assessment: 1.CVA. 2.HTN. 3.SEIZURE DISORDER. 4.DEMENTIA. - Plan Plan: CONTINUE ON CERRENT MEDICATION AND DIET. Nutritional Asmnt/Malnutr-PDOC - Dietary Evaluation Malnutrition Findings (Please click <Entered> for more info): Nutritional Asmnt/Malnutrition Start: 11/26/18 13: 59 Text: Status: Complete Freq: Protocol: Document 11/26/18 13:59 LCMAGGIE (Rec: 11/26/18 14:16 LCENMANUELG [email or web address]) Nutritional Asmnt/Malnutrition Patient General Information Nutritional Screening Moderate Risk Consult Diagnosis psychosis Pertinent Medical Hx/Surgical Hx HTN, CAD, CHF, CVA/TIA, dyslipidemia, ESRD, arthritis, dementia, bipolar Subjective Information Consult received for picky eater. Pt seen sitting up in bed at time of visit. [employer] was feeding pt wtih lunch. Observed pt was eating well. Pt is selective mute, not communicated with RD at this time. Per EMR, PO intkae 50- 100% Current Diet Order/ Nutrition Support [facility], [place] Pertinent Medications lipitor, colace, remeron Pertinent Labs 11/23 Cl 109, BUN 27, glucose 113, Alb 3.3 Nutritional Hx/Data Height 1.5 m Height (Calculated Centimeters) 149.9 Current Weight (lbs) 56.699 kg Weight (Calculated Kilograms) 56.7 Weight (Calculated Grams) 57032.0 [place] Body Weight 98 Body Mass Index (BMI) 25.2 Weight Status Overweight GI Symptoms GI Symptoms None Last BM 11/25 Difficult in: None Skin Integrity/Comment: discoloration on upper medial right thigh dryness [place] 17 Current %PO Fair (50-74%) Estimated Nutritional Goals BEE in Kcals: Using Current wt Calories/Kcals/Kg 25-30 Kcals Calculated 4482-0868 Protein: Using Current wt Protein g/k Protein Calculated 57 Fluid: ml 1425-1710ml (1ml/kcal) Nutritional Problem No current Nutrition Prob Problem N/A Intervention/Recommendation Comments 1. Continue with [facility] [place] diet as ordered. Nurse to assist pt with all meals. If PO intake < 50%, will consider adding nutrition supplements. 2. Monitor PO intake, wt, labs and skin integrity 3. F/U as moderate risk in 3-5 days Expected Outcomes/Goals Expected Outcomes/Goals 1. PO intake to meet at least 75% of nutritional needs. 2. Wt stability, skin to remain intact, labs to approach WNL.
[2018-11-29] MEDS: Atorvastatin Calcium 10 MG TAB PO SCH ×2 (21:26→21:36)
[2018-11-29] MEDS: Fenofibrate, Micronized 134 mg Cap PO SCH ×2 (21:26→21:36)
--- NOTE | 2018-11-29 22:23 | Progress Notes ---
DATE: 11/29/2018 Case was discussed with staff of the patient, reviewed records. The patient continues to stay to herself, disengaged, unable to express herself very much. However, she is compliant with the medication with no side effects. Continues to have poor insight, unpredictable stay to herself, not participating much. So, no acting out behavior. I am now being increasing her Zoloft to 50 mg a day to help with her depression and so far no side effects, no sedation, no nausea and we will continue to work with the patient in group therapy, milieu therapy, and adjust the medication as needed. JOB# [id number]
[2018-11-30] MEDS: Multivitamin w/ Minerals Tab PO SCH (09:16)
[2018-11-30] MEDS: Aspirin 81mg Chewable Tab PO SCH (09:16)
--- NOTE | 2018-11-30 12:41 | Progress Notes ---
DATE: 11/30/2018 Case was discussed with staff of the patient, reviewed records. The patient is taking medications. She is not crying. She is sleeping better, eating better. She has been compliant with the medication according to staff with no side effects, no sedation, no nausea and lab work showed CBC within normal range. Chemistry panel with high chloride, high BUN, high blood sugar, low total bilirubin, and low albumin, the rest within normal range. RPR nonreactive. We will continue to work with the patient in group therapy, milieu therapy, and adjust medication as needed. JOB# [id number]
--- NOTE | 2018-11-30 21:30 | Internal Medicine Prog Note ---
Internal Medicine Subjective - Subjective Service Date: 11/30/18 Patient seen and examined:: without staff Patient is:: awake, non-verbal, in bed, confused Per staff patient has:: no adverse event Internal Medicine Objective - Results Result Diagrams: 11/23/18 18:30 11/23/18 18:30 Recent Labs: Laboratory Last Values WBC 5.2 Th/cmm (4.8-10.8) 11/23/18 18:30 RBC 4.88 Mil/cmm (3.80-5.20) 11/23/18 18:30 Hgb 13.6 gm/dL (12-16) 11/23/18 18:30 Hct 41.0 % (41.0-60) 11/23/18 18:30 MCV 84.1 fl (81-100) 11/23/18 18:30 MCH 27.9 pg (27.0-31.0) 11/23/18 18:30 MCHC Differential 33.2 pg (28.0-36.0) 11/23/18 18:30 RDW 12.9 % (11.5-20.0) 11/23/18 18:30 Plt Count 191 Th/cmm (150-400) 11/23/18 18:30 MPV 8.8 fl 11/23/18 18:30 Neutrophils % 44.2 % (40.0-80.0) 11/23/18 18:30 Lymphocytes % 44.1 % (20.0-50.0) 11/23/18 18:30 Monocytes % 8.0 % (2.0-10.0) 11/23/18 18:30 Eosinophils % 2.8 % (0.0-5.0) 11/23/18 18:30 Basophils % 0.9 % (0.0-2.0) 11/23/18 18:30 Sodium 139 mEq/L (136-145) 11/23/18 18:30 Potassium 4.2 mEq/L (3.5-5.1) 11/23/18 18:30 Chloride 109 mEq/L (98-107) H 11/23/18 18:30 Carbon Dioxide 21.9 mEq/L (21.0-31.0) 11/23/18 18:30 Anion Gap 12.3 (7.0-16.0) 11/23/18 18:30 BUN 27 mg/dL (7-25) H 11/23/18 18:30 Creatinine 0.6 mg/dL (0.6-1.2) 11/23/18 18:30 Est GFR ( Amer) > 60.0 ml/min (>90) 11/23/18 18:30 Est GFR (Non-Af Amer) > 60.0 ml/min 11/23/18 18: BUN/Creatinine Ratio 45.0 11/23/18 18:30 Glucose 113 mg/dL (70-105) H 11/23/18 18:30 Calcium 8.9 mg/dL (8.6-10.3) 11/23/18:30 Total Bilirubin 0.2 mg/dL (0.3-1.0) L 11/23/18 18:30 AST 21 U/L (13-39) 11/23/18:30 ALT 22 U/L (7-52) 11/23/18: Alkaline Phosphatase 53 U/L (34-104) 11/23/18: Troponin I 0.02 ng/mL (0.01-0.05) 11/23/18 18:30 Total Protein 6.1 gm/dL (6.0-8.3) 11/23/18 18:30 Albumin 3.3 gm/dL (3.7-5.3) L 11/23/18:30 Globulin 2.8 gm/dL 11/23/18:30 Albumin/Globulin Ratio 1.2 (1.0-1.8) 11/23/18 18:30 Triglycerides 110 mg/dL (<150) 11/23/18 18:30 Cholesterol 180 mg/dL (<200) 11/23/18 18:30 LDL Cholesterol Direct 105 mg/dL (75-193) 11/23/18:30 HDL Cholesterol 49 mg/dL (23-92) 11/23/18 18: TSH 1.15 uIU/ml (0.34-5.60) 11/23/18 18:30 Salicylates < 25.0 mg/L (30.0-100.0) L 11/23/18: Acetaminophen < 10.0 ug/mL (10.0-30.0) L 11/23/18 18:30 Phenytoin < 2.5 ug/ml (10.0-20.0) L 11/25/18 08:08 Ethyl Alcohol < 10 mg/dL (0-10) 11/23/18 18:30 RPR NONREACTIVE (NONREACTIVE) 11/23/18 18:30 - Physical Exam Vitals and I&O: Vital Signs Temp 98.3 F 11/30/18 20:03 Pulse 71 11/30/18 20:03 Resp 20 11/30/18 20:03 BP 110/61 11/30/18 20:03 Pulse Ox 97 11/30/18 20:03 Intake & Output 11/30/18 11/30/18 12/01/18 06:59 18:59 06:59 Intake Total 300 240 Balance 300 240 Weight (lbs) 56.699 kg 56.699 kg Intake: Oral 300 240 Other: # Voids 1 3 # Bowel Movements 1 0 Weight Source Bedscale Bedscale Active Medications: Current Medications Acetaminophen (Tylenol) 650 mg PO Q4HR PRN PRN Reason: Mild Pain / Temp above 100 Stop: 01/22/19 21:02 Al Hydrox/Mg Hydrox/Simethicone (Maalox) 30 ml PO Q4H PRN PRN Reason: GI DISTRESS Stop: 01/22/19 21:02 Aspirin (Aspirin Chewable) 81 mg PO DAILY [facility] Stop: 01/24/19 08:59 Last Admin: 11/30/18 09:16 Dose: Not Given Atorvastatin Calcium (Lipitor) 10 mg PO HS [facility]; Protocol Stop: 01/23/19 20:59 Last Admin: 11/29/18 21:36 Dose: Not Given Carvedilol (Coreg) 3.125 mg PO BID [facility] Stop: 01/23/19 16:59 Last Admin: 11/30/18 16:42 Dose: Not Given Docusate Sodium (Colace) 100 mg PO BID [facility] Stop: 01/23/19 08:59 Last Admin: 11/30/18 16:42 Dose: Not Given Donepezil HCl (Aricept) 5 mg PO HS [facility] Stop: 01/23/19 20:59 Last Admin: 11/29/18 21:36 Dose: Not Given Fenofibrate (Tricor) 134 mg PO HS [facility] Stop: 01/23/19 20:59 Last Admin: 11/29/18 21:36 Dose: Not Given Levetiracetam (Keppra) 500 mg PO BID [facility] Stop: 01/23/19 08:59 Last Admin: 11/30/18 16:42 Dose: Not Given Lorazepam (Ativan) 0.5 mg PO Q4H PRN; Protocol PRN Reason: Anxiety Stop: 01/22/19 21:02 Last Admin: 11/26/18 12:26 Dose: 0.5 mg Magnesium Hydroxide (Milk Of Magnesia) 30 ml PO DAILY PRN PRN Reason: Constipation Stop: 01/23/19 10:19 Mirtazapine (Remeron) 7.5 mg PO HS [facility]; Protocol Stop: 01/25/19 20:59 Last Admin: 11/29/18 21:36 Dose: Not Given Phenytoin (Dilantin) 200 mg PO BID [facility] Stop: 01/23/19 08:59 Last Admin: 11/30/18 16:42 Dose: Not Given Sertraline HCl (Zoloft) 50 mg PO DAILY [facility]; Protocol Stop: 01/29/19 08:59 Last Admin: 11/30/18 09:16 Dose: Not Given Valproate Sodium (Depakene) 250 mg PO BID [facility]; Protocol Stop: 01/23/19 08:59 Last Admin: 11/30/18 16:42 Dose: Not Given Zolpidem Tartrate (Ambien) 5 mg PO HS PRN PRN Reason: Insomnia General: demented HEENT: NC/AT, PERRLA, EOMI, anicteric sclerae, throat clear Neck: Supple, No JVD, No thyromegaly, +2 carotid pulse wo bruit, No LAD Lungs: CTAB Cardiovascular: RRR, Normal S1, Normal S2, without murmur Abdomen: soft, non-tender, non-distended Extremities: clear Neurological: no change - Procedures Procedures: Procedures Procedure Code Date GROUP PSYCHOTHERAPY 46221 01/22/16 GROUP PSYCHOTHERAPY GZHZZZZ 01/22/16 OTHER GROUP THERAPY 94.44 11/24/13 Internal Medicine Assmt/Plan - Assessment Assessment: 1.CVA. 2.HTN. 3.SEIZURE DISORDER. 4.DEMENTIA. - Plan Plan: CONTINUE ON CERRENT MEDICATION AND DIET. Nutritional Asmnt/Malnutr-PDOC - Dietary Evaluation Malnutrition Findings (Please click <Entered> for more info): Nutritional Asmnt/Malnutrition Start: 11/26/18 13: 59 Text: Status: Complete Freq: Protocol: Document 11/26/18 13:59 MEAGHAN (Rec: 11/26/18 14:16 MEAGHAN [email or web address]) Nutritional Asmnt/Malnutrition Patient General Information Nutritional Screening Moderate Risk Consult Diagnosis psychosis Pertinent Medical Hx/Surgical Hx HTN, CAD, CHF, CVA/TIA, dyslipidemia, ESRD, arthritis, dementia, bipolar Subjective Information Consult received for picky eater. Pt seen sitting up in bed at time of visit. 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 Observed pt was eating well. Pt is selective mute, not communicated with RD at this time. Per EMR, PO intkae 50- 100% Current Diet Order/ Nutrition Support [facility] soft ground, [place] Pertinent Medications lipitor, colace, remeron Pertinent Labs 11/23 Cl 109, BUN 27, glucose 113, Alb 3.3 Nutritional Hx/Data Height 1.5 m Height (Calculated Centimeters) 149.9 Current Weight (lbs) 56.699 kg Weight (Calculated Kilograms) 56.7 Weight (Calculated Grams) 44644.0 [place] Body Weight 98 Body Mass Index (BMI) 25.2 Weight Status Overweight GI Symptoms GI Symptoms None Last BM 11/25 Difficult in: None Skin Integrity/Comment: discoloration on upper medial right thigh dryness [place] 17 Current %PO Fair (50-74%) Estimated Nutritional Goals BEE in Kcals: Using Current wt Calories/Kcals/Kg 25-30 Kcals Calculated 5792-7830 Protein: Using Current wt Protein g/k Protein Calculated 57 Fluid: ml 1425-1710ml (1ml/kcal) Nutritional Problem No current Nutrition Prob Problem N/A Intervention/Recommendation Comments 1. Continue with [facility] [place] diet as ordered. Nurse to assist pt with all meals. If PO intake < 50%, will consider adding nutrition supplements. 2. Monitor PO intake, wt, labs and skin integrity 3. F/U as moderate risk in 3-5 days Expected Outcomes/Goals Expected Outcomes/Goals 1. PO intake to meet at least 75% of nutritional needs. 2. Wt stability, skin to remain intact, labs to approach WNL.
[2018-11-30] MEDS: Atorvastatin Calcium 10 MG TAB PO SCH (21:43)
[2018-11-30] MEDS: Fenofibrate, Micronized 134 mg Cap PO SCH (21:44)
[2018-12-01] MEDS: Aspirin 81mg Chewable Tab PO SCH (09:03)
[2018-12-01] MEDS: Multivitamin w/ Minerals Tab PO SCH (09:04)
--- NOTE | 2018-12-01 11:20 | Progress Notes ---
DATE: 12/01/2018 PROGRESS ON THE UNIT: Case was discussed with staff of the patient, reviewed records. The patient in general is not acting out. She is sleeping better. She refused to take her medication but she was somewhat sleepy this morning, and the staff reports that is why she is refusing it but she took it yesterday, working on discharge plan to send her back to the facility. No side effects with the medication, no sedation, no nausea. PLAN: We will continue to work with the patient in group therapy and milieu therapy, adjust medications as needed. JOB# [id number]
--- NOTE | 2018-12-01 20:40 | Internal Medicine Prog Note ---
Internal Medicine Subjective - Subjective Service Date: 12/01/18 Patient seen and examined:: without staff Patient is:: awake, non-verbal, in bed, confused Per staff patient has:: no adverse event Internal Medicine Objective - Results Result Diagrams: 11/23/18 18:30 11/23/18 18:30 Recent Labs: Laboratory Last Values WBC 5.2 Th/cmm (4.8-10.8) 11/23/18 18:30 RBC 4.88 Mil/cmm (3.80-5.20) 11/23/18 18:30 Hgb 13.6 gm/dL (12-16) 11/23/18 18:30 Hct 41.0 % (41.0-60) 11/23/18 18:30 MCV 84.1 fl (81-100) 11/23/18 18:30 MCH 27.9 pg (27.0-31.0) 11/23/18 18:30 MCHC Differential 33.2 pg (28.0-36.0) 11/23/18 18:30 RDW 12.9 % (11.5-20.0) 11/23/18 18:30 Plt Count 191 Th/cmm (150-400) 11/23/18 18:30 MPV 8.8 fl 11/23/18 18:30 Neutrophils % 44.2 % (40.0-80.0) 11/23/18 18:30 Lymphocytes % 44.1 % (20.0-50.0) 11/23/18 18:30 Monocytes % 8.0 % (2.0-10.0) 11/23/18 18:30 Eosinophils % 2.8 % (0.0-5.0) 11/23/18 18:30 Basophils % 0.9 % (0.0-2.0) 11/23/18 18:30 Sodium 139 mEq/L (136-145) 11/23/18 18:30 Potassium 4.2 mEq/L (3.5-5.1) 11/23/18 18:30 Chloride 109 mEq/L (98-107) H 11/23/18 18:30 Carbon Dioxide 21.9 mEq/L (21.0-31.0) 11/23/18 18:30 Anion Gap 12.3 (7.0-16.0) 11/23/18 18:30 BUN 27 mg/dL (7-25) H 11/23/18 18:30 Creatinine 0.6 mg/dL (0.6-1.2) 11/23/18 18:30 Est GFR ( Amer) > 60.0 ml/min (>90) 11/23/18 18:30 Est GFR (Non-Af Amer) > 60.0 ml/min 11/23/18 18: BUN/Creatinine Ratio 45.0 11/23/18 18:30 Glucose 113 mg/dL (70-105) H 11/23/18 18:30 Calcium 8.9 mg/dL (8.6-10.3) 11/23/18:30 Total Bilirubin 0.2 mg/dL (0.3-1.0) L 11/23/18 18:30 AST 21 U/L (13-39) 11/23/18:30 ALT 22 U/L (7-52) 11/23/18: Alkaline Phosphatase 53 U/L (34-104) 11/23/18: Troponin I 0.02 ng/mL (0.01-0.05) 11/23/18 18:30 Total Protein 6.1 gm/dL (6.0-8.3) 11/23/18 18:30 Albumin 3.3 gm/dL (3.7-5.3) L 11/23/18:30 Globulin 2.8 gm/dL 11/23/18:30 Albumin/Globulin Ratio 1.2 (1.0-1.8) 11/23/18 18:30 Triglycerides 110 mg/dL (<150) 11/23/18 18:30 Cholesterol 180 mg/dL (<200) 11/23/18 18:30 LDL Cholesterol Direct 105 mg/dL (75-193) 11/23/18:30 HDL Cholesterol 49 mg/dL (23-92) 11/23/18 18: TSH 1.15 uIU/ml (0.34-5.60) 11/23/18 18:30 Salicylates < 25.0 mg/L (30.0-100.0) L 11/23/18: Acetaminophen < 10.0 ug/mL (10.0-30.0) L 11/23/18 18:30 Phenytoin < 2.5 ug/ml (10.0-20.0) L 11/25/18 08:08 Ethyl Alcohol < 10 mg/dL (0-10) 11/23/18 18:30 RPR NONREACTIVE (NONREACTIVE) 11/23/18 18:30 - Physical Exam Vitals and I&O: Vital Signs Temp 97.9 F 12/01/18 14:00 Pulse 77 12/01/18 14:00 Resp 18 12/01/18 14:00 BP 110/61 12/01/18 14:00 Pulse Ox 98 12/01/18 14:00 Intake & Output 12/01/18 12/01/18 12/02/18 06:59 18:59 06:59 Intake Total 240 Balance 240 Weight (lbs) 56.699 kg Intake: Oral 240 Other: # Voids 1 # Bowel Movements 0 Weight Source Bedscale Active Medications: Current Medications Acetaminophen (Tylenol) 650 mg PO Q4HR PRN PRN Reason: Mild Pain / Temp above 100 Stop: 01/22/19 21:02 Last Admin: 12/01/18 15:17 Dose: 650 mg Al Hydrox/Mg Hydrox/Simethicone (Maalox) 30 ml PO Q4H PRN PRN Reason: GI DISTRESS Stop: 01/22/19 21:02 Aspirin (Aspirin Chewable) 81 mg PO DAILY [facility] Stop: 01/24/19 08:59 Last Admin: 12/01/18 09:03 Dose: Not Given Atorvastatin Calcium (Lipitor) 10 mg PO HS [facility]; Protocol Stop: 01/23/19 20:59 Last Admin: 11/30/18 21:43 Dose: Not Given Carvedilol (Coreg) 3.125 mg PO BID [facility] Stop: 01/23/19 16:59 Last Admin: 12/01/18 09:03 Dose: Not Given Docusate Sodium (Colace) 100 mg PO BID [facility] Stop: 01/23/19 08:59 Last Admin: 12/01/18 16:49 Dose: Not Given Donepezil HCl (Aricept) 5 mg PO HS [facility] Stop: 01/23/19 20:59 Last Admin: 11/30/18 21:44 Dose: Not Given Fenofibrate (Tricor) 134 mg PO HS [facility] Stop: 01/23/19 20:59 Last Admin: 11/30/18 21:44 Dose: Not Given Levetiracetam (Keppra) 500 mg PO BID [facility] Stop: 01/23/19 08:59 Last Admin: 12/01/18 16:49 Dose: Not Given Magnesium Hydroxide (Milk Of Magnesia) 30 ml PO DAILY PRN PRN Reason: Constipation Stop: 01/23/19 10:19 Mirtazapine (Remeron) 7.5 mg PO HS [facility]; Protocol Stop: 01/25/19 20:59 Last Admin: 11/30/18 21:44 Dose: Not Given Phenytoin (Dilantin) 200 mg PO BID [facility] Stop: 01/23/19 08:59 Last Admin: 12/01/18 16:49 Dose: Not Given Sertraline HCl (Zoloft) 50 mg PO DAILY [facility]; Protocol Stop: 01/29/19 08:59 Last Admin: 12/01/18 09:04 Dose: Not Given Valproate Sodium (Depakene) 250 mg PO BID [facility]; Protocol Stop: 01/23/19 08:59 Last Admin: 12/01/18 16:50 Dose: Not Given General: demented HEENT: NC/AT, PERRLA, EOMI, anicteric sclerae, throat clear Neck: Supple, No JVD, No thyromegaly, +2 carotid pulse wo bruit, No LAD Lungs: CTAB Cardiovascular: RRR, Normal S1, Normal S2, without murmur Abdomen: soft, non-tender, non-distended Extremities: clear Neurological: no change - Procedures Procedures: Procedures Procedure Code Date GROUP PSYCHOTHERAPY 27514 01/22/16 GROUP PSYCHOTHERAPY GZHZZZZ 01/22/16 OTHER GROUP THERAPY 94.44 11/24/13 Internal Medicine Assmt/Plan - Assessment Assessment: 1.CVA. 2.HTN. 3.SEIZURE DISORDER. 4.DEMENTIA. - Plan Plan: CONTINUE ON CERRENT MEDICATION AND DIET. Nutritional Asmnt/Malnutr-PDOC - Dietary Evaluation Malnutrition Findings (Please click <Entered> for more info): Nutritional Asmnt/Malnutrition Start: 11/26/18 13: 59 Text: Status: Complete Freq: Protocol: Document 11/26/18 13:59 MEAGHAN (Rec: 11/26/18 14:16 MEAGHAN [id number]) Nutritional Asmnt/Malnutrition Patient General Information Nutritional Screening Moderate Risk Consult Diagnosis psychosis Pertinent Medical Hx/Surgical Hx HTN, CAD, CHF, CVA/TIA, dyslipidemia, ESRD, arthritis, dementia, bipolar Subjective Information Consult received for picky eater. Pt seen sitting up in bed at time of visit. ADDICTION TREATMENT COUNSELOR was feeding pt wtih lunch. Observed pt was eating well. Pt is selective mute, not communicated with RD at this time. Per EMR, PO intkae 50- 100% Current Diet Order/ Nutrition Support [facility] soft ground, [place] Pertinent Medications lipitor, colace, remeron Pertinent Labs 11/23 Cl 109, BUN 27, glucose 113, Alb 3.3 Nutritional Hx/Data Height 1.5 m Height (Calculated Centimeters) 149.9 Current Weight (lbs) 56.699 kg Weight (Calculated Kilograms) 56.7 Weight (Calculated Grams) 10386.0 [place] Body Weight 98 Body Mass Index (BMI) 25.2 Weight Status Overweight GI Symptoms GI Symptoms None Last BM 11/25 Difficult in: None Skin Integrity/Comment: discoloration on upper medial right thigh dryness [place] 17 Current %PO Fair (50-74%) Estimated Nutritional Goals BEE in Kcals: Using Current wt Calories/Kcals/Kg 25-30 Kcals Calculated 6655-7561 Protein: Using Current wt Protein g/k Protein Calculated 57 Fluid: ml 1425-1710ml (1ml/kcal) Nutritional Problem No current Nutrition Prob Problem N/A Intervention/Recommendation Comments 1. Continue with [facility] soft ground [place] diet as ordered. Nurse to assist pt with all meals. If PO intake < 50%, will consider adding nutrition supplements. 2. Monitor PO intake, wt, labs and skin integrity 3. F/U as moderate risk in 3-5 days Expected Outcomes/Goals Expected Outcomes/Goals 1. PO intake to meet at least 75% of nutritional needs. 2. Wt stability, skin to remain intact, labs to approach WNL.
[2018-12-01] MEDS: Fenofibrate, Micronized 134 mg Cap PO SCH (21:14)
[2018-12-01] MEDS: Atorvastatin Calcium 10 MG TAB PO SCH (21:14)
[2018-12-02] MEDS: Aspirin 81mg Chewable Tab PO SCH ×2 (09:08→09:44)
[2018-12-02] MEDS: Multivitamin w/ Minerals Tab PO SCH ×2 (09:08→09:44)
--- NOTE | 2018-12-02 13:14 | Discharge Summary ---
DATE OF DISCHARGE: 12/02/2018 IDENTIFYING INFORMATION: The patient is a 68-year-old female. CHIEF COMPLAINT: The patient was transferred from [place] because of agitation and aggressive behavior. The patient was a poor historian. She has always been like this. She is a well-known case to me as I have been seeing her for the past 2 years with multiple prior admissions to this facility. The patient failed to tell me why she is here. She was also demented, confused with long history of depression, crying episodes. COURSE IN THE HOSPITAL: The patient was sometimes refusing medication, but she will take it sporadically, but in general, she was not acting out. She was not acting aggressive. She is no longer having any crying spells. I have her on Remeron 7.5 mg at bedtime as well as Aricept was initiated 5 mg at bedtime. She will continue on fenofibrate, docusate, carvedilol, atorvastatin, aspirin and she was on Dilantin 200 mg twice a day and Zoloft 50 mg twice started on 09/02/2018, increased to 50 mg a day and Depakote 250 mg twice a day. She was doing well. She sometimes was refusing medications. ____ manageable. She can be managed in a nursing facility as I will be seeing her there, so she improved. She was not acting out aggressive. She was able to take her medication on time, we felt she could be discharged to a lesser level of care. FINAL DIAGNOSES: Major depression, recurrent, severe with no psychosis and dementia. MEDICAL DIAGNOSES: Hyperlipidemia, coronary artery disease, hypertension, cerebrovascular accident, seizure disorder. I will follow up with the patient at [place]. Dr. Kendrick will follow up with her and she will followup with . EXPECTED OUTCOME: Stable if the patient complies with the above. JOB# [id number]
--- NOTE | 2018-12-02 18:19 | Internal Medicine Prog Note ---
Internal Medicine Subjective - Subjective Service Date: 12/02/18 Patient seen and examined:: with staff Patient is:: awake, non-verbal, in bed, confused Per staff patient has:: no adverse event Internal Medicine Objective - Results Result Diagrams: 11/23/18 18:30 11/23/18 18:30 Recent Labs: Laboratory Last Values WBC 5.2 Th/cmm (4.8-10.8) 11/23/18 18:30 RBC 4.88 Mil/cmm (3.80-5.20) 11/23/18 18:30 Hgb 13.6 gm/dL (12-16) 11/23/18 18:30 Hct 41.0 % (41.0-60) 11/23/18 18:30 MCV 84.1 fl (81-100) 11/23/18 18:30 MCH 27.9 pg (27.0-31.0) 11/23/18 18:30 MCHC Differential 33.2 pg (28.0-36.0) 11/23/18 18:30 RDW 12.9 % (11.5-20.0) 11/23/18 18:30 Plt Count 191 Th/cmm (150-400) 11/23/18 18:30 MPV 8.8 fl 11/23/18 18:30 Neutrophils % 44.2 % (40.0-80.0) 11/23/18 18:30 Lymphocytes % 44.1 % (20.0-50.0) 11/23/18 18:30 Monocytes % 8.0 % (2.0-10.0) 11/23/18 18:30 Eosinophils % 2.8 % (0.0-5.0) 11/23/18 18:30 Basophils % 0.9 % (0.0-2.0) 11/23/18 18:30 Sodium 139 mEq/L (136-145) 11/23/18 18:30 Potassium 4.2 mEq/L (3.5-5.1) 11/23/18 18:30 Chloride 109 mEq/L (98-107) H 11/23/18 18:30 Carbon Dioxide 21.9 mEq/L (21.0-31.0) 11/23/18 18:30 Anion Gap 12.3 (7.0-16.0) 11/23/18 18:30 BUN 27 mg/dL (7-25) H 11/23/18 18:30 Creatinine 0.6 mg/dL (0.6-1.2) 11/23/18 18:30 Est GFR ( Amer) > 60.0 ml/min (>90) 11/23/18 18:30 Est GFR (Non-Af Amer) > 60.0 ml/min 11/23/18 18: BUN/Creatinine Ratio 45.0 11/23/18 18:30 Glucose 113 mg/dL (70-105) H 11/23/18 18:30 Calcium 8.9 mg/dL (8.6-10.3) 11/23/18:30 Total Bilirubin 0.2 mg/dL (0.3-1.0) L 11/23/18 18:30 AST 21 U/L (13-39) 11/23/18:30 ALT 22 U/L (7-52) 11/23/18: Alkaline Phosphatase 53 U/L (34-104) 11/23/18: Troponin I 0.02 ng/mL (0.01-0.05) 11/23/18 18:30 Total Protein 6.1 gm/dL (6.0-8.3) 11/23/18 18:30 Albumin 3.3 gm/dL (3.7-5.3) L 11/23/18:30 Globulin 2.8 gm/dL 11/23/18:30 Albumin/Globulin Ratio 1.2 (1.0-1.8) 11/23/18 18:30 Triglycerides 110 mg/dL (<150) 11/23/18 18:30 Cholesterol 180 mg/dL (<200) 11/23/18 18:30 LDL Cholesterol Direct 105 mg/dL (75-193) 11/23/18:30 HDL Cholesterol 49 mg/dL (23-92) 11/23/18 18: TSH 1.15 uIU/ml (0.34-5.60) 11/23/18 18:30 Salicylates < 25.0 mg/L (30.0-100.0) L 11/23/18: Acetaminophen < 10.0 ug/mL (10.0-30.0) L 11/23/18 18:30 Phenytoin < 2.5 ug/ml (10.0-20.0) L 11/25/18 08:08 Ethyl Alcohol < 10 mg/dL (0-10) 11/23/18 18:30 RPR NONREACTIVE (NONREACTIVE) 11/23/18 18:30 - Physical Exam Vitals and I&O: Vital Signs Temp 97.5 F 12/02/18 14:34 Pulse 85 12/02/18 14:34 Resp 18 12/02/18 14:34 BP 107/61 12/02/18 14:34 Pulse Ox 97 12/02/18 14:34 Intake & Output 12/01/18 12/02/18 12/02/18 18:59 06:59 18:59 Intake Total 120 960 Balance 120 960 Intake: Oral 120 960 Other: # Voids 3 3 # Bowel Movements 1 Active Medications: Current Medications Acetaminophen (Tylenol) 650 mg PO Q4HR PRN PRN Reason: Mild Pain / Temp above 100 Stop: 01/22/19 21:02 Last Admin: 12/01/18 15:17 Dose: 650 mg Al Hydrox/Mg Hydrox/Simethicone (Maalox) 30 ml PO Q4H PRN PRN Reason: GI DISTRESS Stop: 01/22/19 21:02 Aspirin (Aspirin Chewable) 81 mg PO DAILY [facility] Stop: 01/24/19 08:59 Last Admin: 12/02/18 09:44 Dose: Not Given Atorvastatin Calcium (Lipitor) 10 mg PO HS [facility]; Protocol Stop: 01/23/19 20:59 Last Admin: 12/01/18 21:14 Dose: Not Given Carvedilol (Coreg) 3.125 mg PO BID [facility] Stop: 01/23/19 16:59 Last Admin: 12/02/18 17:29 Dose: Not Given Docusate Sodium (Colace) 100 mg PO BID [facility] Stop: 01/23/19 08:59 Last Admin: 12/02/18 17:29 Dose: Not Given Donepezil HCl (Aricept) 5 mg PO HS [facility] Stop: 01/23/19 20:59 Last Admin: 12/01/18 21:14 Dose: Not Given Fenofibrate (Tricor) 134 mg PO HS [facility] Stop: 01/23/19 20:59 Last Admin: 12/01/18 21:14 Dose: Not Given Levetiracetam (Keppra) 500 mg PO BID [facility] Stop: 01/23/19 08:59 Last Admin: 12/02/18 17:29 Dose: Not Given Magnesium Hydroxide (Milk Of Magnesia) 30 ml PO DAILY PRN PRN Reason: Constipation Stop: 01/23/19 10:19 Mirtazapine (Remeron) 7.5 mg PO HS [facility]; Protocol Stop: 01/25/19 20:59 Last Admin: 12/01/18 21:14 Dose: Not Given Phenytoin (Dilantin) 200 mg PO BID [facility] Stop: 01/23/19 08:59 Last Admin: 12/02/18 17:29 Dose: Not Given Sertraline HCl (Zoloft) 50 mg PO DAILY [facility]; Protocol Stop: 01/29/19 08:59 Last Admin: 12/02/18 09:45 Dose: Not Given Valproate Sodium (Depakene) 250 mg PO BID [facility]; Protocol Stop: 01/23/19 08:59 Last Admin: 12/02/18 17:29 Dose: Not Given General: demented HEENT: NC/AT, PERRLA, EOMI, anicteric sclerae, throat clear Neck: Supple, No JVD, No thyromegaly, +2 carotid pulse wo bruit, No LAD Lungs: CTAB Cardiovascular: RRR, Normal S1, Normal S2, without murmur Abdomen: soft, non-tender, non-distended Extremities: clear Neurological: no change - Procedures Procedures: Procedures Procedure Code Date GROUP PSYCHOTHERAPY 45264 01/22/16 GROUP PSYCHOTHERAPY GZHZZZZ 01/22/16 OTHER GROUP THERAPY 94.44 11/24/13 Internal Medicine Assmt/Plan - Assessment Assessment: 1.CVA. 2.HTN. 3.SEIZURE DISORDER. 4.DEMENTIA. - Plan Plan: CONTINUE ON CERRENT MEDICATION AND DIET. Nutritional Asmnt/Malnutr-PDOC - Dietary Evaluation Malnutrition Findings (Please click <Entered> for more info): Nutritional Asmnt/Malnutrition Start: 11/26/18 13: 59 Text: Status: Complete Freq: Protocol: Document 11/26/18 13:59 LCENMANUELG (Rec: 11/26/18 14:16 IVANG [id number]) Nutritional Asmnt/Malnutrition Patient General Information Nutritional Screening Moderate Risk Consult Diagnosis psychosis Pertinent Medical Hx/Surgical Hx HTN, CAD, CHF, CVA/TIA, dyslipidemia, ESRD, arthritis, dementia, bipolar Subjective Information Consult received for picky eater. Pt seen sitting up in bed at time of visit. TMH TEACHER was feeding pt wtih lunch. Observed pt was eating well. Pt is selective mute, not communicated with RD at this time. Per EMR, PO intkae 50- 100% Current Diet Order/ Nutrition Support [facility] soft ground, [place] Pertinent Medications lipitor, colace, remeron Pertinent Labs 11/23 Cl 109, BUN 27, glucose 113, Alb 3.3 Nutritional Hx/Data Height 1.5 m Height (Calculated Centimeters) 149.9 Current Weight (lbs) 56.699 kg Weight (Calculated Kilograms) 56.7 Weight (Calculated Grams) 92110.0 [place] Body Weight 98 Body Mass Index (BMI) 25.2 Weight Status Overweight GI Symptoms GI Symptoms None Last BM 11/25 Difficult in: None Skin Integrity/Comment: discoloration on upper medial right thigh dryness [place] 17 Current %PO Fair (50-74%) Estimated Nutritional Goals BEE in Kcals: Using Current wt Calories/Kcals/Kg 25-30 Kcals Calculated 5654-7520 Protein: Using Current wt Protein g/k Protein Calculated 57 Fluid: ml 1425-1710ml (1ml/kcal) Nutritional Problem No current Nutrition Prob Problem N/A Intervention/Recommendation Comments 1. Continue with [facility] soft ground [place] diet as ordered. Nurse to assist pt with all meals. If PO intake < 50%, will consider adding nutrition supplements. 2. Monitor PO intake, wt, labs and skin integrity 3. F/U as moderate risk in 3-5 days Expected Outcomes/Goals Expected Outcomes/Goals 1. PO intake to meet at least 75% of nutritional needs. 2. Wt stability, skin to remain intact, labs to approach WNL.
== END 2018-12-02 18:45 | DRG 885 ==
LOC: ER 17:24 → GERO2 20:00 → GERO 11-25 21:19
PROVIDERS: ADMIT Psychiatry & Neurology Psychiatry; ATTEND Psychiatry & Neurology Psychiatry
DX: F33.2 Major depressive disorder, recurrent severe without psychotic features (principal); N18.9 Chronic kidney disease, unspecified; I13.0 Hypertensive heart and chronic kidney disease with heart failure and stage 1 through stage 4 chronic kidney disease, or unspecified chronic kidney disease; G40.909 Epilepsy, unspecified, not intractable, without status epilepticus; F03.90 Unspecified dementia, unspecified severity, without behavioral disturbance, psychotic disturbance, mood disturbance, and anxiety; I50.9 Heart failure, unspecified; I25.10 Atherosclerotic heart disease of native coronary artery without angina pectoris; E78.5 Hyperlipidemia, unspecified; M19.90 Unspecified osteoarthritis, unspecified site; Z82.49 Family history of ischemic heart disease and other diseases of the circulatory system; Z88.0 Allergy status to penicillin; Z86.73 Personal history of transient ischemic attack (TIA), and cerebral infarction without residual deficits; Z88.5 Allergy status to narcotic agent; Z88.8 Allergy status to other drugs, medicaments and biological substances
CPT/HCPCS: 36415-UA; 80053-TC; 80061-TC; 80185-TC; 80320-TC; 80329-TC; 83036-90; 84443-TC; 84484-TC; 85025-TC; 86592-TC; 93005; Z7610